=== PATIENT | male | born 1940 | race Caucasian/White ===

== ENCOUNTER → 2016-12-31 | Outpatient (CLI) | payer BC ==
[~2016-12-31] MED LIST: ADVIN25050 INH; AGG PO; ATOR-22 PO; AVDUNK; DSY50 PO; NTRGSL/4 UT
--- NOTE | 2016-12-31 11:46 | DIAGNOSTIC IMAGING REPORT ---
MRI LUMBAR SPINE W/O CONTRAST CLINICAL HISTORY: Low back pain with left leg weakness and numbness. TECHNIQUE: Sagittal and axial T1, T2 and STIR images were obtained. COMPARISON STUDY: No previous studies for comparison. OBSERVATIONS: The vertebral bodies and posterior elements appear intact. There is no abnormal bony signal present to suggest a marrow replacement process. L1-2: No disc protrusions or extrusions. No evidence of spinal canal or neural foraminal compromise. L2-3: There is a mild circumferential disc bulge. There is mild spinal stenosis. There is no significant foraminal narrowing. L3-4: There is a minimal circumferential disc bulge. There is a slight triangle configuration of the thecal sac but significant spinal stenosis. The present. There is no evidence of foraminal narrowing. L4-5: There is a moderate extruded left-sided disc herniation. This abuts and likely impinges on the left L5 nerve root. There is deformity of the left anterior aspect of the thecal sac. L5-S1: There is a small central disc protrusion. There is no significant thecal sac deformity. There is no significant spinal or foraminal stenosis. The conus medullaris and cauda equina appear normal. There is an infrarenal abdominal aortic aneurysm measuring 32 mm. IMPRESSION: 1. Moderate left-sided disc extrusion at the L4-5 level with deformity of the left anterior aspect the thecal sac, and probable impingement on the left L5 nerve root 2. Mild circumferential disc bulge and mild spinal stenosis at the L2-3 level 3. Small central disc protrusion at the L5-S1 level, but no evidence of associated thecal sac deformity 4. 32 mm infrarenal abdominal aortic aneurysm. Electronically signed by: Toi Forte M.D. 12/31/2016 11:44 AM Dictated Date/Time: 12/31/2016 11:37 AM
== END | disposition home or self-care (01) ==
LOC: C.MRI 10:46
PROVIDERS: ATTEND Family Medicine
DX: M21.40 Flat foot [pes planus] (acquired), unspecified foot (principal); M79.1 Myalgia; M51.16 Intervertebral disc disorders with radiculopathy, lumbar region; I71.4 Abdominal aortic aneurysm, without rupture

== ENCOUNTER → 2018-01-14 | Outpatient (CLI) | payer BC ==
--- NOTE | 2018-01-14 13:23 | DIAGNOSTIC IMAGING REPORT ---
R EXTREMITY NONVASCULAR LIMITED CLINICAL HISTORY: 77 years-old Male presenting with RT AXILLARY SWOLLEN LYMPH NODE, history of open wound on right forearm. TECHNIQUE: Real-time grayscale and limited color Doppler ultrasound imaging of the right axilla was performed for a focused evaluation at the site of clinical concern. Color Doppler ultrasound imaging was also performed. COMPARISON: None. FINDINGS: At the site of clinical concern in the right axilla a 4.3 x 4.9 x 1.7 cm isoechoic ovoid mass with a fatty hilum is most consistent with a lymph node. There is symmetric diffuse cortical thickening. The fatty hilum is maintained. The margins of the node are well-defined. No hyperemia. No associated fluid or inflammatory change. IMPRESSION: 1. Enlarged right axillary lymph node is most likely reactive. A follow-up ultrasound in 4-6 weeks is recommended to confirm stability or resolution. Electronically signed by: Mynor Olea M.D. 01/14/2018 1:22 PM Dictated Date/Time: 01/14/2018 1:20 PM
== END | disposition home or self-care (01) ==
LOC: C.ULTR 12:40
PROVIDERS: ATTEND Student in an Organized Health Care Education/Training Program
DX: R59.0 Localized enlarged lymph nodes (principal)

== ENCOUNTER 2022-08-10 20:45 | Observation (INO) ==
[2022-08-10] MEDS ORDERED: ASPIRIN CHEW 324 MG PO STA (20:57)
[2022-08-10] MEDS ORDERED: SODIUM CHLORIDE 0.9% 500 ML IV STA (20:57)
[2022-08-10] MEDS: NITROGLYCERIN SL 0.4 MG/TAB TAB SL PRN ×3 (21:04→21:25)
[2022-08-10 21:28] LABS: Partial Thromboplastin Ratio 0.8; Partial Thromboplastin Time 22.5 Seconds (21.0-31.0); Prothrombin Time 11.1 Seconds (9.0-12.0)
[2022-08-10 21:35] LABS: D Dimer 2250 ug/L FEU (0-500)
[2022-08-10 21:37] LABS: BUN Creatinine Ratio 25.7 (10-20); Calcium 9.7 mg/dl (8.5-10.1); Creatinine Clr Calc Pharmacy 60.4 ml/min; Est GFR (African American) 76.8 ml/min; Est GFR (Non-African American) 66.3 ml/min; Potassium 3.9 mmol/L (3.5-5.1)
[2022-08-10 21:40] LABS: Troponin I High Sensitivity 13.6 pg/ml (0-20)
--- NOTE | 2022-08-10 21:42 | Emergency Department Note ---
History of Present Illness General Chief Complaint: Chest Pain Stated Complaint: CHEST PAINS, BACK PAIN, SOB, INDISGETION Time Seen by Provider: 08/10/22 20:52 History of Present Illness Provider Complaint: chest pain Time: 16:30 Duration: constant Onset: during rest Pain Location: substernal, left chest and right chest Pain Radiation: none Maximum Pain Intensity: 8 Current Pain Intensity: 8 Quality: + aching and + heaviness Relieved By: + nothing Exacerbated By: + nothing Context: + recent travel; no recent illness, no recent surgery or no trauma/injury Associated symptoms: no nausea, no diaphoresis, no dyspnea, no syncope, no palpitations, no fever or no cough Treatments prior to arrival: none Home Medications Medication Instructions Recorded Confirmed Type aspirin 25 mg-dipyridamole 200 mg 1 cap PO BID 02/16/22 07/22/22 History capsule,ext.release 12 hr multiphase atorvastatin 10 mg tablet 10 mg PO PM 02/16/22 07/22/22 History cholecalciferol (vitamin D3) 25 25 mcg PO PM 02/16/22 07/22/22 History mcg (1,000 unit) tablet (Vitamin D3) cyanocobalamin (vitamin B-12) 1,000 mcg PO PM 02/16/22 07/22/22 History 1,000 mcg tablet (Vitamin B-12) dutasteride 0.5 mg capsule 0.5 mg PO PM 02/16/22 07/22/22 History empagliflozin 25 mg tablet 25 mg PO QAM 02/16/22 07/22/22 History (Jardiance) losartan 50 mg tablet 25 mg PO BID 02/16/22 07/22/22 History sitagliptin 50 mg-metformin ER 1 tab PO BID 02/16/22 07/22/22 History 1,000 mg tablet,extended release 24h mp (Janumet XR) trazodone 50 mg tablet 100 mg PO HS 02/16/22 07/22/22 History ibuprofen 200 mg tablet 200 - 600 mg PO Q6H PRN Pain 03/28/22 07/22/22 History acetaminophen 500 mg tablet 1,000 mg PO Q6H PRN Pain 04/02/22 07/22/22 History ciprofloxacin HCl 500 mg tablet 500 mg PO BID #6 tabs 04/02/22 07/22/22 Rx (Cipro) tamsulosin 0.4 mg capsule 0.4 mg PO DAILY #30 caps 05/07/22 07/22/22 Rx Allergies Allergy/AdvReac Type Severity Reaction Status Date / Time grass pollen Allergy runny, Verified 07/22/22 11:16 watery eyes mold Allergy runny, Verified 07/22/22 11:16 watery eyes ragweed pollen Allergy runny, Verified 07/22/22 11:16 watery eyes semaglutide [From Rybelsus] Allergy diarrhea, Verified 07/22/22 11:16 GERD Past Med/Surg History Medical History Asthma pt denies COPD (chronic obstructive pulmonary disease) pt denies Diabetes mellitus, type 2 Diverticulosis Family hx of colon cancer Family hx of prostate cancer History of adenomatous polyp of colon History of TIA (transient ischemic attack) 20 yrs ago > no residual effects > Aggrenox Hyperlipidemia Hypertension Polycythemia Right tennis elbow Tubular adenoma Surgical History H/O vasectomy History of cataract surgery bilat History of colonoscopy History of tooth extraction Family History Daughter Asthma Mother Bone cancer Breast cancer Father COPD (chronic obstructive pulmonary disease) Grandmother (Maternal) Colon cancer Grandfather (Maternal) Colon cancer Uncle Colon cancer Brother Pheochromocytoma Colonic polyp Prostate cancer Sleep apnea Son Sleep apnea Social History Smoking Status: Never smoker Second Hand Exposure: No; Hx Alcohol Use: No Hx Substance Use: No Preferred Language: [place] Leonean Communication Ability: Effective Egg Crater Required: No Beliefs That Will Affect Care: None Current Living Situation: Alone Feels Safe at Home: Yes Assistive Devices: Denture - Upper and Glasses Review of Systems A total of 10 systems reviewed and were otherwise negative Physical Exam Vital Signs Vital Signs - 24 hr 08/10/22 20:46 08/10/22 21:09 08/10/22 21:09 Temperature 36.8 C Temperature Source Temporal Artery Scan Pulse Rate 120 H 122 H Pulse Rate [Apical] 122 H Pulse Rhythm Regular Pulse Strength Normal Respiratory Rate 20 19 Respiratory Effort / Characteristics Non-Labored Spontaneous Respiratory Depth Normal Blood Pressure 139/69 Blood Pressure [Left Arm] 144/76 H Blood Pressure Mean 92 Blood Pressure Mean [Left Arm] 98 Blood Pressure Position Sitting Pulse Oximetry 95 96 94 Oxygen Delivery Method Room Air Room Air Room Air Sepsis Recent Fever Within 48 Hours No Sepsis New/Unexplained Change in Mental Status N/A Sepsis Action Taken by Nursing No Action Required 08/10/22 21:10 08/10/22 21:18 08/10/22 21:26 Temperature Temperature Source Pulse Rate Pulse Rate [Apical] 120 H 120 H Pulse Rhythm Pulse Strength Respiratory Rate 17 23 Respiratory Effort / Characteristics Respiratory Depth Blood Pressure Blood Pressure [Left Arm] 128/74 145/71 H Blood Pressure Mean Blood Pressure Mean [Left Arm] 92 95 Blood Pressure Position Pulse Oximetry 94 94 93 Oxygen Delivery Method Room Air Room Air Room Air Sepsis Recent Fever Within 48 Hours Sepsis New/Unexplained Change in Mental Status Sepsis Action Taken by Nursing 08/10/22 21:33 08/10/22 22:14 Temperature Temperature Source Pulse Rate Pulse Rate [Apical] 114 H 110 H Pulse Rhythm Pulse Strength Respiratory Rate 21 19 Respiratory Effort / Characteristics Respiratory Depth Blood Pressure Blood Pressure [Left Arm] 128/68 137/66 Blood Pressure Mean Blood Pressure Mean [Left Arm] 88 89 Blood Pressure Position Pulse Oximetry 93 92 Oxygen Delivery Method Room Air Room Air Sepsis Recent Fever Within 48 Hours Sepsis New/Unexplained Change in Mental Status Sepsis Action Taken by Nursing Physical Exam GENERAL: He is oriented to person, place, and time. He appears well-developed and well-nourished. He does not appear distressed. HENT: Exam performed. - Head: Normocephalic and atraumatic. - Right Ear: External ear normal. No mastoid tenderness. - Left Ear: External ear normal. No mastoid tenderness. - Mouth/Throat: The oropharynx is clear and moist. No trismus in the jaw. No dental abscesses or uvula swelling. No oropharyngeal exudate or tonsillar abscesses. EYES: Conjunctivae and EOM are normal. Pupils are equal, round, and reactive to light. Right eye exhibits no discharge. Left eye exhibits no discharge. No scleral icterus. NECK: Normal range of motion. Neck supple. No JVD present. No spinous process tenderness present. No carotid bruit present. No rigidity. No tracheal deviation and normal range of motion present. No Brudzinski's sign and no Kernig's sign noted. CV: Normal rate, regular rhythm, normal heart sounds and intact distal pulses. There is no peripheral edema. Palpable radial pulses bue. PULM/CHEST: Effort normal and breath sounds normal. No respiratory distress. No stridor. He has no wheezes. He has no rales. - Chest Wall: He exhibits no tenderness. ABD: The abdomen is soft. Bowel sounds are normal. He has no distension. No mass is present. There is no tenderness. There is no rebound, no guarding, no Alves's sign and no tenderness at McBurney's point. Rovsig negative. MUSC/SKEL: Normal range of motion. There is no peripheral edema, tenderness or deformity. LYMPH: No cervical adenopathy. NEURO: He is alert and oriented to person, place, and time. He has normal strength. No cranial nerve deficit or sensory deficit. Coordination and gait normal. GCS eye subscore is 4. GCS verbal subscore is 5. GCS motor subscore is 6. Cerebellar tests wnl. SKIN: Skin is warm and dry. He is not diaphoretic. PSYCH: He has a normal mood and affect. Behavior is normal. Judgment and thought content normal. Course Course 2051: The patient was evaluated in room B2. A complete history and physical exam was performed Cardiac monitoring: An order was placed for continuous cardiac monitoring. The monitor shows a rate of 120 with sinus tachycardia rhythm 2115: Vital signs stable. Patient's chest pain improved with 1 sublingual nitro from 8/10 to 5/10. EKG does show new ST depressions leads I to V4 through V6. There is also some mild ST elevation in lead aVR. Her EKG negative. Repeat EKG was stable with no dynamic changes. Discussed the case with Dr. Cai reviewed all 3 EKGs. He stated to control the pain since pain and see what his cardiac enzymes are. He states that if the patient's pain is unable to be controlled or if his cardiac enzymes come back very high he can perform a catheterization tonight otherwise the patient can be evaluated for catheterization in the morning. 2231: Vital signs stable. Patient reports his pain is under control after receiving sublingual nitroglycerin and Tylenol for his back pain. Patient's troponin negative. Patient's D-dimer was elevated CTA of the chest negative for PE or infiltrate. [facility] and resident notified. Administered Medications Nitroglycerin (Nitroglycerin Sl 0.4 Mg/Tab Tab) 0.4 mg SL UD PRN PRN Reason: Chest Pain Stop: 09/09/22 20:56 Last Admin: 08/10/22 21:25 Dose: 0.4 mg Documented By: Admin: 08/10/22 21:13 Dose: 0.4 mg Documented By: Admin: 08/10/22 21:04 Dose: 0.4 mg Documented By: SARAI Discontinued Medications Acetaminophen (Acetaminophen 500 Mg Tab) 1,000 mg PO NOW STA Stop: 08/10/22 22:04 Last Admin: 08/10/22 22:07 Dose: 1,000 mg Documented By: SHANNAN Aspirin (Aspirin Chew 324 Mg) 324 mg PO NOW STA Stop: 08/10/22 20:58 Last Admin: 08/10/22 21:04 Dose: 324 mg Documented By: SARAI Sodium Chloride (Nss) 500 mls @ 999 mls/hr IV .Q31M STA Stop: 08/10/22 21:27 Last Infusion: 08/10/22 21:36 Dose: 0 mls/hr Documented By: Admin: 08/10/22 21:04 Dose: 999 mls/hr Documented By: SARAI Ioversol (Optiray 300 500ml) 115 ml IV ONCE ONE Stop: 08/10/22 21:48 Last Admin: 08/10/22 21:49 Dose: 115 ml Documented By: JOSEPHINE Medical Decision Making Laboratory Data Result diagrams: 08/10/22 21:00 08/10/22 21:00 Labs: Lab Results 08/10/22 08/10/22 08/10/22 Range/Units 21:00 21:00 21:00 WBC 10.22 (4.8-10.8) K/ul RBC 4.92 (4.63-6.08) M/uL Hgb 15.6 (14.0-18.0) g/dl Hct 43.0 (40.1-51.0) % MCV 87.4 (80.0-100.0) fL MCH 31.7 (25.0-34.0) pg MCHC 36.3 H (32.0-36.0) g/dL RDW Std Deviation 40.3 (36.4-46.3) fL RDW Coeff of Damari 12.7 (11.5-14.5) % Plt Count 221 (130-400) K/uL MPV 9.4 (9.4-12.4) fL PT 11.1 (9.0-12.0) Seconds INR 1.0 (0.9-1.1) APTT 22.5 (21.0-31.0) Seconds PTT Ratio 0.8 D-Dimer 2250 H* (0-500) ug/L FEU Sodium 139 (136-145) mmol/L Potassium 3.9 (3.5-5.1) mmol/L Chloride 106 (98-107) mmol/L Carbon Dioxide 23 (21-32) mmol/L Anion Gap 10 (3-11) BUN 27 H (6-23) mg/dl Creatinine 1.05 (0.6-1.4) mg/dl Est Cr Clr Drug Dosing 60.4 ml/min Est GFR ( Amer) 76.8 ml/min Est GFR (Non-Af Amer) 66.3 ml/min BUN/Creatinine Ratio 25.7 H (10-20) Glucose 297 H (70-99(Fasting)) mg/dl Calcium 9.7 (8.5-10.1) mg/dl Troponin I High Sens 13.6 (0-20) pg/ml Lipase 56 (11-82) U/L Imaging Data CT scan - chest: Radiologist's impression: CT ANGIOGRAM OF THE CHEST CLINICAL HISTORY: Atypical chest pain. Thoracic back pain. COMPARISON STUDY: Chest x-ray dated 08/10/2022. TECHNIQUE: Following the IV administration of 115 cc of Optiray 300, CT angiogram of the chest was performed from the upper abdomen to the thoracic inlet utilizing the pulmonary embolus protocol. Images are reviewed in the axial, sagittal, and coronal planes. 3-D MIPS images are created and assessed. IV contrast was administered without complication. A dose lowering technique was utilized adhering to the principles of ALARA. CT DOSE: 969.19 mGy.cm FINDINGS: Thyroid: Imaged portions of the thyroid gland are normal in size and attenuation. Thoracic aorta: There is atherosclerotic calcification of the thoracic aorta, which is normal in caliber and demonstrates standard 3-vessel arch anatomy. No dissection is seen. Pulmonary vasculature: The pulmonary trunk is dilated, measuring 3.9 cm in di ameter. This suggests pulmonary artery hypertension. There are no filling defects identified in main, lobar, or segmental pulmonary branches to suggest pulmonary embolus. Heart: The heart is top normal in size and without pericardial effusion. There are coronary artery calcifications. Lungs and pleural spaces: Evaluation of the lung parenchyma is modestly degraded by motion artifact. No airspace consolidation or pleural effusion is identified. Scattered calcified granulomas are noted. Scarring/atelectasis is seen at the lung bases. The trachea and central airways are clear. Mediastinum: There is no mediastinal lymphadenopathy. Marisa: Clear. Axillae: There is no axillary lymphadenopathy. Upper abdomen: Partially visualized upper abdominal viscera is within normal limits. Skeletal structures: The skeletal structures are osteopenic. Degenerative change and hyperkyphosis is noted in the thoracic spine. No lytic or blastic bony lesions are seen. IMPRESSION: 1. There is no evidence of pulmonary embolus in the main, lobar, or segmental pulmonary arteries. 2. There is no airspace consolidation or pleural effusion. 3. Additional findings as above. ACT 112: Negative or not required by law. Electronically signed by: Cristo Velasco M.D. 08/10/2022 10:06 PM Dictated:08/10/222158 Transcribed: 08/10/222158 Chest x-ray: Radiologist's impression: SINGLE VIEW CHEST CLINICAL HISTORY: Atypical chest pain. FINDINGS: An AP, portable, upright chest radiograph is compared to study dated 03/14/2022. The examination is degraded by portable technique and apical lordotic positioning. The heart is mildly enlarged noting atherosclerotic calcification of the thoracic aorta. The pulmonary vascularity is noncongested. Chronic interstitial thickening is similar to previous. Scarring/atelectasis is noted the lung bases. The lungs and pleural spaces are otherwise clear. There are scattered calcified granulomas. No pneumothorax is seen. The skeletal structures are osteopenic. The bony thorax is grossly intact. IMPRESSION: Cardiomegaly with no acute cardiopulmonary abnormality. ACT 112: Negative or not required by law. Electronically signed by: Cristo Velasco M.D. 08/10/2022 9:48 PM Dictated:08/10/222146 Transcribed: 08/10/222146 [facility] Narrative 2051: The patient was evaluated in room B2. A complete history and physical exam was performed Cardiac monitoring: An order was placed for continuous cardiac monitoring. The monitor shows a rate of 120 with sinus tachycardia rhythm 2115: Vital signs stable. Patient's chest pain improved with 1 sublingual nitro from 06/19 to 03/19. EKG does show new ST depressions leads I to V4 through V6. There is also some mild ST elevation in lead aVR. Her EKG negative. Repeat EKG was stable with no dynamic changes. Discussed the case with Dr. Cai reviewed all 3 EKGs. He stated to control the pain since pain and see what his cardiac enzymes are. He states that if the patient's pain is unable to be controlled or if his cardiac enzymes come back very high he can perform a catheterization tonight otherwise the patient can be evaluated for catheterization in the morning. 2231: Vital signs stable. Patient reports his pain is under control after receiving sublingual nitroglycerin and Tylenol for his back pain. Patient's troponin negative. Patient's D-dimer was elevated CTA of the chest negative for PE or infiltrate. Patient will be admitted to [facility] hospitalist te jinny Garcia's team and resident notified. Impression & Plan Chest pain Discharge Plan Visit Data Chief Complaint: Chest Pain Stated Complaint: CHEST PAINS, BACK PAIN, SOB, INDISGETION ED Provider: Octavio Street Discharge Problem: Chest pain Patient Disposition: Being Evaluated by Hospitalist Forms Stand Alone Forms: My [facility] Prescriptions Prescriptions: No Action tamsulosin 0.4 mg capsule 0.4 mg PO DAILY Qty: 30 5RF aspirin-dipyridamole 25-200 mg capsule, ER multiphase 12 hr 1 cap PO BID trazodone 50 mg tablet 100 mg PO HS atorvastatin 10 mg tablet 10 mg PO PM dutasteride 0.5 mg capsule 0.5 mg PO PM Janumet XR 50-1,000 mg tablet, ER multiphase 24 hr 1 tab PO BID Jardiance 25 mg tablet 25 mg PO QAM losartan 50 mg tablet 25 mg PO BID cyanocobalamin (vitamin B-12) [Vitamin B-12] 1,000 mcg Tablet 1,000 mcg PO PM cholecalciferol (vitamin D3) [Vitamin D3] 25 mcg (1,000 unit) Tablet 25 mcg PO PM ibuprofen 200 mg Tablet 200 - 600 mg PO Q6H PRN (Reason: Pain) acetaminophen 500 mg Tablet 1,000 mg PO Q6H PRN (Reason: Pain) ciprofloxacin HCl [Cipro] 500 mg tablet 500 mg PO BID Qty: 6 0RF Referrals Referrals: James Martinez MD [Primary Care Provider] -
[2022-08-10] MEDS ORDERED: OPTIRAY 300 500mL IV ONE (21:47)
--- NOTE | 2022-08-10 21:49 | XRay Report ---
SINGLE VIEW CHEST CLINICAL HISTORY: Atypical chest pain. FINDINGS: An AP, portable, upright chest radiograph is compared to study dated 03/14/2022. The examinat ion is degraded by portable technique and apical lordotic positioning. The heart is mildly enlarged n oting atherosclerotic calcification of the thoracic aorta. The pulmonary vascularity is noncongested. Chronic interstitial thickening is similar to previous. Scarring/atelectasis is noted the lung bases . The lungs and pleural spaces are otherwise clear. There are scattered calcified granulomas. No pneu mothorax is seen. The skeletal structures are osteopenic. The bony thorax is grossly intact. IMPRESSION: Cardiomegaly with no acute cardiopulmonary abnormality. ACT 112: Negative or not required by law. Electronically signed by: Cristo Velasco M.D. 08/10/2022 9:48 PM
[2022-08-10 22:03] LABS: Hemoglobin 15.6 g/dl (14.0-18.0); Mean Corpuscular Hemoglobin 31.7 pg (25.0-34.0); Mean Corpuscular Hgb Conc 36.3 g/dL (32.0-36.0); Mean Corpuscular Volume 87.4 fL (80.0-100.0); Mean Platelet Volume 9.4 fL (9.4-12.4); Platelet Count 221 K/uL (130-400); RDW Coefficient of Variation 12.7 % (11.5-14.5); RDW Standard Deviation 40.3 fL (36.4-46.3); Red Blood Count 4.92 M/uL (4.63-6.08); White Blood Count 10.22 K/ul (4.8-10.8)
[2022-08-10] MEDS ORDERED: ACETAMINOPHEN 500 MG TAB PO STA (22:03)
--- NOTE | 2022-08-10 22:08 | CT Scan Report ---
CT ANGIOGRAM OF THE CHEST CLINICAL HISTORY: Atypical chest pain. Thoracic back pain. COMPARISON STUDY: Chest x-ray dated 08/10/2022. TECHNIQUE: Following the IV administration of 115 cc of Optiray 300, CT angiogram of the chest was pe rformed from the upper abdomen to the thoracic inlet utilizing the pulmonary embolus protocol. Images are reviewed in the axial, sagittal, and coronal planes. 3-D MIPS images are created and assessed. I V contrast was administered without complication. A dose lowering technique was utilized adhering to the principles of ALARA. CT DOSE: 969.19 mGy.cm FINDINGS: Thyroid: Imaged portions of the thyroid gland are normal in size and attenuation. Thoracic aorta: There is atherosclerotic calcification of the thoracic aorta, which is normal in roberth marylu and demonstrates standard 3-vessel arch anatomy. No dissection is seen. Pulmonary vasculature: The pulmonary trunk is dilated, measuring 3.9 cm in diameter. This suggests pu lmonary artery hypertension. There are no filling defects identified in main, lobar, or segmental pul monary branches to suggest pulmonary embolus. Heart: The heart is top normal in size and without pericardial effusion. There are coronary artery ca lcifications. Lungs and pleural spaces: Evaluation of the lung parenchyma is modestly degraded by motion artifact. No airspace consolidation or pleural effusion is identified. Scattered calcified granulomas are noted . Scarring/atelectasis is seen at the lung bases. The trachea and central airways are clear. Mediastinum: There is no mediastinal lymphadenopathy. Marisa: Clear. Axillae: There is no axillary lymphadenopathy. Upper abdomen: Partially visualized upper abdominal viscera is within normal limits. Skeletal structures: The skeletal structures are osteopenic. Degenerative change and hyperkyphosis is noted in the thoracic spine. No lytic or blastic bony lesions are seen. IMPRESSION: 1. There is no evidence of pulmonary embolus in the main, lobar, or segmental pulmonary arteries. 2. There is no airspace consolidation or pleural effusion. 3. Additional findings as above. ACT 112: Negative or not required by law. Electronically signed by: Cristo Velasco M.D. 08/10/2022 10:06 PM
[2022-08-10 22:49] LABS: Basophils # (auto) 0.02 K/uL (0-0.2); Basophils % (auto) 0.2 %; Eosinophils # (auto) 0.01 K/uL (0-0.50); Eosinophils % (auto) 0.1 %; Immature Granulocytes # (auto) 0.03 K/uL (0.00-0.02); Immature Granulocytes % (auto) 0.3 %; Lymphocytes # (auto) 0.44 K/uL (1.2-3.4); Lymphocytes % (auto) 4.3 %; Monocytes # (auto) 0.21 K/uL (0.24-0.82); Monocytes % (auto) 2.1 %; Neutrophils # (auto) 9.51 K/uL (1.4-6.5)
--- NOTE | 2022-08-10 23:41 | History & Physical Report ---
Date of Service August 10, 2022 Assessment & Plan (1) ACS (acute coronary syndrome): Plan: Patient is an 82 yo male with PMHx of transitional cell carcinoma, asthma, HLD, and HTN admitted to [facility] on 08/10/22 with unstable angina. Unstable angina - Admit to tele - Start low-dose heparin gtt w/ bolus - Increase statin to high-intensity with atorvastatin 40mg (was on 10mg atorvastatin daily at home) - IV lopressor 5mg given w/ benefit, will start metoprolol succinate 12.5mg - Continue home losartan - Continue home Aggrenox 200mg/25mg for now - IVF with NSS at 125 cc/hr - Check echo - EKG as indicated for c/o chest pain - Zofran 4mg IV q6h prn - Nitroglycerin prn - Tylenol prn - Trend troponin - NPO in preparation for possible procedure - Cardiology consulted Hyperlipidemia - Statin increased as noted above - Fasting lipid profile ordered for tomorrow AM HTN - Continue home ARB for now DM - Home Janumen and Jardiance held on admission - Check A1c - Glycemic consult ordered Vit B12 Deficiency, history of - Continue home Vit B12 1,000 mcg po qpm FENGI: NPO, IVF NSS at 125 cc/hr DVT ppx: Heparin gtt Dispo: Admit to tele Code status: FULL CODE (2) Chest pain: (3) Diabetes mellitus with renal complications: (4) Mixed hyperlipidemia: (5) Vitamin B12 deficiency: History of Present Illness Chief Complaint: chest pain Primary Care Provider: James Martinez MD Mr. Fink is an 82 yo male with PMHx of transitional cell carcinoma, asthma, DM, and HLD who presented to the ER today with chest pain and back pain. Pain started at 1630 while he was sitting at home watching the [employer], [employer] football game. Pain was rated at an 8/10 and described as a heaviness/achiness. Pain is exacerbated with deep inspiration; it is improved with rest. He also had nausea, which has since resolved; there was no associated emesis. There is no associated SOB. Patient denies hx of similar episodes. In the ED, patient states that CP has improved to a 3/10 and back pain has improved to a 6/10 with nitro and ASA. Labs show no leukocytosis, no anemia. INR 1.0. D-dimer elevated at 2250. E lectrolytes are wnl. Cr is at baseline of 1.05. Initial HS-troponin negative. COVID negative. CXR with cardiomegaly but no acute cardiopulmonary abnormalities. Chest CTA w/o evidence of PE. EKG does reveal significant ST changes with both ST depressions and elevations. Interventional cardiology was consulted; heart alert was NOT activated. Patient will be admitted for continued monitoring and cardiology evaluation. Update on admission: patient re-evaluated and states that he is now pain free. Will continue to monitor. Allergies Allergy/AdvReac Type Severity Reaction Status Date / Time grass pollen Allergy runny, Verified 08/11/22 00:12 watery eyes mold Allergy runny, Verified 08/11/22 00:12 watery eyes ragweed pollen Allergy runny, Verified 08/11/22 00:12 watery eyes semaglutide [From Rybelsus] Allergy diarrhea, Verified 08/11/22 00:12 GERD Home Medications Medication Instructions Recorded Confirmed Type aspirin 25 mg-dipyridamole 200 mg 1 cap PO BID 02/16/22 08/11/22 History capsule,ext.release 12 hr multiphase atorvastatin 10 mg tablet 10 mg PO PM 02/16/22 08/11/22 History cholecalciferol (vitamin D3) 25 50 mcg PO PM 02/16/22 08/11/22 History mcg (1,000 unit) tablet (Vitamin D3) cyanocobalamin (vitamin B-12) 2,000 mcg PO PM 02/16/22 08/11/22 History 1,000 mcg tablet (Vitamin B-12) dutasteride 0.5 mg capsule 0.5 mg PO PM 02/16/22 08/11/22 History empagliflozin 25 mg tablet 25 mg PO QAM 02/16/22 08/11/22 History (Jardiance) losartan 50 mg tablet 25 mg PO BID 02/16/22 08/11/22 History sitagliptin 50 mg-metformin ER 1 tab PO BID 02/16/22 08/11/22 History 1,000 mg tablet,extended release 24h mp (Janumet XR) trazodone 50 mg tablet 100 mg PO HS 02/16/22 08/11/22 History ibuprofen 200 mg tablet 200 - 600 mg PO Q6H PRN Pain 03/28/22 08/11/22 History tamsulosin 0.4 mg capsule 0.4 mg PO DAILY #30 caps 05/07/22 08/11/22 Rx fexofenadine 180 mg tablet 180 mg PO DAILY 08/11/22 08/11/22 History fluticasone propionate 50 2 spray intranasal DAILY 08/11/22 08/11/22 History mcg/actuation nasal spray,suspension (Flonase Allergy Relief) Past Med/Surg History Medical History (Updated 08/11/22 @ 18:22 by Andrew Norman DO) Asthma pt denies COPD (chronic obstructive pulmonary disease) pt denies Diabetes mellitus, type 2 Diverticulosis Family hx of colon cancer Family hx of prostate cancer History of adenomatous polyp of colon History of TIA (transient ischemic attack) 20 yrs ago > no residual effects > Aggrenox Hyperlipidemia Hypertension Polycythemia Right tennis elbow Tubular adenoma Surgical History H/O vasectomy History of cataract surgery bilat History of colonoscopy History of tooth extraction Family History Daughter Asthma Mother Bone cancer Breast cancer Father COPD (chronic obstructive pulmonary disease) Grandmother (Maternal) Colon cancer Grandfather (Maternal) Colon cancer Uncle Colon cancer Brother Pheochromocytoma Colonic polyp Prostate cancer Sleep apnea Son Sleep apnea Social History Smoking Status: Never smoker Second Hand Exposure: No; Hx Alcohol Use: No Hx Substance Use: No Preferred Language: Andorran Communication Ability: Effective Special Agent In Charge Required: No Beliefs That Will Affect Care: None Current Living Situation: Alone Other Information That Helps Us Care for You: No Feels Safe at Home: Yes Safety Concerns: Feels Safe At This Time Assistive Devices: None Review of Systems Review of Systems: See HPI Physical Exam Physical Exam: GENERAL: Elderly male, appears stated age, laying in bed in no acute distress. Well developed and well nourished. Vital signs reviewed. EYES: PERRL. EOMI. Anicteric sclerae. HENT: Moist mucous membranes. No pharyngeal erythema or exudates. TMs clear w/o bulging or erythema; good cone of light. RESPIRATORY: Clear to auscultation bilaterally. No wheezing, rales, or rhonchi. CARDIOVASCULAR: Tachycardic. Regular rhythm. No JVD. ABDOMEN: Soft. Non-tender. Normal bowel sounds. EXTREMITIES: No edema. Non-tender. SKIN: Warm, dry. NEUROLOGIC: A/O x3. Normal speech. No focal neurological deficits. 5/5 strength in BUE and BLE. PSYCHIATRIC: Cooperative. Appropriate mood and affect. Results & Data Results & Data ([facility]) Vital Signs (Past 12 Hours) Vital Signs Temp Pulse Pulse Resp BP BP Pulse Ox 08/10/22 22:55 111 H 20 121/69 94 08/10/22 22:34 112 H 19 132/67 92 08/10/22 22:14 110 H 19 137/66 92 08/10/22 21:33 114 H 21 128/68 93 08/10/22 21:26 120 H 23 145/71 H 93 08/10/22 21:18 120 H 17 128/74 94 08/10/22 21:10 94 08/10/22 21:09 122 H 19 144/76 H 94 08/10/22 21:09 122 H 96 08/10/22 20:46 36.8 C 120 H 20 139/69 95 O2 Del Method 08/10/22 22:55 Room Air 08/10/22 22:34 Room Air 08/10/22 22:14 Room Air 08/10/22 21:33 Room Air 08/10/22 21:26 Room Air 08/10/22 21:18 Room Air 08/10/22 21:10 Room Air 08/10/22 21:09 Room Air 08/10/22 21:09 Room Air 08/10/22 20:46 Room Air Laboratory Results 08/10/22 08/10/22 08/10/22 Range/Units 22:02 21:00 21:00 WBC (4.8-10.8) K/ul RBC (4.63-6.08) M/uL Hgb (14.0-18.0) g/dl Hct (40.1-51.0) % MCV (80.0-100.0) fL MCH (25.0-34.0) pg MCHC (32.0-36.0) g/dL RDW Std Deviation (36.4-46.3) fL RDW Coeff of Damari (11.5-14.5) % Plt Count (130-400) K/uL MPV (9.4-12.4) fL Immature Gran % (Auto) % Neut % (Auto) % Lymph % (Auto) % [place] % (Auto) % Eos % (Auto) % Baso % (Auto) % Neut # (Auto) (1.4-6.5) K/uL Lymph # (Auto) (1.2-3.4) K/uL [place] # (Auto) (0.24-0.82) K/uL Eos # (Auto) (0-0.50) K/uL Baso # (Auto) (0-0.2) K/uL Immature Gran # (Auto) (0.00-0.02) K/uL PT 11.1 (9.0-12.0) Seconds INR 1.0 (0.9-1.1) APTT 22.5 (21.0-31.0) Seconds PTT Ratio 0.8 D-Dimer 2250 H* (0-500) ug/L FEU Sodium 139 (136-145) mmol/L Potassium 3.9 (3.5-5.1) mmol/L Chloride 106 (98-107) mmol/L Carbon Dioxide 23 (21-32) mmol/L Anion Gap 10 (3-11) BUN 27 H (6-23) mg/dl Creatinine 1.05 (0.6-1.4) mg/dl Est Cr Clr Drug Dosing 60.4 ml/min Est GFR ( Amer) 76.8 ml/min Est GFR (Non-Af Amer) 66.3 ml/min BUN/Creatinine Ratio 25.7 H (10-20) Glucose 297 H (70-99(Fasting)) mg/dl Calcium 9.7 (8.5-10.1) mg/dl Troponin I High Sens 13.6 (0-20) pg/ml Lipase 56 (11-82) U/L SARS-CoV-2, RNA, NAAT NEGATIVE (NEGATIVE) 08/10/22 Range/Units 21:00 WBC 10.22 (4.8-10.8) K/ul RBC 4.92 (4.63-6.08) M/uL Hgb 15.6 (14.0-18.0) g/dl Hct 43.0 (40.1-51.0) % MCV 87.4 (80.0-100.0) fL MCH 31.7 (25.0-34.0) pg MCHC 36.3 H (32.0-36.0) g/dL RDW Std Deviation 40.3 (36.4-46.3) fL RDW Coeff of Damari 12.7 (11.5-14.5) % Plt Count 221 (130-400) K/uL MPV 9.4 (9.4-12.4) fL Immature Gran % (Auto) 0.3 % Neut % (Auto) 93.0 % Lymph % (Auto) 4.3 % [place] % (Auto) 2.1 % Eos % (Auto) 0.1 % Baso % (Auto) 0.2 % Neut # (Auto) 9.51 H (1.4-6.5) K/uL Lymph # (Auto) 0.44 L (1.2-3.4) K/uL [place] # (Auto) 0.21 L (0.24-0.82) K/uL Eos # (Auto) 0.01 (0-0.50) K/uL Baso # (Auto) 0.02 (0-0.2) K/uL Immature Gran # (Auto) 0.03 H (0.00-0.02) K/uL PT (9.0-12.0) Seconds INR (0.9-1.1) APTT (21.0-31.0) Seconds PTT Ratio D-Dimer (0-500) ug/L FEU Sodium (136-145) mmol/L Potassium (3.5-5.1) mmol/L Chloride (98-107) mmol/L Carbon Dioxide (21-32) mmol/L Anion Gap (3-11) BUN (6-23) mg/dl Creatinine (0.6-1.4) mg/dl Est Cr Clr Drug Dosing ml/min Est GFR ( Amer) ml/min Est GFR (Non-Af Amer) ml/min BUN/Creatinine Ratio (10-20) Glucose (70-99(Fasting)) mg/dl Calcium (8.5-10.1) mg/dl Troponin I High Sens (0-20) pg/ml Lipase (11-82) U/L SARS-CoV-2, RNA, NAAT (NEGATIVE) Diagnostic Findings LUIS FINK [id number]/ Allergy/Adv: grass pollen, mold, ragweed pollen, semaglutide (More) Close Chest CTA (Signed) Cristo Velasco - 08/10/22 Chest X-Ray (Signed) Cristo Velasco - 08/10/22 Endoscopy Image 04/02/22 Chest X-Ray (Signed) Cristo Velasco - 03/14/22 Renal Ultrasound (Signed) Jackson Huffman - 02/25/22 Gall Bladder Ultrasound (Signed) Geoffrey Vasquez - 02/16/22 Abdomen/Pelvis CT (Signed) Geoffrey Vasquez - 02/16/22 [employer] [place], [place] [phone] XRay Report Patient:LUIS FINK Admit Date:08/10/22 MR#:[id number] Address1:[address] Acct ID:[id number] Address2: Date:1940 [facility] Zip:[place] [address] Age:82 Location:ED Sex:M Room/Bed: Att Phy: Diagnosis:CHEST PAINS, BACK PAIN, SOB, INDISGETION Sandra Phy:James Martinez M.D. Service Date:08/10/22 [facility] Phy: Interpreting Phy:Cristo Velasco MDAdmit Phy: Ordering Phy:Octavio Street MD cc: ~ SINGLE VIEW CHEST CLINICAL HISTORY: Atypical chest pain. FINDINGS: An AP, portable, upright chest radiograph is compared to study dated 03/14/2022. The examination is degraded by portable technique and apical lordotic positioning. The heart is mildly enlarged noting atherosclerotic calcification of the thoracic aorta. The pulmonary vascularity is noncongested. Chronic interstitial thickening is similar to previous. Scarring/atelectasis is noted the lung bases. The lungs and pleural spaces are otherwise clear. There are scattered calcified granulomas. No pneumothorax is seen. The skeletal structures are osteopenic. The bony thorax is grossly intact. IMPRESSION: Cardiomegaly with no acute cardiopulmonary abnormality. ACT 112: Negative or not required by law. Electronically signed by: Cristo Velasco M.D. 08/10/2022 9:48 PM Dictated:08/10/[id number] Transcribed: 08/10/222146 Chart Viewer Orders Diagnostics Subcategory All Activity : All Time : All Subcategories Filter Laboratory Imaging Microbiology Pathology Blood Bank Tests Cardiovascular Other Specialty DATE TYPE STATUS REF RANGE/AUTHOR Hx 08/10/22 21:36 Chest CTA Signed Cristo Velasco 08/10/22 20:57 Chest X-Ray Signed Cristo Velasco 04/02/22 06:00 Endoscopy Image 03/14/22 13:59 Chest X-Ray Signed Cristo Velasco 02/25/22 14:15 Renal Ultrasound Signed Jackson Huffman 02/16/22 14:57 Gallbladder Ultrasound Signed Geoffrey Vasquez 02/16/22 14:23 Abdomen/Pelvis CT Signed Geoffrey Vasquez Thomas E Acute 82, M0/ ADM GENET,[id number] 5ft 9in 192lb 7.417oz BSA: 2.06m BMI: 28.4kg/m Acc# [id number] Full Code Allergies grass pollen runny, watery eyes mold runny, watery eyes ragweed pollen runny, watery eyes semaglutide (From Rybelsus) diarrhea, GERD Vital Signs Today 02:50 BP 112/70 Pulse 101H Resp 18 Temp 36.8 C O2 Sat 95 Delivery Room Air Problems ONSET ACS (acute coronary syndrome) Chest pain Transitional cell carcinoma Asthma Allergic rhinitis BMI 30.0-30.9,adult Carotid artery plaque COPD (chronic obstructive pulmonary disease) Diabetes mellitus with renal complications Diverticulosis Dysmetabolic syndrome X Erectile dysfunction Mild mental slowing Mixed hyperlipidemia Plantar fasciitis of left foot Prostatism Sleep disorder Testosterone deficiency Vitamin B12 deficiency Weight disorder Bladder tumor Home Meds Confirmed Prescription Monitoring Program MEDICATIONS (INSTRUCTIONS) LAST TAKEN Active aspirin-dipyridamole 1 capPOBID Unknown atorvastatin 10 mgPOPM Unknown cholecalciferol (vitamin D3) [Vitamin D3] 50 mcgPOPM Unknown cyanocobalamin (vitamin B-12) [Vitamin B-12] 2,000 mcgPOPM Unknown dutasteride 0.5 mgPOPM Unknown fexofenadine 180 mgPODAILY Unknown fluticasone propionate [Flonase Allergy Relief] 2 sprayintranasalDAILY Unknown ibuprofen 200 - 600 [id number] Unknown Janumet XR 1 tabPOBID Unknown Jardiance 25 mgPOQAM Unknown losartan 25 mgPOBID Unknown tamsulosin 0.4 mg capsule 0.4 mgPODAILY#30 caps Unknown trazodone 100 mgPOHS Unknown Current Visit Medications Prescription Monitoring Program Acetaminophen1,000 mgPONOW STA Discontinued [id number] ylUBM5W PRN Active Al Hydrox/Mg Hydrox/Dieqlmeyjqv62 rbPNI7F PRN Active Imokfez950 mgPONOW STA Discontinued Atorvastatin Kkhhxaa46 mgPOQAM Active Cyanocobalamin1,000 mcgPOPM Active Dipyridamole/Aspirin1 capPOBID Active Heparin Sodium (Porcine)4,000 unitsIVNOW ONE Discontinued Heparin Sodium/Dextrose1 eachIVNOW STA Discontinued Heparin Sodium/Skmataem87,000 units in 500 mls @ 950 UNITS/HRIV.Q24H Active Xmhbilfh740 mlIVONCE ONE Discontinued Losartan Cpekbqrmc65 mgPOBID Active Metoprolol Tartrate5 mgIVNOW STA Discontinued Miscellaneous1 eachN/AQS Active Miscellaneous Information1 eachN/AUD PRN Unverified Nitroglycerin0.4 mgSLUD PRN Active Nitroglycerin0.4 mgSLUD PRN Discontinued Ondansetron Hcl4 ngQJB2O PRN Active Polyethylene Xzsjrh46 gmPODAILY PRN Active Sodium Yzwqovzt956 mls @ 999 mls/hrIV.Q31M STA Discontinued Sodium Chloride1,000 mls @ 125 mls/hrIV.Q8H Active Tamsulosin Hcl0.4 mgPODAILY Active Lab Results Last 24 Hrs Most Recent Diagnostic Imaging Reports Provider Notes Last 24 Hrs HISTORY & PHYSICAL History & Physical 08/10/22 23:35 GENERAL Emergency Room Visit Notes 08/10/22 21:41 Diagnostics Reports LUIS FINK [id number] Allergy/Adv: grass pollen, mold, ragweed pollen, semaglutide (More) Close Chest CTA (Signed) Cristo Velasco - 08/10/22 Chest X-Ray (Signed) Cristo Velasco - 08/10/22 Endoscopy Image 04/02/22 Chest X-Ray (Signed) Cristo Velasco - 03/14/22 Renal Ultrasound (Signed) Jackson Huffman - 02/25/22 Gall Bladder Ultrasound (Signed) Geoffrey Vasquez - 02/16/22 Abdomen/Pelvis CT (Signed) Geoffery Vasquez - 02/16/22 [employer] [place], [place] [phone] CT Scan Report Patient:LUIS FINK Admit Date:08/10/22 MR#:[id number] Address1:[address] Acct ID:[id number] Address2: Date:1940 [facility] Zip:[place] [address] Age:82 Location:ED Sex:M Room/Bed: Att Phy: Diagnosis:CHEST PAINS, BACK PAIN, SOB, INDISGETION Sandra Phy:James Martinez M.D. Service Date:08/10/22 Fam Phy: Interpreting Phy:Cristo Velasco MDAdmit Phy: Ordering Phy:Octavio Street MD cc: ~ CT ANGIOGRAM OF THE CHEST CLINICAL HISTORY: Atypical chest pain. Thoracic back pain. COMPARISON STUDY: Chest x-ray dated 08/10/2022. TECHNIQUE: Following the IV administration of 115 cc of Optiray 300, CT angiogram of the chest was performed from the upper abdomen to the thoracic inlet utilizing the pulmonary embolus protocol. Images are reviewed in the axial, sagittal, and coronal planes. 3-D MIPS images are created and assessed. IV contrast was administered without complication. A dose lowering technique was utilized adhering to the principles of ALARA. CT DOSE: 969.19 mGy.cm FINDINGS: Thyroid: Imaged portions of the thyroid gland are normal in size and attenuation. Thoracic aorta: There is atherosclerotic calcification of the thoracic aorta, which is normal in caliber and demonstrates standard 3-vessel arch anatomy. No dissection is seen. Pulmonary vasculature: The pulmonary trunk is dilated, measuring 3.9 cm in diameter. This suggests pulmonary artery hypertension. There are no filling defects identified in main, lobar, or segmental pulmonary branches to suggest pulmonary embolus. Heart: The heart is top normal in size and without pericardial effusion. There are coronary artery calcifications. Lungs and pleural spaces: Evaluation of the lung parenchyma is modestly degraded by motion artifact. No airspace consolidation or pleural effusion is identified. Scattered calcified granulomas are noted. Scarring/atelectasis is seen at the lung bases. The trachea and central airways are clear. Mediastinum: There is no mediastinal lymphadenopathy. Marisa: Clear. Axillae: There is no axillary lymphadenopathy. Upper abdomen: Partially visualized upper abdominal viscera is within normal limits. Skeletal structures: The skeletal structures are osteopenic. Degenerative change and hyperkyphosis is noted in the thoracic spine. No lytic or blastic bony lesions are seen. IMPRESSION: 1. There is no evidence of pulmonary embolus in the main, lobar, or segmental pulmonary arteries. 2. There is no airspace consolidation or pleural effusion. 3. Additional findings as above. ACT 112: Negative or not required by law. Electronically signed by: Cristo Velasco M.D. 08/10/2022 10:06 PM Dictated:08/10/222158 Transcribed: 08/10/222158 Supervising Physician Co-Signing Physician Notes Attending addendum: I have physically seen this patient, have supervised the medical residents activities, and agree with the H&P unless as otherwise noted. Assessment and Plan: Acute coronary syndrome- EKG with reversible ischemic changes inferiorly and laterally Status post Lopressor 5 mg IV from the ED Start metoprolol succinate 12.5 mg p.o. twice daily Continue losartan and Aggrenox NS@125 MLS per hour Start heparin drip per protocol Cardiology consulted and aware Will need cardiac catheterization, suspect multivessel disease Hyperlipidemia- High-dose statin atorvastatin 40 mg daily Check a fasting lipid panel Diabetes mellitus hold oral medications Placed on Accu-Cheks before meals and at bedtime with NovoLog coverage per scale Check hemoglobin A1c Remaining orders and notations as noted Resident Activity Tracking Resident Involvement: Resident Care Provided Care Provided: Adult Hospital Medicine (1) Chest pain Chest pain type: unspecified Qualified Code(s): R07.9 - Chest pain, unspecified
[2022-08-11 01:44] LABS: Hematocrit (blood only) 37.9 % (40.1-51.0); Hemoglobin 13.7 g/dl (14.0-18.0); Mean Corpuscular Hemoglobin 31.4 pg (25.0-34.0); Mean Corpuscular Hgb Conc 36.1 g/dL (32.0-36.0); Mean Corpuscular Volume 86.9 fL (80.0-100.0); Mean Platelet Volume 9.4 fL (9.4-12.4); Platelet Count 185 K/uL (130-400); RDW Coefficient of Variation 12.8 % (11.5-14.5); Red Blood Count 4.36 M/uL (4.63-6.08); White Blood Count 13.91 K/ul (4.8-10.8)
[2022-08-11] MEDS ORDERED: ALUMINUM/MAGNESIUM SUSP 30 ML UDC PO PRN (01:45)
[2022-08-11] MEDS ORDERED: HEPARIN SODIUM/DEXTROSE 25,000 UNITS/500 ML BAG IV SCH (01:45)
[2022-08-11] MEDS ORDERED: NITROGLYCERIN SL 0.4 MG/TAB TAB SL PRN (01:45)
[2022-08-11] MEDS ORDERED: ACETAMINOPHEN 325 MG TAB PO PRN (01:45)
[2022-08-11] MEDS ORDERED: Heparin IV Adult Wt-Based Low-Dose WITH Bolus Protocol IV STA (01:45)
[2022-08-11] MEDS ORDERED: ONDANSETRON INJ 2 MG/ML 2 ML VIAL IV PRN (01:45)
[2022-08-11] MEDS ORDERED: METOPROLOL TARTRATE 1 MG/ML VIAL IV STA (01:45)
[2022-08-11] MEDS ORDERED: POLYETHYLENE (MIRALAX) 17 GM PACK PO PRN (01:45)
[2022-08-11] MEDS ORDERED: HEPARIN SOD (PORCINE) 1000 UNIT/ML IV ONE (02:00)
[2022-08-11 02:03] LABS: Basophils # (auto) 0.01 K/uL (0-0.2); Basophils % (auto) 0.1 %; Echinocytes 1+; Immature Granulocytes # (auto) 0.11 K/uL (0.00-0.02); Immature Granulocytes % (auto) 0.8 %; Lymphocytes # (auto) 0.14 K/uL (1.2-3.4); Monocytes # (auto) 0.76 K/uL (0.24-0.82); Monocytes % (auto) 5.5 %; Neutrophils # (auto) 12.89 K/uL (1.4-6.5); Neutrophils % (auto) 92.6 %
[2022-08-11] MEDS: SODIUM CHLORIDE 0.9% 1000ML 1,000 ML IV SCH ×2 (02:35→09:39)
[2022-08-11] MEDS ORDERED: PHARMACY GLYCEMIC MGMT CONSULT PRN (04:20)
[2022-08-11] MEDS ORDERED: LANTUS PER UNIT CHARGE SQ ONE (04:45)
[2022-08-11] MEDS ORDERED: GLUCOSE 10 TAB/TUBE PO PRN (04:45)
[2022-08-11] MEDS ORDERED: CARBOHYDRATES FOR HYPOGLYCEMIA PO PRN (04:45)
[2022-08-11] MEDS ORDERED: DEXTROSE 50% 50 ML SYRINGE IV PRN (04:45)
[2022-08-11] MEDS ORDERED: GLUCOSE 40% GEL 15 GM TUBE PO PRN (04:45)
[2022-08-11] MEDS ORDERED: GLUCAGON FOR INJ 1 MG VIAL SQ PRN (04:45)
[2022-08-11] MEDS: INSULIN ASPART PER UNIT SC SCH ×4 (04:49→20:15)
[2022-08-11 06:40] LABS: Partial Thromboplastin Ratio 1.7
[2022-08-11 06:41] LABS: Partial Thromboplastin Time 47.4 Seconds (21.0-31.0)
[2022-08-11 07:03] LABS: Albumin Globulin Ratio 1.7 (0.9-2); Albumin Level 3.8 gm/dl (3.4-5.0); BUN Creatinine Ratio 22.8 (10-20); Bilirubin,Total 2.6 mg/dl (0.2-1.0); Calcium 9.5 mg/dl (8.5-10.1); Chol HDL Ratio 2.4 (0-5); Creatinine Clr Calc Pharmacy 55.4 ml/min; Est GFR (African American) 69.5 ml/min; Globulin 2.3 gm/dl (2.5-4.0); Total Protein 6.1 gm/dl (6.0-8.3)
[2022-08-11 09:19] LABS: Partial Thromboplastin Ratio 1.7
[2022-08-11 09:20] LABS: Partial Thromboplastin Time 45.7 Seconds (21.0-31.0)
--- NOTE | 2022-08-11 10:22 | Ultrasound Report ---
US abdomen limited HISTORY: 82 years-old Male transaminitis acutely elevated LFTs COMPARISON: CTA chest 08/10/2022, CT abdomen pelvis 02/16/2022 TECHNIQUE: Multiple real-time sonographic images of the abdominal right upper quadrant were obtained assessing grayscale appearance and color flow FINDINGS: The pancreas is mostly obscured by bowel gas. Hepatic steatosis without evidence of cirrhosis or hepa tic mass. Unremarkable gallbladder. Normal common bile duct, 5 mm. The imaged right kidney is unremar kable without hydronephrosis. IMPRESSION: 1. Unremarkable gallbladder. 2. No biliary ductal dilation. 3. Hepatic steatosis. ACT 112: Negative or not required by law. The above report was generated using voice recognition software. It may contain grammatical, syntax o r spelling errors. Electronically signed by: Rodrigo Collier M.D. 08/11/2022 10:21 AM
--- NOTE | 2022-08-11 10:37 | XCELERA ---
[id number] \\[id number]\PDF_Reports\[id number]}___[id number]
[2022-08-11] MEDS: TAMSULOSIN HCL 0.4 MG CAP PO SCH (10:45)
[2022-08-11] MEDS: LOSARTAN POTASSIUM 25 MG TAB PO SCH ×2 (10:46→20:11)
[2022-08-11] MEDS: METOPROLOL SUCC 25MG EXT REL TAB PO SCH (10:46)
[2022-08-11] MEDS: ATORVASTATIN 40 MG TAB PO SCH (10:47)
[2022-08-11] MEDS: DIPYRIDAMOLE/ASPIRIN CAP PO SCH ×2 (10:47→20:10)
--- NOTE | 2022-08-11 12:23 | Cardiology Consultation ---
Date of Consultation August 11, 2022 Assessment & Plan (1) Chest pain: (2) Elevated troponin: (3) First degree AV block: Plan 1. Chest pain: While his symptoms are concerning for an acute coronary syndrome, he seems to have had an extended period chest pain with only a very mild elevation in biomarkers. I think this actually speaks against an acute coronary syndrome. He had some associated symptoms of nausea and vomiting. Perhaps this was more gastrointestinal than cardiac. In evaluation of his abnormal liver tests is ongoing. 2. Elevated troponin: Very mild elevation in his cardiac biomarkers. I think this is less likely an acute coronary syndrome and more likely demand related ischemia in the setting of fixed coronary disease. He has multiple risk factors for coronary disease. Unclear if he benefits from coronary angiography at this point. He has preserved LV systolic function. I think we will discontinue his systemic heparinization, continue aggressive secondary prevention of coronary disease and reassess his symptoms over the course of the next 24 hours. Atorvastatin dose increased Metoprolol added. We will need to monitor his WA interval closely. He may not require ongoing beta-blockade depending on his clinical course I'll order and other troponin and morning EKG 3. Dynamic EKG changes: He did have some ST segment changes that were dynamic during his emergency room evaluation. Possibly related to the tachycardia. Possibly also related to demand ischemia. 4. 1st degree AV block. Noted on prior EKG obtained in February of this year. No symptoms suggestive of higher degree AV block. Good conduction at higher heart rates. History of Present Illness Reason for Consultation: Chest pain, elevated troponin Requesting Physician: Duran Attending Physician: Andrew Norman DO History of Present Illness The patient is an 82-year-old gentleman without a known history of coronary disease began to experience symptoms of generalized chest discomfort and back discomfort yesterday around 4:30 p.m.. Patient states that this began across his precordium. It was moderate in severity. It later generalized to involve the back. There was no jaw or arm discomfort. He had some associated nausea and felt as if he wanted to vomit. He did not report breathing difficulty but apparently had some pleuritic component to the symptoms and difficulty taking deep breaths. The symptoms lasted approximately 3 hours before he sought medical attention in the emergency room. He states that his symptoms gradually resolved once he reached to the hospital. He cannot recall similar symptoms in the past. He has a sedentary individual due to some leg and back discomfort. 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 As result he does not exercise frequently. However, he did not report exertional symptoms such as limiting dyspnea or chest pain. He denies dizziness or lightheadedness except that associated with standing up rapidly. No sense of palpitations recently. Currently feeling well. Allergies Allergy/AdvReac Type Severity Reaction Status Date / Time grass pollen Allergy runny, Verified 08/11/22 00:12 watery eyes mold Allergy runny, Verified 08/11/22 00:12 watery eyes ragweed pollen Allergy runny, Verified 08/11/22 00:12 watery eyes semaglutide [From Rybelsus] Allergy diarrhea, Verified 08/11/22 00:12 GERD Home Medications Medication Instructions Recorded Confirmed Type aspirin 25 mg-dipyridamole 200 mg 1 cap PO BID 02/16/22 08/11/22 History capsule,ext.release 12 hr multiphase atorvastatin 10 mg tablet 10 mg PO PM 02/16/22 08/11/22 History cholecalciferol (vitamin D3) 25 50 mcg PO PM 02/16/22 08/11/22 History mcg (1,000 unit) tablet (Vitamin D3) cyanocobalamin (vitamin B-12) 2,000 mcg PO PM 02/16/22 08/11/22 History 1,000 mcg tablet (Vitamin B-12) dutasteride 0.5 mg capsule 0.5 mg PO PM 02/16/22 08/11/22 History empagliflozin 25 mg tablet 25 mg PO QAM 02/16/22 08/11/22 History (Jardiance) losartan 50 mg tablet 25 mg PO BID 02/16/22 08/11/22 History sitagliptin 50 mg-metformin ER 1 tab PO BID 02/16/22 08/11/22 History 1,000 mg tablet,extended release 24h mp (Janumet XR) trazodone 50 mg tablet 100 mg PO HS 02/16/22 08/11/22 History ibuprofen 200 mg tablet 200 - 600 mg PO Q6H PRN Pain 03/28/22 08/11/22 History tamsulosin 0.4 mg capsule 0.4 mg PO DAILY #30 caps 05/07/22 08/11/22 Rx fexofenadine 180 mg tablet 180 mg PO DAILY 08/11/22 08/11/22 History fluticasone propionate 50 2 spray intranasal DAILY 08/11/22 08/11/22 History mcg/actuation nasal spray,suspension (Flonase Allergy Relief) Patient History Medical History Asthma pt denies COPD (chronic obstructive pulmonary disease) pt denies Diabetes mellitus, type 2 Diverticulosis Family hx of colon cancer Family hx of prostate cancer History of adenomatous polyp of colon History of TIA (transient ischemic attack) 20 yrs ago > no residual effects > Aggrenox Hyperlipidemia Hypertension Polycythemia Right tennis elbow Tubular adenoma Surgical History H/O vasectomy History of cataract surgery bilat History of colonoscopy History of tooth extraction Family History Daughter Asthma Mother Bone cancer Breast cancer Father COPD (chronic obstructive pulmonary disease) Grandmother (Maternal) Colon cancer Grandfather (Maternal) Colon cancer Uncle Colon cancer Brother Pheochromocytoma Colonic polyp Prostate cancer Sleep apnea Son Sleep apnea Social History Smoking Status: Never smoker Second Hand Exposure: No; Hx Alcohol Use: No Hx Substance Use: No Preferred Language: Maltese Communication Ability: Effective Investigation Clerk Required: No Beliefs That Will Affect Care: None Current Living Situation: Alone Other Information That Helps Us Care for You: No Feels Safe at Home: Yes Safety Concerns: Feels Safe At This Time Assistive Devices: Denture - Upper and Glasses Review of Systems Review of Systems: Per HPI. No other symptoms earlier in the week. No recent constitutional symptoms such as fevers or chills. Physical Exam Physical Exam: The patient is alert and oriented. Mood and affect appeared normal. He answered all questions appropriately. HEENT: Pupils are equal and reactive to light and accommodation. Extraocular movements are intact. The sclerae are anicteric. Neuro: Cranial nerves intact Lungs: Clear to auscultation bilaterally. He has good air movement without use of accessory muscles. No rales wheezes or rhonchi. Cardiac: Heart demonstrates a regular rate and rhythm. Normal S1 and S2. No murmurs on examination. Pulses: The patient has palpable radial pulses bilaterally that are equal in intensity Extremities: There was no evidence of hypoperfusion. There is no cyanosis or clubbing. There is no edema. Skin: I did not appreciate any rashes on examination today. Results & Data ([facility]) Vital Signs (Past 12 Hours) Vital Signs Temp Pulse Pulse Resp BP BP Pulse Ox 08/11/22 10:54 36.6 C 71 17 110/64 97 08/11/22 08:37 08/11/22 07:28 80 08/11/22 07:14 37.1 C 70 17 106/67 95 08/11/22 02:50 36.8 C 101 H 18 112/70 95 08/11/22 02:34 101 H 105/60 08/11/22 01:32 08/11/22 01:32 37.2 C 105 H 19 102/59 L 94 08/11/22 01:11 110 H 18 108/69 95 O2 Del Method 08/11/22 10:54 Room Air 08/11/22 08:37 Room Air 08/11/22 07:28 08/11/22 07:14 Room Air 08/11/22 02:50 Room Air 08/11/22 02:34 08/11/22 01:32 Room Air 08/11/22 01:32 Room Air 08/11/22 01:11 Room Air Laboratory Results Abnormal Lab Results 08/10/22 08/10/22 08/10/22 21:00 21:00 21:00 WBC 10.22 RBC 4.92 Hgb 15.6 Hct 43.0 MCV 87.4 MCH 31.7 MCHC 36.3 H RDW Std Deviation 40.3 RDW Coeff of Damari 12.7 Plt Count 221 MPV 9.4 Immature Gran % (Auto) 0.3 Neut % (Auto) 93.0 Lymph % (Auto) 4.3 Roosevelt % (Auto) 2.1 Eos % (Auto) 0.1 Baso % (Auto) 0.2 Neut # (Auto) 9.51 H Lymph # (Auto) 0.44 L Roosevelt # (Auto) 0.21 L Eos # (Auto) 0.01 Baso # (Auto) 0.02 Immature Gran # (Auto) 0.03 H Echinocytes PT 11.1 INR 1.0 APTT 22.5 PTT Ratio 0.8 D-Dimer 2250 H* Sodium 139 Potassium 3.9 Chloride 106 Carbon Dioxide 23 Anion Gap 10 BUN 27 H Creatinine 1.05 Est Cr Clr Drug Dosing 60.4 Est GFR ( Amer) 76.8 Est GFR (Non-Af Amer) 66.3 BUN/Creatinine Ratio 25.7 H Glucose 297 H POC Glucose Calcium 9.7 Total Bilirubin AST ALT Alkaline Phosphatase Troponin I High Sens 13.6 Total Protein Albumin Globulin Albumin/Globulin Ratio Triglycerides Cholesterol LDL Cholesterol, Calc VLDL Cholesterol, Calc HDL Cholesterol Cholesterol/HDL Ratio Lipase 56 Acetaminophen SARS-CoV-2, RNA, NAAT 08/10/22 08/10/22 08/11/22 22:02 23:46 01:18 WBC 13.91 H RBC 4.36 L Hgb 13.7 L Hct 37.9 L MCV 86.9 MCH 31.4 MCHC 36.1 H RDW Std Deviation 40.0 RDW Coeff of Damari 12.8 Plt Count 185 MPV 9.4 Immature Gran % (Auto) 0.8 Neut % (Auto) 92.6 Lymph % (Auto) 1.0 Roosevelt % (Auto) 5.5 Eos % (Auto) 0.0 Baso % (Auto) 0.1 Neut # (Auto) 12.89 H Lymph # (Auto) 0.14 L Roosevelt # (Auto) 0.76 Eos # (Auto) 0.00 Baso # (Auto) 0.01 Immature Gran # (Auto) 0.11 H Echinocytes 1+ PT INR APTT PTT Ratio D-Dimer Sodium Potassium Chloride Carbon Dioxide Anion Gap BUN Creatinine Est Cr Clr Drug Dosing Est GFR ( Amer) Est GFR (Non-Af Amer) BUN/Creatinine Ratio Glucose POC Glucose Calcium Total Bilirubin AST ALT Alkaline Phosphatase Troponin I High Sens 36.4 H D Total Protein Albumin Globulin Albumin/Globulin Ratio Triglycerides Cholesterol LDL Cholesterol, Calc VLDL Cholesterol, Calc HDL Cholesterol Cholesterol/HDL Ratio Lipase Acetaminophen SARS-CoV-2, RNA, NAAT NEGATIVE 08/11/22 08/11/22 08/11/22 01:29 04:43 05:51 WBC RBC Hgb Hct MCV MCH MCHC RDW Std Deviation RDW Coeff of Damari Plt Count MPV Immature Gran % (Auto) Neut % (Auto) Lymph % (Auto) Roosevelt % (Auto) Eos % (Auto) Baso % (Auto) Neut # (Auto) Lymph # (Auto) Roosevelt # (Auto) Eos # (Auto) Baso # (Auto) Immature Gran # (Auto) Echinocytes PT INR APTT 47.4 H* PTT Ratio 1.7 D-Dimer Sodium Potassium Chloride Carbon Dioxide Anion Gap BUN Creatinine Est Cr Clr Drug Dosing Est GFR ( Amer) Est GFR (Non-Af Amer) BUN/Creatinine Ratio Glucose POC Glucose 236 H 203 H Calcium Total Bilirubin AST ALT Alkaline Phosphatase Troponin I High Sens Total Protein Albumin Globulin Albumin/Globulin Ratio Triglycerides Cholesterol LDL Cholesterol, Calc VLDL Cholesterol, Calc HDL Cholesterol Cholesterol/HDL Ratio Lipase Acetaminophen SARS-CoV-2, RNA, NAAT 08/11/22 08/11/22 08/11/22 05:51 05:51 08:32 WBC RBC Hgb Hct MCV MCH MCHC RDW Std Deviation RDW Coeff of Damari Plt Count MPV Immature Gran % (Auto) Neut % (Auto) Lymph % (Auto) Roosevelt % (Auto) Eos % (Auto) Baso % (Auto) Neut # (Auto) Lymph # (Auto) Roosevelt # (Auto) Eos # (Auto) Baso # (Auto) Immature Gran # (Auto) Echinocytes PT INR APTT 45.7 H* PTT Ratio 1.7 D-Dimer Sodium 140 Potassium 4.0 Chloride 109 H Carbon Dioxide 22 Anion Gap 9 BUN 26 H Creatinine 1.14 Est Cr Clr Drug Dosing 55.4 Est GFR ( Amer) 69.5 Est GFR (Non-Af Amer) 60.0 BUN/Creatinine Ratio 22.8 H Glucose 199 H POC Glucose Calcium 9.5 Total Bilirubin 2.6 H AST 448 H ALT 464 H Alkaline Phosphatase 131 H Troponin I High Sens 66.6 H* D Total Protein 6.1 Albumin 3.8 Globulin 2.3 L Albumin/Globulin Ratio 1.7 Triglycerides 38 Cholesterol 103 LDL Cholesterol, Calc 52 VLDL Cholesterol, Calc 8 HDL Cholesterol 43 Cholesterol/HDL Ratio 2.4 Lipase Acetaminophen SARS-CoV-2, RNA, NAAT 08/11/22 08/11/22 09:31 11:42 WBC RBC Hgb Hct MCV MCH MCHC RDW Std Deviation RDW Coeff of Damari Plt Count MPV Immature Gran % (Auto) Neut % (Auto) Lymph % (Auto) Roosevelt % (Auto) Eos % (Auto) Baso % (Auto) Neut # (Auto) Lymph # (Auto) Roosevelt # (Auto) Eos # (Auto) Baso # (Auto) Immature Gran # (Auto) Echinocytes PT INR APTT PTT Ratio D-Dimer Sodium Potassium Chloride Carbon Dioxide Anion Gap BUN Creatinine Est Cr Clr Drug Dosing Est GFR ( Amer) Est GFR (Non-Af Amer) BUN/Creatinine Ratio Glucose POC Glucose 139 H Calcium Total Bilirubin AST ALT Alkaline Phosphatase Troponin I High Sens Total Protein Albumin Globulin Albumin/Globulin Ratio Triglycerides Cholesterol LDL Cholesterol, Calc VLDL Cholesterol, Calc HDL Cholesterol Cholesterol/HDL Ratio Lipase Acetaminophen 3 L SARS-CoV-2, RNA, NAAT Diagnostic Findings Echocardiogram obtained 08/11/2022: Normal LV systolic function with ejection fraction 55-60%. Normal wall motion. No significant valvular heart disease. Chest CTA performed last night did not reveal any evidence of pulmonary embolus. No intrinsic or parenchymal lung disease. ECG Additional Comments: Admission revealed sinus tachycardia with ST and T-wave changes. PG Care Time/CCT Total # of Minutes Spent Total Time Spent with Patient: Total time spent is greater than 50% in coordination of care (as documented) at patient's floor/unit and/or counseling patient: Coding Level of Care Code 64992 Initial Inpt Care Lvl 3 Diagnoses Chest pain R07.9 Chest pain type: unspecified Elevated troponin R77.8 First degree AV block I44.0 (1) Chest pain Chest pain type: unspecified Qualified Code(s): R07.9 - Chest pain, unspecified
--- NOTE | 2022-08-11 12:38 | Electrocardiogram Report ---
Test Reason : Blood Pressure : / mmHG Vent. Rate : 124 BPM Atrial Rate : 054 BPM P-R Int : 000 ms QRS Dur : 100 ms QT Int : 354 ms P-R-T Axes : 000 074 -06 degrees QTc Int : 508 ms Sinus tachycardia with 1st degree AV block Marked ST abnormality, possible inferior subendocardial injury Abnormal ECG When compared with ECG of 16-FEB-2022 14:12, ST now depressed in Inferior leads ST now depressed in Anterolateral leads Confirmed by Howard Duggan ([id number]) on 08/11/2022 12:38:30 PM Referred By: REFERRED SELF Confirmed By:Tommy Duggan
--- NOTE | 2022-08-11 12:40 | Electrocardiogram Report ---
Test Reason : Blood Pressure : / mmHG Vent. Rate : 124 BPM Atrial Rate : 093 BPM P-R Int : 000 ms QRS Dur : 074 ms QT Int : 322 ms P-R-T Axes : 000 124 202 degrees QTc Int : 462 ms Likely limb lead reversal Sinus tachycardia with 1st degree AV block Lateral infarct , age undetermined Inferior infarct , age undetermined Abnormal ECG When compared with ECG of 10-AUG-2022 20:52, (unconfirmed) ST segement depressions have improved Confirmed by Howard Duggan ([id number]) on 08/11/2022 12:39:45 PM Referred By: REFERRED SELF Confirmed By:Tommy Duggan
--- NOTE | 2022-08-11 12:40 | Electrocardiogram Report ---
Test Reason : Blood Pressure : / mmHG Vent. Rate : 120 BPM Atrial Rate : 115 BPM P-R Int : 000 ms QRS Dur : 098 ms QT Int : 364 ms P-R-T Axes : 000 072 017 degrees QTc Int : 514 ms Sinus tachycardia with 1st degree AV block Marked ST abnormality, possible inferior subendocardial injury Abnormal ECG Confirmed by Howard Duggan ([id number]) on 08/11/2022 12:40:06 PM Referred By: REFERRED SELF Confirmed By:Tommy Duggan
[2022-08-11] MEDS: IBUPROFEN 200 MG TAB PO PRN (13:05)
--- NOTE | 2022-08-11 13:55 | Pharmacy Report ---
Pharmacy Glycemic Short Note 2 - Date of Service August 11, 2022 - Glycemic Short BSG Results (Last 24 hours): 08/10/22 08/11/22 08/11/22 21:00 01:29 04:43 Glucose 297 H POC Glucose 236 H 203 H 08/11/22 08/11/22 05:51 11:42 Glucose 199 H POC Glucose 139 H OUTPATIENT ANTIDIABETIC REGIMEN: * Jardiance * Janumet XR * HbA1c ordered/pending ASSESSMENT: * 82 yo M with T2DM admitted w ACS. * BSG's initially >180 mg/dL but came down with 3 units of correctional insulin only * Will give low-dose Lantus * Will continue with Novolog ACHS now that diet ordered, at weight-based moderate stress estimate PLAN FOR INPATIENT GLYCEMIC CONTROL: * Hold outpatient oral diabetes medications * Basal insulin * Lantus 15 units SQ x1 already given this AM * Bolus insulin * NovoLog per scale ACHS or Q6hrs while NPO * Goal Range: Low 110 mg/dL - High 140 mg/dL * Correction Factor: 25 mg/dL/unit * Nutritional / Prandial insulin per carb ratio of 1 unit per 9 grams CHO consumed
--- NOTE | 2022-08-11 18:17 | Magnetic Resonance Report ---
MR MRCP HISTORY: 82 years-old Male recurrent transaminitis acutely elevated LFTs COMPARISON: Abdominal ultrasound 08/11/2022, CTA chest 08/10/2022, CT abdomen and pelvis 02/16/2022. TECHNIQUE: MRCP was obtained without the use of IV contrast. FINDINGS: Cardiomegaly. Mild right hemidiaphragmatic elevation. Unremarkable spleen, visualized pancreas, and a drenal glands. The study is motion degraded. The liver is unremarkable. The gallbladder is within nor mal limits. No biliary or pancreatic ductal dilation identified. The common bile duct measures 3 mm. No choledocholithiasis or biliary stricture. No pancreatic divisum. 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 Degenerative changes of the spine and hips. Prostamegaly with urinary bladder wall thickening suggest rajan of chronic bladder outlet obstruction. No bowel obstruction or bowel wall thickening identified. Unremarkable soft tissues. 3.3 cm for abdominal aortic aneurysm redemonstrated. Unremarkable soft tis sues. No acute fracture. Mild nonspecific bilateral perinephric stranding. Probable cyst of the super ior pole left kidney, 2.2 cm. IMPRESSION: 1. Motion degraded exam. 2. No cholelithiasis or evidence of acute cholecystitis. 3. No biliary ductal dilation or choledocholithiasis. 4. Fusiform infrarenal abdominal aortic aneurysm is stable from the prior study measuring 3.3 cm. ACT 112: Negative or not required by law. The above report was generated using voice recognition software. It may contain grammatical, syntax o r spelling errors. Electronically signed by: Rodrigo Collier M.D. 08/11/2022 6:15 PM
--- NOTE | 2022-08-11 18:27 | Hospitalist Progress Note ---
Date of Service August 11, 2022 Assessment & Plan (1) Transaminitis: Plan: He has a fairly significant elevation of his transaminases and a predominantly hepatocellular pattern. This would speak mostly towards a viral insult given his lack of medication history to suggest a toxic insult. Check hepatitis panel again for completeness, and trend transaminases. That said, given that this is recurrent, and his symptoms really did sound very upper GIeven though his liver enzyme pattern is much more hepatocellular than obstructive, he does have a mild degree of bilirubin and alk phos elevationcheck MRCP, consider HIDA versus trending clinically and trending lab work. I suspect this was the insult that created the demand precipitating his demand ischemia Does have baseline fatty liverthis likely relates to his diabetes and lipids (2) Demand ischemia: Plan: From aboveappreciate cardiology input. Stable overall. Follow troponin. Cardiology considering whether or not he would benefit cath versus just ongoing med management. (3) Diabetes mellitus with renal complications: Plan: Continue current care and follow glucoses. A1c pending. 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 will start lovenox SQ in AM (9) Discharge planning issues: Plan: anticipate being able to go home / live independantly at time of discharge. stable on med/tele at this time Plan time in ~12p, time out ~1235p > 30mins face to face Admission and Anticipated Discharge Date Admission Date: August 10, 2022 Subjective Feeling better now. Revisited HPIalejandra was at his daughter's watching the [employer] game. He went home around half-time not feeling so great with upper abdominal/lower chest pain that he described as mostly an ache that would wax and wane in intensity and radiated straight through to his back. Whenever he got home he had a lot of episodes of what sounds to be retchinghe notes that he was spitting so that he would not vomitand less lasted for a good whilebecause of the chest symptoms, then his family brought him to the ER for further evaluation. He mostly feels better nowalejandra is very hungry and asks probably at least 3 separate times during the interview when he can eat, but does note that he probably still has mild degree of the ache. In terms of his recent back storyhe notes that for maybe the last month or so he wakes up with a degree of sore throat which she attributes to allergies, notes that generally between getting up and moving and taking Tylenol his symptoms get betterto clarify he generally only takes 2 Tylenol in a 24-hour period, and has absolutely never taken more than 4. He also has had left lower back painhe is following with pain management for this ([facility] although his family who is present and the physical therapist believes he probably has piriformis mediated biomechanical pain). For this he takes ibuprofen from time to timebut only antolin snow may be at the most 6 [id number] ibuprofen in a 24-hour period. His only other new medicine was the addition of tamsulosin a little while ago. Otherwise his home medications are unchanged. He did have an episode of transaminitis back in February which was attributed to an enteritis that resolved. Review of Systems Review of Systems: All systems reviewed & are unremarkable except as noted in HPI & below Physical Exam Physical Exam: In general he is awake and alert oriented pleasant no distress. HEENT normocephalic atraumatic mucous membranes moist. Cardio is regular no rubs murmurs or gallops. Lungs clear to auscultation bilaterally no rales rhonchi wheeze with good effort. Abdomen is soft nondistended nontender no masses organomegaly no guarding or rebound no rigidity. Musculoskeletal shows his left-sided mid thoracic paraspinals to be high tone, decreased range of motionalthough not tender. His left piriformis region of his buttocks musculature feels stiff and decreased range of motion as welltaught post isometric relaxation muscle energy. Extremities without cyanosis clubbing or edema no calf tenderness. Neuro shows no focal deficits. Mental status shows good recent and remote recall normal mood and affect good judgment and insight. Results & Data Results & Data ([facility]) Vital Signs (Past 12 Hours) Vital Signs Temp Pulse Pulse Resp BP Pulse Ox O2 Del Method 08/11/22 15:07 98.2 F 77 16 116/71 94 Room Air 08/11/22 10:54 97.9 F 71 17 110/64 97 Room Air 08/11/22 08:37 Room Air 08/11/22 07:28 80 08/11/22 07:14 98.8 F 70 17 106/67 95 Room Air PG Care Time/CCT Total # of Minutes Spent Total Time Spent with Patient: Total time spent is greater than 50% in coordination of care (as documented) at patient's floor/unit and/or counseling patient: Coding Level of Care Code 17161 Subseq Hosp Care Lvl 3 Diagnoses Transaminitis R74.01 Demand ischemia I24.8 Diabetes mellitus with renal complications E11.29 Mixed hyperlipidemia E78.2 Vitamin B12 deficiency E53.8 Transitional cell carcinoma C68.9 Hypertension I10 DVT prophylaxis Z29.9 Discharge planning issues Z02.9
--- NOTE | 2022-08-11 18:28 | Billing Data ---
Date of Service August 11, 2022 Coding Level of Care Code 19354 Prolonged Care (int'l)
--- NOTE | 2022-08-11 18:56 | Billing Data ---
Date of Service August 11, 2022 Coding Level of Care Code 60528 Subseq Obs Care Lvl 3 Comment disregard [id number], entered in error
[2022-08-11] MEDS ORDERED: CYANOCOBALAMIN (B-12) 500 MCG TABLET PO SCH (21:00)
[2022-08-11] MEDS ORDERED: traZODone HCL 100 MG TAB PO SCH (21:00)
--- NOTE | 2022-08-12 02:55 | Billing Data ---
Date of Service August 12, 2022 Coding Level of Care Code 54286 Initial Inpt Care Lvl 3
[2022-08-12 06:31] LABS: Basophils # (auto) 0.01 K/uL (0-0.2); Basophils % (auto) 0.1 %; Eosinophils # (auto) 0.04 K/uL (0-0.50); Eosinophils % (auto) 0.4 %; Hematocrit (blood only) 36.5 % (40.1-51.0); Hemoglobin 12.8 g/dl (14.0-18.0); Immature Granulocytes # (auto) 0.04 K/uL (0.00-0.02); Immature Granulocytes % (auto) 0.4 %; Lymphocytes % (auto) 5.3 %; Mean Corpuscular Hemoglobin 31.3 pg (25.0-34.0); Mean Corpuscular Hgb Conc 35.1 g/dL (32.0-36.0); Mean Corpuscular Volume 89.2 fL (80.0-100.0); Mean Platelet Volume 9.5 fL (9.4-12.4); Monocytes # (auto) 0.69 K/uL (0.24-0.82); Monocytes % (auto) 7.3 %; Neutrophils # (auto) 8.23 K/uL (1.4-6.5); Neutrophils % (auto) 86.5 %; Platelet Count 175 K/uL (130-400); RDW Coefficient of Variation 13.3 % (11.5-14.5); RDW Standard Deviation 43.8 fL (36.4-46.3); Red Blood Count 4.09 M/uL (4.63-6.08); White Blood Count 9.51 K/ul (4.8-10.8)
[2022-08-12 06:57] LABS: Albumin Globulin Ratio 1.6 (0.9-2); Albumin Level 3.6 gm/dl (3.4-5.0); BUN Creatinine Ratio 22.6 (10-20); Bilirubin,Total 3.1 mg/dl (0.2-1.0); Calcium 9.1 mg/dl (8.5-10.1); Creatinine Clr Calc Pharmacy 55.1 ml/min; Est GFR (African American) 68.8 ml/min; Est GFR (Non-African American) 59.4 ml/min; Globulin 2.2 gm/dl (2.5-4.0); Potassium 4.1 mmol/L (3.5-5.1); Total Protein 5.8 gm/dl (6.0-8.3)
--- NOTE | 2022-08-12 07:26 | Hospitalist Progress Note ---
Date of Service August 12, 2022 Assessment & Plan (1) Transaminitis: (2) Diabetes mellitus with renal complications: (3) Mixed hyperlipidemia: (4) Vitamin B12 deficiency: Plan Patient is an 82 y/o male with PMHx of transitional cell carcinoma, asthma, HLD, and HTN admitted to [facility] on 08/10/22 with upper abdominal/lower chest pain and found to have transaminitis. Transaminitis: He has a fairly significant elevation of his transaminases and a predominantly hepatocellular pattern. This would speak mostly towards a viral insult given his lack of medication history to suggest a toxic insult. Check hepatitis panel again for completeness, and trend transaminases. That said, given that this is recurrent, and his symptoms really did sound very upper GIeven though his liver enzyme pattern is much more hepatocellular than obstructive, he does have a mild degree of bilirubin and alk phos elevationcheck MRCP, consider HIDA versus trending clinically and trending lab work. I suspect this was the insult that created the demand precipitating his demand ischemia Does have baseline fatty liverthis likely relates to his diabetes and lipids Hold atorvastatin until LFTs normalize. GI outpatient. f/u Juan repeat lfts end of this week - paper script. hepatology #Demand ischemia: From aboveappreciate cardiology input. Stable overall. Follow troponin. Cardiology considering whether or not he would benefit cath versus just ongoing med management. Diabetes mellitus with renal complications: Continue current care and follow glucoses. A1c pending. #Mixed hyperlipidemia: atorvastatin - - increased by cardiology #Vitamin B12 deficiency: continue PO supplementation #Transitional cell carcinoma: liver without mets - review of charts suggests this is all local disease and well controlled; doubt this plays a role in his acute presentation #Hypertension: BP reasonable #DVT prophylaxis: was on heparin gtt while situation appeared more c/w unstable angina - now stopped. will start lovenox SQ in AM #Discharge planning issues: anticipate being able to go home / live independently at time of discharge. stable on med/tele at this time Admission and Anticipated Discharge Date Admission Date: August 10, 2022 Subjective Patient is doing well today. He is tolerating his diet. He denies any CP/SOB/abdominal pain/n/v. Review of Systems Review of Systems: See above. Physical Exam Constitutional: WD/WN, vitals as above Respiratory: normal respiratory effort, lungs clear to auscultation Cardiovascular: RRR, no murmur, no edema Gastrointestinal (Abdomen): soft, nontender Psychiatric: A+Ox3, euthymic affect Results & Data Results & Data ([facility]) Vital Signs (Past 12 Hours) Vital Signs Temp Pulse Pulse Resp BP Pulse Ox O2 Del Method 08/12/22 07:15 37.1 C 67 19 128/77 96 Room Air 08/12/22 02:43 38.2 C H 74 18 121/70 93 Room Air 08/11/22 22:04 37.1 C 74 18 119/62 97 Room Air 08/11/22 20:08 37.0 C 73 20 107/62 96 Room Air 08/11/22 19:42 75 Laboratory Results 08/12/22 08/12/22 08/11/22 Range/Units 06:11 06:11 20:11 WBC 9.51 (4.8-10.8) K/ul RBC 4.09 L (4.63-6.08) M/uL Hgb 12.8 L (14.0-18.0) g/dl Hct 36.5 L (40.1-51.0) % MCV 89.2 (80.0-100.0) fL MCH 31.3 (25.0-34.0) pg MCHC 35.1 (32.0-36.0) g/dL RDW Std Deviation 43.8 (36.4-46.3) fL RDW Coeff of Damari 13.3 (11.5-14.5) % Plt Count 175 (130-400) K/uL MPV 9.5 (9.4-12.4) fL Immature Gran % (Auto) 0.4 % Neut % (Auto) 86.5 % Lymph % (Auto) 5.3 % [place] % (Auto) 7.3 % Eos % (Auto) 0.4 % Baso % (Auto) 0.1 % Neut # (Auto) 8.23 H (1.4-6.5) K/uL Lymph # (Auto) 0.50 L (1.2-3.4) K/uL [place] # (Auto) 0.69 (0.24-0.82) K/uL Eos # (Auto) 0.04 (0-0.50) K/uL Baso # (Auto) 0.01 (0-0.2) K/uL Immature Gran # (Auto) 0.04 H (0.00-0.02) K/uL APTT (21.0-31.0) Seconds PTT Ratio Sodium 141 (136-145) mmol/L Potassium 4.1 (3.5-5.1) mmol/L Chloride 109 H (98-107) mmol/L Carbon Dioxide 25 (21-32) mmol/L Anion Gap 7 (3-11) BUN 26 H (6-23) mg/dl Creatinine 1.15 (0.6-1.4) mg/dl Est Cr Clr Drug Dosing 55.1 ml/min Est GFR ( Amer) 68.8 ml/min Est GFR (Non-Af Amer) 59.4 ml/min BUN/Creatinine Ratio 22.6 H (10-20) Glucose 144 H (70-99(Fasting)) mg/dl POC Glucose 146 H (70-99) mg/dl Calcium 9.1 (8.5-10.1) mg/dl Total Bilirubin 3.1 H (0.2-1.0) mg/dl AST 154 H (13-39) U/L ALT 290 H (7-52) U/L Alkaline Phosphatase 127 H (34-104) U/L Troponin I High Sens (0-20) pg/ml Total Protein 5.8 L (6.0-8.3) gm/dl Albumin 3.6 (3.4-5.0) gm/dl Globulin 2.2 L (2.5-4.0) gm/dl Albumin/Globulin Ratio 1.6 (0.9-2) Acetaminophen (10-30) ug/ml Hepatitis A IgM Ab Hep Bs Antigen Hep Bs Ag Confirmation Hep B Core IgM Ab Hepatitis C Ab (EIA) Hep C Ab Signal/Cutoff 08/11/22 08/11/22 08/11/22 Range/Units 17:53 16:43 12:58 WBC (4.8-10.8) K/ul RBC (4.63-6.08) M/uL Hgb (14.0-18.0) g/dl Hct (40.1-51.0) % MCV (80.0-100.0) fL MCH (25.0-34.0) pg MCHC (32.0-36.0) g/dL RDW Std Deviation (36.4-46.3) fL RDW Coeff of Damari (11.5-14.5) % Plt Count (130-400) K/uL MPV (9.4-12.4) fL Immature Gran % (Auto) % Neut % (Auto) % Lymph % (Auto) % [place] % (Auto) % Eos % (Auto) % Baso % (Auto) % Neut # (Auto) (1.4-6.5) K/uL Lymph # (Auto) (1.2-3.4) K/uL [place] # (Auto) (0.24-0.82) K/uL Eos # (Auto) (0-0.50) K/uL Baso # (Auto) (0-0.2) K/uL Immature Gran # (Auto) (0.00-0.02) K/uL APTT (21.0-31.0) Seconds PTT Ratio Sodium (136-145) mmol/L Potassium (3.5-5.1) mmol/L Chloride (98-107) mmol/L Carbon Dioxide (21-32) mmol/L Anion Gap (3-11) BUN (6-23) mg/dl Creatinine (0.6-1.4) mg/dl Est Cr Clr Drug Dosing ml/min Est GFR ( Amer) ml/min Est GFR (Non-Af Amer) ml/min BUN/Creatinine Ratio (10-20) Glucose (70-99(Fasting)) mg/dl POC Glucose 127 H (70-99) mg/dl Calcium (8.5-10.1) mg/dl Total Bilirubin (0.2-1.0) mg/dl AST (13-39) U/L ALT (7-52) U/L Alkaline Phosphatase (34-104) U/L Troponin I High Sens 51.7 H* D 62.0 H* (0-20) pg/ml Total Protein (6.0-8.3) gm/dl Albumin (3.4-5.0) gm/dl Globulin (2.5-4.0) gm/dl Albumin/Globulin Ratio (0.9-2) Acetaminophen (10-30) ug/ml Hepatitis A IgM Ab Hep Bs Antigen Hep Bs Ag Confirmation Hep B Core IgM Ab Hepatitis C Ab (EIA) Hep C Ab Signal/Cutoff 08/11/22 08/11/22 08/11/22 Range/Units 11:42 09:31 09:31 WBC (4.8-10.8) K/ul RBC (4.63-6.08) M/uL Hgb (14.0-18.0) g/dl Hct (40.1-51.0) % MCV (80.0-100.0) fL MCH (25.0-34.0) pg MCHC (32.0-36.0) g/dL RDW Std Deviation (36.4-46.3) fL RDW Coeff of Damari (11.5-14.5) % Plt Count (130-400) K/uL MPV (9.4-12.4) fL Immature Gran % (Auto) % Neut % (Auto) % Lymph % (Auto) % [place] % (Auto) % Eos % (Auto) % Baso % (Auto) % Neut # (Auto) (1.4-6.5) K/uL Lymph # (Auto) (1.2-3.4) K/uL [place] # (Auto) (0.24-0.82) K/uL Eos # (Auto) (0-0.50) K/uL Baso # (Auto) (0-0.2) K/uL Immature Gran # (Auto) (0.00-0.02) K/uL APTT (21.0-31.0) Seconds PTT Ratio Sodium (136-145) mmol/L Potassium (3.5-5.1) mmol/L Chloride (98-107) mmol/L Carbon Dioxide (21-32) mmol/L Anion Gap (3-11) BUN (6-23) mg/dl Creatinine (0.6-1.4) mg/dl Est Cr Clr Drug Dosing ml/min Est GFR ( Amer) ml/min Est GFR (Non-Af Amer) ml/min BUN/Creatinine Ratio (10-20) Glucose (70-99(Fasting)) mg/dl POC Glucose 139 H (70-99) mg/dl Calcium (8.5-10.1) mg/dl Total Bilirubin (0.2-1.0) mg/dl AST (13-39) U/L ALT (7-52) U/L Alkaline Phosphatase (34-104) U/L Troponin I High Sens (0-20) pg/ml Total Protein (6.0-8.3) gm/dl Albumin (3.4-5.0) gm/dl Globulin (2.5-4.0) gm/dl Albumin/Globulin Ratio (0.9-2) Acetaminophen 3 L (10-30) ug/ml Hepatitis A IgM Ab Pending Hep Bs Antigen Pending Hep Bs Ag Confirmation Pending Hep B Core IgM Ab Pending Hepatitis C Ab (EIA) Pending Hep C Ab Signal/Cutoff Pending 08/11/22 Range/Units 08:32 WBC (4.8-10.8) K/ul RBC (4.63-6.08) M/uL Hgb (14.0-18.0) g/dl Hct (40.1-51.0) % MCV (80.0-100.0) fL MCH (25.0-34.0) pg MCHC (32.0-36.0) g/dL RDW Std Deviation (36.4-46.3) fL RDW Coeff of Damari (11.5-14.5) % Plt Count (130-400) K/uL MPV (9.4-12.4) fL Immature Gran % (Auto) % Neut % (Auto) % Lymph % (Auto) % [place] % (Auto) % Eos % (Auto) % Baso % (Auto) % Neut # (Auto) (1.4-6.5) K/uL Lymph # (Auto) (1.2-3.4) K/uL [place] # (Auto) (0.24-0.82) K/uL Eos # (Auto) (0-0.50) K/uL Baso # (Auto) (0-0.2) K/uL Immature Gran # (Auto) (0.00-0.02) K/uL APTT 45.7 H* (21.0-31.0) Seconds PTT Ratio 1.7 Sodium (136-145) mmol/L Potassium (3.5-5.1) mmol/L Chloride (98-107) mmol/L Carbon Dioxide (21-32) mmol/L Anion Gap (3-11) BUN (6-23) mg/dl Creatinine (0.6-1.4) mg/dl Est Cr Clr Drug Dosing ml/min Est GFR ( Amer) ml/min Est GFR (Non-Af Amer) ml/min BUN/Creatinine Ratio (10-20) Glucose (70-99(Fasting)) mg/dl POC Glucose (70-99) mg/dl Calcium (8.5-10.1) mg/dl Total Bilirubin (0.2-1.0) mg/dl AST (13-39) U/L ALT (7-52) U/L Alkaline Phosphatase (34-104) U/L Troponin I High Sens (0-20) pg/ml Total Protein (6.0-8.3) gm/dl Albumin (3.4-5.0) gm/dl Globulin (2.5-4.0) gm/dl Albumin/Globulin Ratio (0.9-2) Acetaminophen (10-30) ug/ml Hepatitis A IgM Ab Hep Bs Antigen Hep Bs Ag Confirmation Hep B Core IgM Ab Hepatitis C Ab (EIA) Hep C Ab Signal/Cutoff Diagnostic Findings Abdomen Ultrasound 08/11/22 09:14 US abdomen limited HISTORY: 82 years-old Male transaminitis acutely elevated LFTs COMPARISON: CTA chest 08/10/2022, CT abdomen pelvis 02/16/2022 TECHNIQUE: Multiple real-time sonographic images of the abdominal right upper quadrant were obtained assessing grayscale appearance and color flow FINDINGS: The pancreas is mostly obscured by bowel gas. Hepatic steatosis without evidence of cirrhosis or hepatic mass. Unremarkable gallbladder. Normal common bile duct, 5 mm. The imaged right kidney is unremarkable without hydronephrosis. IMPRESSION: 1. Unremarkable gallbladder. 2. No biliary ductal dilation. 3. Hepatic steatosis. ACT 112: Negative or not required by law. The above report was generated using voice recognition software. It may contain grammatical, syntax or spelling errors. Electronically signed by: Rodrigo Collier M.D. 08/11/2022 10:21 AM Cholangiopancreatography MRI 08/11/22 12:53 MR MRCP HISTORY: 82 years-old Male recurrent transaminitis acutely elevated LFTs COMPARISON: Abdominal ultrasound 08/11/2022, CTA chest 08/10/2022, CT abdomen and pelvis 02/16/2022. TECHNIQUE: MRCP was obtained without the use of IV contrast. FINDINGS: Cardiomegaly. Mild right hemidiaphragmatic elevation. Unremarkable spleen, visualized pancreas, and adrenal glands. The study is motion degraded. The liver is unremarkable. The gallbladder is within normal limits. No biliary or pancreatic ductal dilation identified. The common bile duct measures 3 mm. No choledocholithiasis or biliary stricture. No pancreatic divisum. 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 Degenerative changes of the spine and hips. Prostamegaly with urinary bladder wall thickening suggestive of chronic bladder outlet obstruction. No bowel obstruction or bowel wall thickening identified. Unremarkable soft tissues. 3.3 cm for abdominal aortic aneurysm redemonstrated. Unremarkable soft tissues. No acute fracture. Mild nonspecific bilateral perinephric stranding. Probable cyst of the superior pole left kidney, 2.2 cm. IMPRESSION: 1. Motion degraded exam. 2. No cholelithiasis or evidence of acute cholecystitis. 3. No biliary ductal dilation or choledocholithiasis. 4. Fusiform infrarenal abdominal aortic aneurysm is stable from the prior study measuring 3.3 cm. ACT 112: Negative or not required by law. The above report was generated using voice recognition software. It may contain grammatical, syntax or spelling errors. Electronically signed by: Rodrigo Collier M.D. 08/11/2022 6:15 PM
[2022-08-12 07:52] LABS: Estimated Average Glucose 137 mg/dl; Hemoglobin A1C 6.4 % (4.5-5.6)
[2022-08-12] MEDS: METOPROLOL SUCC 25MG EXT REL TAB PO SCH (08:24)
[2022-08-12] MEDS: LOSARTAN POTASSIUM 25 MG TAB PO SCH (08:24)
[2022-08-12] MEDS: ATORVASTATIN 40 MG TAB PO SCH (08:24)
[2022-08-12] MEDS: DIPYRIDAMOLE/ASPIRIN CAP PO SCH (08:24)
[2022-08-12] MEDS: TAMSULOSIN HCL 0.4 MG CAP PO SCH (08:25)
[2022-08-12] MEDS: IBUPROFEN 200 MG TAB PO PRN (08:31)
[2022-08-12] MEDS: INSULIN ASPART PER UNIT SC SCH (08:36)
--- NOTE | 2022-08-12 09:21 | Electrocardiogram Report ---
Test Reason : Blood Pressure : / mmHG Vent. Rate : 073 BPM Atrial Rate : 073 BPM P-R Int : 240 ms QRS Dur : 100 ms QT Int : 382 ms P-R-T Axes : -26 -12 059 degrees QTc Int : 420 ms Sinus rhythm with 1st degree A-V block Nonspecific ST abnormality Otherwise normal ECG When compared with ECG of 10-AUG-2022 21:08, ST no longer depressed in Inferior leads ST no longer depressed in Anterolateral leads T wave inversion no longer evident in Inferior leads Nonspecific T wave abnormality now evident in Lateral leads Confirmed by Howard Duggan [id number] on 08/12/2022 9:21:32 AM Referred By: REFERRED SELF Confirmed By:Tommy Duggan
--- NOTE | 2022-08-12 12:56 | Pharmacy Report ---
Pharmacy Glycemic Short Note 2 - Date of Service August 12, 2022 - Glycemic Short BSG Results (Last 24 hours): 08/11/22 08/11/22 08/12/22 16:43 20:11 06:11 Glucose 144 H POC Glucose 127 H 146 H 08/12/22 08/12/22 07:45 11:51 Glucose POC Glucose 114 H 109 H OUTPATIENT ANTIDIABETIC REGIMEN: * Jardiance * Janumet XR HbA1c: 6.4% (08/11/22) ASSESSMENT: 08/12/22 * BSGs well-controlled yesterday w/ fasting BSG this morning of 114 mg/dL * Will slightly loosen Novolog parameters and provide scaled Lantus dose this evening (reduced from yesterday) * Heparin infusing (containing dextrose) discontinued yesterday afternoon * Well-controlled outpatient T2DM with oral agents 08/11/22 * 82 yo M with T2DM admitted w ACS. * BSG's initially >180 mg/dL but came down with 3 units of correctional insulin only * Will give low-dose Lantus * Will continue with Novolog ACHS now that diet ordered, at weight-based moderate stress estimate PLAN FOR INPATIENT GLYCEMIC CONTROL: * Hold outpatient oral diabetes medications * Basal insulin * Lantus 0-10 units SC HS * Bolus insulin * NovoLog per scale ACHS or Q6hrs while NPO * Goal Range: Low 110 mg/dL - High 140 mg/dL * Correction Factor: 30 mg/dL/unit * Nutritional / Prandial insulin per carb ratio of 1 unit per 10 grams CHO consumed
--- NOTE | 2022-08-12 13:06 | Discharge Summary ---
Date of Service August 12, 2022 Admission HPI Per Admitting Provider Mr. Perez is an 82 yo male with PMHx of transitional cell carcinoma, asthma, DM, and HLD who presented to the ER today with chest pain and back pain. Pain started at 1630 while he was sitting at home watching the [employer] football game. Pain was rated at an 8/10 and described as a heaviness/achiness. Pain is exacerbated with deep inspiration; it is improved with rest. He also had nausea, which has since resolved; there was no associated emesis. There is no associated SOB. Patient denies hx of similar episodes. In the ED, patient states that CP has improved to a 3/10 and back pain has improved to a 6/10 with nitro and ASA. Labs show no leukocytosis, no anemia. INR 1.0. D-dimer elevated at 2250. Electrolytes are wnl. Cr is at baseline of 1.05. Initial HS-troponin negative. COVID negative. CXR with cardiomegaly but no acute cardiopulmonary abnormalities. Chest CTA w/o evidence of PE. EKG does reveal significant ST changes with both ST depressions and elevations. Interventional cardiology was consulted; heart alert was NOT activated. Patient will be admitted for continued monitoring and cardiology evaluation. Update on admission: patient re-evaluated and states that he is now pain free. Will continue to monitor. Admission Exam Per Admitting Provider GENERAL: Elderly male, appears stated age, laying in bed in no acute distress. Well developed and well nourished. Vital signs reviewed. EYES: PERRL. EOMI. Anicteric sclerae. HENT: Moist mucous membranes. No pharyngeal erythema or exudates. TMs clear w/o bulging or erythema; good cone of light. RESPIRATORY: Clear to auscultation bilaterally. No wheezing, rales, or rhonchi. CARDIOVASCULAR: Tachycardic. Regular rhythm. No JVD. ABDOMEN: Soft. Non-tender. Normal bowel sounds. EXTREMITIES: No edema. Non-tender. SKIN: Warm, dry. NEUROLOGIC: A/O x3. Normal speech. No focal neurological deficits. 5/5 strength in BUE and BLE. PSYCHIATRIC: Cooperative. Appropriate mood and affect. Principal Diagnosis Transaminitis Discharge Exam Constitutional WD/WN, vitals as above Respiratory normal respiratory effort, lungs clear to auscultation Cardiovascular RRR, no murmur, no edema Psychiatric A+Ox3, euthymic affect Discharge Data Allergies Allergy/AdvReac Type Severity Reaction Status Date / Time grass pollen Allergy runny, Verified 08/11/22 00:12 watery eyes mold Allergy runny, Verified 08/11/22 00:12 watery eyes ragweed pollen Allergy runny, Verified 08/11/22 00:12 watery eyes semaglutide [From Rybelsus] Allergy diarrhea, Verified 08/11/22 00:12 GERD Consultations 08/10/22 22:15 ED Decision to Admit Stat 08/11/22 01:45 Consult Cardiology Routine Ordered Studies Chest X-Ray 08/10/22 20:57 SINGLE VIEW CHEST CLINICAL HISTORY: Atypical chest pain. FINDINGS: An AP, portable, upright chest radiograph is compared to study dated 03/14/2022. The examination is degraded by portable technique and apical lordotic positioning. The heart is mildly enlarged noting atherosclerotic calcification of the thoracic aorta. The pulmonary vascularity is non-congested. Chronic interstitial thickening is similar to previous. Scarring/atelectasis is noted the lung bases. The lungs and pleural spaces are otherwise clear. There are scattered calcified granulomas. No pneumothorax is seen. The skeletal structures are osteopenic. The bony thorax is grossly intact. IMPRESSION: Cardiomegaly with no acute cardiopulmonary abnormality. Chest CTA 08/10/22 21:36 CT ANGIOGRAM OF THE CHEST CLINICAL HISTORY: Atypical chest pain. Thoracic back pain. COMPARISON STUDY: Chest x-ray dated 08/10/2022. TECHNIQUE: Following the IV administration of 115 cc of Optiray 300, CT angiogram of the chest was performed from the upper abdomen to the thoracic inlet utilizing the pulmonary embolus protocol. Images are reviewed in the axial, sagittal, and coronal planes. 3-D MIPS images are created and assessed. IV contrast was administered without complication. A dose lowering technique was utilized adhering to the principles of ALARA. CT DOSE: 969.19 mGy.cm FINDINGS: Thyroid: Imaged portions of the thyroid gland are normal in size and attenuation. Thoracic aorta: There is atherosclerotic calcification of the thoracic aorta, which is normal in caliber and demonstrates standard 3-vessel arch anatomy. No dissection is seen. Pulmonary vasculature: The pulmonary trunk is dilated, measuring 3.9 cm in diameter. This suggests pulmonary artery hypertension. There are no filling defects identified in main, lobar, or segmental pulmonary branches to suggest pulmonary embolus. Heart: The heart is top normal in size and without pericardial effusion. There are coronary artery calcifications. Lungs and pleural spaces: Evaluation of the lung parenchyma is modestly degraded by motion artifact. No airspace consolidation or pleural effusion is identified. Scattered calcified granulomas are noted. Scarring/atelectasis is seen at the lung bases. The trachea and central airways are clear. Mediastinum: There is no mediastinal lymphadenopathy. Marisa: Clear. Axillae: There is no axillary lymphadenopathy. Upper abdomen: Partially visualized upper abdominal viscera is within normal limits. Skeletal structures: The skeletal structures are osteopenic. Degenerative change and hyperkyphosis is noted in the thoracic spine. No lytic or blastic bony lesions are seen. IMPRESSION: 1. There is no evidence of pulmonary embolus in the main, lobar, or segmental pulmonary arteries. 2. There is no airspace consolidation or pleural effusion. 3. Additional findings as above. Abdomen Ultrasound 08/11/22 09:14 US abdomen limited HISTORY: 82 years-old Male transaminitis acutely elevated LFTs COMPARISON: CTA chest 08/10/2022, CT abdomen pelvis 02/16/2022 TECHNIQUE: Multiple real-time sonographic images of the abdominal right upper quadrant were obtained assessing grayscale appearance and color flow FINDINGS: The pancreas is mostly obscured by bowel gas. Hepatic steatosis without evidence of cirrhosis or hepatic mass. Unremarkable gallbladder. Normal common bile duct, 5 mm. The imaged right kidney is unremarkable without hydronephrosis. IMPRESSION: 1. Unremarkable gallbladder. 2. No biliary ductal dilation. 3. Hepatic steatosis. Cholangiopancreatography MRI 08/11/22 12:53 MR MRCP HISTORY: 82 years-old Male recurrent transaminitis acutely elevated LFTs COMPARISON: Abdominal ultrasound 08/11/2022, CTA chest 08/10/2022, CT abdomen and pelvis 02/16/2022. TECHNIQUE: MRCP was obtained without the use of IV contrast. FINDINGS: Cardiomegaly. Mild right hemidiaphragmatic elevation. Unremarkable spleen, visualized pancreas, and adrenal glands. The study is motion degraded. The liver is unremarkable. The gallbladder is within normal limits. No biliary or pancreatic ductal dilation identified. The common bile duct measures 3 mm. No c holedocholithiasis or biliary stricture. No pancreatic divisum. 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 Degenerative changes of the spine and hips. Prostamegaly with urinary bladder wa ll thickening suggestive of chronic bladder outlet obstruction. No bowel obstruction or bowel wall thickening identified. Unremarkable soft tissues. 3.3 cm for abdominal aortic aneurysm redemonstrated. Unremarkable soft tissues. No acute fracture. Mild nonspecific bilateral perinephric stranding. Probable cyst of the superior pole left kidney, 2.2 cm. IMPRESSION: 1. Motion degraded exam. 2. No cholelithiasis or evidence of acute cholecystitis. 3. No biliary ductal dilation or choledocholithiasis. 4. Fusiform infrarenal abdominal aortic aneurysm is stable from the prior study measuring 3.3 cm. 08/12/22 08/12/22 08/12/22 Range/Units 11:51 07:45 06:11 WBC (4.8-10.8) K/ul RBC (4.63-6.08) M/uL Hgb (14.0-18.0) g/dl Hct (40.1-51.0) % MCV (80.0-100.0) fL MCH (25.0-34.0) pg MCHC (32.0-36.0) g/dL RDW Std Deviation (36.4-46.3) fL RDW Coeff of Damari (11.5-14.5) % Plt Count (130-400) K/uL MPV (9.4-12.4) fL Immature Gran % (Auto) % Neut % (Auto) % Lymph % (Auto) % Cooper % (Auto) % Eos % (Auto) % Baso % (Auto) % Neut # (Auto) (1.4-6.5) K/uL Lymph # (Auto) (1.2-3.4) K/uL Cooper # (Auto) (0.24-0.82) K/uL Eos # (Auto) (0-0.50) K/uL Baso # (Auto) (0-0.2) K/uL Immature Gran # (Auto) (0.00-0.02) K/uL Sodium 141 (136-145) mmol/L Potassium 4.1 (3.5-5.1) mmol/L Chloride 109 H (98-107) mmol/L Carbon Dioxide 25 (21-32) mmol/L Anion Gap 7 (3-11) BUN 26 H (6-23) mg/dl Creatinine 1.15 (0.6-1.4) mg/dl Est Cr Clr Drug Dosing 55.1 ml/min Est GFR ( Amer) 68.8 ml/min Est GFR (Non-Af Amer) 59.4 ml/min BUN/Creatinine Ratio 22.6 H (10-20) Glucose 144 H (70-99(Fasting)) mg/dl POC Glucose 109 H 114 H (70-99) mg/dl Estimat Average Glucose mg/dl Hemoglobin A1c (4.5-5.6) % Calcium 9.1 (8.5-10.1) mg/dl Total Bilirubin 3.1 H (0.2-1.0) mg/dl AST 154 H (13-39) U/L ALT 290 H (7-52) U/L Alkaline Phosphatase 127 H (34-104) U/L Troponin I High Sens (0-20) pg/ml Total Protein 5.8 L (6.0-8.3) gm/dl Albumin 3.6 (3.4-5.0) gm/dl Globulin 2.2 L (2.5-4.0) gm/dl Albumin/Globulin Ratio 1.6 (0.9-2) 08/12/22 08/11/22 08/11/22 Range/Units 06:11 20:11 17:53 WBC 9.51 (4.8-10.8) K/ul RBC 4.09 L (4.63-6.08) M/uL Hgb 12.8 L (14.0-18.0) g/dl Hct 36.5 L (40.1-51.0) % MCV 89.2 (80.0-100.0) fL MCH 31.3 (25.0-34.0) pg MCHC 35.1 (32.0-36.0) g/dL RDW Std Deviation 43.8 (36.4-46.3) fL RDW Coeff of Damari 13.3 (11.5-14.5) % Plt Count 175 (130-400) K/uL MPV 9.5 (9.4-12.4) fL Immature Gran % (Auto) 0.4 % Neut % (Auto) 86.5 % Lymph % (Auto) 5.3 % Cooper % (Auto) 7.3 % Eos % (Auto) 0.4 % Baso % (Auto) 0.1 % Neut # (Auto) 8.23 H (1.4-6.5) K/uL Lymph # (Auto) 0.50 L (1.2-3.4) K/uL Cooper # (Auto) 0.69 (0.24-0.82) K/uL Eos # (Auto) 0.04 (0-0.50) K/uL Baso # (Auto) 0.01 (0-0.2) K/uL Immature Gran # (Auto) 0.04 H (0.00-0.02) K/uL Sodium (136-145) mmol/L Potassium (3.5-5.1) mmol/L Chloride (98-107) mmol/L Carbon Dioxide (21-32) mmol/L Anion Gap (3-11) BUN (6-23) mg/dl Creatinine (0.6-1.4) mg/dl Est Cr Clr Drug Dosing ml/min Est GFR ( Amer) ml/min Est GFR (Non-Af Amer) ml/min BUN/Creatinine Ratio (10-20) Glucose (70-99(Fasting)) mg/dl POC Glucose 146 H (70-99) mg/dl Estimat Average Glucose mg/dl Hemoglobin A1c (4.5-5.6) % Calcium (8.5-10.1) mg/dl Total Bilirubin (0.2-1.0) mg/dl AST (13-39) U/L ALT (7-52) U/L Alkaline Phosphatase (34-104) U/L Troponin I High Sens 51.7 H* D (0-20) pg/ml Total Protein (6.0-8.3) gm/dl Albumin (3.4-5.0) gm/dl Globulin (2.5-4.0) gm/dl Albumin/Globulin Ratio (0.9-2) 08/11/22 08/11/22 Range/Units 16:43 05:51 WBC (4.8-10.8) K/ul RBC (4.63-6.08) M/uL Hgb (14.0-18.0) g/dl Hct (40.1-51.0) % MCV (80.0-100.0) fL MCH (25.0-34.0) pg MCHC (32.0-36.0) g/dL RDW Std Deviation (36.4-46.3) fL RDW Coeff of Damari (11.5-14.5) % Plt Count (130-400) K/uL MPV (9.4-12.4) fL Immature Gran % (Auto) % Neut % (Auto) % Lymph % (Auto) % Cooper % (Auto) % Eos % (Auto) % Baso % (Auto) % Neut # (Auto) (1.4-6.5) K/uL Lymph # (Auto) (1.2-3.4) K/uL Cooper # (Auto) (0.24-0.82) K/uL Eos # (Auto) (0-0.50) K/uL Baso # (Auto) (0-0.2) K/uL Immature Gran # (Auto) (0.00-0.02) K/uL Sodium (136-145) mmol/L Potassium (3.5-5.1) mmol/L Chloride (98-107) mmol/L Carbon Dioxide (21-32) mmol/L Anion Gap (3-11) BUN (6-23) mg/dl Creatinine (0.6-1.4) mg/dl Est Cr Clr Drug Dosing ml/min Est GFR ( Amer) ml/min Est GFR (Non-Af Amer) ml/min BUN/Creatinine Ratio (10-20) Glucose (70-99(Fasting)) mg/dl POC Glucose 127 H (70-99) mg/dl Estimat Average Glucose 137 mg/dl Hemoglobin A1c 6.4 H (4.5-5.6) % Calcium (8.5-10.1) mg/dl Total Bilirubin (0.2-1.0) mg/dl AST (13-39) U/L ALT (7-52) U/L Alkaline Phosphatase (34-104) U/L Troponin I High Sens (0-20) pg/ml Total Protein (6.0-8.3) gm/dl Albumin (3.4-5.0) gm/dl Globulin (2.5-4.0) gm/dl Albumin/Globulin Ratio (0.9-2) Hospital Course (1) Transaminitis: (2) Diabetes mellitus with renal complications: (3) Mixed hyperlipidemia: (4) Vitamin B12 deficiency: Plan Patient is an 82 y/o male with PMHx of transitional cell carcinoma, asthma, HLD, and HTN admitted to [facility] on 08/10/22 with upper abdominal/lower chest pain and found to have transaminitis who has now improved clinically and is clear for discharge. Hospital Course By Problem: #Transaminitis: He had a fairly significant elevation of his transaminases with a predominantly hepatocellular pattern - AST 448 ALT 464 Alk P131 on admission.AST 154 ALT 290 Alk P 127 at the time of discharge. This would speak mostly towards a viral insult given his lack of medication history to suggest a toxic insult.Checked hepatitis panel again for completeness, and trend transaminases - still pending. That said, given that this is recurrent, and his symptoms really did sound very upper GIeven though his liver enzyme pattern is much more hepatocellular than obstructive, he does have a mild degree of bilirubin and alk phos elevation. MRCP was negative. High suspicion that this was the insult that created the demand precipitating his demand ischemia. Patient does have hepatic steatosis as baseline likely 2/2 DM and HLD. Will hold atorvastatin 10 mg until LFTs normalize. Repeat LFTs later this week. Follow up with Dr. Martinez. Could consider hepatology referral outpatient. #Demand ischemia: Trops peaked at 66.6. EKG did not show signs of ischemia. Likely demand ischemia and not ACS. Per cardiology patient does not need to be on metoprolol. Stable overall. Diabetes mellitus with renal complications: Continue home meds. HbA1c 6.4 - well controlled. #Mixed hyperlipidemia: Patient on atorvastatin 10 mg at home for HLD. Last lipid panel was WNL. Hold atorvastatin in the setting of transaminitis #Vitamin B12 deficiency: continue PO supplementation #Transitional cell carcinoma: liver without mets - review of charts suggests this is all local disease and well controlled; doubt this plays a role in his acute presentation #Hypertension: BP acceptable during hospitalization. Total Time Total Time Spent Total Time Spent (In Minutes): I spent 35 minutes in discussion with the patient, physical exam, review of laboratory/studies, documentation Discharge Plan Discharge Items Patient Disposition: Home - Self-Care Reason For Visit: ACS Discharge Diagnosis: Transaminitis Activity: Resume your previous activity Non-emergency contact: Primary Care Provider and Certified Court/Medical Interpreter Call non-emergency contact if: you have any medication questions, your symptoms worsen and you have a fever Follow-up/Referrals: James Martinez MD [Primary Care Provider] - 08/16/22 9:10 am (follow up: DR BHAKTA, Friday08/16/2022 9:10am) Diet: Carb Consistent or DM2 Addtl Attending Provider Instructions: You were admitted to the hospital for chest and abdominal pain. We performed tests which showed your symptoms were unlikely to be coming from your heart. We did identify elevated liver enzymes, similar to what you experienced in February of this year. The liver enzymes have started to fall to normal levels, but we recommend following up with your PCP to ensure these continue to improve. A discharge summary will be sent to your primary care physician to ensure continuity of care. Please bring this discharge summary with you to your next office appointment so that your provider can review it at that time. Follow-up appointments: You will need to have blood drawn later this week. We have provided you with a paper prescription for the blood work. Please take that paper to the lab of your choice (either [facility] labs here at the [facility], or [facility] labs at [address] [place] [address] in [place]). Of note, the [facility] labs at [address] [place] [address] are only open Friday through Friday, while the lab at the [facility] is open every day. You have an appointment on August 27 at 8:00am with Dr. Elliot Vazquez at [facility] in [place]. If you are unable to make this appointment, or have any other questions, their office can be reached at . Keep all your follow-up appointments as already scheduled. If you cannot make an appointment, notify your provider. Medications: Your medication list has been reviewed and reconciled upon discharge to ensure accuracy and continuity of care. An updated list of all your medications is included with your hospital discharge paperwork. Please review this list closely, and make note of any changes. * We recommend that you stop taking atorvastatin until you follow up with your primary care physician. * We also recommend that you stop taking acetaminophen (Tylenol) until you follow up with your primary care physician. If you have any issues filling these prescriptions, please call [phone] and ask to leave a message for Dr. Elliot Vazquez. Take your medications as instructed; do not skip a dose of your medicines. Make sure all of your doctors know every medicine you are taking (including [id number] medicines, vitamins, and supplements). Call your primary care provider before taking any new medicines (including [id number] medicines, vitamins, and supplements), because some of these may interact with your current medications, or may make your symptoms worse. Tell your primary care provider if you cannot afford your medications. CONTACT YOUR PRIMARY CARE PROVIDER if you experience any of the following: Chest pain or worsening abdominal pain Nausea or vomiting Difficulty following your treatment plan, or difficulty taking medications CALL 911 OR GO TO THE EMERGENCY DEPARTMENT if you experience any of the following: Sudden, severe abdominal pain or nausea/vomiting Severe chest pain, or chest pain that radiates (moves) to your jaw or arm Sudden, severe shortness of breath or difficulty breathing Thank you for allowing us to participate in your care. Pending Studies at Discharge: Yes (hepatitis panel) Stand-Alone Forms: [facility], Smoking Cessation Medications and DC Order Prescriptions: Continued tamsulosin 0.4 mg capsule 0.4 mg PO DAILY Qty: 30 5RF fexofenadine 180 mg Tablet 180 mg PO DAILY fluticasone propionate [Flonase Allergy Relief] 50 mcg/actuation [place],Suspension 2 spray INTRANASAL DAILY Rx Instructions: administer into each nostril aspirin-dipyridamole 25-200 mg capsule, ER multiphase 12 hr 1 cap PO BID trazodone 50 mg tablet 100 mg PO HS dutasteride 0.5 mg capsule 0.5 mg PO PM Janumet XR 50-1,000 mg tablet, ER multiphase 24 hr 1 tab PO BID Jardiance 25 mg tablet 25 mg PO QAM losartan 50 mg tablet 25 mg PO BID cyanocobalamin (vitamin B-12) [Vitamin B-12] 1,000 mcg Tablet 2,000 mcg PO PM cholecalciferol (vitamin D3) [Vitamin D3] 25 mcg (1,000 unit) Tablet 50 mcg PO PM ibuprofen 200 mg Tablet 200 - 600 mg PO Q6H PRN (Reason: Pain) Discontinued atorvastatin 10 mg tablet 10 mg PO PM Discharge Orders: Discharge Order (Routine); Ordered 08/12/22 Ordered By: Elliot Adame/Other Patient Handouts: High Blood Sugar (Hyperglycemia), Managing Type 2 Diabetes Admission Data Admit Date/Time: 08/10/22 23:34 Attending Provider: Jose Edmondson Admit Provider: Jaqui Murrieta Primary Care Provider: James Martinez Other Providers: Ronak Garzon ; Eliud Cai Other Interventions: Discharge Summary Assessment (RN) Last Done: 08/12/22 14:32 Supervising Physician Co-Signing Physician Notes I also saw the patient and confirmed mccormack portions of the history and physical examination. Upon examination today, the patient is seated at bedside. He has no complaints. Interestingly, back in February he had a episode of transaminitis which was thought, previously, to be secondary to a gastroenteritis. However, now with a second similar episode, wonder if the transaminitis was actually the cause of his GI symptoms. With his present admission, his symptoms certainly sound consistent with a GI etiology; he did have what sounds to be some demand ischemia although strongly suspect GI primary, cardiac secondary. In any event, he is feeling better todaypain is all resolved, tolerating p.o. without difficulty. Exam 128/77, 67, 19, 37.1, 96% on room air Heart regular rate and rhythm Respirations nonlabored Abdomen soft and nontender Data Hemoglobin 12.8, WBC 9.51 Sodium 141, potassium 4.1, BUN 26, creatinine 1.15 Total bilirubin 3.1, AST 154, ALT 290, alkaline phosphatase 127. Imaging MRCP completed 08/11/2022 shows no cholelithiasis or evidence of acute cholecystitis, no biliary ductal dilatation or choledocholithiasis. Incidental note is made of a fusiform infrarenal abdominal aortic aneurysm, stable at 3.3 cm Abdominal ultrasound dated 08/11/2022 shows unremarkable gallbladder, no biliary ductal dilatation, hepatic steatosis. Impression and Plan Transaminitis Second episode, first being back in February, etiology not clear Recommend holding Tylenol I would also hold his statin until his transaminases returned to normal Repeat CMP later this week PCP follow-up next week, consider referral to GI/hepatology Additional per resident documentation Resident Activity Tracking Resident Involvement: Resident Care Provided Care Provided: Adult [facility]
[2022-08-12] MEDS ORDERED: DUTASTERIDE PO SCH (21:00)
[2022-08-12] MEDS ORDERED: LANTUS PER UNIT CHARGE SQ SCH (21:00)
[2022-08-13 15:46] LABS: HBSAG NON-REACTIVE (NON-REACTIVE); Hepatitis A Antibody IgM NON-REACTIVE (NON-REACTIVE); Hepatitis B Core Antibody IgM NON-REACTIVE (NON-REACTIVE)
== END 2022-08-12 16:25 | disposition home or self-care (01) ==
LOC: 4W 20:45 → ED 20:45 → SUATTDRO 23:34 → 4W 08-11 01:11
DX: J45.909 Unspecified asthma, uncomplicated; I24.8 Other forms of acute ischemic heart disease; Z88.8 Allergy status to other drugs, medicaments and biological substances; E78.2 Mixed hyperlipidemia; R74.01 Elevation of levels of liver transaminase levels; E53.8 Deficiency of other specified B group vitamins; E11.29 Type 2 diabetes mellitus with other diabetic kidney complication; C68.9 Malignant neoplasm of urinary organ, unspecified

== ENCOUNTER 2024-10-27 14:19 | Inpatient (IN) ==
[2024-10-27 15:05] LABS: Hematocrit (blood only) 41.8 % (42.0-52.0); Hemoglobin 14.5 g/dl (14.0-18.0); Mean Corpuscular Hemoglobin 29.8 pg (25.0-34.0); Mean Corpuscular Hgb Conc 34.7 g/dL (32.0-36.0); Mean Platelet Volume 9.9 fL (9.4-12.4); Platelet Count 153 K/uL (130-400); RDW Coefficient of Variation 13.3 % (11.5-14.5); RDW Standard Deviation 41.4 fL (36.4-46.3); Red Blood Count 4.86 M/uL (4.70-6.10); White Blood Count 8.14 K/ul (4.8-10.8)
--- NOTE | 2024-10-27 15:08 | XRay Report ---
XR chest 1V portable CLINICAL HISTORY: Cough. Vomiting. COMPARISON STUDY: Chest CT August 10, 2022. Chest radiograph November 26, 2022. FINDINGS: Elevation of the right hemidiaphragm is unchanged. There is no pneumothorax or pleural effu jose. Mild interstitial thickening is present. Linear bibasilar densities favor atelectasis. Minimal left midlung opacity is present. There is moderate cardiomegaly. IMPRESSION: Cardiomegaly. Interstitial thickening and minimal left midlung opacity. This may reflect mild pulmonary edema. An infectious process could appear similar. Radiographic follow-up is recommen ded. ACT 112: Negative or not required by law. Electronically signed by: Parish Guillermo M.D. 10/27/2024 3:07 PM
[2024-10-27 15:24] LABS: Albumin Level 3.4 gm/dl (3.4-5.0); BUN Creatinine Ratio 16.8 (10-20); Bilirubin Direct 5.1 mg/dl (0-0.2); Bilirubin,Total 6.7 mg/dl (0.2-1.0); Calcium 9.5 mg/dl (8.6-10.3); Creatinine Clr Calc Pharmacy 34.2 ml/min; Magnesium 1.9 mg/dl (1.7-2.4); Potassium 3.4 mmol/L (3.5-5.1); Total Protein 5.8 gm/dl (6.0-8.3); Troponin I High Sensitivity 74.6 pg/ml (0-20)
[2024-10-27 15:26] LABS: INR 1.2 (0.9-1.1); Partial Thromboplastin Time 26 Seconds (21-31); Prothrombin Time 13.3 Seconds (9.0-12.0)
[2024-10-27] MEDS: SODIUM CHLORIDE 0.9% 500 ML IV SCH ×2 (15:30→22:12)
[2024-10-27 15:49] LABS: Adenovirus PCR Not Detected (NotDetected); Bordetella parapertussis PCR Not Detected (NotDetected); Bordetella pertussis PCR Not Detected (NotDetected); Chlamydia pneumoniae PCR Not Detected (NotDetected); Coronavirus 229E PCR Not Detected (NotDetected); Coronavirus CoV-2 (COVID19)PCR Not Detected (NotDetected); Coronavirus HKU1 PCR Not Detected (NotDetected); Coronavirus NL63 PCR Not Detected (NotDetected); Coronavirus OC43PCR Not Detected (NotDetected); Human Metapneumovirus PCR Not Detected (NotDetected); Influenza A PCR Not Detected (NotDetected); Influenza B PCR Not Detected (NotDetected); Mycoplasma pneumoniae PCR Not Detected (NotDetected); Parainfluenza Virus 1 PCR Not Detected (NotDetected); Parainfluenza Virus 2 PCR Not Detected (NotDetected); Parainfluenza Virus 3 PCR Not Detected (NotDetected); Parainfluenza Virus 4 PCR Not Detected (NotDetected); Respiratory Syncytial VirusPCR Not Detected (NotDetected); Rhinovirus/Enterovirus PCR Not Detected (NotDetected)
[2024-10-27 15:50] LABS: Basophils # (auto) 0.01 K/uL (0.00-0.20); Basophils % (auto) 0.1 %; Dohle Bodies 1+; Echinocytes 2+; Immature Granulocytes # (auto) 0.11 K/uL (0.01-0.20); Immature Granulocytes % (auto) 1.4 %; Lymphocytes # (auto) 0.18 K/uL (1.20-3.40); Lymphocytes % (auto) 2.2 %; Monocytes # (auto) 0.24 K/uL (0.11-0.59); Monocytes % (auto) 2.9 %; Neutrophils % (auto) 93.4 %; Toxic Vacuolation 1+
--- NOTE | 2024-10-27 16:04 | Emergency Department Note ---
History of Present Illness General Chief complaint: Illness Stated complaint: ILLNESS Time Seen by Provider: 10/27/24 14:29 History of Present Illness Provider Complaint: + nausea, + vomiting and + diarrhea Onset (ago): day(s) 2 Description of Vomiting: no bilious, no blood-streaked, no bloody or no coffee grounds Description of Diarrhea: no mucousy, no tarry, no blood-streaked or no bloody (bright red) Associated Abdominal Pain: No Relieved By: + none Exacerbated By: + eating Context: no foreign travel, no possible food poisoning, no recent antibiotic use, no alcohol abuse, no trauma, no NSAID use, no smoking or no marijuana use Associated symptoms: + myalgias; no chest pain, no cough or no shortness of breath Home Medications Medication Instructions Recorded Confirmed Type aspirin 25 mg-dipyridamole 200 mg 1 cap PO BID 02/16/22 10/27/24 History capsule,ext.release 12 hr multiphase cholecalciferol (vitamin D3) 25 50 mcg PO PM 02/16/22 10/27/24 History mcg (1,000 unit) tablet (Vitamin D3) cyanocobalamin (vitamin B-12) 2,000 mcg PO PM 02/16/22 10/27/24 History 1,000 mcg tablet (Vitamin B-12) dutasteride 0.5 mg capsule 0.5 mg PO PM 02/16/22 10/27/24 History empagliflozin 25 mg tablet 25 mg PO QAM 02/16/22 10/27/24 History (Jardiance) losartan 50 mg tablet 50 mg PO BID 02/16/22 10/27/24 History sitagliptin phos 50 mg-metformin 1 tab PO BID 02/16/22 10/27/24 History ER 1,000 mg tablet,extend rel 24h mp (Janumet XR) trazodone 50 mg tablet 50 - 100 mg PO HS 02/16/22 10/27/24 History ibuprofen 200 mg tablet 200 - 600 mg PO Q6H PRN Pain 03/28/22 10/27/24 History fexofenadine 180 mg tablet 180 mg PO DAILY PRN Other 08/11/22 10/27/24 History fluticasone propionate 50 2 spray intranasal DAILY 08/11/22 10/27/24 History mcg/actuation nasal spray,suspension (Flonase Allergy Relief) tamsulosin 0.4 mg capsule 0.4 mg PO DAILY #90 caps 03/02/24 10/27/24 Rx atorvastatin 10 mg tablet 10 mg PO PM 10/27/24 10/27/24 History metoprolol succinate 25 mg 25 mg PO DAILY 10/27/24 10/27/24 History tablet,extended release 24 hr Allergies Allergy/AdvReac Type Severity Reaction Status Date / Time grass pollen Allergy runny, Verified 08/11/22 00:12 watery eyes mold Allergy runny, Verified 08/11/22 00:12 watery eyes ragweed pollen Allergy runny, Verified 08/11/22 00:12 watery eyes semaglutide [From Rybelsus] Allergy diarrhea, Verified 08/11/22 00:12 GERD Past Med/Surg History Problem List (Updated 10/27/24 @ 18:27 by Kady Carvajal MD) Nausea & vomiting Elevated LFTs JOSY (acute kidney injury) (Acute) Sensorineural hearing loss (SNHL) of both ears Benign prostatic hyperplasia (BPH) with urinary urgency Discharge planning issues DVT prophylaxis Hypertension Demand ischemia Transaminitis First degree AV block Elevated troponin ACS (acute coronary syndrome) Chest pain (Acute) Transitional cell carcinoma Asthma Allergic rhinitis BMI 30.0-30.9,adult Carotid artery plaque COPD (chronic obstructive pulmonary disease) Diabetes mellitus with renal complications Diverticulosis Dysmetabolic syndrome X Erectile dysfunction Mild mental slowing Mixed hyperlipidemia Plantar fasciitis of left foot Prostatism Sleep disorder Testosterone deficiency Vitamin B12 deficiency Weight disorder Bladder tumor Medical History Diverticulosis COPD (chronic obstructive pulmonary disease) pt denies Hyperlipidemia Diabetes mellitus, type 2 Asthma pt denies Tubular adenoma Polycythemia Right tennis elbow History of TIA (transient ischemic attack) 20 yrs ago > no residual effects > Aggrenox History of adenomatous polyp of colon Family hx of prostate cancer Family hx of colon cancer Surgical History History of colonoscopy History of tooth extraction History of cataract surgery bilat H/O vasectomy Family History Daughter Asthma Mother Bone cancer Breast cancer Father COPD (chronic obstructive pulmonary disease) Grandmother (Maternal) Colon cancer Grandfather (Maternal) Colon cancer Uncle Colon cancer Brother Pheochromocytoma Colonic polyp Prostate cancer Sleep apnea Son Sleep apnea Social History Smoking Status: Never smoker Second Hand Exposure: No; Do You Dip or Chew Tobacco: No; Hx Alcohol Use: No Hx Substance Use: No Preferred Language: Vietnamese Communication Ability: Effective [employer] Required: No Beliefs That Will Affect Care: None Current Living Situation: Alone Feels Safe at Home: Yes Assistive Devices: None Physical Exam 2 Vital Signs: Vital Signs - 24 hr 10/27/24 14:25 10/27/24 15:06 10/27/24 15:12 Temperature 37.0 C Temperature Source Oral Pulse Rate 115 H 111 H 110 H Pulse Rate [Apical ] Pulse Rate from Sp O2 Sensor 111 H 109 H Respiratory Rate 18 27 H 24 Respiratory Effort / Characteristics Non-Labored Sponta neous Respiratory Depth Normal Respiratory Patter n Regular Blood Pressure 131/74 Blood Pressure [Le ft Arm] Blood Pressure Tigist n 93 Blood Pressure Tigist n [Left Arm] Blood Pressure Pos ition Lying Pulse Oximetry 94 93 93 Oxygen Delivery Me thod Room Air Sepsis Recent Feve r Within 48 Hours No Sepsis New/Unexpla ined Change in Men blaine Status N/A Sepsis Action Take n by Nursing No Action Required 10/27/24 15:15 10/27/24 15:22 10/27/24 15:23 Temperature Temperature Source Pulse Rate 110 H Pulse Rate [Apical ] 108 H Pulse Rate from Sp O2 Sensor 110 H Respiratory Rate 24 20 Respiratory Effort / Characteristics Non-Labored Sponta neous Respiratory Depth Normal Respiratory Patter n Regular Blood Pressure 122/73 Blood Pressure [Le ft Arm] 122/73 Blood Pressure Tigist n 104 Blood Pressure Tigist n [Left Arm] 89 Blood Pressure Pos ition Pulse Oximetry 92 92 Oxygen Delivery Me thod Room Air Sepsis Recent Feve r Within 48 Hours Sepsis New/Unexpla ined Change in Men blaine Status Sepsis Action Take n by Nursing 10/27/24 15:25 10/27/24 15:27 10/27/24 15:30 Temperature Temperature Source Pulse Rate 112 H Pulse Rate [Apical ] Pulse Rate from Sp O2 Sensor 112 H Respiratory Rate 24 Respiratory Effort / Characteristics Respiratory Depth Respiratory Patter n Blood Pressure 117/73 Blood Pressure [Le ft Arm] Blood Pressure Tigist n 86 Blood Pressure Tigist n [Left Arm] Blood Pressure Pos ition Pulse Oximetry 92 92 Oxygen Delivery Me thod Room Air Sepsis Recent Feve r Within 48 Hours Sepsis New/Unexpla ined Change in Men blaine Status Sepsis Action Take n by Nursing 10/27/24 15:33 10/27/24 16:00 10/27/24 16:03 Temperature Temperature Source Pulse Rate 112 H 113 H Pulse Rate [Apical ] Pulse Rate from Sp O2 Sensor 111 H 113 H Respiratory Rate 23 23 Respiratory Effort / Characteristics Respiratory Depth Respiratory Patter n Blood Pressure 99/68 L Blood Pressure [Le ft Arm] Blood Pressure Tigist n 80 Blood Pressure Tigist n [Left Arm] Blood Pressure Pos ition Pulse Oximetry 92 91 Oxygen Delivery Me thod Sepsis Recent Feve r Within 48 Hours Sepsis New/Unexpla ined Change in Men blaine Status Sepsis Action Take n by Nursing 10/27/24 16:15 10/27/24 16:27 10/27/24 16:30 Temperature Temperature Source Pulse Rate 107 H Pulse Rate [Apical ] 108 H Pulse Rate from Sp O2 Sensor 106 H Respiratory Rate 20 9 L Respiratory Effort / Characteristics Non-Labored Sponta neous Respiratory Depth Normal Respiratory Patter n Regular Blood Pressure 97/66 L Blood Pressure [Le ft Arm] 99/68 L Blood Pressure Tigist n 80 Blood Pressure Tigist n [Left Arm] 78 Blood Pressure Pos ition Pulse Oximetry 92 92 Oxygen Delivery Me thod Room Air Sepsis Recent Feve r Within 48 Hours Sepsis New/Unexpla ined Change in Men blaine Status Sepsis Action Take n by Nursing 10/27/24 16:33 10/27/24 16:42 10/27/24 16:54 Temperature Temperature Source Pulse Rate 99 H 101 H 103 H Pulse Rate [Apical ] Pulse Rate from Sp O2 Sensor 93 H 109 H 110 H Respiratory Rate 20 24 21 Respiratory Effort / Characteristics Respiratory Depth Respiratory Patter n Blood Pressure Blood Pressure [Le ft Arm] Blood Pressure Tigist n Blood Pressure Tigist n [Left Arm] Blood Pressure Pos ition Pulse Oximetry 93 94 95 Oxygen Delivery Me thod Sepsis Recent Feve r Within 48 Hours Sepsis New/Unexpla ined Change in Men blaine Status Sepsis Action Take n by Nursing 10/27/24 16:59 10/27/24 17:00 10/27/24 17:18 Temperature 36.8 C Temperature Source Oral Pulse Rate 106 H Pulse Rate [Apical ] 108 H Pulse Rate from Sp O2 Sensor 105 H Respiratory Rate 19 24 Respiratory Effort / Characteristics Non-Labored Sponta neous Respiratory Depth Normal Respiratory Patter n Regular Blood Pressure 96/64 L Blood Pressure [Le ft Arm] 97/66 L Blood Pressure Tigist n 77 Blood Pressure Tigist n [Left Arm] 76 Blood Pressure Pos ition Pulse Oximetry 92 93 Oxygen Delivery Me thod Room Air Sepsis Recent Feve r Within 48 Hours Sepsis New/Unexpla ined Change in Men blaine Status Sepsis Action Take n by Nursing 10/27/24 17:21 10/27/24 17:30 10/27/24 17:30 Temperature Temperature Source Pulse Rate 108 H 105 H Pulse Rate [Apical ] Pulse Rate from Sp O2 Sensor 107 H 105 H Respiratory Rate 23 21 Respiratory Effort / Characteristics Respiratory Depth Respiratory Patter n Blood Pressure 110/79 Blood Pressure [Le ft Arm] Blood Pressure Tigist n 86 Blood Pressure Tigist n [Left Arm] Blood Pressure Pos ition Pulse Oximetry 94 93 Oxygen Delivery Me thod Sepsis Recent Feve r Within 48 Hours Sepsis New/Unexpla ined Change in Men blaine Status Sepsis Action Take n by Nursing 10/27/24 17:33 10/27/24 18:00 10/27/24 18:00 Temperature Temperature Source Pulse Rate 104 H Pulse Rate [Apical ] 103 H Pulse Rate from Sp O2 Sensor 104 H Respiratory Rate 25 H 20 Respiratory Effort / Characteristics Respiratory Depth Normal Respiratory Patter n Blood Pressure 111/74 Blood Pressure [Le ft Arm] 111/74 Blood Pressure Tigist n 87 Blood Pressure Tigist n [Left Arm] 86 Blood Pressure Pos ition Pulse Oximetry 93 94 Oxygen Delivery Me thod Room Air Sepsis Recent Feve r Within 48 Hours Sepsis New/Unexpla ined Change in Men blaine Status Sepsis Action Take n by Nursing 10/27/24 18:12 10/27/24 18:21 10/27/24 18:30 Temperature Temperature Source Pulse Rate 96 H 102 H 95 H Pulse Rate [Apical ] Pulse Rate from Sp O2 Sensor 101 H 102 H 103 H Respiratory Rate 24 22 12 Respiratory Effort / Characteristics Respiratory Depth Respiratory Patter n Blood Pressure Blood Pressure [Le ft Arm] Blood Pressure Tigist n Blood Pressure Tigist n [Left Arm] Blood Pressure Pos ition Pulse Oximetry 94 93 93 Oxygen Delivery Me thod Sepsis Recent Feve r Within 48 Hours Sepsis New/Unexpla ined Change in Men blaine Status Sepsis Action Take n by Nursing 10/27/24 18:36 12/18/24 18:53 10/27/24 18:54 Temperature Temperature Source Pulse Rate 89 99 H Pulse Rate [Apical ] Pulse Rate from Sp O2 Sensor 96 H 100 H Respiratory Rate 21 22 Respiratory Effort / Characteristics Respiratory Depth Respiratory Patter n Blood Pressure 108/69 Blood Pressure [Le ft Arm] Blood Pressure Tigist n 86 Blood Pressure Tigist n [Left Arm] Blood Pressure Pos ition Pulse Oximetry 93 94 Oxygen Delivery Me thod Sepsis Recent Feve r Within 48 Hours Sepsis New/Unexpla ined Change in Men blaine Status Sepsis Action Take n by Nursing 10/27/24 19:00 10/27/24 19:00 10/27/24 19:00 Temperature Temperature Source Pulse Rate 100 H Pulse Rate [Apical ] 105 H Pulse Rate from Sp O2 Sensor 101 H Respiratory Rate 21 23 Respiratory Effort / Characteristics Non-Labored Sponta neous Respiratory Depth Normal Respiratory Patter n Regular Blood Pressure 109/70 Blood Pressure [Le ft Arm] 109/70 Blood Pressure Tigist n 84 Blood Pressure Tigist n [Left Arm] 83 Blood Pressure Pos ition Pulse Oximetry 94 93 Oxygen Delivery Me thod Room Air Sepsis Recent Feve r Within 48 Hours Sepsis New/Unexpla ined Change in Men blaine Status Sepsis Action Take n by Nursing 10/27/24 19:12 Temperature Temperature Source Pulse Rate 94 H Pulse Rate [Apical ] Pulse Rate from Sp O2 Sensor 94 H Respiratory Rate 21 Respiratory Effort / Characteristics Respiratory Depth Respiratory Patter n Blood Pressure Blood Pressure [Le ft Arm] Blood Pressure Tigist n Blood Pressure Tigist n [Left Arm] Blood Pressure Pos ition Pulse Oximetry 94 Oxygen Delivery Me thod Sepsis Recent Feve r Within 48 Hours Sepsis New/Unexpla ined Change in Men blaine Status Sepsis Action Take n by Nursing Physical Exam: Physical Exam GENERAL: oriented to person, place, and time. appears well-developed and well- nourished. She does not appear distressed. HENT: Exam performed. -Head: Normocephalic and atraumatic. -Right Ear: External ear normal. No mastoid erythema -Left Ear: External ear normal. No mastoid erythema -Mouth/Throat: The oropharynx is clear and moist. No trismus in the jaw. No dental abscesses or uvula swelling. No oropharyngeal exudate or tonsillar abscesses. EYES: Conjunctivae and EOM are normal.Right eye exhibits no discharge. Left eye exhibits no discharge. No scleral icterus. NECK: Normal range of motion. Neck supple. No JVD present. No tracheal deviation and normal range of motion present. CV: Normal rate, regular rhythm, normal heart sounds and intact distal pulses. There is no peripheral edema. Palpable radial pulses bue. PULM/CHEST: Effort normal and breath sounds normal. No respiratory distress. No stridor. no wheezes.no rales. -Chest Wall: no tenderness to palpation ABD: The abdomen is soft. no distension. No mass is present. There is no tenderness. There is no rebound, no guarding, no Alves's sign and no tenderness at McBurney's point. Rovsig negative MUSC/SKEL: Normal range of motion. There is no peripheral edema, tenderness or deformity. NEURO: Motor and sensation grossly intact. SKIN: Skin is warm and dry. not diaphoretic. PSYCH: normal mood and affect. Behavior is normal. Judgment and thought content normal. Course Course 1429: The patient was evaluated in room C2. A complete history and physical exam was performed Cardiac monitoring: An order was placed for continuous cardiac monitoring. The monitor shows a rate of 100 with sinus rhythm interpreted by ar 1617: Vital signs stable.Labs show a blood cell count of 8.14. Coagulation studies within normal limits. Creatinine is up to 1.79, up from his baseline of around 1. Patient's glucose is 249. Lipase is elevated 257. High-sensitivity troponin 74.6, patient not reporting chest pain or difficulty breathing. Patient has a chronically elevated high-sensitivity troponin dating back to his last visit in 2021. Patient's serum bilirubin 6.7 total direct bilirubin 5.1. AST is elevated 138 ALT 220 for alkaline phosphatase 217. Patient has chronically elevated liver enzymes. CT of the ab pelvis was conducted without contrast given the patient's JOSY and was unremarkable. [facility] and elevated lipase. 0427: Discussed case with Dr. Carvajal who states he will be down to evaluate patient for admission. Administered Medications Discontinued Medications Sodium Chloride (Nss) 500 mls @ 125 mls/hr IV .Q4H SKYLER Stop: 10/27/24 19:29 Last Admin: 10/27/24 15:30 Dose: 125 mls/hr Documented By: KENDALL Insulin Aspart (Insulin Aspart Per Unit Charge) 3 units SC NOW STA Stop: 10/27/24 18:38 Last Admin: 10/27/24 18:54 Dose: 3 units Documented By: KENDALL Co-signed By: FREYA Medical Decision Making Medical Records Attestation: I reviewed the patient's medical records. External records reviewed. Patient was admitted from August 10, 2022 to August 12, 2022. At that time the patient was admitted for chest pain. Patient's lab work in August 2022 initially showed an AST of 448 ALT 4-64 alkaline phosphatase 131. Patient had an MRCP done during that visit which was negative. Laboratory Data Attestation: I reviewed the patient's lab results. 10/27/24 Unknown 10/27/24 Unknown Lab Results 10/27/24 10/27/24 10/27/24 Range/Units 14:45 17:51 18:45 WBC (4.8-10.8) K/ul RBC (4.70-6.10) M/uL Hgb (14.0-18.0) g/dl Hct (42.0-52.0) % MCV (80.0-100.0) fL MCH (25.0-34.0) pg MCHC (32.0-36.0) g/dL RDW Std Deviation (36.4-46.3) fL RDW Coeff of Damari (11.5-14.5) % Plt Count (130-400) K/uL MPV (9.4-12.4) fL Immature Gran % (Auto) % Neut % (Auto) % Lymph % (Auto) % [place] % (Auto) % Eos % (Auto) % Baso % (Auto) % Neut # (Auto) (1.40-6.50) K/uL Lymph # (Auto) (1.20-3.40) K/uL [place] # (Auto) (0.11-0.59) K/uL Eos # (Auto) (0.00-0.50) K/uL Baso # (Auto) (0.00-0.20) K/uL Immature Gran # (Auto) (0.01-0.20) K/uL Toxic Vacuolation Dohle Bodies Echinocytes PT (9.0-12.0) Seconds INR (0.9-1.1) APTT (21-31) Seconds PTT Ratio Sodium (136-145) mmol/L Potassium (3.5-5.1) mmol/L Chloride (98-107) mmol/L Carbon Dioxide (21-32) mmol/L Anion Gap (3-11) BUN (6-23) mg/dl Creatinine (0.6-1.4) mg/dl Est Cr Clr Drug Dosing ml/min eGFR BUN/Creatinine Ratio (10-20) Glucose (70-99(Fasting)) mg/dl POC Glucose 270 H (70-99) mg/dl Calcium (8.6-10.3) mg/dl Magnesium (1.7-2.4) mg/dl Total Bilirubin (0.2-1.0) mg/dl Direct Bilirubin (0-0.2) mg/dl AST (13-39) U/L ALT (7-52) U/L Alkaline Phosphatase (34-104) U/L Troponin I High Sens 64.9 H* (0-20) pg/ml Total Protein (6.0-8.3) gm/dl Albumin (3.4-5.0) gm/dl Lipase (11-82) U/L Adenovirus (PCR) Not Detected (NotDetected) B. pertussis DNA (PCR) Not Detected (NotDetected) B.parapertussis DNA PCR Not Detected (NotDetected) C. pneumoniae DNA (PCR) Not Detected (NotDetected) Coronavirus OC43 (PCR) Not Detected (NotDetected) Coronavirus HKU1 (PCR) Not Detected (NotDetected) Coronavirus 229E (PCR) Not Detected (NotDetected) SARS-CoV-2 (PCR) Not Detected (NotDetected) Coronavirus NL63 (PCR) Not Detected (NotDetected) Human Metapneumovir PCR Not Detected (NotDetected) Influenza Type A (PCR) Not Detected (NotDetected) Influenza Type B (PCR) Not Detected (NotDetected) M. pneumoniae (PCR) Not Detected (NotDetected) Parainfluenza 1 (PCR) Not Detected (NotDetected) Parainfluenza 2 (PCR) Not Detected (NotDetected) Parainfluenza 3 (PCR) Not Detected (NotDetected) Parainfluenza 4 (PCR) Not Detected (NotDetected) RSV (PCR) Not Detected (NotDetected) Entero/Rhino (PCR) Not Detected (NotDetected) 10/27/24 Range/Units Unknown WBC 8.14 (4.8-10.8) K/ul RBC 4.86 (4.70-6.10) M/uL Hgb 14.5 (14.0-18.0) g/dl Hct 41.8 L (42.0-52.0) % MCV 86.0 (80.0-100.0) fL MCH 29.8 (25.0-34.0) pg MCHC 34.7 (32.0-36.0) g/dL RDW Std Deviation 41.4 (36.4-46.3) fL RDW Coeff of Damari 13.3 (11.5-14.5) % Plt Count 153 (130-400) K/uL MPV 9.9 (9.4-12.4) fL Immature Gran % (Auto) 1.4 % Neut % (Auto) 93.4 % Lymph % (Auto) 2.2 % [place] % (Auto) 2.9 % Eos % (Auto) 0.0 % Baso % (Auto) 0.1 % Neut # (Auto) 7.60 H (1.40-6.50) K/uL Lymph # (Auto) 0.18 L (1.20-3.40) K/uL [place] # (Auto) 0.24 (0.11-0.59) K/uL Eos # (Auto) 0.00 (0.00-0.50) K/uL Baso # (Auto) 0.01 (0.00-0.20) K/uL Immature Gran # (Auto) 0.11 (0.01-0.20) K/uL Toxic Vacuolation 1+ Dohle Bodies 1+ Echinocytes 2+ PT 13.3 H (9.0-12.0) Seconds INR 1.2 H (0.9-1.1) APTT 26 (21-31) Seconds PTT Ratio 1.0 Sodium 139 (136-145) mmol/L Potassium 3.4 L (3.5-5.1) mmol/L Chloride 106 (98-107) mmol/L Carbon Dioxide 21 (21-32) mmol/L Anion Gap 12 H (3-11) BUN 30 H (6-23) mg/dl Creatinine 1.79 H (0.6-1.4) mg/dl Est Cr Clr Drug Dosing 34.2 ml/min eGFR 37.13 BUN/Creatinine Ratio 16.8 (10-20) Glucose 349 H* (70-99(Fasting)) mg/dl POC Glucose (70-99) mg/dl Calcium 9.5 (8.6-10.3) mg/dl Magnesium 1.9 (1.7-2.4) mg/dl Total Bilirubin 6.7 H (0.2-1.0) mg/dl Direct Bilirubin 5.1 H (0-0.2) mg/dl AST 138 H (13-39) U/L ALT 224 H (7-52) U/L Alkaline Phosphatase 217 H (34-104) U/L Troponin I High Sens 74.6 H* (0-20) pg/ml Total Protein 5.8 L (6.0-8.3) gm/dl Albumin 3.4 (3.4-5.0) gm/dl Lipase 257 H (11-82) U/L Adenovirus (PCR) (NotDetected) B. pertussis DNA (PCR) (NotDetected) B.parapertussis DNA PCR (NotDetected) C. pneumoniae DNA (PCR) (NotDetected) Coronavirus OC43 (PCR) (NotDetected) Coronavirus HKU1 (PCR) (NotDetected) Coronavirus 229E (PCR) (NotDetected) SARS-CoV-2 (PCR) (NotDetected) Coronavirus NL63 (PCR) (NotDetected) Human Metapneumovir PCR (NotDetected) Influenza Type A (PCR) (NotDetected) Influenza Type B (PCR) (NotDetected) M. pneumoniae (PCR) (NotDetected) Parainfluenza 1 (PCR) (NotDetected) Parainfluenza 2 (PCR) (NotDetected) Parainfluenza 3 (PCR) (NotDetected) Parainfluenza 4 (PCR) (NotDetected) RSV (PCR) (NotDetected) Entero/Rhino (PCR) (NotDetected) Imaging Data Radiologist's Impression: Chest X-Ray 10/27/24 14:39 XR chest 1V portable CLINICAL HISTORY: Cough. Vomiting. COMPARISON STUDY: Chest CT August 10, 2022. Chest radiograph November 26, 2022. FINDINGS: Elevation of the right hemidiaphragm is unchanged. There is no pneumothorax or pleural effusion. Mild interstitial thickening is present. Linear bibasilar densities favor atelectasis. Minimal left midlung opacity is present. There is moderate cardiomegaly. IMPRESSION: Cardiomegaly. Interstitial thickening and minimal left midlung opacity. This may reflect mild pulmonary edema. An infectious process could appear similar. Radiographic follow-up is recommended. ACT 112: Negative or not required by law. Electronically signed by: Parish Guillermo M.D. 10/27/2024 3:07 PM Abdomen/Pelvis CT 10/27/24 15:26 CT abd pelvis wo con CLINICAL HISTORY: josy TECHNIQUE: Helical axial images of the abdomen and pelvis were obtained. Automated dose lowering techniques and/or adjustment according to patient size were utilized for this exam. This exam was performed without intravenous contrast. CT DOSE: 1443.97 mGy.cm COMPARISON: Comparison is made to CT abdomen pelvis 02/16/2022 FINDINGS: Lower chest: Bibasilar atelectasis versus scarring is seen. Liver: Hepatic steatosis is noted. Gallbladder and biliary tree: No calcified gallstones. Normal caliber wall. No intra- or extrahepatic biliary ductal dilation. Pancreas: Unremarkable, no focal lesions. Spleen: Unremarkable. Adrenals: Unremarkable. Kidneys and ureters: Perinephric stranding is noted bilaterally. A left renal cyst is seen. Bladder: Unremarkable. Reproductive organs: Prostatomegaly is seen. Bowel: Diverticulosis is seen without evidence of diverticulitis. The duodenal diverticulum is incidentally seen at the level of the pancreas. Lymph nodes Retroperitoneal: Subcentimeter edmund hepatis nodes are noted. Pelvic: Unremarkable. Mesenteric: Unremarkable. Peritoneum: Normal. Vessels: 34 mm infrarenal aortic aneurysm is seen. Abdominal wall: Unremarkable. Bones: Degenerative changes in the visualized spine. IMPRESSION: 1. Prostatomegaly with chronic bladder outlet obstruction. No evidence of hydronephrosis is seen. 2. Hepatic steatosis. ACT 112: Negative or not required by law. Electronically signed by: Jackson Huffman M.D. 10/27/2024 4:01 PM ECG Data Additional Comments: EKG 1 at 1426: Sinus arrhythmia with rate of 114. QRS and QTc intervals within normal limits. No ST elevation or ST depression EKG number 12/24/1937: Sinus tachycardia with rate of 113. [place] QRS intervals within normal limits. QTc 539. No ST elevation or ST depression. [facility] Narrative 1429: The patient was evaluated in room C2. A complete history and physical exam was performed Cardiac monitoring: An order was placed for continuous cardiac monitoring. The monitor shows a rate of 100 with sinus rhythm interpreted by me 1617: Vital signs stable.Labs show a blood cell count of 8.14. Coagulation studies within normal limits. Creatinine is up to 1.79, up from his baseline of around 1. Patient's glucose is 249. Lipase is elevated 257. High-sensitivity troponin 74.6, patient not reporting chest pain or difficulty breathing. Patient has a chronically elevated high-sensitivity troponin dating back to his last visit in 2021. Patient's serum bilirubin 6.7 total direct bilirubin 5.1. AST is elevated 138 ALT 220 for alkaline phosphatase 217. Patient has chronically elevated liver enzymes. CT of the ab pelvis was conducted without contrast given the patient's JOSY and was unremarkable. Patient will be admitted to the [facility] hospitalist team given his JOSY and elevated lipase. 165: Discussed case with Dr. Carvajal who states he will be down to evaluate patient for admission. Impression & Plan JOSY (acute kidney injury) Discharge Plan Visit Data Chief Complaint: Illness Stated Complaint: ILLNESS ED Provider: Octavio Street Discharge Problem: JOSY (acute kidney injury) Patient Disposition: Being Evaluated by Hospitalist Forms Stand Alone Forms: My [facility] Prescriptions Prescriptions: No Action tamsulosin 0.4 mg capsule 0.4 mg PO DAILY Qty: 90 3RF fexofenadine 180 mg Tablet 180 mg PO DAILY PRN (Reason: Other) fluticasone propionate [Flonase Allergy Relief] 50 mcg/actuation [place],Suspension 2 spray INTRANASAL DAILY Rx Instructions: administer into each nostril aspirin-dipyridamole 25-200 mg capsule, ER multiphase 12 hr 1 cap PO BID trazodone 50 mg tablet 50 - 100 mg PO HS dutasteride 0.5 mg capsule 0.5 mg PO PM Janumet XR 50-1,000 mg tablet, ER multiphase 24 hr 1 tab PO BID Jardiance 25 mg tablet 25 mg PO QAM losartan 50 mg tablet 50 mg PO BID cyanocobalamin (vitamin B-12) [Vitamin B-12] 1,000 mcg Tablet 2,000 mcg PO PM cholecalciferol (vitamin D3) [Vitamin D3] 25 mcg (1,000 unit) Tablet 50 mcg PO PM Rx Instructions: 2000 units ibuprofen 200 mg Tablet 200 - 600 mg PO Q6H PRN (Reason: Pain) atorvastatin 10 mg tablet 10 mg PO PM metoprolol succinate 25 mg tablet extended release 24 hr 25 mg PO DAILY Referrals Referrals: Howard Santiago MD [Primary Care Provider] -
--- NOTE | 2024-10-27 18:28 | History & Physical Report ---
Date of Service October 27, 2024 Assessment & Plan (1) Nausea & vomiting: Plan: Possibly related to a viral gastroenteritis vs food poisoning (ate out at [employer]) CT abd/pel with fatty liver but no obstruction or evidence of infection No abd pain or fevers. 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 CT A/P with fatty liver but no bile duct dilatation or gallstones. Lipase also mildly elevated but could be from recent vomiting. Has had this before but TBili not as high INR mildly elevated at 1.2, platelets lower than baseline but still within lower range of normal, albumin normal Daughter also with fatty liver and elevated LFTs--> neither follow with GI/Hepat ology or have had further testing Could be from MASLD vs viral hepatitis, PBC, PSC, James's, autoimmune hepatitis, HC, etc.---> check labs for this On a statin but no other drugs known to cause cholestatic pattern of injury Consult GI Check MRCP Follow LFTs, CBC, PT/INR Hold home atorvastatin With mild confusion on admission-check NH3 (4) Diabetes mellitus, type 2: Plan: With severe hyperglycemia here without ketoacidosis. BSG in 500s, improved to 200s with IVFs Only on Janumet and Jardiance at home Give Novolog 3 units now and then goal range 110-140, CF 30, CR 0 for now, reassess for need for Lantus tomorrow Hold home Janumet,Jardiance ADA diet, accuchecks Check A1C in AM (5) Demand ischemia: Plan: trop elevated at 76, no chest pain, no ECG changes, no previous h/o cardiac issues trend serial trop and ECGs monitor on tele for arrhythmias With a h/o AAA-stable on recent imaging, 3.4cm on CT here CXR here with possible pulm edema but not hypoxic, no resp symptoms-monitor on repeat CXR in future to ensure cleared (6) Benign prostatic hyperplasia (BPH) with urinary urgency: Plan: continue Flomax, holding dutasteride as not on fomrulary (7) Hypertension: Plan: BPs stable continue Toprol XL holding losartan for JOSY (8) History of TIA (transient ischemic attack): Plan: With a h/o TIA-continue ASA/dipyridamole, holding statin Plan Insomnia-continue home trazodone prn DVT proph-heparin SQ Dispo-admit to med-tele FULL CODE History of Present Illness Chief Complaint: confusion, N/V Primary Care Provider: Howard Santiago MD This pt is an 87 yo male with a h/o HTN, TIA, bladder CA, fatty liver, DMII, B12 deficiency, AAA, BPH and insomnia who p/w significant N/V numerous times on the night of 10/25. The vomiting resolved on 10/26 in the morning and he had a couple of loose stools that day. Denies abdominal pains, fevers/chills. No blood in stool or vomit. He continued to just not quite feel right and his daughters thought he was not as mentally clear as he usually is. He then had a scheduled cystoscopy today with Dr. Swain of Urology and on arrival was noted to be shaky and "clammy" as per daughter, and procedure was cancelled. EMS contacted and pt noted to have a blood glucose in the 500s. Pt denies chest pain, headache, SOB. In the ED, found to have JOSY, elevated LFTs in a cholestatic pattern, mildly elevated lipase, elevated troponin, and with hyperglycemia in the 300s. He was being given 500mL of NS IVFs when I saw him for admission. CT abd/pel showed a fatty liver but otherwise nothing significant/acute. He was requesting to drink water and denied current nausea. He has a previous hospitalization here where he had elevated LFTs. He cannot recall being told he has had abnormal LFTs since that time and there are no outside records for review. He never saw a GI doctor or [employer] Draft[employer] since then. His daughter at the bedside reports that she also has elevated LFTs and a fatty liver. Allergies Allergy/AdvReac Type Severity Reaction Status Date / Time grass pollen Allergy runny, Verified 08/11/22 00:12 watery eyes mold Allergy runny, Verified 08/11/22 00:12 watery eyes ragweed pollen Allergy runny, Verified 08/11/22 00:12 watery eyes semaglutide [From Rybelsus] Allergy diarrhea, Verified 08/11/22 00:12 GERD Home Medications Medication Instructions Recorded Confirmed Type aspirin 25 mg-dipyridamole 200 mg 1 cap PO BID 02/16/22 10/27/24 History capsule,ext.release 12 hr multiphase cholecalciferol (vitamin D3) 25 50 mcg PO PM 02/16/22 10/27/24 History mcg (1,000 unit) tablet (Vitamin D3) cyanocobalamin (vitamin B-12) 2,000 mcg PO PM 02/16/22 10/27/24 History 1,000 mcg tablet (Vitamin B-12) dutasteride 0.5 mg capsule 0.5 mg PO PM 02/16/22 10/27/24 History empagliflozin 25 mg tablet 25 mg PO QAM 02/16/22 10/27/24 History (Jardiance) losartan 50 mg tablet 50 mg PO BID 02/16/22 10/27/24 History sitagliptin phos 50 mg-metformin 1 tab PO BID 02/16/22 10/27/24 History ER 1,000 mg tablet,extend rel 24h mp (Janumet XR) trazodone 50 mg tablet 50 - 100 mg PO HS 02/16/22 10/27/24 History ibuprofen 200 mg tablet 200 - 600 mg PO Q6H PRN Pain 03/28/22 10/27/24 History fexofenadine 180 mg tablet 180 mg PO DAILY PRN Other 08/11/22 10/27/24 History fluticasone propionate 50 2 spray intranasal DAILY 08/11/22 10/27/24 History mcg/actuation nasal spray,suspension (Flonase Allergy Relief) tamsulosin 0.4 mg capsule 0.4 mg PO DAILY #90 caps 03/02/24 10/27/24 Rx atorvastatin 10 mg tablet 10 mg PO PM 10/27/24 10/27/24 History metoprolol succinate 25 mg 25 mg PO DAILY 10/27/24 10/27/24 History tablet,extended release 24 hr Past Med/Surg History Problem List (Updated 10/27/24 @ 18:27 by Kady Carvajal MD) Nausea & vomiting Elevated LFTs JOSY (acute kidney injury) (Acute) Sensorineural hearing loss (SNHL) of both ears Benign prostatic hyperplasia (BPH) with urinary urgency Discharge planning issues DVT prophylaxis Hypertension Demand ischemia Transaminitis First degree AV block Elevated troponin ACS (acute coronary syndrome) Chest pain (Acute) Transitional cell carcinoma Asthma Allergic rhinitis BMI 30.0-30.9,adult Carotid artery plaque COPD (chronic obstructive pulmonary disease) Diabetes mellitus with renal complications Diverticulosis Dysmetabolic syndrome X Erectile dysfunction Mild mental slowing Mixed hyperlipidemia Plantar fasciitis of left foot Prostatism Sleep disorder Testosterone deficiency Vitamin B12 deficiency Weight disorder Bladder tumor Medical History Diverticulosis COPD (chronic obstructive pulmonary disease) pt denies Hyperlipidemia Diabetes mellitus, type 2 Asthma pt denies Tubular adenoma Polycythemia Right tennis elbow History of TIA (transient ischemic attack) 20 yrs ago > no residual effects > Aggrenox History of adenomatous polyp of colon Family hx of prostate cancer Family hx of colon cancer Surgical History History of colonoscopy History of tooth extraction History of cataract surgery bilat H/O vasectomy Family History Daughter Asthma Mother Bone cancer Breast cancer Father COPD (chronic obstructive pulmonary disease) Grandmother (Maternal) Colon cancer Grandfather (Maternal) Colon cancer Uncle Colon cancer Brother Pheochromocytoma Colonic polyp Prostate cancer Sleep apnea Son Sleep apnea Social History Smoking Status: Never smoker Second Hand Exposure: No; Do You Dip or Chew Tobacco: No; Hx Alcohol Use: No Hx Substance Use: No Preferred Language: Slovenian Communication Ability: Effective Ophthalmic Tech Required: No Beliefs That Will Affect Care: None Current Living Situation: Alone Current Living Situation Comment: Lives at home alone Other Information That Helps Us Care for You: No Feels Safe at Home: Yes Safety Concerns: Feels Safe At This Time Assistive Devices: Glasses Review of Systems Review of Systems: All systems reviewed & are unremarkable except as noted in HPI & below Physical Exam Constitutional: WD/WN, vitals as above Eyes: PERRL, conjunctivae normal, anicteric sclerae ENMT: external ear and nose normal, oropharynx normal Neck: trachea midline, no thyromegaly Respiratory: normal respiratory effort, lungs clear to auscultation Cardiovascular: RRR, no murmur, no edema Chest (Breasts): Chest: normal inspection of chest Gastrointestinal (Abdomen): Inspection/Auscultation: + abdomen distended (protuberant but soft) and normal bowel sounds Percussion/Palpation: abdomen soft; abdomen nontender and no hepatomegaly Musculoskeletal: Extremities: extremities normal to inspection; no cyanosis and no clubbing Skin: no rashes, warm and dry Neurologic: moves all extremities and awake; no focal motor deficits Psychiatric: A+Ox3, euthymic affect Lymphatic: no lymphedema Results & Data Results & Data Vital Signs (Past 12 Hours) Vital Signs Temp Pulse Pulse Resp BP BP Pulse Ox 10/27/24 18:00 103 H 20 111/74 94 10/27/24 17:18 106 H 24 93 10/27/24 17:00 96/64 L 10/27/24 16:59 36.8 C 108 H 19 97/66 L 92 10/27/24 16:54 103 H 21 95 10/27/24 16:42 101 H 24 94 10/27/24 16:33 99 H 20 93 10/27/24 16:30 97/66 L 10/27/24 16:27 107 H 9 L 92 10/27/24 16:15 108 H 20 99/68 L 92 10/27/24 16:03 113 H 23 91 10/27/24 16:00 99/68 L 10/27/24 15:33 112 H 23 92 10/27/24 15:30 117/73 10/27/24 15:27 112 H 24 92 10/27/24 15:25 92 10/27/24 15:23 122/73 10/27/24 15:22 108 H 20 122/73 92 10/27/24 15:15 110 H 24 92 10/27/24 15:12 110 H 24 93 10/27/24 15:06 111 H 27 H 93 10/27/24 14:25 37.0 C 115 H 18 131/74 94 O2 Del Method 10/27/24 18:00 Room Air 10/27/24 17:18 10/27/24 17:00 10/27/24 16:59 Room Air 10/27/24 16:54 10/27/24 16:42 10/27/24 16:33 10/27/24 16:30 10/27/24 16:27 10/27/24 16:15 Room Air 10/27/24 16:03 10/27/24 16:00 10/27/24 15:33 10/27/24 15:30 10/27/24 15:27 10/27/24 15:25 Room Air 10/27/24 15:23 10/27/24 15:22 Room Air 10/27/24 15:15 10/27/24 15:12 10/27/24 15:06 10/27/24 14:25 Room Air Laboratory Results CBC, CMP, troponin, PT/INR, [employer] reviewed Diagnostic Findings CXR and CT abd/pel reviewed ECG Additional Comments: ECG with sinus rhythm, 1st degree AVB, no ischemic changes Code Status & VTE Plan Code Status FULL CODE VTE Prophylaxis Plan VTE Prophylaxis will be ordered: Yes PG Care Time/CCT Total # of Minutes Spent Total Time Spent with Patient: Total time spent is greater than 50% in coordination of care (as documented) at patient's floor/unit and/or counseling patient: Coding Level of Care Code 68232 INT INP/OBS CARE 3/75MIN Diagnoses Nausea & vomiting R11.2 JOSY (acute kidney injury) N17.9 Elevated LFTs R79.89 Diabetes mellitus, type 2 E11.9 Demand ischemia I24.8 Benign prostatic hyperplasia (BPH) with urinary urgency N40.1; R39.15 Hypertension I10 History of TIA (transient ischemic attack) Z86.73
[2024-10-27] MEDS: INSULIN ASPART PER UNIT CHARGE SC STA (18:54)
[2024-10-27 19:26] LABS: Troponin I High Sensitivity 64.9 pg/ml (0-20)
[2024-10-27 20:44] LABS: Appearance Urine Cloudy (Clear); Bacteria Urine Automated None Seen (None Seen); Bilirubin Urine 2+ (Negative); Blood Urine 2+ (Negative); Cast Urine Automated 0-2 /lpf (0-2); Color Urine Dark Yellow; Glucose Urine UA 3+ (Negative); Ketones Urine 1+ (Negative); Leukocyte Esterase Urine Negative (Negative); Nitrite Urine Negative (Negative); Protein Urine 1+ (Negative); Specific Gravity Urine 1.034 (1.000-1.030); Urobilinogen Urine Negative (Negative); WBC Urine Automated 0-5 /hpf (0-5)
--- NOTE | 2024-10-27 21:20 | Magnetic Resonance Report ---
Exam(s): MRI MRCP EXAM: MR Abdomen Without Intravenous Contrast, MRCP Protocol CLINICAL HISTORY: Elevated liver function tests and lipase with nausea and vomiting. TECHNIQUE: Multiplanar magnetic resonance images of the abdomen without intravenous contrast using MRCP protocol. COMPARISON: CT abdomen and pelvis from earlier today FINDINGS: Bile ducts: The common bile duct is normal measuring 5 mm. No choledocholithiasis. Gallbladder: Unremarkable. No cholelithiasis. Liver: Hepatomegaly and fatty infiltration of the liver. Pancreas: Unremarkable. No ductal dilation. Spleen: Unremarkable. No splenomegaly. Adrenals: Unremarkable. No mass. Kidneys and ureters: There is a simple left renal cyst, no follow-up is needed. The kidneys are otherwise unremarkable. No hydronephrosis. Stomach and bowel: Unremarkable. No obstruction. Vasculature: Upper limits of normal portal vein side measuring 15 mm. IMPRESSION: 1. No cholelithiasis. The common bile duct is normal measuring 5 mm. No choledocholithiasis. 2. Hepatomegaly and fatty infiltration of the liver. 3. Upper limits of normal portal vein side measuring 15 mm. This could represent portal hypertension clinical setting. Electronically signed by: Chandni Aguilar MD 10/27/24 21:19 PM
[2024-10-27] MEDS ORDERED: GLUCOSE 10 TAB/TUBE PO PRN (21:31)
[2024-10-27] MEDS ORDERED: CARBOHYDRATES FOR HYPOGLYCEMIA PO PRN (21:31)
[2024-10-27] MEDS ORDERED: ONDANSETRON INJ 2 MG/ML 2 ML VIAL IV PRN (21:31)
[2024-10-27] MEDS ORDERED: GLUCOSE 40% GEL 15 GM TUBE PO PRN (21:31)
[2024-10-27] MEDS ORDERED: GLUCAGON FOR INJ 1 MG VIAL SQ PRN (21:31)
[2024-10-27] MEDS ORDERED: DEXTROSE 50% 50 ML SYRINGE IV PRN (21:31)
[2024-10-27] MEDS: HEPARIN SOD 5,000 UNIT/0.5 ML VIAL SQ SCH (22:11)
[2024-10-27] MEDS: traZODone HCL 50 MG TAB PO SCH (22:11)
[2024-10-27] MEDS: INSULIN ASPART PER UNIT CHARGE SC SCH (22:11)
[2024-10-27] MEDS: DIPYRIDAMOLE/ASPIRIN CAP PO SCH (22:12)
[2024-10-27] MEDS: ACETAMINOPHEN 325 MG TAB PO PRN (22:32)
[2024-10-28] MEDS: MELATONIN 3 MG TAB PO PRN (01:40)
[2024-10-28] MEDS: POTASSIUM CHLORIDE / WTR 10 MEQ/100 ML PLCT IV SCH (01:41)
[2024-10-28 03:00] VITALS: TEMP 98.2
--- OUTSIDE RECORDS SUMMARY | 2024-10-28 04:39 | External Medical Summary | Continuity of Care Document ---
Author Name Unknown Organization [address] Address [address] [place], [place] [id number] Care Team Providers Care Business Technology Professor Name Role Phone Tommy Santiagoyolie Primary Care Physician [phone] [phone] Date(s): 10/11/24 - 10/11/[address], [address] [place] [address] [phone] Discharge Disposition: Home or Self Care Attending Physician: DO Rios Jason D Referring Physician: DO Rios Jason D Allergies, Adverse Reactions, Alerts Substance Criticality Severity Reaction Reaction Severity Status Grass runny watery eyes Ac tive Rybelsus diarrhea, GERD Activ e Mold runny watery eyes Ac tive Ragweed runny watery eyes Ac tive Immunizations Given and Recorded Vaccine Date Status Refusal Reason tetanus/diphtheria/pertuss, acel (Tdap) 12/26/23 R ecorded tetanus/diphtheria/pertuss, acel (Tdap) 1 07/20/14 Recorded tetanus/diphtheria/pertuss, acel (Tdap) 2 05/18/10 Recorded tetanus/diphtheria/pertuss, acel (Tdap) 3 05/18/10 Recorded SARS-CoV-2 (COVID-19) mRNA-vacc - [id number] 12/25/23 Recorded RSV vaccine preF3, recombinant 08/18/23 Recorded SARS-CoV-2 mRNA-1273 (6y+ bivalent) 4 09/17/22 Rec orded SARS-CoV-2 mRNA-1273 (6y+ bivalent) 5 09/10/22 Rec orded influenza virus vaccine, inactivated 08/02/22 Rick rded influenza virus vaccine, inactivated 6 08/17/21 Re corded influenza virus vaccine, inactivated 07/03/20 Rick rded influenza virus vaccine, inactivated 7 07/03/20 Re corded influenza virus vaccine, inactivated 07/02/18 Rick rded influenza virus vaccine, inactivated 10/30/16 Rick rded influenza virus vaccine, inactivated 09/11/15 Rick rded influenza virus vaccine, inactivated 8 09/24/12 Re corded influenza virus vaccine, inactivated 9 08/02/11 Re corded SARS-CoV-2 (COVID-19) mRNA-1273 vaccine 10 10/10/21 Recorded SARS-CoV-2 (COVID-19) mRNA-1273 vaccine 11 01/13/21 Recorded SARS-CoV-2 (COVID-19) mRNA-1273 vaccine 12 12/16/20 Recorded zoster vaccine, inactivated 13 12/09/18 Recorded zoster vaccine, inactivated 14 07/02/18 Recorded zoster vaccine, inactivated 07/02/18 Recorded influenza virus vaccine, live 08/30/17 Recorded pneumococcal 13-valent vaccine 04/01/15 Recorded zoster vaccine live 05/18/10 Recorded pneumococcal 23-valent vaccine 05/18/10 Recorded tetanus toxoids-diphtheria, Td (Adult) 04/23/00 Re corded tetanus toxoids-diphtheria, Td (Adult) 05/04/90 Re corded 1Result Comment: [07/28/2014] Got at [facility] 2Result Comment: [12/18/2011 Uncharted] In error 3Result Comment: 2018-10-22: Historical information-source unspecified 4Result Comment: 2022-11-15: Historical information-source unspecified 5Result Comment: felt fine 6Result Comment: [facility] 7Result Comment: High - dose 8Result Comment: [12/09/2012] Received @ [facility] 9Location History: [facility] 10Result Comment: 2022-10-09: Historical information-source unspecified 11Result Comment: 2021-05-21: Historical information-source unspecified 12Result Comment: 2021-05-21: Historical information-source unspecified 13[facility]Result Comment: [facility] [address] Medications Viky Start: 10/04/24 2:38:00 PM EST Start Date: 10/04/24 Status: Ordered aspirin-dipyridamole 25 mg-200 mg oral capsule, extended release Start: 07/28/24 1:26:00 PM EDT, 1 cap, PO, bid, Disp# 180 cap, Refills: 4, Pharmacy: [facility] Start Date: 07/28/24 Status: Ordered atorvastatin 10 mg oral tablet Start: 09/02/24 12:15:00 PM EDT, 1 tab, PO, qhs, Disp# 90 tab, Refills: 3, Pharmacy: [facility] Start Date: 09/02/24 Status: Ordered dutasteride 0.5 mg oral capsule Start: 10/10/24 6:35:00 PM EST, 1 cap, PO, Daily, Disp# 90 cap, Refills: 4, Pharmacy: [facility] Start Date: 10/10/24 Status: Ordered Flonase 50 mcg/inh nasal spray Start: 10/04/24 2:38:00 PM EST, 1 spray, each nostril, Daily Start Date: 10/04/24 Status: Ordered ibuprofen Start: 10/04/24 2:38:00 PM EST Start Date: 10/04/24 Status: Ordered Janumet XR 50 mg-1000 mg oral tablet, extended release Start: 12/11/23 2:53:00 PM EST, 1 tab, PO, bid, Disp# 180 tab, Refills: 4, Pharmacy: [facility] Start Date: 12/11/23 Status: Ordered Jardiance 25 mg oral tablet Start: 07/18/24 3:37:00 PM EDT, 1 tab, PO, qAM, Disp# 30 tab, Refills: 11, Pharmacy: [facility] Start Date: 07/18/24 Status: Ordered losartan 50 mg oral tablet Start: 03/10/24 11:40:00 AM EDT, 1 tab, PO, bid, Disp# 180 tab, Refills: 4, Pharmacy: [facility] Start Date: 03/10/24 Status: Ordered Metoprolol Succinate ER 25 mg oral tablet, extended release Start: 08/28/23 2:07:00 PM EDT, 1 tab, PO, Daily, Disp# 90 tab, Refills: 4, Pharmacy: [facility] Start Date: 08/28/23 Status: Ordered One Touch Ultra Test Strips 100 ct Start: 05/21/21 5:02:00 PM EDT, See Instructions, Disp# 100 each, Refills: 11, use 2-3 times daily, Pharmacy: [facility] Start Date: 05/21/21 Status: Ordered tamsulosin 0.4 mg oral capsule Start: 08/15/22 9:21:00 AM EDT, 1 cap, PO, Daily Start Date: 08/15/22 Status: Ordered traZODone 50 mg oral tablet Start: 09/18/23 4:30:00 PM EST, 1-2 tab, PO, qhs, Disp# 180 tab, Refills: 4, Pharmacy: [facility] Start Date: 09/18/23 Stop Date: 12/11/24 Status: Ordered triamcinolone 0.1% topical cream Start: 08/21/23 1:18:00 PM EDT, 1 appl, topical, bid, Disp# 15 g, Refills: 1, apply to dermatitis on the abdomen until clear, Pharmacy: [facility] Start Date: 08/21/23 Status: Ordered Vitamin B12 1000 mcg oral tablet Start: 01/07/18 9:25:00 AM EST, 1 tab, PO, Daily, Disp# 100 tab, Refills: 10, other Start Date: 01/07/18 Status: Ordered Vitamin D3 2000 intl units oral capsule Start: 06/15/18 9:42:00 AM EDT, 1 cap, PO, Daily Start Date: 06/15/18 Status: Ordered Problem List Condition Confirmation Course Effective Dates Status H ealth Status Informant Abdominal aortic aneurysm (AAA) 3.0 cm to 5.5 cm in diameter in male 1 Confirmed 08/11/22 Active Allergic rhinitis Confirmed Active Back pain Confirmed Active Benign essential hypertension Confirmed Active BMI 30.0-30.9,adult Confirmed Active Carotid artery plaque Confirmed Active Vitamin B12 deficiency Confirmed Active COPD 2, 3 Confirmed Active Diverticulosis Confirmed Active DYSMETABOLIC SYNDROME X Confirmed Active Erectile dysfunction 4 Confirmed Active Family history of colon cancer 5 Confirmed Active Family history of prostate cancer 6 Confirmed Active History of TIA (transient ischemic attack) and stroke 7 Confirmed 07/12/09 Active History of bladder cancer 8 Confirmed Active History of adenomatous polyp of colon 9 Confirmed 07/22/00 Active History of basal cell carcinoma of skin Confirmed Active Low back pain Confirmed Active Microalbuminuria due to type 2 diabetes mellitus Confirmed Active Mild mental slowing Confirmed Active MIXED HYPERLIPIDEMIA Confirmed Active Osteopenia Confirmed Active Plantar fasciitis of left foot Confirmed Active Prostatism Confirmed Active 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 3nonreversible 4hasn't noticed since his passed several years ago 5maternal uncle and cousin 6brother Jered age 65 7June 10 of 2009 8following with Wiliam q6 months 9tubular adenoma Procedures Procedure Date Related Diagnosis Body Site Status Shave biopsy and cauterizati on of skin 1 08/21/23 Completed Ultrasound scan of abdomen, right upper quadrant and epigastrium 2 05/29/23 Completed Chest x-ray 3 11/26/22 Completed Electrodesiccation with curettage 10/01/22 Completed Echocardiogram 4 08/11/22 Complete d MRI Cholangiopancreatography 5 08/11/22 Completed Chest X-ray 6 08/10/22 Completed Chest x-ray 7 08/10/[address] angiography of chest with contrast 8 08/10/[address] angiography of chest with contrast 9 08/10/22 Completed Magnetic resonance cholangiopancreatography 10 08/10/22 Comp leted Ultrasound scan of upper abdomen 11 08/10/22 Completed Ultrasound scan of upper abdomen 12 08/10/22 Completed Cystoscopy and transurethral resection of bladder tumor 04/02/22 Completed Retrograde urography with [id number] 13 02/25/[address] of abdomen and pelvis 14 02/16/22 Completed CEIOL - Cataract extraction and insertion of intraocular lens 15 06/27/20 Completed Colonoscopy 16 05/26/20 Completed Diabetic retinal eye exam 17 04/02/18 Completed A scan ultrasound-lower righ t extremity 18 01/14/18 Completed Eye examination 19, 20 03/27/17 Co mpleted Lumbar epidural injection 21 01/2017 Completed MRI of lumbar spine 22 12/31/16 Co mpleted Shave biopsy of skin 11/14/15 Comp leted Shave biopsy and cauterizati on of skin 23 07/28/15 Completed Colonoscopy 24, 25 05/24/15 Comple miguel colonoscopy: diverticulosis 26 02/06/10 Completed Colonoscopy and adenomectomy 27 07/21/00 Completed vasectomy 1976 Completed Shave biopsy and cauterization of skin Completed Simple dental extraction 28 Completed wisdom teeth Completed 1right cheek 2IMPRESSION: 1. Hepatic steatosis. 2. No gallstone or biliary ductal dilation. 3. Obscured pancreas. 3Impression: mild cardiomegaly with no active disease in the chest. 4Impression: Left ventricular systolic funcation is normal. The left ventricular wall motion is normal. Right ventricular systolic pressure is normal. 5IMPRESSION: 1. Motion degraded exam. 2. No cholelithiasis or evidence of acute cholecystitis. 3. No biliary ductal dilation or choledocholithiasis. 4. Fusiform infrarenal abdominal aortic aneurysm is stable from the prior study measuring 3.3 cm. 6IMPRESSION: Cardiomegaly with no acute cardiopulmonary abnormality. 7Cardiomegaly with no acute cardiopulmonary abnormality. 8IMPRESSION: 1. There is no evidence of pulmonary embolus in the main, lobar, or segmental pulmonary arteries. 2. There is no airspace consolidation or pleural effusion. 3. Additional findings as above. 91. There is no evidence of pulmonary embolus in the main, lobar, or segmental pulmonary arteries. 2. There is no airspace consolidation or pleural effusion. 3. Additional findings as above. 10IMPRESSION: 1. Motion degraded exam. 2. No cholelithiasis or evidence of acute cholecystitis. 3. No biliary ductal dilation or choledocholithiasis. 4. Fusiform infrarenal abdominal aortic aneurysm is stable from the prior study measuring 3.3 cm. 11IMPRESSION: 1. Unremarkable gallbladder. 2. No biliary ductal dilation. 3. Hepatic steatosis. 12IMPRESSION: 1. Unremarkable gallbladder. 2. No biliary ductal dilation. 3. Hepatic steatosis. 13Posterior left bladder mass measures 2.6 x 1.5 x 2.1 cm. Internal vascularity is seen. Findings areconcerning for malignancy. 141. Multiple thickened loops of ileum within the right lower quadrant consistent with a nonspecific ileitis. This favors an infectious or inflammatory process. 2. No evidence for bowel destruction. 3. Normal appendix. 4. Hepatic steatosis. 5. Questionable small soft tissue density within the right posterior bladder. This is likely artifact. However, follow-up nonemergent blader US is recommended to exclude the less likely possibility of a bladder lesion. 15left; right on 07-06-2020; has dry eye on right 16diverticulosis, non bleeding internal hemorrhoids, no polyps 17No evidence of diabetic retinopathy. 18enlarged right axillary lymph node is most likely reactive. A follow-up ultrasound in 4-6 weeks is recommended to confirm stability or resolution 19No diabetic retinopathy. One year f/u 20no evidence of diabetic retinopathy. f/u in 1 yr 21Lumbar epidural injections for lumbar disc herniation 22Moderate left sided disc extrusion at L4-5 level with deformity of left anterior aspect the thecal sac, and probable impingement on left L5 nerve root. Mild cicumferential disc bulge and mild spinal stenosis at L2-3 level. Small central disc protrusion at L5-S1 level. 32mm infrarenal abdominal aortic aneurysm. 23right medial cheek 24tubular adenoma 25Diverticulosis in sigmoid colon. No specimens. Two 3 to 4 mm polyps in cecum. Resected and retrieved. One 3 mm polyp in rectum. Resected and retrieved. 26deverticulosis 27tubular adenoma, right colon 286 so far Results Radiology Reports * Exam Date Time Procedure Performing Provider Status 10/11/24 11:03 AM VL Aortoiliac Duplex Complete Jaqui Ramirez; Final Notes: (VL Aortoiliac Duplex Complete) Reason For Exam: 3.3 cm aaa VL Aortoiliac Duplex Complete [facility] FINAL REPORT Name: LUIS FINK : 1940 Visit: [id number] Date: 11 Oct 2024 TYPE OF TEST: Aorto-Iliac Duplex REASON FOR TEST AAA - follow up INTERPRETATION/FINDINGS Arterial duplex imaging of the abdominal aorta and bilateral iliac arteries was performed. Technically challenging exam due to depth of aorta and overlying bowel gas especially in the suprarenal aorta. 1. Abdominal aortic aneurysm identified measuring 3.5cm AP by 3.5 cm Trnvs. The aneurysm is infrarenal and fusiform. 2. No evidence of aneurysmal disease in the bilateral common iliac arteries. 3. No significant stenosis identified in the abdominal aorta, bilateral common iliac, external iliac or common femoral arteries. Unable to visualize the bilateral internal iliac arteries. Retrospective comparison: No prior exam available for comparison. IMPRESSION/COMMENTS I have personally reviewed the data relevant to the interpretation of this study. TECHNOLOGIST: JARAD Marley,RDMS,RVT PHYSICIAN: Dayne Fu M.D. Signed: 10/11/2024 01:57 PM Final Dictated by:MD Fu Eugene J Dictated DT/TM:10/11/2024 1:58 Signed by:MD Fu Eugene J Signed (Electronic Signature):10/11/2024 1:57 p Transcribed by:TOM Social History Social History Type Response Smoking Status Never smoked cigaret gudelia Sex Male Sex Representation Male (finding) Patient Care team information Care Team Personnel Name: MD Juan, James Pham Position: Physician - Family Med Member Role: Lifetime Relationship Address: [address] [place] [address] Name: MD Santiago Christopher Position: Physician - Family Med Member Role: Primary Care Provider Address: [address] [place] [address] Care Team Related Persons Name: WELLINGTON DUARTE
--- OUTSIDE RECORDS SUMMARY | 2024-10-28 04:39 | External Medical Summary | Continuity of Care Document ---
Author Name Unknown Organization [facility] [address] Address [address] [place], [place] [id number] Care Team Providers Care Foreign Exchange Trader Name Role Phone Tommy Santiagoyolie Primary Care Physician [phone] Encounter [facility] [id number] Date(s): 10/04/24 - 10/04/24 [facility] [address], [address] [place] [address] [phone] Encounter Diagnosis Benign essential hypertension(Discharge Diagnosis) - 10/04/24 History of TIA (transient ischemic attack) and stroke(Discharge Diagnosis) - 10/04/24 Abdominal aortic aneurysm (AAA) 3.0 cm to 5.5 cm in diameter in male(Discharge Diagnosis) - 10/04/24 Discharge Disposition: Home or Self Care Attending Physician: DO Rios Jason D Allergies, Adverse Reactions, Alerts Substance Criticality Severity Reaction Reaction Severity Status Grass runny watery eyes Ac tive Rybelsus diarrhea, GERD Activ e Mold runny watery eyes Ac tive Ragweed runny watery eyes Ac tive Assessment and Plan Extracted from: Title:Cardiology Office Visit Note Author:DO Rios Jason D Date:10/04/24 1.Abdominal aortic aneurys m (AAA) 3.0 cm to 5.5 cm in diameter in male 2.Benign essential hypertension 3.History of TIA (transient ischemic attack) and stroke He is known to have a previous 3.3 cm abdominal aortic aneurysm imaged during his hospitalization in 2021. It has been 2 years and he should have additional imaging of that to make sure he has not had aneurysmal progression. His blood pressure is very well-controlled with minimal lightheadedness and dizziness. Overall he is feeling well. We discussed staying well-hydrated. His last LDL was excellent at less than 70. This is important given his history of a TIA, abdominal aortic aneurysm, and elevated hemoglobin A1c of 7.9. I did review his last echocardiogram which suggest normal biventricular size and function with type II diastolic dysfunction. We did discuss potential signs and symptoms of heart failure. Will see Megan in 6 months. I will see him in a year. Immunizations Given and Recorded Vaccine Date Status Refusal Reason tetanus/diphtheria/pertuss, acel (Tdap) 12/26/23 R ecorded tetanus/diphtheria/pertuss, acel (Tdap) 1 07/20/14 Recorded tetanus/diphtheria/pertuss, acel (Tdap) 2 05/18/10 Recorded tetanus/diphtheria/pertuss, acel (Tdap) 3 05/18/10 Recorded SARS-CoV-2 (COVID-19) mRNA-vacc - [id number] 12/25/23 Recorded RSV vaccine preF3, recombinant 08/18/23 [...] unspecified 5Result Comment: felt fine 6Result Comment: [facility] 7Result Comment: High - dose 8Result Comment: [12/09/2012] Received @ [facility] 9Location History: [facility] 10Result Comment: 2022-10-09: Historical information-source unspecified 11Result Comment: 2021-05-21: Historical information-source unspecified 12Result Comment: 2021-05-21: Historical information-source unspecified 13Result Comment: [facility] 14Result Comment: [facility] [address] Medications Viky Start: 10/04/24 2:38:00 PM EST Start Date: 10/04/24 Status: Ordered aspirin-dipyridamole 25 mg-200 mg oral capsule, extended release Start: 07/28/24 1:26:00 PM EDT, 1 cap, PO, bid, Disp# 180 cap, Refills: 4, Pharmacy: [facility] Start Date: 07/28/24 Status: Ordered atorvastatin 10 mg oral tablet Start: 09/02/24 12:15:00 PM EDT, 1 tab, PO, qhs, Disp# 90 tab, Refills: 3, Pharmacy: [facility] Start Date: 09/02/24 Status: Ordered dutasteride 0.5 mg oral capsule Start: 10/08/23 4:34:00 PM EST, 1 cap, PO, Daily, Disp# 90 cap, Refills: 4, Pharmacy: [facility] Start Date: 10/08/23 Status: Ordered Flonase 50 mcg/inh nasal spray Start: 10/04/24 2:38:00 PM EST, 1 spray, each nostril, Daily Start Date: 10/04/24 Status: Ordered ibuprofen Start: 10/04/24 2:38:00 PM EST Start Date: 10/04/24 Status: Ordered Janumet XR 50 mg-1000 mg oral tablet, extended release Start: 12/11/23 2:53:00 PM EST, 1 tab, PO, bid, Disp# 180 tab, Refills: 4, Pharmacy: [facility] Start Date: 12/11/23 Status: Ordered Jardiance 25 mg oral tablet Start: 07/18/24 3:37:00 PM EDT, 1 tab, PO, qAM, Disp# 30 tab, Refills: 11, Pharmacy: [facility] Start Date: 07/18/24 Status: Ordered losartan 50 mg oral tablet Start: 03/10/24 11:40:00 AM EDT, 1 tab, PO, bid, Disp# 180 tab, Refills: 4, Pharmacy: [facility] Start Date: 03/10/24 Status: Ordered Metoprolol Succinate ER 25 mg oral tablet, extended release Start: 08/28/23 2:07:00 PM EDT, 1 tab, PO, Daily, Disp# 90 tab, Refills: 4, Pharmacy: [facility] Start Date: 08/28/23 Status: Ordered One Touch Ultra Test Strips 100 ct Start: 05/21/21 5:02:00 PM EDT, See Instructions, Disp# 100 each, Refills: 11, use 2-3 times daily, Pharmacy: [facility] Start Date: 05/21/21 Status: Ordered tamsulosin 0.4 mg oral capsule Start: 08/15/22 9:21:00 AM EDT, 1 cap, PO, Daily Start Date: 08/15/22 Status: Ordered traZODone 50 mg oral tablet Start: 09/18/23 4:30:00 PM EST, 1-2 tab, PO, qhs, Disp# 180 tab, Refills: 4, Pharmacy: [facility] Start Date: 09/18/23 Stop Date: 12/11/24 Status: Ordered triamcinolone 0.1% topical cream Start: 08/21/23 1:18:00 PM EDT, 1 appl, topical, bid, Disp# 15 g, Refills: 1, apply to dermatitis on the abdomen until clear, Pharmacy: [facility] Start Date: 08/21/23 Status: Ordered Vitamin B12 1000 mcg oral tablet Start: 01/07/18 9:25:00 AM EST, 1 tab, PO, Daily, Disp# 100 tab, Refills: 10, other Start Date: 01/07/18 Status: Ordered Vitamin D3 2000 intl units oral capsule Start: 06/15/18 9:42:00 AM EDT, 1 cap, PO, Daily Start Date: 06/15/18 Status: Ordered Mental Status 10/04/24 Barriers to Learning one year None evide nt Mandatory Health Literacy Documentation Yes Health Literacy Communication Barriers N ever Primary Language Maltese Problem List Condition Confirmation Course Effective Dates [...] cousin 6brother Jered age 65 7June 10 2009 8following with Wiliam q6 months 9tubular adenoma Diagnosis Diagnosis Type Effective Dates Health Status Clinical Service Informant Abdominal aortic aneurysm (AAA) 3.0 cm to 5.5 cm in diameter in male Discharge Diagnosis 10/04/24 Benign essential hypertension Discharge Diagnosis 10/04/24 History of TIA (transient ischemic attack) and stroke Discharge Diagnosis 10/04/24 Procedures Procedure Date Related Diagnosis Body Site [...] bladder tumor 04/02/22 Completed Retrograde urography with [id number] 13 02/25/[address] of abdomen [...] 27tubular adenoma, right colon 286 so far Vital Signs Most recent to oldest [Reference Range]: 1 Patient Weight 90 kg (10/04/24 2:45 PM) Heart Rate 68 bpm (10/04/24 2:45 PM) Blood Pressure 112/62mmHg (10/04/24 2:45 PM) BP Location # 1 Right Arm (10/04/24 2:45 PM) Social History Social History Type Response Smoking Status Never smoked cigaret gudelia Sex Male Sex Representation Male (finding) Cardiology Outpatient Note * DO Rios Jason D: PERFORM Event Display: Cardiology Outpt Note Authored Date: Primary Care Provider MD Jack, Howard Chief Complaint 6 mon f/u CAD htn htn. History of Present Illness He denies any chest pain or chest pressure. He has no progressive shortness of breath. He noteshe enjoys walking in the grocery store as it allows him to feel more steady on his feet. He is able to walk through the store without any dyspnea. Has had some mild lightheadedness which has now resolved. Has had blood pressures in the low 100s and low 1 teens and is not orthostatic currently. He has had no falls. He has not extremity edema. He denies any TIA or strokelike symptoms. Review of Systems PMHX: 1. Presumed CADwith episode of demand ischemiaduring acute illness at [facility]- ST depressions and mild high-sensitivity troponin peaking at [address] depressionsat discharge 2. Significantly elevated transaminases during hospitalization now resolved 3. Hyperlipidemia 4. Hypertension 5. Remote history of TIA 6. DM Type 2 7. NML BiV size and Fxn; Type 2 DD Physical Exam Vitals & Measurements HR:68(Monitored) BP:112/62 SpO2:96% WT:90kg WT:90.000kg(Dosing) Patient is awake alert and oriented x3and in no acute distress HEENT:2+ carotid upstrokes, no evidence of carotid bruits LUNGS:Clear to auscultation bilaterally no rales rhonchi or wheezing HEART:Regular rate and rhythm with ectopy;no appreciable murmurs rubs or gallops EXTREMITIES:No evidence of clubbing cyanosis or edema PSYCHIATRIC:Patient's affect appeared appropriate Diagnostic Results Echo TransTHORacic TTE Complete Report Signatures Finalized by Dr. Manuel Rios MD on 04/01/2024 04:37 PM Summary 1. Small, underfilled left ventricle. 2. Normal left ventricular systolic function with no regional wall motion abnormalities. 3. Ejection fraction as calculated by Biplane Simpsons method is 65-70%. 4. No left ventricular hypertrophy. 5. Possible Type 2 DD. 6. Normal right ventricular size and function. 7. Normal biatrial size. 8. No significant valvular abnormalities. 9. Insufficient data for estimation of pulmonary artery systolic pressures. Assessment/Plan 1.Abdominal aortic aneurysm (AAA) 3.0 cm to 5.5 cm in diameter in male 2.Benign essential hypertension 3.History of TIA (transient ischemic attack) and stroke He is known to have a previous 3.3 cm abdominal aortic aneurysm imaged during his hospitalization in 2021. It has been 2 years and he should have additional imaging of that to make sure he has not had aneurysmal progression. His blood pressure is very well-controlled with minimal lightheadedness and dizziness. Overall heis feeling well. We discussed staying well-hydrated. His last LDL was excellent at less than 70. This is important given his history of a TIA, abdominal aortic aneurysm, and elevated hemoglobin A1c of 7.9. I did review his last echocardiogram which suggest normal biventricular size and function with typeII diastolic dysfunction. We did discuss potential signs and symptoms of heart failure. Will see Megan in 6 months. I will see him in a year. Problem List/Past Medical History Ongoing Abdominal aortic aneurysm (AAA) 3.0 cm to 5.5 cm in diameter in male Allergic rhinitis Back pain Benign essential hypertension BMI 30.0-30.9,adult Carotid artery plaque COPD Diverticulosis DYSMETABOLIC SYNDROME X Erectile dysfunction Family history of colon cancer Family history of prostate cancer Fatty liver History of adenomatous polyp of colon History of basal cell carcinoma of skin History of bladder cancer History of TIA (transient ischemic attack) and stroke Low back pain Microalbuminuria due to type 2 diabetes mellitus Mild mental slowing MIXED HYPERLIPIDEMIA Osteopenia Plantar fasciitis of left foot Prostatism 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 Testosterone deficiency Vitamin B12 deficiency Weight disorder Resolved Elevated liver enzymes Irregular heartbeat Myocardial ischemia Piriformis syndrome Polycythemia Right tennis elbow ROUTINE GENERAL MEDICAL EXAMINATION AT A HEALTH CARE FACILITY Tubular adenoma Procedure/Surgical History Shave biopsy and cauterization of skin| Service Date: 08/21/2023Ultrasound scan of abdomen, right upper quadrant and epigastrium| Service Date: 3Chest x-ray| Service Date: 11/26/2022Electrodesiccation with curettage| Service Date: 10/01/2022Echocardiogram| Service Date: 08/11MRI Cholangiopancreatography| Service Date: 08/11/2022Ultrasound scan of upper abdomen| Service Date: 08/10/2022Magnetic resonance cholangiopancreatography| Service Date: 08/10/2022hest X-ray| Service Date: 08/10/2022T angiography of chest with contrast| Service Date: Ultrasound scan of upper abdomen| Service Date: 08/10/2022hest x-ray| Service Date: 08/10/2022T angiography of chest with contrast| Service Date: 08/10/2022ystoscopy and transurethralresection of bladder tumor| Service Date: 2Retrograde urography with [id number]| Service Date: 2CT of abdomen and pelvis| Service Date: 2CEIOL - Cataract extraction and insertion of intraocular lens| Service Date: 06/27/2020Colonoscopy| Service Date: 05/26/2020Diabetic retinal eye exam| Service Date: 04/02/2018A scan ultrasound-lower right extremity| Service Date: 01/14/2018Eye examination| Service Date: 03/27/2017Lumbar epidural injection| Service Date: 01/2017MRI of lumbar spine| Service Date: 12/31/2016Shave biopsy of skin| Service Date: 11/14/2015Shave biopsy and cauterization of skin| Service Date: 07/28/2015Colonoscopy| Service Date: 05/24/2015colonoscopy: diverticulosis| Service Date: 02/06/2010Colonoscopy and adenomectomy| Service Date: 07/21/2000vasectomy| Service Date: [facility] biopsy and cauterization of skinwisdom teethSimple dental extraction Medications acetaminophen-hydrocodone(acetaminophen-hydrocodone 325 mg-5 mg oral tablet), 1 tab, PO, qhs, PRN aspirin-dipyridamole(aspirin-dipyridamole 25 mg-200 mg oral capsule, extended release), 1 cap, PO, bid atorvastatin(atorvastatin 10 mg oral tablet), 1 tab, PO, qhs cholecalciferol(Vitamin D3 2000 intl units oral capsule), 2000 Int_Unit= 1 cap, PO, Daily cyanocobalamin(Vitamin B12 1000 mcg oral tablet), 1000 mcg= 1 tab, PO, Daily, 10 refills diabetes supplies(One Touch Ultra Test Strips 100 ct), See Instructions, 11 refills dutasteride(dutasteride 0.5 mg oral capsule), 1 cap, PO, Daily empagliflozin(Jardiance 25 mg oral tablet), 1 tab, PO, qAM fexofenadine(Viky) fluticasone nasal(Flonase 50 mcg/inh nasal spray), 1 spray, each nostril, Daily ibuprofen losartan(losartan 50 mg oral tablet), 1 tab, PO, bid metformin-sitagliptin(Janumet XR 50 mg-1000 mg oral tablet, extended release), 1 tab, PO, bid metoprolol(Metoprolol Succinate ER 25 mg oral tablet, extended release), 1 tab, PO, Daily tamSULOsin(tamsulosin 0.4 mg oral capsule), 0.4 mg= 1 cap, PO, Daily traZODone(traZODone 50 mg oral tablet), 1-2 tab, PO, qhs, 4 refills triamcinolone topical(triamcinolone 0.1% topical cream), 1 appl, topical, bid, 1 refills Allergies Grassrunny watery eyes Moldrunny watery eyes Ragweedrunny watery eyes Rybelsusdiarrhea, GERD Social History Smoking Status Never smoked cigarettes Alcohol - Denies Alcohol Use Employment/School Status:Retired Exercise - Does not exercise Times per week:3-4 times/week Home/Environment Lives with:Alone Living situation:Home/Independent Family/Friends available to help:No Concern for family members at home:Yes - Comments: on an MD disabled, after spinal stenosis surgery, leg PAD Sexual - No Sexual Activity Substance Abuse - Denies Substance Abuse Tobacco - Denies Tobacco Use Use:Never smoker Family History Asthma: Daughter. Bone cancer..: Mother. Breast cancer: Mother. COPD: Father. Colon cancer..: MGF, MGM and Maternal Uncle. Increased BMI...: Brother. Pheochromocytoma: Brother. Polyp of colon: Brother and Brother. Prostate carcinoma: Brother (Dx at 65 years). Sleep apnea: Brother, Brother and Son. Health Status Family Member(s) Daughter: History is negative Family Member(s) Relationship: Mother, Age: 83 Years, Cause: metastatic breast cancer Relationship: Father, Age: 83 Weeks, Cause: emphysema, smoker Electronic Signature on File CC: Howard Santiago MD [address] [place] [address] Electronically Reviewed/Signed by: Manuel Rios DO Author Signature Dt/Tm:10/04/2024 03:25 PM Autotransfusionistcash management officer Micah SGene [facility] [place] [address] JDF Patient Care team information Care Team Personnel Name: MD Martinez Jonathan D Position: Physician - Family Med Member Role: Lifetime Relationship Address: [address] [place] [address] [place] Name: MD Santiago Christopher Position: Physician - Family Med Member Role: Primary Care Provider Address: [address] [place] [address] [place] Care Team Related Persons Name: WELLINGTON DUARTE"
[2024-10-28 06:54] LABS: Basophils # (auto) 0.01 K/uL (0.00-0.20); Basophils % (auto) 0.1 %; Eosinophils # (auto) 0.05 K/uL (0.00-0.50); Eosinophils % (auto) 0.5 %; Hemoglobin 13.4 g/dl (14.0-18.0); Lymphocytes # (auto) 0.69 K/uL (1.20-3.40); Lymphocytes % (auto) 6.6 %; Mean Corpuscular Hemoglobin 30.5 pg (25.0-34.0); Mean Corpuscular Hgb Conc 34.4 g/dL (32.0-36.0); Mean Corpuscular Volume 88.6 fL (80.0-100.0); Mean Platelet Volume 9.9 fL (9.4-12.4); Monocytes # (auto) 0.44 K/uL (0.11-0.59); Monocytes % (auto) 4.2 %; Neutrophils # (auto) 9.15 K/uL (1.40-6.50); Neutrophils % (auto) 87.6 %; Platelet Count 133 K/uL (130-400); RDW Coefficient of Variation 13.3 % (11.5-14.5); RDW Standard Deviation 43.8 fL (36.4-46.3); White Blood Count 10.44 K/ul (4.8-10.8)
[2024-10-28 07:21] LABS: Alanine Aminotransferase 167 U/L (7-52); Albumin Level 3.1 gm/dl (3.4-5.0); Alkaline Phosphatase 116 U/L (34-104); Anion Gap 13 (3-11); Aspartate Aminotransferase 89 U/L (13-39); BUN Creatinine Ratio 23.1 (10-20); Bilirubin Direct 1.6 mg/dl (0-0.2); Bilirubin,Total 2.8 mg/dl (0.2-1.0); Blood Urea Nitrogen 30 mg/dl (6-23); Carbon Dioxide 18 mmol/L (21-32); Chloride 110 mmol/L (98-107); Chol HDL Ratio 11.9 (0-5); Cholesterol 95 mg/dl (0-200); Creatinine Clr Calc Pharmacy 47.3 ml/min; Glucose 165 mg/dl (70-99(Fasting)); HDL Cholesterol 8 mg/dl; Immunoglobulin A 36.8 mg/dl (70-400); Immunoglobulin G 512.8 mg/dl (635-1741); Immunoglobulin M 40.8 mg/dl (45-281); Iron 18 mcg/dl (35-175); Magnesium 2.1 mg/dl (1.7-2.4); Potassium 3.8 mmol/L (3.5-5.1); Sodium 141 mmol/L (136-145); Total Iron Binding Cap Calc 256 mcg/dl (250-450); Total Protein 5.4 gm/dl (6.0-8.3); Transferrin 183 mg/dl (200-360); Transferrin (FE) Percent Satur 7 % (20-50); Triglycerides 438 mg/dl (0-150)
[2024-10-28 07:40] VITALS: RESP 20
[2024-10-28 07:42] LABS: Ferritin 210.6 ng/ml (8-388); Thyroid Stimulating Hormone 0.686 uIu/ml (0.300-4.500)
[2024-10-28 07:45] LABS: Estimated Average Glucose 226 mg/dl; Hemoglobin A1C 9.5 % (4.5-5.6)
[2024-10-28] MEDS: FLUTICASONE PROPIONATE NA SPR 16 GM BTL SCH (08:51)
[2024-10-28] MEDS: TAMSULOSIN HCL 0.4 MG CAP PO SCH (08:51)
[2024-10-28 08:56] LABS: Hep B Surface Ag with confirm Negative (Negative)
[2024-10-28 09:02] LABS: Hep C Ab Rflx HepCQuant RNA Negative (Negative)
[2024-10-28] MEDS: METOPROLOL SUCC 25MG EXT REL TAB PO SCH (09:05)
--- NOTE | 2024-10-28 09:40 | Gastrointestinal Consultation ---
Date of Consultation October 28, 2024 Assessment & Plan (1) Nausea & vomiting: (2) Elevated LFTs: Plan Patient is an 84 year old male who developed nausea, vomiting, and diarrhea after eating out at a restaurant. This was likely related to food poisoning as these symptoms have resolved. Upon evaluation his LFTs were elevated, but since admission are trending downward. - continue to follow LFTs. reassuring that these are trending down. - await chronic liver disease labs and hep panel that is pending. Supervising Physician Co-Signing Physician Notes I personally saw and examined the patient. I have reviewed the chart and agree with the documentation provided by the ARCHITECTURE DEPARTMENT CHAIR including discussion about the assessment, treatment and plan. Briefly, 84 year old male who developed nausea, vomiting, and diarrhea after eating out at a restaurant. This was likely related to food poisoning as these symptoms have resolved. Upon evaluation his LFTs were elevated, but since admission are trending downward. 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 His ultrasound MRCP and past MRCP are all negative. The hospitalist has already sent off an extensive genetic workup and hepatitis workup which are pending. Interestingly all the immunoglobulins are negative. We did run his medications and there is no obvious medication that is supportive of drug-induced liver injury. 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 Supportive care as this should improve. History of Present Illness Reason for Consultation: elevated LFTs, nausea, vomiting Requesting Physician: Kady Carvajal MD Attending Physician: Kady Carvajal MD History of Present Illness Patient is an 87 year old male with a past medical history of HTN, TIA, bladder CA, fatty liver, DMII, B12 deficiency, AAA, BPH and insomnia who presented to the ED on 10/27 with one day of nausea and vomiting and diarrhea that he feels may have been food poisoning. He was to have a cystoscopy but was directed to the ED for feeling ill. He denies abdominal pains, fevers, chills. No blood in stool or vomiting. He was found to have JOSY, elevated LFTs in a cholestatic pattern, mildly elevated lipase, elevated troponin, and hyperglycemia in the 300s. CT abd/pel showed a fatty liver but otherwise nothing significant or acute. He had MRI showing no cholelithiasis, cbd of 5mm, and no choledocholithiasis. He tells me he has never had liver issues in the past besides fatty liver. his nausea, vomiting and diarrhea have resolved. rest of GI ros are unremarkable. 10/27/24 t bili 6.7, d bili 6.1, ast 131, alt 224, alk 217, lipase 257. 10/28/24 t bili 2.8, d bilil 1.6, ast 89, alt 167, alk 116. nh3 27. Allergies Allergy/AdvReac Type Severity Reaction Status Date / Time grass pollen Allergy runny, Verified 08/11/22 00:12 watery eyes mold Allergy runny, Verified 08/11/22 00:12 watery eyes ragweed pollen Allergy runny, Verified 08/11/22 00:12 watery eyes semaglutide [From Rybelsus] Allergy diarrhea, Verified 08/11/22 00:12 GERD Home Medications Medication Instructions Recorded Confirmed Type aspirin 25 mg-dipyridamole 200 mg 1 cap PO BID 02/16/22 10/27/24 History capsule,ext.release 12 hr multiphase cholecalciferol (vitamin D3) 25 50 mcg PO PM 02/16/22 10/27/24 History mcg (1,000 unit) tablet (Vitamin D3) cyanocobalamin (vitamin B-12) 2,000 mcg PO PM 02/16/22 10/27/24 History 1,000 mcg tablet (Vitamin B-12) dutasteride 0.5 mg capsule 0.5 mg PO PM 02/16/22 10/27/24 History empagliflozin 25 mg tablet 25 mg PO QAM 02/16/22 10/27/24 History (Jardiance) losartan 50 mg tablet 50 mg PO BID 02/16/22 10/27/24 History sitagliptin phos 50 mg-metformin 1 tab PO BID 02/16/22 10/27/24 History ER 1,000 mg tablet,extend rel 24h mp (Janumet XR) trazodone 50 mg tablet 50 - 100 mg PO HS 02/16/22 10/27/24 History ibuprofen 200 mg tablet 200 - 600 mg PO Q6H PRN Pain 03/28/22 10/27/24 History fexofenadine 180 mg tablet 180 mg PO DAILY PRN Other 08/11/22 10/27/24 History fluticasone propionate 50 2 spray intranasal DAILY 08/11/22 10/27/24 History mcg/actuation nasal spray,suspension (Flonase Allergy Relief) tamsulosin 0.4 mg capsule 0.4 mg PO DAILY #90 caps 03/02/24 10/27/24 Rx atorvastatin 10 mg tablet 10 mg PO PM 10/27/24 10/27/24 History metoprolol succinate 25 mg 25 mg PO DAILY 10/27/24 10/27/24 History tablet,extended release 24 hr Patient History Medical History Diverticulosis COPD (chronic obstructive pulmonary disease) pt denies Hyperlipidemia Diabetes mellitus, type 2 Asthma pt denies Tubular adenoma Polycythemia Right tennis elbow History of TIA (transient ischemic attack) 20 yrs ago > no residual effects > Aggrenox History of adenomatous polyp of colon Family hx of prostate cancer Family hx of colon cancer Surgical History History of colonoscopy History of tooth extraction History of cataract surgery bilat H/O vasectomy Family History Daughter Asthma Mother Bone cancer Breast cancer Father COPD (chronic obstructive pulmonary disease) Grandmother (Maternal) Colon cancer Grandfather (Maternal) Colon cancer Uncle Colon cancer Brother Pheochromocytoma Colonic polyp Prostate cancer Sleep apnea Son Sleep apnea Social History Smoking Status: Never smoker Second Hand Exposure: No; Do You Dip or Chew Tobacco: No; Hx Alcohol Use: No Hx Substance Use: No Preferred Language: Namibian Communication Ability: Effective Radiologist Physician Required: No Beliefs That Will Affect Care: None Current Living Situation: Alone Current Living Situation Comment: Lives at home alone Other Information That Helps Us Care for You: No Feels Safe at Home: Yes Safety Concerns: Feels Safe At This Time Assistive Devices: None Review of Systems Review of Systems: All systems reviewed & are unremarkable except as noted in HPI & below Physical Exam Constitutional: WD/WN, vitals as above Respiratory: normal respiratory effort, lungs clear to auscultation Cardiovascular: Rate/Rhythm: regular rate and regular rhythm Gastrointestinal (Abdomen): normal bowel sounds, soft, nontender, no hepatosplenomegaly Psychiatric: Orientation: alert and oriented x 3 Results & Data Vital Signs (Past 12 Hours) Vital Signs Temp Pulse Pulse Resp BP Pulse Ox O2 Del Method 10/28/24 07:39 98.2 F 72 20 102/55 L 95 Room Air 10/28/24 03:06 104/53 L 10/28/24 02:39 98.2 F 90 18 102/38 L 92 Room Air 10/27/24 23:46 Room Air 10/27/24 23:46 97.9 F 86 18 133/70 96 Room Air 10/27/24 23:01 97.9 F 86 18 133/70 96 Room Air 10/27/24 22:39 83 10/27/24 21:44 70 19 91 Room Air Coding Level of Care Code 78975 INT INP/OBS CARE 2/55MIN Diagnoses Nausea & vomiting R11.2 Elevated LFTs R79.89
[2024-10-28 09:45] LABS: Troponin I High Sensitivity 26.7 pg/ml (0-20)
[2024-10-28 09:46] LABS: Lipase 98 U/L (11-82)
[2024-10-28 15:01] VITALS: BP 124/54; O2SAT 94
[2024-10-28 15:37] LABS: INR 1.1 (0.9-1.1); Prothrombin Time 11.6 Seconds (9.0-12.0)
--- NOTE | 2024-10-28 16:02 | Discharge Summary ---
Discharge Summary Date of Service October 28, 2024 Principal Dx & Hospital Course #1 = Principal Diagnosis (1) Nausea & vomiting: Possibly related to a viral gastroenteritis vs food poisoning (ate out at [employer]) CT abd/pel with fatty liver but no obstruction or evidence of infection No abd pain or fevers. Did have some mild diarrhea which is now resolved He is now much improved and tolerating a regular diet. 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 With a mild metabolic acidosis which will improve with ongoing p.o. hydration. Hypokalemia resolved with p.o. replacement Okay to resume home losartan, Jardiance, Janumet, but recommend discontinuing ibuprofen Follow BMP in 1 week with PCP (3) Elevated LFTs: TBili 6, DBili 5, AST 138 and ALT 224 in cholestatic pattern Denies abd pain. CT A/P with fatty liver but no bile duct dilatation or gallstones. Lipase also mildly elevated but could be from recent vomiting. Has had this before but TBili not as high INR mildly elevated at 1.2, platelets lower than baseline but still within lower range of normal, albumin normal Daughter also with fatty liver and elevated LFTs--> neither follow with GI/Hepatology or have had further testing Could be from MASLD vs viral hepatitis, PBC, PSC, James's, autoimmune hepatitis, HC, etc.---> checked labs for this and mostly all pending at the time of discharge Iron studies are normal, hepatitis B&C negative, immunoglobulins all gop-rnomdm-ad with PCP on this MRCP shows fatty liver but otherwise negative except for slightly prominent portal vein He is on a statin but no other drugs known to cause cholestatic pattern of injury He was hydrated overnight and LFTs all significantly improved by the next day but still remain somewhat abnormal with T. bili 2.8, D bili 1.6, AST 89, ALT 224 Triglycerides elevated at 438 likely from uncontrolled diabetes Ammonia level was normal at 27 Consult GI [id number] on all genetic testing but most likely thinks this is all related to mash/NEGRON and exacerbated by food poisoning/nausea/vomiting illness. Plan to follow-up in the office Continue to hold home atorvastatin on discharge Follow-up LFTs and BMP in 1 week with PCP Follow-up on all pending genetic studies after discharge with GI and PCP (4) Diabetes mellitus, type 2: With severe hyperglycemia here without ketoacidosis. BSG in 500s, improved to 200s with IVFs Only on Janumet and Jardiance at home Treated with NovoLog SQ and improved Hemoglobin A1c uncontrolled at 9.5%-seen by sponge hooker while here He will begin testing blood sugars at least once per day and follow-up with PCP Resume home Janumet,Jardiance on discharge (5) Demand ischemia: trop elevated at 76, then trended downward, no chest pain, no ECG changes, no previous h/o cardiac issues monitored on tele for arrhythmias and had none With a h/o AAA-stable on recent imaging, 3.4cm on CT here CXR here with possible pulm edema but not hypoxic, no resp symptoms-monitor on repeat CXR in 3 to 4 weeks to ensure cleared (6) Benign prostatic hyperplasia (BPH) with urinary urgency: continue Flomax, dutasteride No acute issues (7) Hypertension: BPs stable continue Toprol XL and can resume losartan now that JOSY resolved (8) History of TIA (transient ischemic attack): With a h/o TIA-continue ASA/dipyridamole, but continue holding statin for disch arge Plan Insomnia-continue home trazodone prn DVT proph-heparin SQ Dispo-stable for discharged home, independent in the room and does not need r ehab. Request home health with PT FULL CODE Notes For Next Care Provider Check BMP, LFTs in 1 week Needs follow-up with GI as an outpatient Follow-up on all pending liver studies in 1 to 2 weeks Needs close follow-up on uncontrolled diabetes Needs chest x-ray in 4 weeks Medication Changes From Visit Hold atorvastatin Admission HPI Per Admitting Provider This pt is an 87 yo male with a h/o HTN, TIA, bladder CA, fatty liver, DMII, B12 deficiency, AAA, BPH and insomnia who p/w significant N/V numerous times on the night of 10/25. The vomiting resolved on 10/26 in the morning and he had a couple of loose stools that day. Denies abdominal pains, fevers/chills. No blood in stool or vomit. He continued to just not quite feel right and his daughters thought he was not as mentally clear as he usually is. He then had a scheduled cystoscopy today with Dr. Swain of Urology and on arrival was noted to be shaky and "clammy" as per daughter, and procedure was cancelled. EMS contacted and pt noted to have a blood glucose in the 500s. Pt denies chest pain, headache, SOB. In the ED, found to have JOSY, elevated LFTs in a cholestatic pattern, mildly elevated lipase, elevated troponin, and with hyperglycemia in the 300s. He was being given 500mL of NS IVFs when I saw him for admission. CT abd/pel showed a fatty liver but otherwise nothing significant/acute. He was requesting to drink water and denied current nausea. He has a previous hospitalization here where he had elevated LFTs. He cannot recall being told he has had abnormal LFTs since that time and there are no outside records for review. He never saw a GI doctor or Parts Processor since then. His daughter at the bedside reports that she also has elevated LFTs and a fatty liver. Discharge Exam Constitutional WD/WN, vitals as above Neck trachea midline, no thyromegaly Respiratory normal respiratory effort, lungs clear to auscultation Cardiovascular RRR, no murmur, no edema Chest (Breasts) Chest: normal inspection of chest Gastrointestinal (Abdomen) Inspection/Auscultation: + abdomen distended (protuberant but soft) and normal bowel sounds Percussion/Palpation: abdomen soft; abdomen nontender and no hepatomegaly Musculoskeletal Extremities: extremities normal to inspection; no cyanosis and no clubbing Skin no rashes, warm and dry Neurologic moves all extremities and awake; no focal motor deficits Psychiatric A+Ox3, euthymic affect Lymphatic no lymphedema Discharge Plan Discharge Items Patient Disposition: Home - Home Health Services Reason For Visit: NAUSEA/VOMITING,ELEVATED LFTS,JOSY Discharge Diagnosis: Nausea/vomiting-suspected viral gastroenteritis versus food poisoning Cholestatic hepatitis Hyperglycemia Acute kidney injury Condition on Discharge: Good Activity: As commented below Lifting: Gradually increase as tolerated Bathing: No limitations Exercise/Sports: Gradually increase as tolerated Weightbearing: Full weightbearing Non-emergency contact: Primary Care Provider and Candlemaking Laborer Call non-emergency contact if: you have any medication questions and your symptoms worsen Follow-up/Referrals: Howard Santiago MD [Primary Care Provider] - (Follow-up within 1 to 2 weeks.) Jose Zamudio MD [Physician] - (Please call to schedule a follow-up appointment within 2 to 3 weeks.) Diet: Carb Consistent or DM2 Addtl Attending Provider Instructions: You were admitted with nausea and vomiting which is now resolved. This may have been from food poisoning versus a viral gastroenteritis. You had acute kidney injury from dehydration which is now resolved. You also had a significant rise in your liver blood tests which is from dehydration and vomiting on top of having a fatty liver. There are multiple blood tests which were pending at the time of discharge to work you up for underlying causes of liver disease. Please follow-up with the pallet sorter to go over these results and for ongoing surveillance. Please have your PCP check your liver blood tests and kidney function in 1 week to ensure they are continuing to improve. You should not take ibuprofen as this can be harmful to the kidneys. You should also not take the atorvastatin for now due to your liver issues. It is very important that you work to better control your diabetes. Please test your blood sugar at least once a day and follow-up with your primary care physician for this. Your triglycerides on your cholesterol panel were also quite elevated and this is also due to uncontrolled diabetes. Pending Studies at Discharge: Yes (Multiple liver tests) Stand-Alone Forms: [facility] Medications and DC Order Prescriptions: Continued tamsulosin 0.4 mg capsule 0.4 mg PO DAILY Qty: 90 3RF fexofenadine 180 mg Tablet 180 mg PO DAILY PRN (Reason: Other) fluticasone propionate [Flonase Allergy Relief] 50 mcg/actuation [place],Suspension 2 spray INTRANASAL DAILY Rx Instructions: administer into each nostril aspirin-dipyridamole 25-200 mg capsule, ER multiphase 12 hr 1 cap PO BID trazodone 50 mg tablet 50 - 100 mg PO HS dutasteride 0.5 mg capsule 0.5 mg PO PM Janumet XR 50-1,000 mg tablet, ER multiphase 24 hr 1 tab PO BID Jardiance 25 mg tablet 25 mg PO QAM losartan 50 mg tablet 50 mg PO BID cyanocobalamin (vitamin B-12) [Vitamin B-12] 1,000 mcg Tablet 2,000 mcg PO PM cholecalciferol (vitamin D3) [Vitamin D3] 25 mcg (1,000 unit) Tablet 50 mcg PO PM Rx Instructions: 2000 units metoprolol succinate 25 mg tablet extended release 24 hr 25 mg PO DAILY Held atorvastatin 10 mg tablet 10 mg PO PM Hold Instructions: Resume on 11/11/24. Hold off on taking this until the GI doctor says it is okay to resume. Discontinued ibuprofen 200 mg Tablet 200 - 600 mg PO Q6H PRN (Reason: Pain) Discharge Orders: Discharge Order (Routine); Ordered 10/28/24 Ordered By: Kady Carvajal Admission Data Admit Date/Time: 10/27/24 18:24 Attending Provider: Kady Carvajal Admit Provider: Kady Carvajal Primary Care Provider: Howard Santiago Other Providers: Mynor Polanco; Jose aZmudio; [facility] F[facility] Other Interventions: Discharge Summary Assessment (RN) Last Done: 10/28/24 16:03 Hospital Stay Data Consultations 10/27/24 16:16 ED Decision to Admit Stat 10/27/24 21:31 Consult Gastroenterology Routine Diagnostic Imagining Performed 10/27/24 15:26 CT abd pelvis wo con Stat 10/27/24 18:24 MR MRCP Stat Pending Results Patient Have Any Pending Studies at Discharge: Yes (Multiple liver tests) Discharge Instructions Given to Patient (Per Discharging Provider) You were admitted with nausea and vomiting which is now resolved. This may have been from food poisoning versus a viral gastroenteritis. You had acute kidney injury from dehydration which is now resolved. You also had a significant rise in your liver blood tests which is from dehydration and vomiting on top of having a fatty liver. There are multiple blood tests which were pending at the time of discharge to work you up for underlying causes of liver disease. Please follow-up with the pallet sorter to go over these results and for ongoing surveillance. Please have your PCP check your liver blood tests and kidney function in 1 week to ensure they are continuing to improve. You should not take ibuprofen as this can be harmful to the kidneys. You should also not take the atorvastatin for now due to your liver issues. It is very important that you work to better control your diabetes. Please test your blood sugar at least once a day and follow-up with your primary care physician for this. Your triglycerides on your cholesterol panel were also quite elevated and this is also due to uncontrolled diabetes. Total Time Total Time Spent Total Time Spent (In Minutes): 35 minutes Total Time Includes: Examination of the Patient, Discharge Planning, Medication Reconciliation and Communication With Other Providers (Gastroenterology) Coding Level of Care Code 49500 INP/OBS DISCH >30 MIN Diagnoses Nausea & vomiting R11.2 JOSY (acute kidney injury) N17.9 Elevated LFTs R79.89 Diabetes mellitus, type 2 E11.9 Demand ischemia I24.8 Benign prostatic hyperplasia (BPH) with urinary urgency N40.1; R39.15 Hypertension I10 History of TIA (transient ischemic attack) Z86.73
[2024-10-28 16:08] VITALS: PULSE 84
--- NOTE | 2024-10-28 22:02 | Electrocardiogram Report ---
Test Reason : Blood Pressure : */* mmHG Vent. Rate : 114 BPM Atrial Rate : * BPM P-R Int : 248 ms QRS Dur : 86 ms QT Int : 358 ms P-R-T Axes : * 64 14 degrees QTcB Int : 493 ms Sinus tachycardia with 1st degree A-V block Nonspecific ST and T wave abnormality Prolonged QT Abnormal ECG When compared with ECG of 12-Aug-2022 05:36, Vent. rate has increased by 41 bpm Questionable change in QRS axis ST now depressed in Anterior leads T wave inversion now evident in Inferior leads Confirmed by Eagle Lee ([id number]) on 10/28/2024 10:02:18 PM Referred By: Confirmed By: Eagle Lee
--- NOTE | 2024-10-28 22:04 | Electrocardiogram Report ---
Test Reason : Blood Pressure : */* mmHG Vent. Rate : 113 BPM Atrial Rate : 113 BPM P-R Int : 176 ms QRS Dur : 92 ms QT Int : 386 ms P-R-T Axes : * 61 0 degrees QTcB Int : 529 ms Sinus tachycardia with 1st degree A-V block Nonspecific ST abnormality Prolonged QT Abnormal ECG When compared with ECG of 27-Oct-2024 14:26, No significant change Confirmed by Eagle Lee ([id number]) on 10/28/2024 10:04:34 PM Referred By: REFERRED SELF Confirmed By: Eagle Lee
--- NOTE | 2024-10-28 22:05 | Electrocardiogram Report ---
Test Reason : Blood Pressure : */* mmHG Vent. Rate : 83 BPM Atrial Rate : 83 BPM P-R Int : 264 ms QRS Dur : 94 ms QT Int : 368 ms P-R-T Axes : 28 36 27 degrees QTcB Int : 432 ms Sinus rhythm with 1st degree A-V block with Blocked Premature atrial complexes Otherwise normal ECG When compared with ECG of 27-Oct-2024 14:39, Premature atrial complexes are now Present Confirmed by Eagle Lee ([id number]) on 10/28/2024 10:05:06 PM Referred By: REFERRED SELF Confirmed By: Eagle Lee
[2024-10-29 13:37] LABS: Alpha 1 Antitrypsin 180 mg/dL (83-199); Anti Nuclear Antibody Screen NEGATIVE (NEGATIVE); Ceruloplasmin 25 mg/dL (14-30); Hepatitis A Antibody IgM NON-REACTIVE (NON-REACTIVE); Hepatitis B Core Antibody IgM NON-REACTIVE (NON-REACTIVE); Smooth Muscle Antibody NEGATIVE (NEGATIVE)
== END 2024-10-28 16:34 | disposition home health service (06) | DRG 683 ==
LOC: SUATTDRO → ED 14:19 → 2N 18:24

== ENCOUNTER 2024-11-09 13:45 | Inpatient (IN) ==
--- NOTE | 2024-11-09 14:03 | ED Triage Note ---
Date of Service November 09, 2024 Provider in Triage Author: Oliver Asher History of Present Illness This patient was briefly evaluated while in triage. An abbreviated physical exam was performed. This patient is a 84-year-old Male who presents to the ED for evaluation recent admission 10/27-10/28 for N/V, JOSY, elevated LFTs seen in follow up - not eating and drinking, confusion, weakness/fatigue, abdominal pain/bloating, weight loss Physical Exam GENERAL: in wheelchair, mildly confused CARDIOVASCULAR: RRR RESPIRATORY: CTA ABDOMEN: BS x 4. Diffusely TTP. Initial orders for labs and / or imaging were placed and patient was placed in the waiting area until a bed is available. Please see further documentation for the full ED course.
[2024-11-09 15:15] LABS: Basophils # (auto) 0.04 K/uL (0.00-0.20); Basophils % (auto) 0.2 %; Eosinophils # (auto) 0.02 K/uL (0.00-0.50); Eosinophils % (auto) 0.1 %; Hematocrit (blood only) 41.8 % (42.0-52.0); Hemoglobin 14.4 g/dl (14.0-18.0); Immature Granulocytes # (auto) 0.21 K/uL (0.01-0.20); Immature Granulocytes % (auto) 1.1 %; Lymphocytes # (auto) 1.31 K/uL (1.20-3.40); Lymphocytes % (auto) 6.6 %; Mean Corpuscular Hemoglobin 30.1 pg (25.0-34.0); Mean Corpuscular Hgb Conc 34.4 g/dL (32.0-36.0); Mean Corpuscular Volume 87.3 fL (80.0-100.0); Mean Platelet Volume 9.7 fL (9.4-12.4); Monocytes # (auto) 1.69 K/uL (0.11-0.59); Monocytes % (auto) 8.5 %; Neutrophils # (auto) 16.62 K/uL (1.40-6.50); Neutrophils % (auto) 83.5 %; Platelet Count 401 K/uL (130-400); RDW Coefficient of Variation 12.7 % (11.5-14.5); RDW Standard Deviation 40.5 fL (36.4-46.3); Red Blood Count 4.79 M/uL (4.70-6.10); White Blood Count 19.89 K/ul (4.8-10.8)
[2024-11-09 16:07] LABS: Albumin Level 3.2 gm/dl (3.4-5.0); Anion Gap 16 (3-11); Bilirubin,Total 0.7 mg/dl (0.2-1.0); Carbon Dioxide 18 mmol/L (21-32); Chloride 98 mmol/L (98-107); Magnesium 1.8 mg/dl (1.7-2.4); Potassium 4.2 mmol/L (3.5-5.1); Sodium 132 mmol/L (136-145)
[2024-11-09 16:09] LABS: Troponin I High Sensitivity 12.4 pg/ml (0-20)
[2024-11-09 16:13] LABS: Alanine Aminotransferase 16 U/L (7-52); Alkaline Phosphatase 97 U/L (34-104); Aspartate Aminotransferase 15 U/L (13-39); BUN Creatinine Ratio 17.9 (10-20); Blood Urea Nitrogen 17 mg/dl (6-23); Globulin 3.2 gm/dl (2.5-4.0); Glucose 159 mg/dl (70-99(Fasting)); Lipase 280 U/L (11-82); Total Protein 6.4 gm/dl (6.0-8.3)
[2024-11-09] MEDS: OPTIRAY 320 100ml IV ONE (16:32)
--- NOTE | 2024-11-09 16:47 | CT Scan Report ---
EXAM: CT Head Without Intravenous Contrast INDICATION: Altered mental status. TECHNIQUE: Axial computed tomography images of the head/brain without intravenous contrast. Sagittal and/or coronal reformats are provided. Sagittal and coronal reformatted images were created and reviewed. This CT exam was performed using one or more of the following dose reduction techniques: automated exposure control, adjustment of the mA and/or kV according to patient size, and/or use of iterative reconstruction technique. COMPARISON: No relevant prior studies available. FINDINGS: Limitations: None. Brain and extra-axial spaces: There is age appropriate cortical atrophy and chronic ischemic periventricular white matter hypodensity. No acute infarct, hemorrhage or mass noted. Bones/joints: No acute changes. Soft tissues: No significant abnormality noted. Vasculature: No acute abnormality noted. Sinuses: There is mild chronic mucosal thickening in the bilateral ethmoid, frontal and right maxillary sinuses. Mastoid air cells: No mastoid effusion. Orbits: No significant abnormality noted. IMPRESSION: 1. Cerebral atrophy. No acute changes. 2. Mild chronic sinusitis. ACT 112: Negative or not required by law. Electronically signed by Farnaz Barber 11-09-2024 4:46 PM
--- NOTE | 2024-11-09 16:54 | CT Scan Report ---
EXAM: CT Abdomen and Pelvis With Intravenous Contrast INDICATION: Abdominal pain and bloating. TECHNIQUE: Axial computed tomography images of the abdomen and pelvis with intravenous contrast. Sagittal and coronal reformatted images were created and reviewed. This CT exam was performed using one or more of the following dose reduction techniques: automated exposure control, adjustment of the mA and/or kV according to patient size, and/or use of iterative reconstruction technique. CONTRAST: 94ml of Optiray 320 was administered intravenously. COMPARISON: 10/27/2024 FINDINGS: Limitations: None. Lung bases: No abnormality noted. Pleural space: No visualized pleural effusion or pneumothorax. Heart: No abnormality noted. Mediastinum: No abnormality noted. ABDOMEN: Liver: Normal size and contour. Hypodense typical of steatosis. No mass or ductal dilation. Gallbladder and bile ducts: No calcified stones or surrounding fluid. Pancreas: There is new inflammation and fluid about the pancreatic head and uncinate 8. New small amount of fluid adjacent to the pancreatic tail. There is heterogeneous enhancement of the parenchyma of the pancreatic head and uncinate. No enhancing mass. No gas in the pancreatic bed. Spleen: The spleen is mildly enlarged measuring 13.3 cm long and unchanged. Adrenals: No significant abnormality noted. Kidneys and ureters: Simple left renal cyst/s. No simple cyst follow-up necessary. Right kidney appears normal. No renal stone, hydronephrosis or perinephric fluid. Right kidney appears normal. Stable bilateral perinephric scarring. No urinary gas. Stomach and bowel: Colonic diverticulosis without diverticulitis. No intestinal thickening or obstruction. PELVIS: Appendix: No findings to suggest acute appendicitis. Bladder: No filling defects to suggest mass or large stone. No inflammation. Reproductive: No abnormalities noted. ABDOMEN and PELVIS: Intraperitoneal space: No free air. No significant fluid collection. Bones/joints: Degenerative changes noted throughout the spine. No acute osseous abnormality seen. Soft tissues: There are small bilateral fat containing inguinal hernias. Vasculature: Decreased density in the lumen of the bilateral external iliac veins strongly suspicious for DVT. Stable 3.1 cm aneurysm of the distal abdominal aorta. No hemorrhage. Lymph nodes: No pathologically enlarged lymph nodes. IMPRESSION: 1. Acute pancreatitis most notably involving the head and uncinate process. Probable mild inflammation at the pancreatic tip. 2. Bilateral external iliac deep venous thrombosis. Recommend lower extremity sonography. 3. Stable 3.1 cm distal abdominal aortic aneurysm without rupture. ACR White Paper guidelines (Khosa, et al. JACR 2013; 10(10):789-94) suggest abdomen/pelvis CT or MR imaging follow-up in 3 years. ACT 112: Negative or not required by law. Electronically signed by Farnaz Barber 11-09-2024 4:53 PM
--- NOTE | 2024-11-09 18:26 | Ultrasound Report ---
EXAM: US Duplex Bilateral Lower Extremities Veins INDICATION: DVT. TECHNIQUE: Real-time duplex ultrasound scan of the bilateral lower extremity veins integrating B-mode two-dimensional vascular structure, Doppler spectral analysis, color flow Doppler imaging and compression. COMPARISON: CT abdomen and pelvis the same day FINDINGS: Right deep veins: Nonocclusive distal femoral vein thrombosis. No DVT in the right common femoral or popliteal veins. Patent veins demonstrate sluggish color flow, are normally compressible, with normal phasic flow and/or augmentation response. Right superficial veins: No abnormality noted. No thrombus in the visualized right great saphenous vein. Left deep veins: There is occlusive thrombus left femoral and common femoral veins. Nonocclusive thrombus left popliteal vein. Left superficial veins: No abnormality noted. No thrombus in the visualized left great saphenous vein. Soft tissues: No abnormality noted. IMPRESSION: 1. Nonocclusive distal right femoral vein DVT. 2. Extensive occlusive DVT left femoral and common femoral veins. Nonocclusive left popliteal vein DVT. 3. DVTnoted in the bilateral external iliac veins and possibly the IVC on CT the same day. ACT 112: Negative or not required by law. Electronically signed by Farnaz Barber 11-09-2024 6:25 PM
[2024-11-09 19:30] LABS: Appearance Urine Clear (Clear); Bacteria Urine Automated None Seen (None Seen); Bilirubin Urine Negative (Negative); Blood Urine Negative (Negative); Cast Urine Automated 0-2 /lpf (0-2); Color Urine Yellow; Epithelial Cell Urine Auto 0-2 /hpf (0-2); Glucose Urine UA 3+ (Negative); Ketones Urine 3+ (Negative); Leukocyte Esterase Urine Negative (Negative); Nitrite Urine Negative (Negative); Protein Urine Trace (Negative); RBC Urine Automated 0-2 /hpf (0-2); Specific Gravity Urine > 1.045 (1.000-1.030); Urobilinogen Urine Negative (Negative); WBC Urine Automated 0-5 /hpf (0-5)
[2024-11-09] MEDS: SODIUM CHLORIDE 0.9% 1,000 ML IV SCH ×2 (20:08→21:16)
--- OUTSIDE RECORDS SUMMARY | 2024-11-09 20:18 | External Medical Summary | Continuity of Care Document ---
Author Name Unknown Organization [facility] [id number] [address] [place] [phone] Care Team Providers Care Lawn Technician Name Role Phone JackHoward Primary Care Physician [phone] Encounter [facility] [id number] Date(s): 11/02/24 - 11/02/24 [facility] [address] [facility] [address] [address] [phone] Encounter Diagnosis Acute delirium(Discharge Diagnosis) - 11/02/24 Altered mental state(Discharge Diagnosis) - 11/02/24 Hyperglycemia(Discharge Diagnosis) - 11/02/24 Altered mental status, unspecified(Final) - Hyperglycemia, unspecified(Final) - Discharge Disposition: Home or Self Care Attending Physician: MD Calin, [facility] Allergies, Adverse Reactions, Alerts Substance Criticality Severity [...] 3 05/18/10 Recorded SARS-CoV-2 (COVID-19) mRNA-vacc - [id number] 12/25/23 Recorded RSV vaccine preF3, recombinant 08/18/23 [...] bid, Disp# 180 cap, Refills: 4, Pharmacy: [facility] Start Date: 07/28/24 Status: Ordered atorvastatin 10 mg oral tablet Start: 09/02/24 12:15:00 PM EDT, 1 tab, PO, qhs, Disp# 90 tab, Refills: 3, Pharmacy: [facility] Start Date: 09/02/24 Status: Ordered dutasteride 0.5 mg oral capsule Start: 10/10/24 6:35:00 PM EST, 1 cap, PO, Daily, Disp# 90 cap, Refills: 4, Pharmacy: [facility] Start Date: 10/10/24 Status: Ordered Flonase 50 mcg/inh nasal spray Start: 10/04/24 2:38:00 PM EST, 1 spray, each nostril, Daily Start Date: 10/04/24 Status: Ordered ibuprofen Start: 10/04/24 2:38:00 PM EST Start Date: 10/04/24 Status: Ordered Janumet XR 50 mg-1000 mg oral tablet, extended release Start: 12/11/23 2:53:00 PM EST, 1 tab, PO, bid, Disp# 180 tab, Refills: 4, Pharmacy: [facility] Start Date: 12/11/23 Status: Ordered Jardiance 25 mg oral tablet Start: 07/18/24 3:37:00 PM EDT, 1 tab, PO, qAM, Disp# 30 tab, Refills: 11, Pharmacy: [facility] Start Date: 07/18/24 Status: Ordered losartan 50 mg oral tablet Start: 03/10/24 11:40:00 AM EDT, 1 tab, PO, bid, Disp# 180 tab, Refills: 4, Pharmacy: [facility] Start Date: 03/10/24 Status: Ordered Metoprolol Succinate ER 25 mg oral tablet, extended release Start: 08/28/23 2:07:00 PM EDT, 1 tab, PO, Daily, Disp# 90 tab, Refills: 4, Pharmacy: [facility] Start Date: 08/28/23 Status: Ordered One Touch Ultra Test Strips 100 ct Start: 05/21/21 5:02:00 PM EDT, See Instructions, Disp# 100 each, Refills: 11, use 2-3 times daily, Pharmacy: [facility] Start Date: 05/21/21 Status: Ordered tamsulosin 0.4 mg oral capsule Start: 08/15/22 9:21:00 AM EDT, 1 cap, PO, Daily Start Date: 08/15/22 Status: Ordered traZODone 50 mg oral tablet Start: 09/18/23 4:30:00 PM EST, 1-2 tab, PO, qhs, Disp# 180 tab, Refills: 4, Pharmacy: [facility] Start Date: 09/18/23 Stop Date: 12/11/24 Status: Ordered triamcinolone 0.1% topical cream Start: 08/21/23 1:18:00 PM EDT, 1 appl, topical, bid, Disp# 15 g, Refills: 1, apply to dermatitis on the abdomen until clear, Pharmacy: [facility] Start Date: 08/21/23 Status: Ordered Vitamin B12 1000 mcg oral tablet Start: 01/07/18 9:25:00 AM EST, 1 tab, PO, Daily, Disp# 100 tab, Refills: 10, other Start Date: 01/07/18 Status: Ordered Vitamin D3 2000 intl units oral capsule Start: 06/15/18 9:42:00 AM EDT, 1 cap, PO, Daily Start Date: 06/15/18 Status: Ordered Mental Status 11/02/24 Barriers to Learning one year None evide nt Mandatory Health Literacy Documentation Yes Health Literacy Communication Barriers N ever Primary Language Northern Irish Problem List Condition Confirmation Course Effective Dates [...] and cousin 6brother Jered age 65 7June 2009 8following with Wiliam q6 months 9tubular adenoma Diagnosis Diagnosis Type Effective Dates Health Status Clinical Service Informant Hyperglycemia Discharge Diagnosis 11/02/24 Non-Specified Altered mental state Discharge Diagnosis 11/02/24 Non-Specified Acute delirium Discharge Diagnosis 11/02/24 Non-Specified Procedures Procedure Date Related Diagnosis Body Site [...] bladder tumor 04/02/22 Completed Retrograde urography with [id number] 13 02/25/[address] of abdomen [...] adenoma, right colon 286 so far Results Laboratory List Name Date Complete Blood Count (CBC) 11/02/24 Comprehensive Metabolic Panel (COMP META B PANEL) 11/02/24 Magnesium Level (MAGNESIUM) 11/02/24 Glucose Meter (GLUCOSE METER) 11/02/24 Most recent to oldest [Reference Range]: 1 eGFR CKD-EPI [>60 mL/min/1.73 m2] 67 mL/ min/1.73 m2 (11/02/24 11:49 AM) Gluc (comment) Testing performed at : 1 *Unknown* (11/02/24 10:47 AM) Estimated CrCl 56.29 mL/min (11/02/24 6:36 PM) MPV [9.0-12.2 fL] 10.4 fL (11/02/24 11:49 AM) RDW [11.5-14.2 %] 13.4 % (11/02/24 11:49 AM) Anion Gap [5-14 mmol/L] 12 mmol/L (11/02/24 11:49 AM) Alb [3.5-5.2 g/dL] 3.3 g/dL *LOW* (11/02/24 11:49 AM) Alk Phos [40-130 unit/L] 126 unit/L 2 (11/02/24 11:49 AM) ALT [0-41 unit/L] 39 unit/L (11/02/24 11:49 AM) AST [0-40 unit/L] 18 unit/L (11/02/24 11:49 AM) BUN [6-23 mg/dL] 20 mg/dL (11/02/24 11:49 AM) Ca [8.4-10.2 mg/dL] 10.2 mg/dL (11/02/24 11:49 AM) Cl- [98-107 mmol/L] 99 mmol/L (11/02/24 11:49 AM) HCO3 [22-29 mmol/L] 23 mmol/L (11/02/24 11:49 AM) Cret [0.70-1.30 mg/dL] 1.09 mg/dL (11/02/24 11:49 AM) Glu [74-109 mg/dL] 252 mg/dL 3 *HI* (11/02/24 11:49 AM) Gluc Meter [74-109 mg/dL] 292 mg/dL *HI* (11/02/24 10:47 AM) Hct [39-48 %] 45.4 % (11/02/24 11:49 AM) Hgb [13.0-17.0 g/dL] 15.2 g/dL (11/02/24 11:49 AM) K [3.5-5.1 mmol/L] 3.7 mmol/L (11/02/24 11:49 AM) MCH [28-33 pg] 30.2 pg (11/02/24 11:49 AM) MCHC [32-36 g/dL] 33.5 g/dL (11/02/24 11:49 AM) MCV [81-96 fL] 90.3 fL (11/02/24 11:49 AM) Mg [1.6-2.6 mg/dL] 2.0 mg/dL (11/02/24 11:49 AM) Na [136-145 mmol/L] 134 mmol/L *LOW* (11/02/24 11:49 AM) Plts [150-350 K/uL] 308 K/uL (11/02/24 11:49 AM) RBC [4.40-5.60 M/uL] 5.03 M/uL (11/02/24 11:49 AM) T Bili [0.0-1.2 mg/dL] 1.0 mg/dL (11/02/24 11:49 AM) Prot [6.4-8.3 g/dL] 6.1 g/dL *LOW* (11/02/24 11:49 AM) WBC [4.0-10.4 K/uL] 14.46 K/uL *HI* (11/02/24 11:49 AM) 1Result Comment: [address] [address] 2Result Comment: Low levels of ALKP may indicate a deficiency in zinc, magnesium, or malnutritionbutcan also be an indicator of a rare genetic disease hypophosphatasia (HPP). 3Result Comment: ADA recommendation for FASTING Serum/Plasma Glucose: Normal: 70-100 mg/dL Prediabetes: 100-125 mg/dL Diabetes: 126 mg/dL or higher Vital Signs Most recent to oldest [Reference Range]: 1 Patient Weight 86.7 kg (11/02/24 10:32 AM) Heart Rate 80 bpm (11/02/24 10:32 AM) Blood Pressure 100/60mmHg (11/02/24 10:32 AM) Cuff Pulse Pressure 40 mmHg (11/02/24 10:32 AM) Social History Social History Type Response Smoking Status Never smoked cigaret gudelia Sex Male Sex Representation Male (finding) Patient Care team information Care Team Personnel Name: MD Martinez Jonathan D Position: Physician - Family Med Member Role: Lifetime Relationship Address: [address] [place] [address] [place] [id number] [place] Name: MD Santiago Christopher Position: Physician - Family Med Member Role: Primary Care Provider Address: [address] [facility] [place] [place] [address] [place] [address] Care Team Related Persons Name: WELLINGTON DUARTE
--- NOTE | 2024-11-09 20:21 | History & Physical Report ---
Date of Service November 09, 2024 Assessment & Plan (1) Acute pancreatitis: (2) DVT (deep venous thrombosis): (3) Confusion: (4) Diabetes mellitus, type 2: (5) Transitional cell carcinoma: Plan The patient is an 84-year-old male with past medical history including BPH with LUTS, hypertension, first-degree AV block, transitional cell carcinoma, COPD, diabetes mellitus, mixed hyperlipidemia, sleep disorder, testosterone deficiency and B12 deficiency. He was most recently admitted from 10/27-10/28/2024 with viral gastroenteritis versus food poisoning. He had been improved somewhat upon discharge, family reports he seen continued to worsen, has become more confused with decreased oral intake for liquids and solids, and reports that he is sleeping most of the time. He was also complaining of abdominal and back pain. In the ED, his lipase was found to be elevated at 280, CT scan of abdomen pelvis suggested acute pancreatitis, and also was noted DVT for additional workup was performed #Confusion- Differential including but not limited to: Metabolic encephalopathy, d ehydration, pancreatitis, hypoxia, extensive DVT #Acute pancreatitis- Patient was admitted from 10/27-10/28/2024 with viral gastroenteritis versus food poisoning After discharge to home, patient family reports that he slowly worsened This evening, lipase of 280, and CT scan abdomen pelvis showing acute pancreatitis most notably involving the head and uncinate process, with probable mild inflammation at the pancreatic tip Pancreatitis may be an extension of the original viral process, and may also be aggravated by patient being on Janumet and Jardiance, both of which will be held Patient will be n.p.o. except ice chips and sips with medications Advance diet as tolerated Follow serial CBC with differential, chemistry profile and lipase levels NSS at 80 mL/h x 2 L #Bilateral external iliac DVT- Noted incidentally on CT of abdomen/pelvis #Nonocclusive distal right femoral vein DVT/extensive occlusive DVT left femoral and common femoral veins/nonocclusive left popliteal vein DVT/possible IVC clot- These diagnoses were found on further workup with venous Doppler studies this evening Full hypercoagulable workup ordered Start on standard weight-based heparin bolus/drip PE protocol CT angiography PE protocol was negative for PE No suggestion of pancreatic cancer as a potential hypercoagulable process, but will need to be followed closely Carotid artery plaque/dysmetabolic syndrome X- Continue Aggrenox twice daily History of Present Illness Chief Complaint: The patient presents to the emergency department with complaint by family of worsening confusion, fatigue, decreased oral intake and abdominal and back pain since being discharged from the hospital from 10/27-10/28/2024. He had presented to the hospital with nausea and vomiting, and main differential at the time was viral gastroenteritis versus food poisoning. Primary Care Provider: Howard Santiago MD The patient is an 84-year-old male with past medical history including BPH with LUTS, hypertension, first-degree AV block, transitional cell carcinoma, COPD, diabetes mellitus, mixed hyperlipidemia, sleep disorder, testosterone deficiency and B12 deficiency. He was most recently admitted from 10/27-10/28/2024 with viral gastroenteritis versus food poisoning. He had been improved somewhat upon discharge, family reports he seen continued to worsen, has become more confused with decreased oral intake for liquids and solids, and reports that he is slee ping most of the time. He was also complaining of abdominal and back pain. In the ED, his lipase was found to be elevated at 280, CT scan of abdomen pelvis suggested acute pancreatitis, and also was noted DVT for additional workup was performed Allergies Allergy/AdvReac Type Severity Reaction Status Date / Time grass pollen Allergy runny, Verified 11/09/24 19:29 watery eyes mold Allergy runny, Verified 11/09/24 19:29 watery eyes ragweed pollen Allergy runny, Verified 11/09/24 19:29 watery eyes semaglutide [From Rybelsus] Allergy diarrhea, Verified 11/09/24 19:29 GERD Home Medications Medication Instructions Recorded Confirmed Type aspirin 25 mg-dipyridamole 200 mg 1 cap PO BID 02/16/22 11/09/24 History capsule,ext.release 12 hr multiphase cholecalciferol (vitamin D3) 25 50 mcg PO PM 02/16/22 11/09/24 History mcg (1,000 unit) tablet (Vitamin D3) cyanocobalamin (vitamin B-12) 2,000 mcg PO PM 02/16/22 11/09/24 History 1,000 mcg tablet (Vitamin B-12) dutasteride 0.5 mg capsule 0.5 mg PO PM 02/16/22 11/09/24 History empagliflozin 25 mg tablet 25 mg PO QAM 02/16/22 11/09/24 History (Jardiance) losartan 50 mg tablet 50 mg PO BID 02/16/22 11/09/24 History sitagliptin phos 50 mg-metformin 1 tab PO BID 02/16/22 11/09/24 History ER 1,000 mg tablet,extend rel 24h mp (Janumet XR) trazodone 50 mg tablet 50 - 100 mg PO HS 02/16/22 11/09/24 History fexofenadine 180 mg tablet 180 mg PO DAILY PRN Other 08/11/22 11/09/24 History fluticasone propionate 50 2 spray intranasal DAILY 08/11/22 11/09/24 History mcg/actuation nasal spray,suspension (Flonase Allergy Relief) tamsulosin 0.4 mg capsule 0.4 mg PO DAILY #90 caps 03/02/24 11/09/24 Rx metoprolol succinate 25 mg 25 mg PO DAILY 10/27/24 11/09/24 History tablet,extended release 24 hr Past Med/Surg History Problem List (Updated 11/10/24 @ 04:13 by Ronak Garzon MD) Diabetes mellitus, type 2 Confusion DVT (deep venous thrombosis) Acute pancreatitis Nausea & vomiting Elevated LFTs JOSY (acute kidney injury) (Acute) Sensorineural hearing loss (SNHL) of both ears Benign prostatic hyperplasia (BPH) with urinary urgency Discharge planning issues DVT prophylaxis Hypertension Demand ischemia Transaminitis First degree AV block Elevated troponin ACS (acute coronary syndrome) Chest pain (Acute) Transitional cell carcinoma Asthma Allergic rhinitis BMI 30.0-30.9,adult Carotid artery plaque COPD (chronic obstructive pulmonary disease) Diabetes mellitus with renal complications Diverticulosis Dysmetabolic syndrome X Erectile dysfunction Mild mental slowing Mixed hyperlipidemia Plantar fasciitis of left foot Prostatism Sleep disorder Testosterone deficiency Vitamin B12 deficiency Weight disorder Bladder tumor Medical History Diverticulosis COPD (chronic obstructive pulmonary disease) pt denies Hyperlipidemia Diabetes mellitus, type 2 Asthma pt denies Tubular adenoma Polycythemia Right tennis elbow History of TIA (transient ischemic attack) 20 yrs ago > no residual effects > Aggrenox History of adenomatous polyp of colon Family hx of prostate cancer Family hx of colon cancer Surgical History History of colonoscopy History of tooth extraction History of cataract surgery bilat H/O vasectomy Family History Daughter Asthma Mother Bone cancer Breast cancer Father COPD (chronic obstructive pulmonary disease) Grandmother (Maternal) Colon cancer Grandfather (Maternal) Colon cancer Uncle Colon cancer Brother Pheochromocytoma Colonic polyp Prostate cancer Sleep apnea Son Sleep apnea Social History Smoking Status: Never smoker Second Hand Exposure: No; Do You Dip or Chew Tobacco: No; Hx Alcohol Use: No Hx Substance Use: No Preferred Language: Cambodian Communication Ability: Effective Java Consultant Required: No Beliefs That Will Affect Care: None Current Living Situation: Alone Current Living Situation Comment: Lives at home alone Feels Safe at Home: Yes Assistive Devices: None Review of Systems Review of Systems: The patient denies chest pain, palpitations, cough, lower extremity swelling, sore throat, fevers, chills, sweats, blood in urine or stool, dysuria, urinary frequency or urgency, loss of consciousness, rash, abnormal bruising or bleeding, imbalance, focal weakness, numbness or tingling in arms or legs, generalized arthralgias or myalgias, neck pain, or night sweats. The review of systems is otherwise negative other than for that already noted above, and at least 10 systems have been reviewed. Physical Exam Physical Exam: The patient is awake, intermittently lethargic, well developed and well nourished, normocephalic and atraumatic, lying in bed and in no acute distress. HEENT--PERRL, EOMI, mucous membranes and oropharynx mildly dry. Neck--supple. No JVD. No bruits. Thyroid normal, trachea midline, no adenopathy. Heart--normal S1 and S2. No murmurs, rubs or gallops. Lungs--clear bilaterally, no respiratory distress, no accessory muscle use. Abdomen--normal bowel sounds and soft. Mild generalized abdominal tenderness, and mild tympany Extremities--no cyanosis or clubbing. No edema. Dermatologic--normal skin turgor, normal color, no abnormal lymph nodes, no rash. Neurologic--cranial nerves II through XII grossly intact. Rheumatologic--normal range of motion. Psychiatric--normal affect. Results & Data Results & Data Vital Signs (Past 12 Hours) Vital Signs Temp Pulse Pulse Resp BP BP Pulse Ox 11/09/24 19:15 91 H 20 119/75 97 11/09/24 18:17 90 18 97 11/09/24 18:17 97 11/09/24 18:16 90 11/09/24 18:15 91 H 22 125/69 97 11/09/24 14:02 36.2 C L 87 18 104/65 95 O2 Del Method 11/09/24 19:15 Room Air 11/09/24 18:17 Room Air 11/09/24 18:17 Room Air 11/09/24 18:16 11/09/24 18:15 Room Air 11/09/24 14:02 Room Air Laboratory Results Laboratory Results WBC 17.14 K/ul (4.8-10.8) H 11/10/24 03:34 RBC 4.42 M/uL (4.70-6.10) L 11/10/24 03:34 Hgb 13.3 g/dl (14.0-18.0) L 11/10/24 03:34 Hct 39.4 % (42.0-52.0) L 11/10/24 03:34 MCV 89.1 fL (80.0-100.0) 11/10/24 03:34 MCH 30.1 pg (25.0-34.0) 11/10/24 03:34 MCHC 33.8 g/dL (32.0-36.0) 11/10/24 03:34 RDW Std Deviation 41.8 fL (36.4-46.3) 11/10/24 03:34 RDW Coeff of Damari 12.8 % (11.5-14.5) 11/10/24 03:34 Plt Count 379 K/uL (130-400) 11/10/24 03:34 MPV 9.4 fL (9.4-12.4) 11/10/24 03:34 Immature Gran % (Auto) 1.0 % 11/10/24 03:34 Neut % (Auto) 83.5 % 11/10/24 03:34 Lymph % (Auto) 6.1 % 11/10/24 03:34 [place] % (Auto) 9.0 % 11/10/24 03:34 Eos % (Auto) 0.2 % 11/10/24 03:34 Baso % (Auto) 0.2 % 11/10/24 03:34 Neut # (Auto) 14.30 K/uL (1.40-6.50) H 11/10/24 03:34 Lymph # (Auto) 1.05 K/uL (1.20-3.40) L 11/10/24 03:34 [place] # (Auto) 1.55 K/uL (0.11-0.59) H 11/10/24 03:34 Eos # (Auto) 0.03 K/uL (0.00-0.50) 11/10/24 03:34 Baso # (Auto) 0.04 K/uL (0.00-0.20) 11/10/24 03:34 Immature Gran # (Auto) 0.17 K/uL (0.01-0.20) 11/10/24 03:34 PT 11.5 Seconds (9.0-12.0) 11/09/24 20:20 INR 1.1 (0.9-1.1) 11/09/24 20:20 APTT 28 Seconds (21-31) 11/09/24 20:20 PTT Ratio 1.0 11/09/24 20:20 Heparin Anti-Xa, Unfract < 0.10 IU/ml (0.3-0.7) L 11/09/24 20:20 Sodium 132 mmol/L (136-145) L 11/09/24 14:30 Potassium 4.2 mmol/L (3.5-5.1) 11/09/24 14:30 Chloride 98 mmol/L (98-107) 11/09/24 14:30 Carbon Dioxide 18 mmol/L (21-32) L 11/09/24 14:30 Anion Gap 16 (3-11) H 11/09/24 14:30 BUN 17 mg/dl (6-23) 11/09/24 14:30 Creatinine 0.95 mg/dl (0.6-1.4) 11/09/24 14:30 Est Cr Clr Drug Dosing Not Reportable 11/09/24 14:30 eGFR 79.42 11/09/24 14:30 BUN/Creatinine Ratio 17.9 (10-20) 11/09/24 14:30 Glucose 159 mg/dl (70-99(Fasting)) H 11/09/24 14:30 POC Glucose 139 mg/dl (70-99) H 11/09/24 21:17 Calcium 10.0 mg/dl (8.6-10.3) 11/09/24 14:30 Magnesium 1.8 mg/dl (1.7-2.4) 11/09/24 14:30 Total Bilirubin 0.7 mg/dl (0.2-1.0) 11/09/24 14:30 AST 15 U/L (13-39) 11/09/24 14:30 ALT 16 U/L (7-52) 11/09/24 14:30 Alkaline Phosphatase 97 U/L (34-104) 11/09/24 14:30 Troponin I High Sens 12.4 pg/ml (0-20) 11/09/24 14:30 Total Protein 6.4 gm/dl (6.0-8.3) 11/09/24 14:30 Albumin 3.2 gm/dl (3.4-5.0) L 11/09/24 14:30 Globulin 3.2 gm/dl (2.5-4.0) 11/09/24 14:30 Albumin/Globulin Ratio 1.0 (0.9-2) 11/09/24 14:30 Lipase 280 U/L (11-82) H 11/09/24 14:30 Urine Color Yellow 11/09/24 19:10 Urine Appearance Clear (Clear) 11/09/24 19:10 Urine pH 5.0 (4.5-7.5) 11/09/24 19:10 Ur Specific [place] > 1.045 (1.000-1.030) H 11/09/24 19:10 Urine Protein Trace (Negative) H 11/09/24 19:10 Urine Glucose (UA) 3+ (Negative) H 11/09/24 19:10 Urine Ketones 3+ (Negative) H 11/09/24 19:10 Urine Blood Negative (Negative) 11/09/24 19:10 Urine Nitrite Negative (Negative) 11/09/24 19:10 Urine Bilirubin Negative (Negative) 11/09/24 19:10 Urine Urobilinogen Negative (Negative) 11/09/24 19:10 Ur Leukocyte Esterase Negative (Negative) 11/09/24 19:10 Urine WBC (Auto) 0-5 /hpf (0-5) 11/09/24 19:10 Urine RBC (Auto) 0-2 /hpf (0-2) 11/09/24 19:10 U Hyaline Cast (Auto) 0-2 /lpf (0-2) 11/09/24 19:10 U Epithel Cells (Auto) 0-2 /hpf (0-2) 11/09/24 19:10 Urine Bacteria (Auto) None Seen (None Seen) 11/09/24 19:10 Impressions Abdomen/Pelvis CT 11/09/24 14:06 EXAM: CT Abdomen and Pelvis With Intravenous Contrast INDICATION: Abdominal pain and bloating. TECHNIQUE: Axial computed tomography images of the abdomen and pelvis with intravenous contrast. Sagittal and coronal reformatted images were created and reviewed. This CT exam was performed using one or more of the following dose reduction techniques: automated exposure control, adjustment of the mA and/or kV according to patient size, and/or use of iterative reconstruction technique. CONTRAST: 94ml of Optiray 320 was administered intravenously. COMPARISON: 10/27/2024 FINDINGS: Limitations: None. Lung bases: No abnormality noted. Pleural space: No visualized pleural effusion or pneumothorax. Heart: No abnormality noted. Mediastinum: No abnormality noted. ABDOMEN: Liver: Normal size and contour. Hypodense typical of steatosis. No mass or ductal dilation. Gallbladder and bile ducts: No calcified stones or surrounding fluid. Pancreas: There is new inflammation and fluid about the pancreatic head and uncinate 8. New small amount of fluid adjacent to the pancreatic tail. There is heterogeneous enhancement of the parenchyma of the pancreatic head and uncinate. No enhancing mass. No gas in the pancreatic bed. Spleen: The spleen is mildly enlarged measuring 13.3 cm long and unchanged. Adrenals: No significant abnormality noted. Kidneys and ureters: Simple left renal cyst/s. No simple cyst follow-up necessary. Right kidney appears normal. No renal stone, hydronephrosis or perinephric fluid. Right kidney appears normal. Stable bilateral perinephric scarring. No urinary gas. Stomach and bowel: Colonic diverticulosis without diverticulitis. No intestinal thickening or obstruction. PELVIS: Appendix: No findings to suggest acute appendicitis. Bladder: No filling defects to suggest mass or large stone. No inflammation. Reproductive: No abnormalities noted. ABDOMEN and PELVIS: Intraperitoneal space: No free air. No significant fluid collection. Bones/joints: Degenerative changes noted throughout the spine. No acute osseous abnormality seen. Soft tissues: There are small bilateral fat containing inguinal hernias. Vasculature: Decreased density in the lumen of the bilateral external iliac veins strongly suspicious for DVT. Stable 3.1 cm aneurysm of the distal abdominal aorta. No hemorrhage. Lymph nodes: No pathologically enlarged lymph nodes. IMPRESSION: 1. Acute pancreatitis most notably involving the head and uncinate process. Probable mild inflammation at the pancreatic tip. 2. Bilateral external iliac deep venous thrombosis. Recommend lower extremity sonography. 3. Stable 3.1 cm distal abdominal aortic aneurysm without rupture. ACR White Paper guidelines (Eulogio, et al. JACR 2013; 10(10):789-97) suggest abdomen/pelvis CT or MR imaging follow-up in 3 years. ACT 112: Negative or not required by law. Electronically signed by Farnaz Barber 11-09-2024 4:[address] 11/09/24 14:30 EXAM: CT Head Without Intravenous Contrast INDICATION: Altered mental status. TECHNIQUE: Axial computed tomography images of the head/brain without intravenous contrast. Sagittal and/or coronal reformats are provided. Sagittal and coronal reformatted images were created and reviewed. This CT exam was performed using one or more of the following dose reduction techniques: automated exposure control, adjustment of the mA and/or kV according to patient size, and/or use of iterative reconstruction technique. COMPARISON: No relevant prior studies available. FINDINGS: Limitations: None. Brain and extra-axial spaces: There is age appropriate cortical atrophy and chronic ischemic periventricular white matter hypodensity. No acute infarct, hemorrhage or mass noted. Bones/joints: No acute changes. Soft tissues: No significant abnormality noted. Vasculature: No acute abnormality noted. Sinuses: There is mild chronic mucosal thickening in the bilateral ethmoid, frontal and right maxillary sinuses. Mastoid air cells: No mastoid effusion. Orbits: No significant abnormality noted. IMPRESSION: 1. Cerebral atrophy. No acute changes. 2. Mild chronic sinusitis. ACT 112: Negative or not required by law. Electronically signed by Farnaz Barber 11-09-2024 4:46 PM Venous Doppler Study 11/09/24 17:13 EXAM: US Duplex Bilateral Lower Extremities Veins INDICATION: DVT. TECHNIQUE: Real-time duplex ultrasound scan of the bilateral lower extremity veins integrating B-mode two-dimensional vascular structure, Doppler spectral analysis, color flow Doppler imaging and compression. COMPARISON: CT abdomen and pelvis the same day FINDINGS: Right deep veins: Nonocclusive distal femoral vein thrombosis. No DVT in the right common femoral or popliteal veins. Patent veins demonstrate sluggish color flow, are normally compressible, with normal phasic flow and/or augmentation response. Right superficial veins: No abnormality noted. No thrombus in the visualized right great saphenous vein. Left deep veins: There is occlusive thrombus left femoral and common femoral veins. Nonocclusive thrombus left popliteal vein. Left superficial veins: No abnormality noted. No thrombus in the visualized left great saphenous vein. Soft tissues: No abnormality noted. IMPRESSION: 1. Nonocclusive distal right femoral vein DVT. 2. Extensive occlusive DVT left femoral and common femoral veins. Nonocclusive left popliteal vein DVT. 3. DVTnoted in the bilateral external iliac veins and possibly the IVC on CT the same day. ACT 112: Negative or not required by law. Electronically signed by Farnaz Barber 11-09-2024 6:25 PM Chest CTA 11/09/24 20:16 Exam(s): CTA CHEST IV Amt: 119 ml optiray 320 EXAM: CT Angiography Chest With Intravenous Contrast CLINICAL HISTORY: Reason for exam: PE. TECHNIQUE: Axial computed tomographic angiography images of the chest with intravenous contrast. CTDI is 35 mGy and DLP is 969 mGy-cm. Automated exposure control was utilized for the study. A dose lowering technique was utilized adhering to the principles of ALARA. MIP reconstructed images were created and reviewed. COMPARISON: 08/10/22 FINDINGS: Pulmonary arteries: Adequate pulmonary artery opacification. Mildly enlarged main pulmonary artery suggesting pulmonary arterial hypertension. No evidence of acute pulmonary embolism. Aorta: No acute findings. No aortic aneurysm or dissection. Lungs: Right lower lobe calcified granuloma. Left lower lobe superior segment calcified granuloma. Subsegmental atelectatic change at the lung bases. No consolidation or mass. Pleural space: Unremarkable. No significant effusion. No pneumothorax. Heart: Coronary artery atherosclerosis. No cardiomegaly. Significant pericardial effusion. Bones/joints: No acute fracture. No dislocation. Soft tissues: Unremarkable. Lymph nodes: Unremarkable. No enlarged lymph nodes. IMPRESSION: No evidence of acute pulmonary embolism. Electronically signed by: Beata Schuster M.D. 12/31/24 22:51 PM Code Status & VTE Plan Code Status Full code VTE Prophylaxis Plan VTE Prophylaxis will be ordered: Yes PG Care Time/CCT Total # of Minutes Spent Total Time Spent with Patient: Total time spent is greater than 50% in coordination of care (as documented) at patient's floor/unit and/or counseling patient: Coding Level of Care Code 82794 INT INP/OBS CARE 3/75MIN Diagnoses Acute pancreatitis K85.90 DVT (deep venous thrombosis) I82.409 Confusion R41.0 Diabetes mellitus, type 2 E11.9 Transitional cell carcinoma C68.9
[2024-11-09] MEDS ORDERED: GLUCOSE 10 TAB/TUBE PO PRN (20:23)
[2024-11-09] MEDS ORDERED: GLUCOSE 40% GEL 15 GM TUBE PO PRN (20:23)
[2024-11-09] MEDS ORDERED: DEXTROSE 50% 50 ML SYRINGE IV PRN (20:23)
[2024-11-09] MEDS ORDERED: GLUCAGON FOR INJ 1 MG VIAL SQ PRN (20:23)
[2024-11-09] MEDS ORDERED: CARBOHYDRATES FOR HYPOGLYCEMIA PO PRN (20:23)
--- NOTE | 2024-11-09 20:56 | Electrocardiogram Report ---
Test Reason : Blood Pressure : */* mmHG Vent. Rate : 91 BPM Atrial Rate : 91 BPM P-R Int : 216 ms QRS Dur : 98 ms QT Int : 382 ms P-R-T Axes : 94 59 -5 degrees QTcB Int : 469 ms Sinus rhythm with 1st degree A-V block with Premature atrial complexes Abnormal ECG When compared with ECG of 28-Oct-2024 06:03, No significant change was found Confirmed by Eagle Lee ([id number]) on 11/09/2024 8:56:25 PM Referred By: Confirmed By: Eagle Lee
[2024-11-09] MEDS ORDERED: ONDANSETRON INJ 2 MG/ML 2 ML VIAL IV PRN (21:00)
[2024-11-09] MEDS: OPTIRAY 320 125ml IV ONE (21:07)
[2024-11-09] MEDS: PANTOprazole 40 MG/10 ML SYR IV ONE (21:18)
[2024-11-09] MEDS: INSULIN ASPART PER UNIT CHARGE SC SCH (21:18)
[2024-11-09 21:19] LABS: ANTI-Xa, UFH(UnfractionatedHep < 0.10 IU/ml (0.3-0.7); INR 1.1 (0.9-1.1); Partial Thromboplastin Time 28 Seconds (21-31); Prothrombin Time 11.5 Seconds (9.0-12.0)
[2024-11-09] MEDS: PANTOprazole 40 MG/10 ML SYR IV SCH (21:36)
[2024-11-09] MEDS ORDERED: PANTOprazole 40 MG/10 ML SYR IV ONE (21:45)
[2024-11-09] MEDS: DIPYRIDAMOLE/ASPIRIN CAP PO SCH (22:42)
--- NOTE | 2024-11-09 22:51 | CT Scan Report ---
Exam(s): CTA CHEST IV Amt: 119 ml optiray 320 EXAM: CT Angiography Chest With Intravenous Contrast CLINICAL HISTORY: Reason for exam: PE. TECHNIQUE: Axial computed tomographic angiography images of the chest with intravenous contrast. CTDI is 35 mGy and DLP is 969 mGy-cm. Automated exposure control was utilized for the study. A dose lowering technique was utilized adhering to the principles of ALARA. MIP reconstructed images were created and reviewed. COMPARISON: 08/10/22 FINDINGS: Pulmonary arteries: Adequate pulmonary artery opacification. Mildly enlarged main pulmonary artery suggesting pulmonary arterial hypertension. No evidence of acute pulmonary embolism. Aorta: No acute findings. No aortic aneurysm or dissection. Lungs: Right lower lobe calcified granuloma. Left lower lobe superior segment calcified granuloma. Subsegmental atelectatic change at the lung bases. No consolidation or mass. Pleural space: Unremarkable. No significant effusion. No pneumothorax. Heart: Coronary artery atherosclerosis. No cardiomegaly. Significant pericardial effusion. Bones/joints: No acute fracture. No dislocation. Soft tissues: Unremarkable. Lymph nodes: Unremarkable. No enlarged lymph nodes. IMPRESSION: No evidence of acute pulmonary embolism. Electronically signed by: Beata Schuster M.D. 11/09/24 22:51 PM
[2024-11-10 04:00] LABS: Basophils # (auto) 0.04 K/uL (0.00-0.20); Basophils % (auto) 0.2 %; Eosinophils # (auto) 0.03 K/uL (0.00-0.50); Eosinophils % (auto) 0.2 %; Hematocrit (blood only) 39.4 % (42.0-52.0); Hemoglobin 13.3 g/dl (14.0-18.0); Immature Granulocytes # (auto) 0.17 K/uL (0.01-0.20); Lymphocytes # (auto) 1.05 K/uL (1.20-3.40); Lymphocytes % (auto) 6.1 %; Mean Corpuscular Hemoglobin 30.1 pg (25.0-34.0); Mean Corpuscular Hgb Conc 33.8 g/dL (32.0-36.0); Mean Corpuscular Volume 89.1 fL (80.0-100.0); Mean Platelet Volume 9.4 fL (9.4-12.4); Monocytes # (auto) 1.55 K/uL (0.11-0.59); Neutrophils % (auto) 83.5 %; Platelet Count 379 K/uL (130-400); RDW Coefficient of Variation 12.8 % (11.5-14.5); RDW Standard Deviation 41.8 fL (36.4-46.3); Red Blood Count 4.42 M/uL (4.70-6.10); White Blood Count 17.14 K/ul (4.8-10.8)
[2024-11-10 04:21] LABS: Albumin Globulin Ratio 0.9 (0.9-2); Albumin Level 2.8 gm/dl (3.4-5.0); BUN Creatinine Ratio 19.1 (10-20); Bilirubin,Total 0.6 mg/dl (0.2-1.0); Calcium 9.4 mg/dl (8.6-10.3); Creatinine Clr Calc Pharmacy 59.5 ml/min; Magnesium 1.8 mg/dl (1.7-2.4); Potassium 4.1 mmol/L (3.5-5.1); Total Protein 5.8 gm/dl (6.0-8.3)
[2024-11-10] MEDS: Heparin IV Adult Wt-Based Standard w/ INITIAL Bolus Protocol IV STA (05:10)
[2024-11-10] MEDS: HEPARIN 25000 UNIT/500 ML 25,000 UNITS/500 ML BAG IV SCH (05:12)
[2024-11-10] MEDS: HEPARIN SOD (PORCINE) 1000 UNIT/ML IV ONE (05:12)
[2024-11-10 07:00] LABS: Estimated Average Glucose 226 mg/dl; Hemoglobin A1C 9.5 % (4.5-5.6)
--- NOTE | 2024-11-10 10:20 | Hospitalist Progress Note ---
Date of Service November 10, 2024 Assessment & Plan (1) Acute pancreatitis: (2) DVT (deep venous thrombosis): (3) Confusion: (4) Diabetes mellitus, type 2: (5) Transitional cell carcinoma: Plan The patient is an 84-year-old male with past medical history including BPH with LUTS, hypertension, first-degree AV block, transitional cell carcinoma, COPD, diabetes mellitus, mixed hyperlipidemia, sleep disorder, testosterone deficiency and B12 deficiency. He was most recently admitted from 10/27-10/28/2024 with viral gastroenteritis versus food poisoning. He had been improved somewhat upon discharge, family reports he seen continued to worsen, has become more confused with decreased oral intake for liquids and solids, and reports that he is sleeping most of the time. He was also complaining of abdominal and back pain. In the ED, his lipase was found to be elevated at 280, CT scan of abdomen pelvis suggested acute pancreatitis, and also was noted DVT for additional workup was performed #Confusion- - discussed with family who was at bedside, this is far from baseline - Differential including but not limited to: Metabolic encephalopathy, dehydration, pancreatitis, hypoxia, extensive DVT - suspect component of delirium, given age, will take some time to resolve #Acute pancreatitis- - Patient was admitted from 10/27-10/28/2024 with viral gastroenteritis versus food poisoning - After discharge to home, patient family reports that he slowly worsened - This evening, lipase of 280, and CT scan abdomen pelvis showing acute pancreatitis most notably involving the head and uncinate process, with probable mild inflammation at the pancreatic tip - Pancreatitis may be an extension of the original viral process, and may also be aggravated by patient being on Janumet and Jardiance, both of which will be held - diet advanced to clear liquid - s/p IVF, will cont oral hydration - lipase level trending down - Follow serial CBC with differential, chemistry profile - GI consult ordered per family request #Bilateral external iliac DVT- #Nonocclusive distal right femoral vein DVT/extensive occlusive DVT left femoral and common femoral veins/nonocclusive left popliteal vein DVT/possible IVC clot- - Full hypercoagulable workup ordered - Start on standard weight-based heparin bolus/drip PE protocol - CT angiography PE protocol was negative for PE - No suggestion of pancreatic cancer as a potential hypercoagulable process, but will need to be followed closely #Back pain - pt's daughter states this is ongoing prior to current issue and improves with massage #Carotid artery plaque/dysmetabolic syndrome X- - Continue Aggrenox twice daily 11/10: spoke with pt's daughter Juani, pt's [id number] and granddaughter at bedside Admission and Anticipated Discharge Date Admission Date: November 09, 2024 Subjective No acute events overnight Currently no new complaints Physical Exam Physical Exam: Gen: NAD, lying in bed comfortable HEENT: NC/AT Lungs: CTAB CVS: RRR, s1s2 nl Abd: soft, NT, nl bowel sounds Results & Data Results & Data Vital Signs (Past 12 Hours) Vital Signs Temp Pulse Pulse Resp BP BP Pulse Ox 11/10/24 07:19 92 H 11/10/24 06:00 93 H 16 101/85 96 11/10/24 05:02 93 H 16 108/66 96 11/10/24 04:20 36.8 C 93 H 18 108/71 97 11/10/24 02:00 89 18 105/75 96 11/09/24 23:17 106 H 11/09/24 23:01 98 H 18 115/95 96 O2 Del Method 11/10/24 07:19 11/10/24 06:00 Room Air 11/10/24 05:02 Room Air 11/10/24 04:20 Room Air 11/10/24 02:00 Room Air 11/09/24 23:17 11/09/24 23:01 Room Air PG Care Time/CCT Total # of Minutes Spent Total Time Spent with Patient: Total time spent is greater than 50% in coordination of care (as documented) at patient's floor/unit and/or counseling patient: Coding Level of Care Code 15956 SUB INP/OBS CARE 3/50MIN Diagnoses Acute pancreatitis K85.90 DVT (deep venous thrombosis) I82.409 Confusion R41.0 Diabetes mellitus, type 2 E11.9 Transitional cell carcinoma C68.9
[2024-11-10 11:50] LABS: ANTI-Xa, UFH(UnfractionatedHep 0.58 IU/ml (0.3-0.7)
[2024-11-10 17:49] LABS: BUN Creatinine Ratio 16.1 (10-20); Calcium 9.7 mg/dl (8.6-10.3); Creatinine Clr Calc Pharmacy 60.2 ml/min; Potassium 4.2 mmol/L (3.5-5.1)
--- NOTE | 2024-11-10 18:41 | Emergency Department Note ---
Impression & Plan Pancreatitis, Acute deep vein thrombosis (DVT) of iliac vein of both lower extremities ED Provider Note CHIEF COMPLAINT: Illness HISTORY OF PRESENT ILLNESS: This 84-year-old male patient past medical history of hyperlipidemia, diabetes mellitus, COPD, transitional cell carcinoma, acute coronary syndrome, first-degree AV block, hypertension, BPH, presents to the emergency department with complaints of several weeks worth of fatigue, nausea, poor p.o. intake. His abdomen seems to be bloated despite losing weight. He is not able to button his pants. He states they have not been able to identify the source of his problem. He denies any fevers or vomiting. Patient states he has been taking his medications as prescribed. REVIEW OF SYSTEMS: A review of systems was performed with positives and pertinent negatives listed in the history of present illness. 10 systems were reviewed and are otherwise negative. ALLERGIES: see below MEDICATIONS: see below PMH: see below SOCIAL HISTORY: see below DDx: Dehydration, malignancy, infectious etiology such as UTI, pneumonia, biliary obstruction, pancreatitis, acute renal failure among others. PHYSICAL EXAM: Vital signs reviewed. General: Well-appearing 84-year-old male, in no significant distress. HEENT: No scleral icterus, PERRLA, neck supple. Moist mucous membranes. Cardiovascular: Regular rate and rhythm, no extra sounds. Pulmonary: Clear to auscultation bilaterally, normal work of breathing. Abdomen: Soft, nontender, nondistended, positive bowel sounds. Musculoskeletal: Atraumatic, no peripheral edema. Neurologic: Patient awake but groggy, sitting in a wheelchair with his head hung over, falls asleep quickly. Skin: Warm, dry, no rash EMERGENCY DEPARTMENT COURSE/MDM: This patient was evaluated and appeared to be in no significant distress. IV access was obtained and laboratory work was drawn. Patient was placed on the desk monitor and noted to be in a first- degree AV block. Patient's laboratory work reveals a leukocytosis, mild elevation of the lipase. Urinalysis is concentrated, but negative for infection. CT imaging of the abdomen pelvis was performed and reveals some inflammation around the pancreas. Incidentally there noted to be bilateral external iliac DVTs with concern for extension into the IVC. Stable AAA of 3.1 cm is noted. IV fluids were initiated. Coagulation studies were added to the patient's workup. I did discuss the case with Dr. Steiner of the hospitalist service. Patient will be evaluated for admission and further management. Patient and family were updated to the findings and plan and agreed. MONITORING: An order for cardiac monitoring was placed and the patient is noted to be in a normal sinus rhythm at 94 beats per minute. RADIOLOGY: CT imaging of the abdomen and pelvis: IMPRESSION: 1. Acute pancreatitis most notably involving the head and uncinate process. Probable mild inflammation at the pancreatic tip. 2. Bilateral external iliac deep venous thrombosis. Recommend lower extremity sonography. 3. Stable 3.1 cm distal abdominal aortic aneurysm without rupture. ACR White Paper guidelines (Eulogio, et al. JACR 2013; 10(10):789-94) suggest abdomen/pelvis CT or MR imaging follow-up in [address] per radiology reveals cerebral atrophy, no evidence of acute intracranial abnormality. Venous Dopplers of the lower extremities: IMPRESSION: 1. Nonocclusive distal right femoral vein DVT. 2. Extensive occlusive DVT left femoral and common femoral veins. Nonocclusive left popliteal vein DVT. 3. DVTnoted in the bilateral external iliac veins and possibly the IVC on CT the same day EKG: To my interpretation reveals a sinus rhythm at 91 bpm with a first-degree AV block, QTc of 469, PAC noted. DISPOSITION: Admission Past Med/Surg History Problem List (Updated 11/10/24 @ 18:53 by Samia Burrows MD) Acute deep vein thrombosis (DVT) of iliac vein of both lower extremities (Acute) Pancreatitis (Acute) Diabetes mellitus, type 2 Confusion DVT (deep venous thrombosis) Acute pancreatitis Nausea & vomiting Elevated LFTs JOSY (acute kidney injury) (Acute) Sensorineural hearing loss (SNHL) of both ears Benign prostatic hyperplasia (BPH) with urinary urgency Discharge planning issues DVT prophylaxis Hypertension Demand ischemia Transaminitis First degree AV block Elevated troponin ACS (acute coronary syndrome) Chest pain (Acute) Transitional cell carcinoma Asthma Allergic rhinitis BMI 30.0-30.9,adult Carotid artery plaque COPD (chronic obstructive pulmonary disease) Diabetes mellitus with renal complications Diverticulosis Dysmetabolic syndrome X Erectile dysfunction Mild mental slowing Mixed hyperlipidemia Plantar fasciitis of left foot Prostatism Sleep disorder Testosterone deficiency Vitamin B12 deficiency Weight disorder Bladder tumor Medical History Diverticulosis COPD (chronic obstructive pulmonary disease) pt denies Hyperlipidemia Asthma pt denies Tubular adenoma Polycythemia Right tennis elbow History of TIA (transient ischemic attack) 20 yrs ago > no residual effects > Aggrenox History of adenomatous polyp of colon Family hx of prostate cancer Family hx of colon cancer Surgical History History of colonoscopy History of tooth extraction History of cataract surgery bilat H/O vasectomy Family History Daughter Asthma Mother Bone cancer Breast cancer Father COPD (chronic obstructive pulmonary disease) Grandmother (Maternal) Colon cancer Grandfather (Maternal) Colon cancer Uncle Colon cancer Brother Pheochromocytoma Colonic polyp Prostate cancer Sleep apnea Son Sleep apnea Social History Smoking Status: Never smoker Second Hand Exposure: No; Do You Dip or Chew Tobacco: No; Hx Alcohol Use: No Hx Substance Use: No Preferred Language: Turkish Communication Ability: Effective Ehr Trainer Required: No Beliefs That Will Affect Care: None Current Living Situation: Alone Current Living Situation Comment: Lives at home alone Feels Safe at Home: Yes Assistive Devices: None Allergies Allergies Allergy/AdvReac Type Severity Reaction Status Date / Time grass pollen Allergy runny, Verified 11/09/24 19:29 watery eyes mold Allergy runny, Verified 11/09/24 19:29 watery eyes ragweed pollen Allergy runny, Verified 11/09/24 19:29 watery eyes semaglutide [From Rybelsus] Allergy diarrhea, Verified 11/09/24 19:29 GERD Home Meds Home Medications Medication Instructions Recorded Confirmed aspirin 25 mg-dipyridamole 200 mg 1 cap PO BID 02/16/22 11/09/24 capsule,ext.release 12 hr multiphase cholecalciferol (vitamin D3) 25 50 mcg PO PM 02/16/22 11/09/24 mcg (1,000 unit) tablet (Vitamin D3) cyanocobalamin (vitamin B-12) 2,000 mcg PO PM 02/16/22 11/09/24 1,000 mcg tablet (Vitamin B-12) dutasteride 0.5 mg capsule 0.5 mg PO PM 02/16/22 11/09/24 empagliflozin 25 mg tablet 25 mg PO QAM 02/16/22 11/09/24 (Jardiance) losartan 50 mg tablet 50 mg PO BID 02/16/22 11/09/24 sitagliptin phos 50 mg-metformin 1 tab PO BID 02/16/22 11/09/24 ER 1,000 mg tablet,extend rel 24h mp (Janumet XR) trazodone 50 mg tablet 50 - 100 mg PO HS 02/16/22 11/09/24 fexofenadine 180 mg tablet 180 mg PO DAILY PRN Other 08/11/22 11/09/24 fluticasone propionate 50 2 spray intranasal DAILY 08/11/22 11/09/24 mcg/actuation nasal spray,suspension (Flonase Allergy Relief) metoprolol succinate 25 mg 25 mg PO DAILY 10/27/24 11/09/24 tablet,extended release 24 hr Previous Rx's Medication Instructions Recorded tamsulosin 0.4 mg capsule 0.4 mg PO DAILY #90 caps 03/02/24 Results & Data (ED) Vital Signs Vital Signs - 24 hr 11/09/24 19:15 11/09/24 19:27 11/09/24 19:30 Pulse Rate 90 Pulse Rate [Apical] 91 H Pulse Rate from SpO2 Sensor 95 H Respiratory Rate 20 20 Respiratory Effort / Characteristics Non-Labored Spontaneous Respiratory Depth Normal Respiratory Pattern Regular Blood Pressure 119/73 Blood Pressure [Left Arm] 119/75 Blood Pressure Mean 86 Blood Pressure Mean [Left Arm] 89 Pulse Oximetry 97 96 Oxygen Delivery Method Room Air 11/09/24 19:30 11/09/24 19:30 11/09/24 19:45 Pulse Rate 96 H 92 H Pulse Rate [Apical] Pulse Rate from SpO2 Sensor 95 H 97 H Respiratory Rate 19 19 Respiratory Effort / Characteristics Respiratory Depth Respiratory Pattern Blood Pressure 119/73 Blood Pressure [Left Arm] Blood Pressure Mean 86 Blood Pressure Mean [Left Arm] Pulse Oximetry 96 97 Oxygen Delivery Method 11/09/24 19:54 11/09/24 20:00 11/09/24 20:00 Pulse Rate 99 H Pulse Rate [Apical] Pulse Rate from SpO2 Sensor 97 H Respiratory Rate 23 Respiratory Effort / Characteristics Respiratory Depth Respiratory Pattern Blood Pressure 119/74 119/74 Blood Pressure [Left Arm] Blood Pressure Mean 87 87 Blood Pressure Mean [Left Arm] Pulse Oximetry 96 Oxygen Delivery Method 11/09/24 20:09 Pulse Rate 91 H Pulse Rate [Apical] Pulse Rate from SpO2 Sensor 97 H Respiratory Rate 20 Respiratory Effort / Characteristics Respiratory Depth Respiratory Pattern Blood Pressure Blood Pressure [Left Arm] Blood Pressure Mean Blood Pressure Mean [Left Arm] Pulse Oximetry 95 Oxygen Delivery Method Home Medications Current Medication List: was personally reviewed by me Laboratory Data Attestation: I reviewed the patient's lab results. 11/10/24 03:34 11/10/24 16:52 Lab Results 11/09/24 11/09/24 Range/Units 14:30 19:10 WBC 19.89 H (4.8-10.8) K/ul RBC 4.79 (4.70-6.10) M/uL Hgb 14.4 (14.0-18.0) g/dl Hct 41.8 L (42.0-52.0) % MCV 87.3 (80.0-100.0) fL MCH 30.1 (25.0-34.0) pg MCHC 34.4 (32.0-36.0) g/dL RDW Std Deviation 40.5 (36.4-46.3) fL RDW Coeff of Damari 12.7 (11.5-14.5) % Plt Count 401 H (130-400) K/uL MPV 9.7 (9.4-12.4) fL Immature Gran % (Auto) 1.1 % Neut % (Auto) 83.5 % Lymph % (Auto) 6.6 % [place] % (Auto) 8.5 % Eos % (Auto) 0.1 % Baso % (Auto) 0.2 % Neut # (Auto) 16.62 H (1.40-6.50) K/uL Lymph # (Auto) 1.31 (1.20-3.40) K/uL [place] # (Auto) 1.69 H (0.11-0.59) K/uL Eos # (Auto) 0.02 (0.00-0.50) K/uL Baso # (Auto) 0.04 (0.00-0.20) K/uL Immature Gran # (Auto) 0.21 H (0.01-0.20) K/uL PT Cancelled INR Cancelled APTT Cancelled PTT Ratio Cancelled Sodium 132 L (136-145) mmol/L Potassium 4.2 (3.5-5.1) mmol/L Chloride 98 (98-107) mmol/L Carbon Dioxide 18 L (21-32) mmol/L Anion Gap 16 H (3-11) BUN 17 (6-23) mg/dl Creatinine 0.95 (0.6-1.4) mg/dl Est Cr Clr Drug Dosing Not Reportable eGFR 79.42 BUN/Creatinine Ratio 17.9 (10-20) Glucose 159 H (70-99(Fasting)) mg/dl Calcium 10.0 (8.6-10.3) mg/dl Magnesium 1.8 (1.7-2.4) mg/dl Total Bilirubin 0.7 (0.2-1.0) mg/dl AST 15 (13-39) U/L ALT 16 (7-52) U/L Alkaline Phosphatase 97 (34-104) U/L Troponin I High Sens 12.4 (0-20) pg/ml Total Protein 6.4 (6.0-8.3) gm/dl Albumin 3.2 L (3.4-5.0) gm/dl Globulin 3.2 (2.5-4.0) gm/dl Albumin/Globulin Ratio 1.0 (0.9-2) Lipase 280 H (11-82) U/L Urine Color Yellow Urine Appearance Clear (Clear) Urine pH 5.0 (4.5-7.5) Ur Specific [place] > 1.045 H (1.000-1.030) Urine Protein Trace H (Negative) Urine Glucose (UA) 3+ H (Negative) Urine Ketones 3+ H (Negative) Urine Blood Negative (Negative) Urine Nitrite Negative (Negative) Urine Bilirubin Negative (Negative) Urine Urobilinogen Negative (Negative) Ur Leukocyte Esterase Negative (Negative) Urine WBC (Auto) 0-5 (0-5) /hpf Urine RBC (Auto) 0-2 (0-2) /hpf U Hyaline Cast (Auto) 0-2 (0-2) /lpf U Epithel Cells (Auto) 0-2 (0-2) /hpf Urine Bacteria (Auto) None Seen (None Seen) Administered Medications Dipyridamole/Aspirin (Dipyridamole/Aspirin Cap) 1 cap PO BID SKYLER Stop: 12/09/24 20:59 Last Admin: 11/10/24 09:21 Dose: 1 cap Documented By: Admin: 11/09/24 22:42 Dose: 1 cap Documented By: KENDALL Sodium Chloride (Nss) 1,000 mls @ 80 mls/hr IV .[id number] [facility] Stop: 11/10/24 21:14 Last Admin: 11/10/24 09:24 Dose: 80 mls/hr Documented By: Infusion: 11/10/24 09:24 Dose: Infused Documented By: Admin: 11/09/24 21:16 Dose: 80 mls/hr Documented By: KENDALL Heparin Sodium/Dextrose (Heparin Sodium/Dextrose) 25,000 units in 500 mls @ 27 mls/hr IV .[id number] [facility]; Protocol Stop: 12/10/24 04:44 Last Admin: 11/10/24 05:12 Dose: 1,350 units/hr, 27 mls/hr Documented By: GABBY Co-signed By: CAILIN Insulin Aspart (Insulin Aspart Per Unit Charge) 0 units SC ACHS [facility] Stop: 12/09/24 20:59 Last Admin: 11/10/24 17:54 Dose: Not Given Documented By: Admin: 11/10/24 12:27 Dose: Not Given Documented By: Admin: 11/10/24 09:21 Dose: Not Given Documented By: Admin: 11/09/24 21:18 Dose: Not Given Documented By: KENDALL Co-signed By: DIMITRI Discontinued Medications Heparin Sodium (Porcine) (Heparin Sod (Porcine) 1000 Unit/Ml) 6,000 units IV NOW ONE Stop: 11/10/24 05:01 Last Admin: 11/10/24 05:12 Dose: 6,000 units Documented By: GABBY Co-signed By: CAILIN Heparin Sodium/Dextrose (Heparin Iv Adult Wt-Based Standard W/ Initial Bolus Protocol) 1 each IV NOW STA; Protocol Stop: 11/10/24 04:24 Last Admin: 11/10/24 05:10 Dose: Not Given Documented By: GABBY Sodium Chloride (Nss) 1,000 mls @ 125 mls/hr IV .Q8H [facility] Stop: 11/10/24 19:59 Last Infusion: 11/09/24 20:57 Dose: Infused Documented By: Admin: 11/09/24 20:08 Dose: 125 mls/hr Documented By: KENDALL Pantoprazole Sodium (Protonix) 40 mg in 10 mls @ 5 mls/min IV NOW ONE Stop: 12/31/24 20:20 Last Admin: 11/09/24 21:18 Dose: 5 mls/min Documented By: KENDALL Pantoprazole Sodium (Protonix) 40 mg in 10 mls @ 5 mls/min IV QPM [facility] Stop: 12/09/24 20:59 Last Admin: 11/09/24 21:36 Dose: Not Given Documented By: KENDALL Ioversol (Optiray 320 100ml) 94 ml IV ONCE ONE Stop: 11/09/24 16:33 Last Admin: 11/09/24 16:32 Dose: 94 ml Documented By: JOSEPHINE Ioversol (Optiray 320 125ml) 119 ml IV ONCE ONE Stop: 11/09/24 21:04 Last Admin: 11/09/24 21:07 Dose: 119 ml Documented By: JOSEPHINE Imaging Data Radiologist's Impression: Abdomen/Pelvis CT 11/09/24 14:06 EXAM: CT Abdomen and Pelvis With Intravenous Contrast INDICATION: Abdominal pain and bloating. TECHNIQUE: Axial computed tomography images of the abdomen and pelvis with intravenous contrast. Sagittal and coronal reformatted images were created and reviewed. This CT exam was performed using one or more of the following dose reduction techniques: automated exposure control, adjustment of the mA and/or kV according to patient size, and/or use of iterative reconstruction technique. CONTRAST: 94ml of Optiray 320 was administered intravenously. COMPARISON: 10/27/2024 FINDINGS: Limitations: None. Lung bases: No abnormality noted. Pleural space: No visualized pleural effusion or pneumothorax. Heart: No abnormality noted. Mediastinum: No abnormality noted. ABDOMEN: Liver: Normal size and contour. Hypodense typical of steatosis. No mass or ductal dilation. Gallbladder and bile ducts: No calcified stones or surrounding fluid. Pancreas: There is new inflammation and fluid about the pancreatic head and uncinate 8. New small amount of fluid adjacent to the pancreatic tail. There is heterogeneous enhancement of the parenchyma of the pancreatic head and uncinate. No enhancing mass. No gas in the pancreatic bed. Spleen: The spleen is mildly enlarged measuring 13.3 cm long and unchanged. Adrenals: No significant abnormality noted. Kidneys and ureters: Simple left renal cyst/s. No simple cyst follow-up necessary. Right kidney appears normal. No renal stone, hydronephrosis or perinephric fluid. Right kidney appears normal. Stable bilateral perinephric scarring. No urinary gas. Stomach and bowel: Colonic diverticulosis without diverticulitis. No intestinal thickening or obstruction. PELVIS: Appendix: No findings to suggest acute appendicitis. Bladder: No filling defects to suggest mass or large stone. No inflammation. Reproductive: No abnormalities noted. ABDOMEN and PELVIS: Intraperitoneal space: No free air. No significant fluid collection. Bones/joints: Degenerative changes noted throughout the spine. No acute osseous abnormality seen. Soft tissues: There are small bilateral fat containing inguinal hernias. Vasculature: Decreased density in the lumen of the bilateral external iliac veins strongly suspicious for DVT. Stable 3.1 cm aneurysm of the distal abdominal aorta. No hemorrhage. Lymph nodes: No pathologically enlarged lymph nodes. IMPRESSION: 1. Acute pancreatitis most notably involving the head and uncinate process. Probable mild inflammation at the pancreatic tip. 2. Bilateral external iliac deep venous thrombosis. Recommend lower extremity sonography. 3. Stable 3.1 cm distal abdominal aortic aneurysm without rupture. ACR White Paper guidelines (Eulogio, et al. JACR 2013; 10(10):789-35) suggest abdomen/pelvis CT or MR imaging follow-up in 3 years. ACT 112: Negative or not required by law. Electronically signed by Farnaz Barber 11-09-2024 4:[address] 11/09/24 14:30 EXAM: CT Head Without Intravenous Contrast INDICATION: Altered mental status. TECHNIQUE: Axial computed tomography images of the head/brain without intravenous contrast. Sagittal and/or coronal reformats are provided. Sagittal and coronal reformatted images were created and reviewed. This CT exam was performed using one or more of the following dose reduction techniques: automated exposure control, adjustment of the mA and/or kV according to patient size, and/or use of iterative reconstruction technique. COMPARISON: No relevant prior studies available. FINDINGS: Limitations: None. Brain and extra-axial spaces: There is age appropriate cortical atrophy and chronic ischemic periventricular white matter hypodensity. No acute infarct, hemorrhage or mass noted. Bones/joints: No acute changes. Soft tissues: No significant abnormality noted. Vasculature: No acute abnormality noted. Sinuses: There is mild chronic mucosal thickening in the bilateral ethmoid, frontal and right maxillary sinuses. Mastoid air cells: No mastoid effusion. Orbits: No significant abnormality noted. IMPRESSION: 1. Cerebral atrophy. No acute changes. 2. Mild chronic sinusitis. ACT 112: Negative or not required by law. Electronically signed by Farnaz Barber 11-09-2024 4:46 PM Venous Doppler Study 11/09/24 17:13 EXAM: US Duplex Bilateral Lower Extremities Veins INDICATION: DVT. TECHNIQUE: Real-time duplex ultrasound scan of the bilateral lower extremity veins integrating B-mode two-dimensional vascular structure, Doppler spectral analysis, color flow Doppler imaging and compression. COMPARISON: CT abdomen and pelvis the same day FINDINGS: Right deep veins: Nonocclusive distal femoral vein thrombosis. No DVT in the right common femoral or popliteal veins. Patent veins demonstrate sluggish color flow, are normally compressible, with normal phasic flow and/or augmentation response. Right superficial veins: No abnormality noted. No thrombus in the visualized right great saphenous vein. Left deep veins: There is occlusive thrombus left femoral and common femoral veins. Nonocclusive thrombus left popliteal vein. Left superficial veins: No abnormality noted. No thrombus in the visualized left great saphenous vein. Soft tissues: No abnormality noted. IMPRESSION: 1. Nonocclusive distal right femoral vein DVT. 2. Extensive occlusive DVT left femoral and common femoral veins. Nonocclusive left popliteal vein DVT. 3. DVTnoted in the bilateral external iliac veins and possibly the IVC on CT the same day. ACT 112: Negative or not required by law. Electronically signed by Farnaz Barber 11-09-2024 6:25 PM Chest CTA 11/09/24 20:16 Exam(s): CTA CHEST IV Amt: 119 ml optiray 320 EXAM: CT Angiography Chest With Intravenous Contrast CLINICAL HISTORY: Reason for exam: PE. TECHNIQUE: Axial computed tomographic angiography images of the chest with intravenous contrast. CTDI is 35 mGy and DLP is 969 mGy-cm. Automated exposure control was utilized for the study. A dose lowering technique was utilized adhering to the principles of ALARA. MIP reconstructed images were created and reviewed. COMPARISON: 08/10/22 FINDINGS: Pulmonary arteries: Adequate pulmonary artery opacification. Mildly enlarged main pulmonary artery suggesting pulmonary arterial hypertension. No evidence of acute pulmonary embolism. Aorta: No acute findings. No aortic aneurysm or dissection. Lungs: Right lower lobe calcified granuloma. Left lower lobe superior segment calcified granuloma. Subsegmental atelectatic change at the lung bases. No consolidation or mass. Pleural space: Unremarkable. No significant effusion. No pneumothorax. Heart: Coronary artery atherosclerosis. No cardiomegaly. Significant pericardial effusion. Bones/joints: No acute fracture. No dislocation. Soft tissues: Unremarkable. Lymph nodes: Unremarkable. No enlarged lymph nodes. IMPRESSION: No evidence of acute pulmonary embolism. Electronically signed by: Beata Schuster M.D. 11/09/24 22:51 PM Discharge Plan Visit Data Chief Complaint: Confusion Stated Complaint: FAILURE THRIVE, WEAK, NOT EATING/DRINK, CONFUSION ED Provider: Samia Burrows Discharge Problem: Pancreatitis, Acute deep vein thrombosis (DVT) of iliac vein of both lower extremities Patient Disposition: Admitted As Inpatient Discharge Instructions Interventions: ED Discharge Assessment Last Done: 11/09/24 21:00
[2024-11-10] MEDS: MELATONIN 3 MG TAB PO PRN (20:53)
[2024-11-10] MEDS: PANTOprazole 40 MG/10 ML SYR IV SCH (20:57)
[2024-11-11] MEDS: MELATONIN 3 MG TAB PO ONE (00:25)
[2024-11-11] MEDS: ACETAMINOPHEN 325 MG TAB PO PRN (04:34)
--- NOTE | 2024-11-11 08:38 | Hospitalist Progress Note ---
Date of Service November 11, 2024 Assessment & Plan (1) Acute pancreatitis: (2) DVT (deep venous thrombosis): (3) Confusion: (4) Diabetes mellitus, type 2: (5) Transitional cell carcinoma: Plan The patient is an 84-year-old male with past medical history including BPH with LUTS, hypertension, first-degree AV block, transitional cell carcinoma, COPD, diabetes mellitus, mixed hyperlipidemia, sleep disorder, testosterone deficiency and B12 deficiency. He was most recently admitted from 10/27-10/28/2024 with viral gastroenteritis versus food poisoning. He had been improved somewhat upon discharge, family reports he seen continued to worsen, has become more confused with decreased oral intake for liquids and solids, and reports that he is sleeping most of the time. He was also complaining of abdominal and back pain. In the ED, his lipase was found to be elevated at 280, CT scan of abdomen pelvis suggested acute pancreatitis, and also was noted DVT for additional workup was performed #Confusion- - Differential including but not limited to: Metabolic encephalopathy, d ehydration, pancreatitis, hypoxia, extensive DVT - suspect component of delirium, given age, will take some time to resolve, though more interactive today #Acute pancreatitis- - Patient was admitted from 10/27-10/28/2024 with viral gastroenteritis versus food poisoning - After discharge to home, patient family reports that he slowly worsened - This evening, lipase of 280, and CT scan abdomen pelvis showing acute pancreatitis most notably involving the head and uncinate process, with probable mild inflammation at the pancreatic tip - Pancreatitis may be an extension of the original viral process, and may also be aggravated by patient being on Janumet and Jardiance, both of which will be held - diet advanced to clear liquid - s/p IVF, will cont oral hydration - lipase level slightly trended up with initiation of diet, will continue to monitor, if continuing to rise, will make pt NPO again - Follow serial CBC with differential, chemistry profile - GI consulted per family request, awaiting eval / recs #Bilateral external iliac DVT- #Nonocclusive distal right femoral vein DVT/extensive occlusive DVT left femoral and common femoral veins/nonocclusive left popliteal vein DVT/possible IVC clot- - Full hypercoagulable workup ordered - cont hep gtt - CT angiography PE protocol was negative for PE - No suggestion of pancreatic cancer as a potential hypercoagulable process, but will need to be followed closely #Back pain - pt's daughter states this is ongoing prior to current issue and improves with massage #Carotid artery plaque/dysmetabolic syndrome X- - Continue Aggrenox twice daily #Insomnia - trialed melatonin, but pt was not able to rest much - per family, pt takes trazodone at home, will order low dose - monitor closely 11/10: spoke with pt's daughter Juani, pt's [id number] and granddaughter at bedside 2: spoke with pt's daughter Juani, pt's daughter and granddaughter also at bedside Admission and Anticipated Discharge Date Admission Date: November 09, 2024 Subjective Pt was not able to get full rest overnight Currently c/o hunger but continuing to deny abdominal pain Review of Systems Review of Systems: ROS neg Physical Exam Physical Exam: Gen: NAD, sitting in bed comfortable, more interactive today HEENT: NC/AT, MMM Lungs: CTAB CVS: RRR, s1s2 nl Abd: soft, NT, nl bowel sounds Ext: no edema Results & Data Results & Data Vital Signs (Past 12 Hours) Vital Signs Temp Pulse Pulse Resp BP Pulse Ox O2 Del Method 11/11/24 07:54 70 11/11/24 07:54 Room Air 11/11/24 07:53 36.6 C 57 L 18 110/51 L 96 Room Air 11/11/24 03:01 36.4 C L 72 18 105/60 96 Room Air 11/10/24 22:26 36.5 C 89 18 114/68 98 Room Air 11/10/24 22:22 90 11/10/24 21:45 Room Air PG Care Time/CCT Total # of Minutes Spent Total Time Spent with Patient: Total time spent is greater than 50% in coordination of care (as documented) at patient's floor/unit and/or counseling patient: Coding Level of Care Code 10379 SUB INP/OBS CARE 3/50MIN Diagnoses Acute pancreatitis K85.90 DVT (deep venous thrombosis) I82.409 Confusion R41.0 Diabetes mellitus, type 2 E11.9 Transitional cell carcinoma C68.9
[2024-11-11 10:53] LABS: Basophils # (auto) 0.02 K/uL (0.00-0.20); Basophils % (auto) 0.2 %; Eosinophils # (auto) 0.11 K/uL (0.00-0.50); Eosinophils % (auto) 0.8 %; Hematocrit (blood only) 36.7 % (42.0-52.0); Immature Granulocytes % (auto) 0.8 %; Lymphocytes # (auto) 0.66 K/uL (1.20-3.40); Lymphocytes % (auto) 5.1 %; Mean Corpuscular Hemoglobin 30.7 pg (25.0-34.0); Mean Corpuscular Hgb Conc 35.4 g/dL (32.0-36.0); Mean Corpuscular Volume 86.6 fL (80.0-100.0); Mean Platelet Volume 9.5 fL (9.4-12.4); Monocytes # (auto) 1.07 K/uL (0.11-0.59); Monocytes % (auto) 8.2 %; Neutrophils # (auto) 11.01 K/uL (1.40-6.50); Neutrophils % (auto) 84.9 %; Platelet Count 364 K/uL (130-400); RDW Coefficient of Variation 12.4 % (11.5-14.5); RDW Standard Deviation 39.6 fL (36.4-46.3); Red Blood Count 4.24 M/uL (4.70-6.10); White Blood Count 12.97 K/ul (4.8-10.8)
[2024-11-11 11:20] LABS: Albumin Level 2.8 gm/dl (3.4-5.0); BUN Creatinine Ratio 17.4 (10-20); Bilirubin,Total 0.5 mg/dl (0.2-1.0); Calcium 9.4 mg/dl (8.6-10.3); Creatinine Clr Calc Pharmacy 81.1 ml/min; Globulin 2.9 gm/dl (2.5-4.0); Magnesium 1.6 mg/dl (1.7-2.4); Potassium 3.7 mmol/L (3.5-5.1); Total Protein 5.7 gm/dl (6.0-8.3)
[2024-11-11 11:24] LABS: ANTI-Xa, UFH(UnfractionatedHep 0.36 IU/ml (0.3-0.7)
[2024-11-11] MEDS: MAGNESIUM SULFATE / D5W 1 GM/100 ML BAG IV SCH (11:57)
[2024-11-11] MEDS ORDERED: traZODone HCL 50 MG TAB PO PRN (12:31)
--- NOTE | 2024-11-11 14:13 | Gastrointestinal Consultation ---
Date of Consultation November 11, 2024 Assessment & Plan (1) Pancreatitis: Possible etiologies include recent viral infection vs meds vs triglycerides vs other. -Currently tolerating a liquid diet; plan to advance as he tolerates moving forward -Continue Protonix as ordered by primary team -Triglyceride management per primary team -No further GI interventions at this time. We will sign off at this time. Supervising Physician Co-Signing Physician Notes Reviewed nurse practitioner's notes and agree as noted above. Patient also examined at the bedside. Granddaughter present. He is sitting up eating. Does not appear acutely distressed. Not a great historian. Patient does appear to have pancreatitis based on 2 out of 3 positive criteria which include elevated lipase and CT imaging to suggest pancreatitis. Those changes are also new and developed from his presentation here back in 1217. Interestingly at that time he had significant elevated liver function tests with a bili of 2.8. He did have an MRCP at that time was negative for common duct stones. His bilirubin and other liver enzymes are completely normalized. He is possible this gentleman did have a common duct stone that he passed. He also has elevated triglycerides of 438 which could account for pancreatitis. There is a question of basically food poisoning or gastroenteritis clinically this seems to be resolving. At present I do not recommend further evaluation other than continued observation as abdominal pain resolution of the elevated lipase we will follow from a distance reconsult as needed. History of Present Illness Reason for Consultation: Pancreatitis Attending Physician: Rema Wallace MD History of Present Illness Patient is an 84 yo male who presented to the hospital with increased confusion and decreased oral intake. He had a CT scan in the ED that suggested a possible pancreatitis and a mild lipase elevation at 280 at the highest. He denies significant pain or discomfort at present. He does note previously having a decreased appetite. He recently was admitted with what was felt to be a viral gastroenteritis. He had been improving after discharge, but became confused and returned to the ED complaining of back pain and abdominal pain. Currently he is eating a liquid diet. He has no abdominal pain. Lipase is 174 today. Triglycerides >400. He takes Jardiance and Janumet at home. No alcohol use. Allergies Allergy/AdvReac Type Severity Reaction Status Date / Time grass pollen Allergy runny, Verified 11/09/24 19:29 watery eyes mold Allergy runny, Verified 11/09/24 19:29 watery eyes ragweed pollen Allergy runny, Verified 11/09/24 19:29 watery eyes semaglutide [From Rybelsus] Allergy diarrhea, Verified 11/09/24 19:29 GERD Home Medications Medication Instructions Recorded Confirmed Type aspirin 25 mg-dipyridamole 200 mg 1 cap PO BID 02/16/22 11/09/24 History capsule,ext.release 12 hr multiphase cholecalciferol (vitamin D3) 25 50 mcg PO PM 02/16/22 11/09/24 History mcg (1,000 unit) tablet (Vitamin D3) cyanocobalamin (vitamin B-12) 2,000 mcg PO PM 02/16/22 11/09/24 History 1,000 mcg tablet (Vitamin B-12) dutasteride 0.5 mg capsule 0.5 mg PO PM 02/16/22 11/09/24 History empagliflozin 25 mg tablet 25 mg PO QAM 02/16/22 11/09/24 History (Jardiance) losartan 50 mg tablet 50 mg PO BID 02/16/22 11/09/24 History sitagliptin phos 50 mg-metformin 1 tab PO BID 02/16/22 11/09/24 History ER 1,000 mg tablet,extend rel 24h mp (Janumet XR) trazodone 50 mg tablet 50 - 100 mg PO HS 02/16/22 11/09/24 History fexofenadine 180 mg tablet 180 mg PO DAILY PRN Other 08/11/22 11/09/24 History fluticasone propionate 50 2 spray intranasal DAILY 08/11/22 11/09/24 History mcg/actuation nasal spray,suspension (Flonase Allergy Relief) tamsulosin 0.4 mg capsule 0.4 mg PO DAILY #90 caps 03/02/24 11/09/24 Rx metoprolol succinate 25 mg 25 mg PO DAILY 10/27/24 11/09/24 History tablet,extended release 24 hr apixaban 5 mg tablet (Eliquis) See Rx Instructions .Route 11/11/24 Rx .COMPLEX #74 tabs Patient History Medical History Diverticulosis COPD (chronic obstructive pulmonary disease) pt denies Hyperlipidemia Asthma pt denies Tubular adenoma Polycythemia Right tennis elbow History of TIA (transient ischemic attack) 20 yrs ago > no residual effects > Aggrenox History of adenomatous polyp of colon Family hx of prostate cancer Family hx of colon cancer Surgical History History of colonoscopy History of tooth extraction History of cataract surgery bilat H/O vasectomy Family History Daughter Asthma Mother Bone cancer Breast cancer Father COPD (chronic obstructive pulmonary disease) Grandmother (Maternal) Colon cancer Grandfather (Maternal) Colon cancer Uncle Colon cancer Brother Pheochromocytoma Colonic polyp Prostate cancer Sleep apnea Son Sleep apnea Social History Smoking Status: Never smoker Second Hand Exposure: No; Do You Dip or Chew Tobacco: No; Hx Alcohol Use: No Hx Substance Use: No Preferred Language: Macedonian Communication Ability: Effective Engraver Letter Required: No Beliefs That Will Affect Care: None Current Living Situation: Alone Current Living Situation Comment: Lives at home alone Feels Safe at Home: Yes Assistive Devices: None Review of Systems Constitutional: no fever and no chills Respiratory: no cough and no dyspnea Gastrointestinal: no abdominal pain, no nausea and no vomiting Physical Exam Constitutional: well developed Gastrointestinal (Abdomen): normal bowel sounds, soft, nontender, no hepatosplenomegaly Psychiatric: Orientation: alert Results & Data Vital Signs (Past 12 Hours) Vital Signs Temp Pulse Pulse Resp BP Pulse Ox O2 Del Method 11/11/24 11:46 36.9 C 88 20 123/63 97 Room Air 11/11/24 07:54 70 11/11/24 07:54 Room Air 11/11/24 07:53 36.6 C 57 L 18 110/51 L 96 Room Air 11/11/24 03:01 36.4 C L 72 18 105/60 96 Room Air PG Care Time/CCT Total # of Minutes Spent Total Time Spent with Patient: Total time spent is greater than 50% in coordination of care (as documented) at patient's floor/unit and/or counseling patient: Coding Level of Care Code 49218 INT INP/OBS CARE 3/75MIN Diagnoses Pancreatitis K85.90 Acute pancreatitis complication: no infection or necrosis Chronicity: acute Pancreatitis type: unspecified pancreatitis type (1) Pancreatitis Acute pancreatitis complication: no infection or necrosis Chronicity: acute Pancreatitis type: unspecified pancreatitis type Qualified Code(s): K85.90 - Acute pancreatitis without necrosis or infection, unspecified
[2024-11-11] MEDS: OMEGA-3 (PURIFIED FISH OIL) 1 GM CAP PO SCH (20:00)
[2024-11-11] MEDS: traZODone HCL 50 MG TAB PO PRN (20:00)
[2024-11-11] MEDS: PANTOprazole 40 MG TAB PO SCH (20:08)
--- NOTE | 2024-11-12 03:49 | Communication Note ---
Date of Service: November 12, 2024 Notified by nursing that patient had an unwitnessed fall at approximately 03:46, patient endorses hitting head/ear and has a laceration. Of note, patient is currently on a heparin drip. I went to bedside, patient is alert/oriented and in no acute distress, he states that he got out of bed and became disoriented and thought he was at home so he tried to turn around and walk the other direction when he slipped and fell hitting his head/face on a pull out ledge/shelf in the room which has a metal track on it. This metal track seems to align with the d istribution of the abrasion across his right cheek and extending back to the ear where he is bleeding. Nursing staff was able to roll the patient to his left side so I could visualize the wound behind his right ear- appears to be a skin tear at the posterior surface of the ear aj and mastoid region. Applied gauze to the area in the interim for patient to go for CT head and c-spine. Heparin drip was placed on hold. CT head and c-spine imaging do not show any acute changes/fractures/bleeds, but will defer to daytime hospitalist regarding timeline to resume heparin drip. Wound care nurse consult ordered for the morning. Will order fall precautions for patient. Resident Activity Tracking Resident Involvement: Resident Care Provided Care Provided: Adult Hospital Medicine
--- NOTE | 2024-11-12 05:27 | CT Scan Report ---
EXAM: CT head/brain wo con CLINICAL HISTORY: FELL AND HIT HEAD. TECHNIQUE: An axial non-contrast CT scan of the brain was performed from the skull base to the high parietal region. One of the following dose-reduction techniques was utilized for this exam. Automated exposure control, adjustment of the mA and/or kV according to patient size, and use of iterative reconstruction. DLP: 1155.88 mGy-cm, CTDI: 64.7 mGy. COMPARISON: Prior CT dated 11/09/2024. FINDINGS: Brain Parenchyma: There are multiple tiny ill-defined hypodense foci and small areas noted in the subcortical and periventricular white matter bilaterally associated with bilateral periventricular patchy symmetrical hypodense areas capping both ventricles, suggestive of microvascular ischemic changes. Normal attenuation of the cerebellum, and brainstem. No evidence of acute infarct, hemorrhage, or mass effect. No abnormal areas of hyperattenuation. Ventricular System and Subarachnoid Spaces:: The ventricular system, cortical sulci, cerebellar folia, and basal cisterns are prominent and consistent with senile changes. No evidence of hydrocephalus. No evidence of subarachnoid hemorrhage or extra-axial fluid collections. Cerebellum and Brainstem: Normal size and signal. No masses, lesions, or areas of abnormal signal. Orbits: Normal appearance of the globes, optic nerves, and extraocular muscles. No evidence of orbital masses or abnormal density. Sinuses: Bilateral ethmoidal, right maxillary moderate to marked sinusitis, with right maxillary internal hyperdensities, could be inspissated secretions or fundal colonization. Mastoid Air Cells: Clear mastoid air cells. No evidence of mastoiditis. Skull and Meninges: Normal skull morphology. No evidence of meningeal thickening. IMPRESSION: 1. No acute intracranial hemorrhage or established territorial infarct. 2. Chronic microvascular ischemic changes. 3. Age-related brain involutional changes. 4. Bilateral ethmoidal, right maxillary moderate to marked sinusitis, with right maxillary internal hyperdensities, could be inspissated secretions or fundal colonization. Interval increased. 5. No significant other interval changes. 6. Early changes of a stroke may not be detected on a CT scan. If there is strong clinical suspicion of stroke, further MRI with diffusion-weighted imaging is recommended. Electronically signed by Bob Henderson 11-12-2024 05:27 AM
--- NOTE | 2024-11-12 05:36 | CT Scan Report ---
EXAM: CT cervical spine wo con CLINICAL HISTORY: FELL AND HIT HEAD TECHNIQUE: CT scan of the cervical spine was performed without the administration of intravenous contrast. Contiguous axial images were obtained from the skull base to the upper thoracic spine. Coronal and sagittal reformatted images were also reviewed. One of the following dose-reduction techniques was utilized for this exam. Automated exposure control, adjustment of the mA and/or kV according to patient size, and use of iterative reconstruction. COMPARISON: None. FINDINGS: Vertebrae: Straightening of the cervical curve. Mild degenerative anterolisthesis of C4 over C5 vertebral bodies. Marginal bone hypertrophy of the opposing cervical vertebral endplates, multilevel disc narrowing mostly at C4-5, C5-6, and C6-7 levels. Spondylodegenerative changes of the cervical spine with multilevel degenerative bulging discs and varying degrees of spinal canal stenosis and bilateral foraminal stenosis. Diffuse osteopenia. Coarse calcifications of the nuchal line. The vertebral bodies are normal in height and alignment. No evidence of acute fracture or dislocation. The cortical and trabecular bone patterns are normal. No signs of lytic or sclerotic lesions. Normal configuration of the posterior elements. Arthritic changes of C1-2 articulation. Facet Joints: Multilevel advanced facets and neurocentral arthropathic changes with degenerative foraminal narrowing and nerve root compression. Neural Foramina: Variable degrees of central neural canal and encroachment upon the corresponding neural exit foramina. Opposing facets arthropathies add to degenerative foraminal stenosis with corresponding nerve root compression. Prevertebral Soft Tissues: The prevertebral soft tissues are normal in thickness without evidence of mass or abnormal fluid collection. Vascular calcifications. Additional Findings: No other significant findings are noted in the visualized soft tissue structures or bony elements. IMPRESSION: 1. No fractures or dislocations. 2. Straightening of the cervical curve implies muscle spasm. 3. Mild degenerative anterolisthesis of C4 over C5 vertebral bodies. 4. Spondylodegenerative changes of the cervical spine with multilevel degenerative bulging discs/osteophyte complex and varying degrees of spinal canal stenosis and bilateral foraminal stenosis. 5. Multilevel advanced facets and neurocentral arthropathic changes with degenerative foraminal narrowing and nerve root compression. 6. If there are concerns for cervical radiculopathy, an MRI exam may be useful for a more complete evaluation. Electronically signed by Bob Henderson 11-12-2024 05:35 AM
[2024-11-12 07:02] LABS: Basophils # (auto) 0.02 K/uL (0.00-0.20); Basophils % (auto) 0.2 %; Eosinophils # (auto) 0.02 K/uL (0.00-0.50); Eosinophils % (auto) 0.2 %; Hematocrit (blood only) 39.4 % (42.0-52.0); Hemoglobin 13.7 g/dl (14.0-18.0); Immature Granulocytes # (auto) 0.08 K/uL (0.01-0.20); Immature Granulocytes % (auto) 0.8 %; Lymphocytes # (auto) 0.36 K/uL (1.20-3.40); Lymphocytes % (auto) 3.8 %; Mean Corpuscular Hemoglobin 29.9 pg (25.0-34.0); Mean Corpuscular Hgb Conc 34.8 g/dL (32.0-36.0); Mean Platelet Volume 9.3 fL (9.4-12.4); Monocytes # (auto) 0.81 K/uL (0.11-0.59); Monocytes % (auto) 8.5 %; Neutrophils # (auto) 8.23 K/uL (1.40-6.50); Neutrophils % (auto) 86.5 %; Platelet Count 346 K/uL (130-400); RDW Coefficient of Variation 12.4 % (11.5-14.5); RDW Standard Deviation 39.4 fL (36.4-46.3); Red Blood Count 4.58 M/uL (4.70-6.10); White Blood Count 9.52 K/ul (4.8-10.8)
[2024-11-12 07:18] LABS: ANTI-Xa, UFH(UnfractionatedHep < 0.10 IU/ml (0.3-0.7)
[2024-11-12 07:20] LABS: BUN Creatinine Ratio 10.7 (10-20); Bilirubin,Total 0.6 mg/dl (0.2-1.0); Calcium 9.3 mg/dl (8.6-10.3); Creatinine Clr Calc Pharmacy 74.6 ml/min; Globulin 3.1 gm/dl (2.5-4.0); Potassium 3.6 mmol/L (3.5-5.1); Total Protein 6.1 gm/dl (6.0-8.3)
--- NOTE | 2024-11-12 07:57 | Hospitalist Progress Note ---
Date of Service November 12, 2024 Assessment & Plan (1) Acute pancreatitis: (2) DVT (deep venous thrombosis): (3) Confusion: (4) Diabetes mellitus, type 2: (5) Transitional cell carcinoma: Plan The patient is an 84-year-old male with past medical history including BPH with LUTS, hypertension, first-degree AV block, transitional cell carcinoma, COPD, diabetes mellitus, mixed hyperlipidemia, sleep disorder, testosterone deficiency and B12 deficiency. He was most recently admitted from 10/27-10/28/2024 with viral gastroenteritis versus food poisoning. He had been improved somewhat upon discharge, family reports he seen continued to worsen, has become more confused with decreased oral intake for liquids and solids, and reports that he is sleeping most of the time. He was also complaining of abdominal and back pain. In the ED, his lipase was found to be elevated at 280, CT scan of abdomen pelvis suggested acute pancreatitis, and also was noted DVT for additional workup was performed #Confusion- - Differential including but not limited to: Metabolic encephalopathy, d ehydration, pancreatitis, hypoxia, extensive DVT - suspect component of delirium, given age, will take some time to resolve, though more interactive today #Acute pancreatitis- - Patient was admitted from 10/27-10/28/2024 with viral gastroenteritis versus food poisoning - After discharge to home, patient family reports that he slowly worsened - lipase of 280 has improved to 112, and CT scan abdomen pelvis showing acute pancreatitis most notably involving the head and uncinate process, with probable mild inflammation at the pancreatic tip - Pancreatitis may be an extension of the original viral process, and may also be aggravated by patient being on Janumet and Jardiance, both of which will be held - diet advanced to regular - s/p IVF, will cont oral hydration - Follow serial CBC with differential, chemistry profile - GI consulted per family request, recs appreciated - mildly elevated TG, started on fish oil #Bilateral external iliac DVT- #Nonocclusive distal right femoral vein DVT/extensive occlusive DVT left femoral and common femoral veins/nonocclusive left popliteal vein DVT/possible IVC clot- - Full hypercoagulable workup ordered - cont hep gtt - CT angiography PE protocol was negative for PE - No suggestion of pancreatic cancer as a potential hypercoagulable process, but will need to be followed closely #Back pain - pt's daughter states this is ongoing prior to current issue and improves with massage #Carotid artery plaque/dysmetabolic syndrome X- - Continue Aggrenox twice daily #Insomnia - trialed melatonin, but pt was not able to rest much - per family, pt takes trazodone at home - monitor closely #Deconditioning - PT / OT recs rehab - CM aware , will meet with pt and family Dispo: d/c pending rpt lipase tomorrow, if stable ok to d/c once rehab has accepted pt 11/10: spoke with pt's daughter Juani, pt's [id number]-pkg and granddaughter at bedside 11/11: spoke with pt's daughter Juani, pt's daughter and granddaughter also at bedside 11/12: granddaughter at bedside, spoke with pt's daughter Juani Admission and Anticipated Discharge Date Admission Date: November 09, 2024 Subjective Had fall overnight. Pt thought he was home. No new complaints at this time Tolerating diet Review of Systems Review of Systems: ROS neg Physical Exam Physical Exam: Gen: NAD, sitting in bed comfortable, more interactive today HEENT: NC/AT, MMM Lungs: CTAB CVS: RRR, s1s2 nl Abd: soft, NT, nl bowel sounds Ext: no edema Results & Data Results & Data Vital Signs (Past 12 Hours) Vital Signs Temp Pulse Pulse Resp BP Pulse Ox O2 Del Method 11/12/24 07:41 110 H 11/12/24 07:20 Room Air 11/12/24 01:47 36.5 C 95 H 16 135/62 93 Room Air 11/11/24 23:00 98 H 11/11/24 23:00 Room Air 11/11/24 22:40 36.5 C 104 H 16 114/73 98 Room Air PG Care Time/CCT Total # of Minutes Spent Total Time Spent with Patient: Total time spent is greater than 50% in coordination of care (as documented) at patient's floor/unit and/or counseling patient: Coding Level of Care Code 34791 SUB INP/OBS CARE 3/50MIN Diagnoses Acute pancreatitis K85.90 DVT (deep venous thrombosis) I82.409 Confusion R41.0 Diabetes mellitus, type 2 E11.9 Transitional cell carcinoma C68.9
[2024-11-12] MEDS: METOPROLOL SUCC 25MG EXT REL TAB PO SCH (09:00)
[2024-11-12] MEDS ORDERED: PHARMACY GLYCEMIC MGMT CONSULT PRN (11:42)
[2024-11-12] MEDS ORDERED: LANTUS PER UNIT CHARGE SC ONE (12:15)
--- NOTE | 2024-11-12 12:18 | Pharmacy Report ---
Pharmacy Glycemic Short Note 2 - Date of Service November 12, 2024 - Glycemic Short BSG Results (Last 24 hours): 11/11/24 11/11/24 11/12/24 17:21 19:48 03:49 Glucose POC Glucose 207 H 253 H 255 H 11/12/24 11/12/24 11/12/24 06:16 07:57 12:01 Glucose 208 H POC Glucose 242 H 198 H OUTPATIENT ANTIDIABETIC REGIMEN: * Jardiance 25mg po QAM * Janumet XR 50mg-1000mg po BID HbA1c 9.5% on 11-10-24 ASSESSMENT: * 84 year old male admitted 11/09 for acute pancreatitis and DVTs. Pharmacy was consulted for glycemic management today while he is amitted. * On admit, patient was started on a bolus insulin with loose parameters. He received 7 units of insulin yesterday (all were bolus). Despite this, his BSGs were mostly above goal yesterday ([phone]) and continued to rise this morning (fasting was 255mg/dL). * Lantus 10 units SQ x 1 was ordered for this afternoon and bolus insulin parameters were tightened starting at lunch today. PLAN FOR INPATIENT GLYCEMIC CONTROL: * Hold outpatient oral diabetes medications * Basal insulin * Lantus 10 units SQ x 1 today, will reassess for additional need tomorrow * Bolus insulin * NovoLog per scale ACHS or Q6hrs while NPO * Goal Range: Low 120 mg/dL - High 150 mg/dL * Correction Factor: 30 mg/dL/unit * Nutritional / Prandial insulin per carb ratio of 1 unit per 15 grams CHO consumed
[2024-11-12] MEDS: LANTUS PER UNIT CHARGE SC ONE (13:31)
[2024-11-13 06:43] LABS: Hematocrit (blood only) 36.5 % (42.0-52.0); Hemoglobin 12.8 g/dl (14.0-18.0); Mean Corpuscular Hemoglobin 29.8 pg (25.0-34.0); Mean Corpuscular Hgb Conc 35.1 g/dL (32.0-36.0); Mean Corpuscular Volume 84.9 fL (80.0-100.0); Mean Platelet Volume 9.2 fL (9.4-12.4); Platelet Count 261 K/uL (130-400); RDW Coefficient of Variation 12.6 % (11.5-14.5); RDW Standard Deviation 39.1 fL (36.4-46.3); White Blood Count 8.34 K/ul (4.8-10.8)
[2024-11-13 07:05] LABS: ANTI-Xa, UFH(UnfractionatedHep < 0.10 IU/ml (0.3-0.7)
[2024-11-13 07:07] LABS: BUN Creatinine Ratio 16.4 (10-20); Calcium 8.8 mg/dl (8.6-10.3); Creatinine Clr Calc Pharmacy 83.5 ml/min; Magnesium 1.7 mg/dl (1.7-2.4); Potassium 3.2 mmol/L (3.5-5.1)
[2024-11-13 09:27] LABS: PTT LA Screen 36 sec (<=40)
[2024-11-13] MEDS: LANTUS PER UNIT CHARGE SC SCH (10:00)
[2024-11-13] MEDS: POTASSIUM CHLORIDE CRTAB 20 MEQ TABCR PO STA (10:01)
[2024-11-13] MEDS: MAGNESIUM OXIDE 400 MG TAB PO ONE (10:04)
--- NOTE | 2024-11-13 15:44 | Hospitalist Progress Note ---
Date of Service November 13, 2024 Assessment & Plan (1) Acute pancreatitis: (2) DVT (deep venous thrombosis): (3) Confusion: (4) Diabetes mellitus, type 2: (5) Transitional cell carcinoma: Plan The patient is an 84-year-old male with past medical history including BPH with LUTS, hypertension, first-degree AV block, transitional cell carcinoma, COPD, diabetes mellitus, mixed hyperlipidemia, sleep disorder, testosterone deficiency and B12 deficiency. He was most recently admitted from 10/27-10/28/2024 with viral gastroenteritis versus food poisoning. He had been improved somewhat upon discharge, family reports he seen continued to worsen, has become more confused with decreased oral intake for liquids and solids, and reports that he is sleeping most of the time. He was also complaining of abdominal and back pain. In the ED, his lipase was found to be elevated at 280, CT scan of abdomen pelvis suggested acute pancreatitis, and also was noted DVT for additional workup was performed #Confusion- - Differential including but not limited to: Metabolic encephalopathy, d ehydration, pancreatitis, hypoxia, extensive DVT - suspect component of delirium, given age, will take some time to resolve, though more interactive today #Acute pancreatitis- - Patient was admitted from 10/27-10/28/2024 with viral gastroenteritis versus food poisoning - After discharge to home, patient family reports that he slowly worsened - lipase of 280 on admission, now normal, and CT scan abdomen pelvis showing acute pancreatitis most notably involving the head and uncinate process, with probable mild inflammation at the pancreatic tip - Pancreatitis may be an extension of the original viral process, and may also be aggravated by patient being on Janumet and Jardiance, both of which will be held - diet advanced to regular - s/p IVF, will cont oral hydration - Follow serial CBC with differential, chemistry profile - GI consulted per family request, recs appreciated - mildly elevated TG, started on fish oil #Bilateral external iliac DVT- #Nonocclusive distal right femoral vein DVT/extensive occlusive DVT left femoral and common femoral veins/nonocclusive left popliteal vein DVT/possible IVC clot- - Full hypercoagulable workup ordered - cont hep gtt , transition to eliquis on discharge - CT angiography PE protocol was negative for PE - No suggestion of pancreatic cancer as a potential hypercoagulable process, but will need to be followed closely #Back pain - pt's daughter states this is ongoing prior to current issue and improves with massage #Carotid artery plaque/dysmetabolic syndrome X- - Continue Aggrenox twice daily #Insomnia - trialed melatonin, but pt was not able to rest much - per family, pt takes trazodone at home - monitor closely #Deconditioning - PT / OT recs rehab - CM aware , will meet with pt and family Dispo: pt medically stable for discharge, awaiting placement to [facility] 11/10: spoke with pt's daughter Juani, pt's [id number] and granddaughter at bedside 11/11: spoke with pt's daughter Juani, pt's daughter and granddaughter also at bedside 11/12: granddaughter at bedside, spoke with pt's daughter Juani 11/13: granddaughter at bedside, spoke with pt's daughter Juani Admission and Anticipated Discharge Date Admission Date: November 09, 2024 Subjective No acute events overnight No new complaints at this time Tolerating diet Review of Systems Review of Systems: ROS neg Physical Exam Physical Exam: Gen: NAD, sitting in bed comfortable HEENT: NC/AT, MMM Lungs: CTAB CVS: RRR, s1s2 nl Abd: soft, NT, nl bowel sounds Ext: no edema Results & Data Results & Data Vital Signs (Past 12 Hours) Vital Signs Temp Pulse Pulse Resp BP Pulse Ox O2 Del Method 11/13/24 13:00 96 H 11/13/24 11:52 36.7 C 90 18 108/71 95 Room Air 11/13/24 08:03 36.5 C 80 18 134/71 96 Room Air 11/13/24 05:44 76 11/13/24 04:14 36.5 C 83 20 105/62 95 Room Air PG Care Time/CCT Total # of Minutes Spent Total Time Spent with Patient: Total time spent is greater than 50% in coordination of care (as documented) at patient's floor/unit and/or counseling patient: Coding Level of Care Code 57758 SUB INP/OBS CARE 2/35MIN Diagnoses Acute pancreatitis K85.90 DVT (deep venous thrombosis) I82.409 Confusion R41.0 Diabetes mellitus, type 2 E11.9 Transitional cell carcinoma C68.9
[2024-11-14 06:27] LABS: Hematocrit (blood only) 36.8 % (42.0-52.0); Hemoglobin 12.9 g/dl (14.0-18.0); Mean Corpuscular Hemoglobin 29.9 pg (25.0-34.0); Mean Corpuscular Hgb Conc 35.1 g/dL (32.0-36.0); Mean Corpuscular Volume 85.2 fL (80.0-100.0); Mean Platelet Volume 9.2 fL (9.4-12.4); Platelet Count 242 K/uL (130-400); RDW Coefficient of Variation 12.1 % (11.5-14.5); RDW Standard Deviation 37.6 fL (36.4-46.3); Red Blood Count 4.32 M/uL (4.70-6.10); White Blood Count 7.04 K/ul (4.8-10.8)
[2024-11-14 06:39] LABS: ANTI-Xa, UFH(UnfractionatedHep < 0.10 IU/ml (0.3-0.7); Calcium 8.9 mg/dl (8.6-10.3); Creatinine Clr Calc Pharmacy 88.8 ml/min; Potassium 3.5 mmol/L (3.5-5.1)
[2024-11-14 07:37] VITALS: PULSE 78; RESP 16; TEMP 96.8; O2SAT 96
[2024-11-14] MEDS ORDERED: LANTUS PER UNIT CHARGE SC SCH (09:00)
[2024-11-14] MEDS: POTASSIUM CHLORIDE CRTAB 20 MEQ TABCR PO STA (09:57)
[2024-11-14] MEDS: LANTUS PER UNIT CHARGE SC STA (09:57)
--- NOTE | 2024-11-14 10:38 | Discharge Summary ---
Discharge Summary Date of Service November 14, 2024 Principal Dx & Hospital Course #1 = Principal Diagnosis (1) Acute pancreatitis: (2) DVT (deep venous thrombosis): (3) Confusion: (4) Diabetes mellitus, type 2: (5) Transitional cell carcinoma: Plan The patient is an 84-year-old male with past medical history including BPH with LUTS, hypertension, first-degree AV block, transitional cell carcinoma, COPD, diabetes mellitus, mixed hyperlipidemia, sleep disorder, testosterone deficiency and B12 deficiency. He was most recently admitted from 10/27-10/28/2024 with viral gastroenteritis versus food poisoning. He had been improved somewhat upon discharge, family reports he seen continued to worsen, has become more confused with decreased oral intake for liquids and solids, and reports that he is sleeping most of the time. He was also complaining of abdominal and back pain. In the ED, his lipase was found to be elevated at 280, CT scan of abdomen pelvis suggested acute pancreatitis, and also was noted DVT for additional workup was performed #Confusion- resolved - Differential including but not limited to: Metabolic encephalopathy, dehydration, pancreatitis, hypoxia, extensive DVT - suspect component of delirium, given age, will take some time to resolve, though more interactive today #Acute pancreatitis- resolved - Patient was admitted from 10/27-10/28/2024 with viral gastroenteritis versus food poisoning - After discharge to home, patient family reports that he slowly worsened - lipase of 280 on admission, now normal, and CT scan abdomen pelvis showing acute pancreatitis most notably involving the head and uncinate process, with probable mild inflammation at the pancreatic tip - Pancreatitis may be an extension of the original viral process, and may also be aggravated by patient being on Janumet and Jardiance, discharged on jardiance and metformin (discussed with daughter, if having symptoms, then pt should be transitioned to insulin. Family will discuss with pt's PCP) - diet advanced to regular - s/p IVF, will cont oral hydration - Follow serial CBC with differential, chemistry profile - GI consulted per family request, recs appreciated - mildly elevated TG, started on fish oil #Bilateral external iliac DVT- #Nonocclusive distal right femoral vein DVT/extensive occlusive DVT left femoral and common femoral veins/nonocclusive left popliteal vein DVT/possible IVC clot- - Full hypercoagulable workup ordered - discharged on Eliquis - CT angiography PE protocol was negative for PE - No suggestion of pancreatic cancer as a potential hypercoagulable process, but will need to be followed closely #Back pain - pt's daughter states this is ongoing prior to current issue and improves with massage #Carotid artery plaque/dysmetabolic syndrome X- - Continue Aggrenox twice daily #Insomnia - trialed melatonin, but pt was not able to rest much - per family, pt takes trazodone at home - monitor closely #Deconditioning - PT / OT recs rehab - CM assistance appreciated Dispo: pt medically stable, discharged to [facility] 11/10: spoke with pt's daughter Juani, pt's [id number] and granddaughter at bedside 11/11: spoke with pt's daughter Juani, pt's daughter and granddaughter also at bedside 11/12: granddaughter at bedside, spoke with pt's daughter Juani 11/13: granddaughter at bedside, spoke with pt's daughter Juani 11/14: pt's daughter Juani and granddaughter at bedside Admission HPI Per Admitting Provider The patient is an 84-year-old male with past medical history including BPH with LUTS, hypertension, first-degree AV block, transitional cell carcinoma, COPD, diabetes mellitus, mixed hyperlipidemia, sleep disorder, testosterone deficiency and B12 deficiency. He was most recently admitted from 10/27-10/28/2024 with viral gastroenteritis versus food poisoning. He had been improved somewhat upon discharge, family reports he seen continued to worsen, has become more confused with decreased oral intake for liquids and solids, and reports that he is sleeping most of the time. He was also complaining of abdominal and back pain. In the ED, his lipase was found to be elevated at 280, CT scan of abdomen pelvis suggested acute pancreatitis, and also was noted DVT for additional workup was performed Discharge Exam Gen: NAD, sitting in bed comfortable HEENT: NC/AT, MMM Lungs: CTAB CVS: RRR, s1s2 nl Abd: soft, NT, nl bowel sounds Ext: no edema Discharge Plan Discharge Items Patient Disposition: Transfer Inpatient Rehab Fac Reason For Visit: PANCREATITIS, DVT Discharge Diagnosis: Acute Pancreatitis Acute DVT Activity: Resume your previous activity Non-emergency contact: Primary Care Provider Call non-emergency contact if: you have any medication questions and your symptoms worsen Follow-up/Referrals: Howard Santiago MD [Primary Care Provider] - Diet: Carb Consistent or DM2 and Low Fat Diet Texture: Easy to Chew Addtl Attending Provider Instructions: 1. follow up primary care doctor within 7 to 10 days of discharge Pending Studies at Discharge: No Stand-Alone Forms: My [facility] dotloop Skilled Items Patient informed of condition?: Yes DNR: No Discharge Level of Care: Acute rehab Communicable Disease: No Discharge Prognosis: Stable Lines: None Urinary Catheter: No Medications and DC Order Prescriptions: New Eliquis 5 mg tablet See Rx Instructions .ROUTE .COMPLEX Qty: 74 0RF Rx Instructions: Take 10mg (2 tablets) twice a day for 7 days, followed by 5mg (1 tablet) twice a day. metformin 1,000 mg tablet,ER ale.retention 24 hr 1,000 mg PO BID Qty: 60 0RF Fish Oil [[place]-3 (Purified Fish Oil)] 1 cap PO BID Qty: 60 0RF Continued tamsulosin 0.4 mg capsule 0.4 mg PO DAILY Qty: 90 3RF fexofenadine 180 mg Tablet 180 mg PO DAILY PRN (Reason: Other) fluticasone propionate [Flonase Allergy Relief] 50 mcg/actuation [place],Suspension 2 spray INTRANASAL DAILY Rx Instructions: administer into each nostril aspirin-dipyridamole 25-200 mg capsule, ER multiphase 12 hr 1 cap PO BID trazodone 50 mg tablet 50 - 100 mg PO HS dutasteride 0.5 mg capsule 0.5 mg PO PM Jardiance 25 mg tablet 25 mg PO QAM losartan 50 mg tablet 50 mg PO BID cyanocobalamin (vitamin B-12) [Vitamin B-12] 1,000 mcg Tablet 2,000 mcg PO PM cholecalciferol (vitamin D3) [Vitamin D3] 25 mcg (1,000 unit) Tablet 50 mcg PO PM Rx Instructions: 2000 units metoprolol succinate 25 mg tablet extended release 24 hr 25 mg PO DAILY Discontinued Janumet XR 50-1,000 mg tablet, ER multiphase 24 hr 1 tab PO BID Admission Data Admit Date/Time: 11/09/24 20:20 Attending Provider: Rema Wallace Admit Provider: Ronak Garzon Primary Care Provider: Howard Santiago Other Providers: Ronak Garzon; Jaye Du; Clay Omer; Agnes Storey; Harriet Young; Lesly Agee; Katelyn Landa; Santana Garcia; Felicitas Pennington; Kevin Skelton; Wilber Gregg; Shilpa Newby; Daya Pitts; Katie Buchanan; Brooklynn Garcia; Skyler Parada; Edward Mccullough; Mikaela Pierre; Atul Kwong Jr; Gurinedr David; Delmer Jolley; Jose Zamudio; Beka Miller; Dorie Preston; Chandler Gomez I; Sandra Machado; Jareth Berman; [facility] Hospital Stay Data Consultations 11/09/24 19:37 ED Decision to Admit Stat 11/10/24 17:16 Consult Gastroenterology Routine Diagnostic Imagining Performed 11/09/24 14:06 CT abd pelvis IV con only Stat 11/09/24 14:30 CT head/brain wo con Stat 11/09/24 17:13 US leg [US venous doppler LE BI] Stat 11/09/24 20:16 CT angio chest PE protocol Stat 11/12/24 03:48 CT cervical spine wo con Stat CT head/brain wo con Stat Discharge Instructions Given to Patient (Per Discharging Provider) 1. follow up primary care doctor within 7 to 10 days of discharge Total Time Total Time Spent Total Time Spent (In Minutes): 50 Coding Level of Care Code 90326 INP/OBS DISCH >30 MIN Diagnoses Acute pancreatitis K85.90 DVT (deep venous thrombosis) I82.409 Confusion R41.0 Diabetes mellitus, type 2 E11.9 Transitional cell carcinoma C68.9
[2024-11-14 10:41] VITALS: BP 120/64
--- NOTE | 2024-11-16 07:11 | Coding Query ---
CODING QUERY To promote full compliance with coding requirements relating to patient care, provider participation is requested in all cases of outpatient coder uncertainty. Please assist us with the question(s) below: Coding Question(s): The following documentation is present throughout the chart "#Confusion- - Differential including but not limited to: Metabolic encephalopathy, dehydration, pancreatitis, hypoxia, extensive DVT - suspect component of delirium, given age, will take some time to resolve, though more interactive today" Can you please indicate the most likely source of the patient's confusion, if known, by placing an 'x' in the applicable parenthesis? Metabolic Encephalopathy ( ) Dehydration ( xxx) Pancreatitis ( ) Hypoxia ( ) DVT ( ) Other, please specify ( ) . Physician's Response(s): Thank you Lou Quintanilla Principal Diagnosis: "that condition established after study, to be chiefly responsible for occasioning the admission of the patient to the hospital for care." Co-Existing Principal Diagnosis: "when two or more diagnoses equally meet the criteria for principal diagnosis as determined by the circumstances of admission, diagnostic work up, and/or therapy provided, and the Alphabetic Index, Tabular List, or another coding guideline does not provide sequencing direction, any one of the diagnoses may be sequenced first." "When the physician has documented what appears to be a current diagnosis in the body of the record, but has not included the diagnosis in the final diagnostic statement, the physician should be asked whether the diagnosis should be added." (Source Coding Clinic 2 QTR90. p3-4) KETURAH
[2024-11-16 15:33] LABS: Anti Cardiolipin Ab IgG <2.0 GPL-U/mL; Anti Cardiolipin Ab IgM <2.0 MPL-U/mL; B2 Glycoprotein IgG <2.0 U/mL (<20.0); B2 Glycoprotein IgM <2.0 U/mL (<20.0)
[2024-11-17 19:22] LABS: Factor 5 Mutation NEGATIVE
== END 2024-11-14 12:20 | DRG 439 ==
LOC: ED 13:45 → SUATTDRO 20:20 → EDINP 20:20 → 2N 21:00

== ENCOUNTER 2025-09-03 18:36 | Inpatient (IN) ==
--- NOTE | 2025-09-03 18:44 | Emergency Department Note ---
Impression & Plan Fall, Humeral fracture, Blood glucose elevated ED Provider Note NAME: LUIS FINK AGE: 85 SEX: M : 1940 ARRIVES VIA: Ambulance INFORMANT: Patient ED PROVIDER(S): Andrew La DO CHIEF COMPLAINT: Fall HPI: Patient is an [id number]-old male who presents to the ER with dementia, diabetes, and pancreatitis for right shoulder pain. He was getting something on the refrigerator and lost his balance and fell onto his shoulder. He does take a blood thinner. He denies any head or neck pain or any other complaints. No chest pain or shortness of breath preceding or following this incident. No belly pain. No nausea, vomiting or diarrhea. ADDITIONAL HISTORY OBTAINED: Per HPI Chronic Medical/Social Conditions Affecting Care: Per HPI PAST MEDICAL HISTORY:See Below PAST SURGICAL HISTORY:See Below FAMILY HISTORY:See Below SOCIAL HISTORY:See Below HOME MEDICATIONS:See Below ALLERGIES:See Below VITALS:See Below PHYSICAL EXAMINATION: GENERAL: alert, well appearing, well nourished, no distress, non-toxic HEAD: normal cephalic, atraumatic EYE EXAM: normal conjunctiva, PERRL and EOM's grossly intact OROPHARYNX: no exudate, no erythema, lips, buccal mucosa, and tongue normal and mucous membranes are moist NECK: supple, no nuchal rigidity, no adenopathy, non-tender CHEST: stable to compression anteriorly and posteriorly LUNGS: clear to auscultation. Normal chest wall mechanics HEART: no murmurs, S1 normal and S2 normal ABDOMEN: abdomen soft, non-tender, normo-active bowel sounds, no masses, no rebound or guarding. PELVIS: stable to compression anteriorly and posteriorly BACK: Back is symmetrical on inspection and there is no deformity, no midline tenderness, no CVA tenderness. UPPER EXTREMITIES: No tenderness to palpation of the entire left upper extremity. Tenderness over the right humeral head. No tenderness about the mid or distal humerus through the forearm wrist and hand. Radial pulse 2 out of 4. Gross sensation intact. LOWER EXTREMITIES: full active and passive range of motion of all joints without tenderness to palpation NEURO EXAM: Normal sensorium, cranial nerves II-XII grossly intact, normal speech, no gross weakness of arms, no gross weakness of legs. GCS: 15. MEDICAL DECISION MAKING: Patient is an 85-year-old male who presents ER following mechanical fall. IV was established and blood work was obtained. Labs showed no significant leukocytosis or anemia. BMP with LFTs bilirubin and lipase is unremarkable. X- ray of the right shoulder shows a mid humeral fracture in [address] head and cervical spine was negative. Patient was given multiple rounds of IV narcotics and Zofran. ED was discussed with Laurel Nettles from [facility] orthopedics. They recommended shoulder immobilizer. Patient was having too much pain to be discharged and they will follow him up as an inpatient. I discussed case with Dr. Garcia for further evaluation management treatment. Again patient was neurovascular intact with good radial pulse. Consults/Care Managements Discussions: Per MDM Triage Nursing notes reviewed. Limited review of prior medical records performed Vital Signs: reviewed and remarkable for no significant abnormalities Differential diagnosis: Differential diagnoses include major intracranial, cervical, spinal, thoracic, abdominal, pelvic and neurologic injury. Fracture, contusion, sprain, strain, laceration, abrasions included as well. ER treatment provided: See below Diagnostics interpreted by me include EKG and cardiac monitoring as listed below: -Cardiac Monitoring: An order was placed for continuous cardiac monitoring. The monitor shows a rate of 85 with sinus rhythm. -ECG: None -Laboratory studies:Interpreted by me as stated above in MDM and shown below. Imaging studies: Xrays: As interpreted by me: X-rays of the right humerus shows a comminuted and displaced fracture CTs show: CT head and cervical spine was negative per radiology Procedures: None Critical Care: None Past Med/Surg History Problem List (Updated 09/03/25 @ 22:34 by Andrew La DO) Blood glucose elevated (Acute) Humeral fracture (Acute) Fall (Acute) Chronic anticoagulation Fracture of humeral shaft, right, closed Dementia Urinary symptom or sign Acute deep vein thrombosis (DVT) of iliac vein of both lower extremities (Acute) Pancreatitis (Acute) Diabetes mellitus, type 2 Confusion DVT (deep venous thrombosis) Acute pancreatitis Elevated LFTs Sensorineural hearing loss (SNHL) of both ears Benign prostatic hyperplasia (BPH) with urinary urgency Discharge planning issues DVT prophylaxis Hypertension Transaminitis First degree AV block Elevated troponin ACS (acute coronary syndrome) Chest pain (Acute) Transitional cell carcinoma Asthma Allergic rhinitis BMI 30.0-30.9,adult Carotid artery plaque COPD (chronic obstructive pulmonary disease) Diabetes mellitus with renal complications Diverticulosis Dysmetabolic syndrome X Erectile dysfunction Mild mental slowing Mixed hyperlipidemia Plantar fasciitis of left foot Prostatism Sleep disorder Testosterone deficiency Vitamin B12 deficiency Weight disorder Bladder tumor Medical History Diverticulosis COPD (chronic obstructive pulmonary disease) Hyperlipidemia Asthma Tubular adenoma Polycythemia Right tennis elbow History of TIA (transient ischemic attack) History of adenomatous polyp of colon Family hx of prostate cancer Family hx of colon cancer Surgical History History of colonoscopy History of tooth extraction History of cataract surgery H/O vasectomy Family History Daughter Asthma Mother Bone cancer Breast cancer Father COPD (chronic obstructive pulmonary disease) Grandmother (Maternal) Colon cancer Grandfather (Maternal) Colon cancer Uncle Colon cancer Brother Pheochromocytoma Colonic polyp Prostate cancer Sleep apnea Son Sleep apnea Social History Smoking Status: Never smoker Second Hand Exposure: No; Do You Dip or Chew Tobacco: No; Hx Alcohol Use: No Hx Substance Use: No Preferred Language: Malawian Communication Ability: Effective Soccer Referee Required: No Beliefs That Will Affect Care: None Current Living Situation: Alone Current Living Situation Comment: Lives at home alone Feels Safe at Home: Yes Assistive Devices: None Allergies Allergies Allergy/AdvReac Type Severity Reaction Status Date / Time grass pollen Allergy runny, Verified 08/05/25 12:04 watery eyes mold Allergy runny, Verified 08/05/25 12:04 watery eyes ragweed pollen Allergy runny, Verified 08/05/25 12:04 watery eyes semaglutide [From Rybelsus] Allergy diarrhea, Verified 08/05/25 12:04 GERD Home Meds Home Medications Medication Instructions Recorded Confirmed cholecalciferol (vitamin D3) 25 50 mcg PO PM 02/16/22 08/05/25 mcg (1,000 unit) tablet (Vitamin D3) cyanocobalamin (vitamin B-12) 2,000 mcg PO PM 02/16/22 08/05/25 1,000 mcg tablet (Vitamin B-12) dutasteride 0.5 mg capsule 0.5 mg PO PM 02/16/22 08/05/25 metoprolol succinate 25 mg 25 mg PO DAILY 10/27/24 08/05/25 tablet,extended release 24 hr aspirin 81 mg chewable tablet 81 mg PO DAILY 03/11/25 08/05/25 fluticasone propionate 50 2 spray intranasal DAILY PRN 05/11/25 08/05/25 mcg/actuation nasal spray,suspension (Flonase Allergy Relief) losartan 50 mg tablet 50 mg PO QPM 05/11/25 08/05/25 trazodone 50 mg tablet 100 mg PO HS 05/11/25 08/05/25 donepezil 5 mg tablet 5 mg PO HS 06/02/25 08/05/25 blood-glucose sensor (Dexcom G7 07/28/25 07/28/25 Sensor device) Previous Rx's Medication Instructions Recorded apixaban 5 mg tablet (Eliquis) See Rx Instructions .Route 11/11/24 .COMPLEX #74 tabs metformin 1,000 mg 24 hr 1,000 mg PO BID #60 tabs 11/14/24 tablet,extended release (gastric reten.) tamsulosin 0.4 mg capsule 0.4 mg PO DAILY #90 caps 03/19/25 pen needle, diabetic 32 gauge x #100 ea 05/19/2532" insulin degludec 200 unit/mL (3 100 unit (0.5 mL) subcut DAILY 30 06/17/25 mL) subcutaneous pen (Tresiba days #15 mL FlexTouch U-200 insulin) insulin lispro 100 unit/mL 20 unit (0.2 mL) subcut BID #15 mL 06/29/25 subcutaneous pen (Humalog KwikPen (U-100) Insulin) Results & Data (ED) Vital Signs Vital Signs - 24 hr 09/03/25 18:36 09/03/25 18:36 09/03/25 19:18 Temperature 36.6 C Temperature Source Oral Pulse Rate 60 Pulse Rate [Radial] 60 Respiratory Rate 18 18 18 Respiratory Effort / Characteristics Non-Labored Non-Labored Respiratory Depth Normal Normal Respiratory Pattern Regular Regular Blood Pressure 204/90 H Blood Pressure [Right Arm] 204/90 H Blood Pressure Mean 128 Blood Pressure Mean [Right Arm] 128 Pulse Oximetry 95 95 94 Oxygen Delivery Method Room Air Room Air Room Air Sepsis Recent Fever Within 48 Hours No Sepsis New/Unexplained Change in Mental Status N/A Sepsis Action Taken by Nursing No Action Required 09/03/25 19:27 09/03/25 19:36 09/03/25 20:00 Temperature 36.8 C 36.6 C Temperature Source Oral Oral Pulse Rate 57 L Pulse Rate [Radial] 63 67 Respiratory Rate 18 18 Respiratory Effort / Characteristics Respiratory Depth Normal Normal Respiratory Pattern Blood Pressure Blood Pressure [Right Arm] 156/72 H 172/66 H Blood Pressure Mean Blood Pressure Mean [Right Arm] 100 101 Pulse Oximetry 92 92 Oxygen Delivery Method Room Air Room Air Sepsis Recent Fever Within 48 Hours Sepsis New/Unexplained Change in Mental Status Sepsis Action Taken by Nursing Laboratory Data 09/03/25 18:50 09/03/25 18:50 Lab Results 09/03/25 09/03/25 Range/Units 18:50 22:19 WBC 7.99 (4.8-10.8) K/ul RBC 4.70 (4.70-6.10) M/uL Hgb 13.9 L (14.0-18.0) g/dl Hct 40.0 L (42.0-52.0) % MCV 85.1 (80.0-100.0) fL MCH 29.6 (25.0-34.0) pg MCHC 34.8 (32.0-36.0) g/dL RDW Std Deviation 39.2 (36.4-46.3) fL RDW Coeff of Damari 12.8 (11.5-14.5) % Plt Count 179 (130-400) K/uL MPV 9.4 (9.4-12.4) fL Immature Gran % (Auto) 0.6 % Neut % (Auto) 66.4 % Lymph % (Auto) 22.5 % Real % (Auto) 8.1 % Eos % (Auto) 2.3 % Baso % (Auto) 0.1 % Neut # (Auto) 5.30 (1.40-6.50) K/uL Lymph # (Auto) 1.80 (1.20-3.40) K/uL Real # (Auto) 0.65 H (0.11-0.59) K/uL Eos # (Auto) 0.18 (0.00-0.50) K/uL Baso # (Auto) 0.01 (0.00-0.20) K/uL Immature Gran # (Auto) 0.05 (0.01-0.20) K/uL Sodium 137 (136-145) mmol/L Potassium 4.2 (3.5-5.1) mmol/L Chloride 104 (98-107) mmol/L Carbon Dioxide 26 (21-32) mmol/L Anion Gap 7 (3-11) BUN 20 (6-23) mg/dl Creatinine 1.18 (0.6-1.4) mg/dl Est Cr Clr Drug Dosing 55.5 ml/min eGFR 60.85 BUN/Creatinine Ratio 16.9 (10-20) Glucose 170 H (70-99(Fasting)) mg/dl POC Glucose 191 H (70-99) mg/dl Calcium 9.6 (8.6-10.3) mg/dl Total Bilirubin 0.4 (0.2-1.0) mg/dl AST 20 (13-39) U/L ALT 20 (7-52) U/L Alkaline Phosphatase 64 (34-104) U/L Total Protein 6.2 (6.0-8.3) gm/dl Albumin 3.7 (3.4-5.0) gm/dl Globulin 2.5 (2.5-4.0) gm/dl Albumin/Globulin Ratio 1.5 (0.9-2) Lipase 42 (11-82) U/L Administered Medications Discontinued Medications Morphine Sulfate (Morphine Sulfate 2 Mg/Ml Carp) 2 mg IV NOW STA Stop: 09/03/25 18:45 Last Admin: 09/03/25 18:55 Dose: 2 mg Documented By: noe Morphine Sulfate (Morphine Sulfate 4 Mg/Ml 1 Ml Carp\\Vial) 2 - 4 mg IV Q1H PRN PRN Reason: Pain Stop: 09/17/25 19:44 Last Admin: 09/03/25 19:51 Dose: 4 mg Documented By: noe Ondansetron HCl (Ondansetron Inj 2 Mg/Ml 2 Ml Vial) 4 mg IV NOW STA Stop: 09/03/25 18:43 Last Admin: 09/03/25 19:17 Dose: Not Given Documented By: noe Ondansetron HCl (Ondansetron Inj 2 Mg/Ml 2 Ml Vial) 4 mg IV NOW STA Stop: 09/03/25 18:45 Last Admin: 09/03/25 18:55 Dose: 4 mg Documented By: noe Imaging Data Radiologist's Impression: Cervical Spine CT 09/03/25 18:42 CT cervical spine without IV contrast History: Trauma Comparison: None Technique: Using multidetector thin collimation helical acquisition technique, axial, coronal and sagittal CT images through the cervical spine were obtained without intravenous contrast. Dose reduction techniques were achieved by using automatic exposure control and/or adjustment of mA and/or kV according to patient size and/or use of iterative reconstruction technique. Findings: The cervical vertebrae are normally aligned. Normal cervical lordosis. No acute fracture or subluxation. No prevertebral edema. Mild to moderate multilevel degenerative changes. No abnormality of the paraspinous soft tissues. Impression: No acute fracture or traumatic subluxation. Electronically signed by Howard Nettles 09-03-2025 7:[address] 09/03/25 18:42 CT head without contrast History: Trauma Comparison: None Technique: Using multidetector thin collimation helical acquisition technique, axial, coronal and sagittal CT images from the skull base to the vertex were obtained without intravenous contrast. Dose reduction techniques were achieved by using automatic exposure control and/or adjustment of mA and/or kV according to patient size and/or use of iterative reconstruction technique. Findings: No intracranial hemorrhage, mass-effect, or midline shift. The ventricles are proportionate to the cerebral sulci. The perez to white matter differentiation of the cerebral hemispheres is preserved. The basal cisterns are patent. There is moderate cerebral atrophy. Moderate, patchy low-attenuation changes in the white matter, most suggestive of sequelae of chronic small vessel ischemic disease. Right maxillary sinus opacification. Mastoid air cells are clear. Impression: No acute intracranial pathology. Electronically signed by Howard Nettles 09-03-2025 7:47 PM Shoulder X-Ray 09/03/25 18:42 INDICATION: Trauma TECHNIQUE: 2 views of the right shoulder were obtained. COMPARISON: None FINDINGS: Displaced and comminuted acute traumatic spiral fractures of the proximal shaft of the right humerus IMPRESSION: Displaced and comminuted acute traumatic spiral fractures of the proximal shaft of the right humerus Electronically signed by Demetrius Oshea 09-03-2025 9:10 PM Discharge Plan Visit Data Chief Complaint: Fall Stated Complaint: INJURY ALERT, FALL ED Provider: Andrew La Discharge Problem: Fall, Humeral fracture, Blood glucose elevated Condition: Fair Forms Stand Alone Forms: [facility] Prescriptions Prescriptions: No Action tamsulosin 0.4 mg capsule 0.4 mg PO DAILY Qty: 90 3RF (DME) pen needle, diabetic 32 gauge x 5/32" needle See Rx Instructions .MEDSUPPLY Qty: 100 3RF Rx Instructions: To use with 2x/day insulin injections insulin degludec [Tresiba FlexTouch U-200] 200 unit/mL (3 mL) insulin pen 100 unit subcut DAILY 30 Days Qty: 15 2RF insulin lispro [Humalog KwikPen Insulin] 100 unit/mL insulin pen 20 unit subcut BID Qty: 15 2RF donepezil 5 mg tablet 5 mg PO HS (DME) Dexcom G7 Sensor Device See Rx Instructions .ROUTE Rx Instructions: change sensor every 10 days aspirin 81 mg tablet,chewable 81 mg PO DAILY fluticasone propionate [Flonase Allergy Relief] 50 mcg/actuation spray,suspension 2 spray INTRANASAL DAILY PRN Rx Instructions: administer into each nostril dutasteride 0.5 mg capsule 0.5 mg PO PM cyanocobalamin (vitamin B-12) [Vitamin B-12] 1,000 mcg Tablet 2,000 mcg PO PM cholecalciferol (vitamin D3) [Vitamin D3] 25 mcg (1,000 unit) Tablet 50 mcg PO PM Rx Instructions: 2000 units losartan 50 mg tablet 50 mg PO QPM trazodone 50 mg tablet 100 mg PO HS metoprolol succinate 25 mg tablet extended release 24 hr 25 mg PO DAILY Eliquis 5 mg tablet See Rx Instructions .ROUTE .COMPLEX Qty: 74 0RF Rx Instructions: Take 10mg (2 tablets) twice a day for 7 days, followed by 5mg (1 tablet) twice a day. metformin 1,000 mg tablet,ER ale.retention 24 hr 1,000 mg PO BID Qty: 60 0RF Referrals Referrals: Howard Santiago MD [Primary Care Provider] - Discharge Problem: Fall Qualifiers: Encounter type: initial encounter Qualified Code(s): W19.XXXA - Unspecified fall, initial encounter Humeral fracture Qualifiers: Encounter type: initial encounter Fracture type: closed
[2025-09-03] MEDS: MoRPHine SULFATE 2 MG/ML CARP IV STA (18:55)
[2025-09-03] MEDS: ONDANSETRON INJ 2 MG/ML 2 ML VIAL IV STA ×2 (18:55→19:17)
[2025-09-03 19:08] LABS: Hematocrit (blood only) 40.0 % (42.0-52.0); Hemoglobin 13.9 g/dl (14.0-18.0); Immature Granulocytes # (auto) 0.05 K/uL (0.01-0.20); Immature Granulocytes % (auto) 0.6 %; Mean Corpuscular Hemoglobin 29.6 pg (25.0-34.0); Mean Corpuscular Volume 85.1 fL (80.0-100.0); Platelet Count 179 K/uL (130-400); RDW Standard Deviation 39.2 fL (36.4-46.3); Red Blood Count 4.70 M/uL (4.70-6.10); White Blood Count 7.99 K/ul (4.8-10.8)
[2025-09-03 19:24] LABS: Alanine Aminotransferase 20.0 U/L (7-52); Albumin Globulin Ratio 1.5 (0.9-2); Albumin Level 3.7 gm/dl (3.4-5.0); Alkaline Phosphatase 64.0 U/L (34-104); Anion Gap 7.0 (3-11); Bilirubin,Total 0.4 mg/dl (0.2-1.0); Blood Urea Nitrogen 20.0 mg/dl (6-23); Calcium 9.6 mg/dl (8.6-10.3); Carbon Dioxide 26.0 mmol/L (21-32); Chloride 104.0 mmol/L (98-107); Creatinine Clr Calc Pharmacy 55.5 ml/min; Globulin 2.5 gm/dl (2.5-4.0); Glucose 170.0 mg/dl (70-99(Fasting)); Lipase 42.0 U/L (11-82); Potassium 4.2 mmol/L (3.5-5.1); Sodium 137.0 mmol/L (136-145); Total Protein 6.2 gm/dl (6.0-8.3)
--- NOTE | 2025-09-03 19:47 | CT Scan Report ---
CT head without contrast History: Trauma Comparison: None Technique: Using multidetector thin collimation helical acquisition technique, axial, coronal and sagittal CT images from the skull base to the vertex were obtained without intravenous contrast. Dose reduction techniques were achieved by using automatic exposure control and/or adjustment of mA and/or kV according to patient size and/or use of iterative reconstruction technique. Findings: No intracranial hemorrhage, mass-effect, or midline shift. The ventricles are proportionate to the cerebral sulci. The perez to white matter differentiation of the cerebral hemispheres is preserved. The basal cisterns are patent. There is moderate cerebral atrophy. Moderate, patchy low-attenuation changes in the white matter, most suggestive of sequelae of chronic small vessel ischemic disease. Right maxillary sinus opacification. Mastoid air cells are clear. Impression: No acute intracranial pathology. Electronically signed by Howard Nettles 09-03-2025 7:47 PM
--- NOTE | 2025-09-03 19:47 | CT Scan Report ---
CT cervical spine without IV contrast History: Trauma Comparison: None Technique: Using multidetector thin collimation helical acquisition technique, axial, coronal and sagittal CT images through the cervical spine were obtained without intravenous contrast. Dose reduction techniques were achieved by using automatic exposure control and/or adjustment of mA and/or kV according to patient size and/or use of iterative reconstruction technique. Findings: The cervical vertebrae are normally aligned. Normal cervical lordosis. No acute fracture or subluxation. No prevertebral edema. Mild to moderate multilevel degenerative changes. No abnormality of the paraspinous soft tissues. Impression: No acute fracture or traumatic subluxation. Electronically signed by Howard Nettles 09-03-2025 7:47 PM
[2025-09-03] MEDS: MoRPHine SULFATE 4 MG/ML 1 ML CARP\\VIAL IV PRN (19:51)
[2025-09-03] MEDS ORDERED: NALOXONE HCL 0.4 MG/1 ML VIAL/CARP IV PRN (20:37)
--- NOTE | 2025-09-03 20:41 | History & Physical Report ---
Date of Service September 03, 2025 Assessment & Plan (1) Fracture of humeral shaft, right, closed: (2) Chronic anticoagulation: (3) Dementia: (4) Acute deep vein thrombosis (DVT) of iliac vein of both lower extremities: Plan The patient is an 85-year-old male with a past medical history including dementia, DVT of iliac veins bilaterally, pancreatitis, diabetes mellitus type 2, SNHL bilaterally, BPH with LUTS, hypertension, transitional cell carcinoma, COPD, testosterone deficiency, sleep disorder, vitamin B12 deficiency, and bladder tumor. He presents to the emergency department after a ground-level fall at home, where he was reaching into the refrigerator to get something out. He lost his balance, fell onto his right shoulder, sustained immediate right shoulder pain and swelling. He denies discomfort or pain in any other areas. He does take Eliquis on a twice daily basis, last dose was the morning of 09/03. X-rays in the emergency department showed a right mid humerus fracture. CT scan head is negative, CT scan cervical spine is negative. Patient did receive morphine 4 mg IV with no significant improvement pain. He also received Zofran 4 mg IV x 2. He is encouraged to the hospitalist service for admission, with consult to orthopedic surgery Dr. Anthony. Fracture of right humeral shaft- N.p.o. after midnight Hold apixaban, last dose was the morning of 09/03 Hold aspirin Morphine giving insufficient pain relief Acetaminophen 650 mg by mouth every 6 hours as needed for mild pain or fever Dilaudid 0.25 mg IV every 3 hours as needed for moderate pain Dilaudid 0.5 mg IV every 3 hours as needed for severe pain Plasma-Lyte at 80 mL/h x 2 L Consult to orthopedic surgery, Dr. Anthony attending. Diabetes mellitus- Change insulin degludec 100 units at dinner to glargine 20 units at dinner Family reports that the patient has a tendency to run low Hold standing orders for NovoLog Place on Accu-Cheks with NovoLog SSI Hold metformin Pharmacy glycemic consult History of bilateral lower extremity DVT involving iliac veins- Hold Eliquis Hypertension- Continue losartan 50 mg every evening with hold parameters Continue metoprolol succinate 25 mg daily every morning Dementia/insomnia- Continue donepezil, and trazodone BPH with LUTS- Continue tamsulosin 0.4 mg p.o. in the evening, and dutasteride or equivalent at bedtime as well Vitamin B12 deficiency- Continue 2000 mcg every evening Vitamin D deficiency- Continue cholecalciferol 50 mcg History of Present Illness Chief Complaint: The patient was brought to the emergency department via BLS from home, after a ground-level fall, where he was reaching into the refrigerator to get something out, and lost his balance and fell. He landed on his right side, and developed immediate right shoulder pain and swelling. He denies any head trauma or any other areas of pain. He does take Eliquis twice daily, his last dose was in the morning of 09/03. Primary Care Provider: Howard Santiago MD The patient is an 85-year-old male with a past medical history including dementia, DVT of iliac veins bilaterally, pancreatitis, diabetes mellitus type 2, SNHL bilaterally, BPH with LUTS, hypertension, transitional cell carcinoma, COPD, testosterone deficiency, sleep disorder, vitamin B12 deficiency, and bladder tumor. He presents to the emergency department after a ground-level fall at home, where he was reaching into the refrigerator to get something out. He lost his balance, fell onto his right shoulder, sustained immediate right shoulder pain and swelling. He denies discomfort or pain in any other areas. He does take Eliquis on a twice daily basis, last dose was the morning of 09/03. X-rays in the emergency department showed a right mid humerus fracture. CT scan head is negative, CT scan cervical spine is negative. Patient did receive morphine 4 mg IV with no significant improvement pain. He also received Zofran 4 mg IV x 2. He is encouraged to the hospitalist service for admission, with consult to orthopedic surgery Dr. Anthony. Allergies Allergy/AdvReac Type Severity Reaction Status Date / Time grass pollen Allergy runny, Verified 08/05/25 12:04 watery eyes mold Allergy runny, Verified 08/05/25 12:04 watery eyes ragweed pollen Allergy runny, Verified 08/05/25 12:04 watery eyes semaglutide [From Rybelsus] Allergy diarrhea, Verified 08/05/25 12:04 GERD Home Medications Medication Instructions Recorded Confirmed Type cholecalciferol (vitamin D3) 25 50 mcg PO PM 02/16/22 08/05/25 History mcg (1,000 unit) tablet (Vitamin D3) cyanocobalamin (vitamin B-12) 2,000 mcg PO PM 02/16/22 08/05/25 History 1,000 mcg tablet (Vitamin B-12) dutasteride 0.5 mg capsule 0.5 mg PO PM 02/16/22 08/05/25 History metoprolol succinate 25 mg 25 mg PO DAILY 10/27/24 08/05/25 History tablet,extended release 24 hr apixaban 5 mg tablet (Eliquis) See Rx Instructions .Route 11/11/24 08/05/25 Rx .COMPLEX #74 tabs metformin 1,000 mg 24 hr 1,000 mg PO BID #60 tabs 11/14/24 08/05/25 Rx tablet,extended release (gastric reten.) aspirin 81 mg chewable tablet 81 mg PO DAILY 03/11/25 08/05/25 History tamsulosin 0.4 mg capsule 0.4 mg PO DAILY #90 caps 03/19/25 08/05/25 Rx fluticasone propionate 50 2 spray intranasal DAILY PRN 05/11/25 08/05/25 History mcg/actuation nasal spray,suspension (Flonase Allergy Relief) losartan 50 mg tablet 50 mg PO QPM 05/11/25 08/05/25 History trazodone 50 mg tablet 100 mg PO HS 05/11/25 08/05/25 History pen needle, diabetic 32 gauge x #100 ea 05/19/25 08/05/25 Rx 5/" donepezil 5 mg tablet 5 mg PO HS 06/02/25 08/05/25 History insulin degludec 200 unit/mL (3 100 unit (0.5 mL) subcut DAILY 30 06/17/25 08/05/25 Rx mL) subcutaneous pen (Tresiba days #15 mL FlexTouch U-200 insulin) insulin lispro 100 unit/mL 20 unit (0.2 mL) subcut BID #15 mL 06/29/25 08/05/25 Rx subcutaneous pen (Humalog KwikPen (U-100) Insulin) blood-glucose sensor (Nasza-klasa.pl G7 07/28/25 07/28/25 History Sensor device) Past Med/Surg History Problem List (Updated 09/03/25 @ 22:34 by Andrew La DO) Blood glucose elevated (Acute) Humeral fracture (Acute) Fall (Acute) Chronic anticoagulation Fracture of humeral shaft, right, closed Dementia Urinary symptom or sign Acute deep vein thrombosis (DVT) of iliac vein of both lower extremities (Acute) Pancreatitis (Acute) Diabetes mellitus, type 2 Confusion DVT (deep venous thrombosis) Acute pancreatitis Elevated LFTs Sensorineural hearing loss (SNHL) of both ears Benign prostatic hyperplasia (BPH) with urinary urgency Discharge planning issues DVT prophylaxis Hypertension Transaminitis First degree AV block Elevated troponin ACS (acute coronary syndrome) Chest pain (Acute) Transitional cell carcinoma Asthma Allergic rhinitis BMI 30.0-30.9,adult Carotid artery plaque COPD (chronic obstructive pulmonary disease) Diabetes mellitus with renal complications Diverticulosis Dysmetabolic syndrome X Erectile dysfunction Mild mental slowing Mixed hyperlipidemia Plantar fasciitis of left foot Prostatism Sleep disorder Testosterone deficiency Vitamin B12 deficiency Weight disorder Bladder tumor Medical History Diverticulosis COPD (chronic obstructive pulmonary disease) Hyperlipidemia Asthma Tubular adenoma Polycythemia Right tennis elbow History of TIA (transient ischemic attack) History of adenomatous polyp of colon Family hx of prostate cancer Family hx of colon cancer Surgical History History of colonoscopy History of tooth extraction History of cataract surgery H/O vasectomy Family History Daughter Asthma Mother Bone cancer Breast cancer Father COPD (chronic obstructive pulmonary disease) Grandmother (Maternal) Colon cancer Grandfather (Maternal) Colon cancer Uncle Colon cancer Brother Pheochromocytoma Colonic polyp Prostate cancer Sleep apnea Son Sleep apnea Social History Smoking Status: Never smoker Second Hand Exposure: No; Do You Dip or Chew Tobacco: No; Hx Alcohol Use: No Hx Substance Use: No Preferred Language: Frisian Communication Ability: Effective King Maker Required: No Beliefs That Will Affect Care: None Current Living Situation: Alone Current Living Situation Comment: Lives at home alone Feels Safe at Home: Yes Assistive Devices: Glasses Review of Systems Review of Systems: The patient denies chest pain, palpitations, shortness of breath, dyspnea on exertion, cough, lower extremity swelling, sore throat, fevers, chills, sweats, vomiting, diarrhea , constipation, abdominal pain, pelvic pain, blood in urine or stool, dysuria, urinary frequency or urgency, lightheadedness, dizziness, headache, memory loss, loss of consciousness, rash, abnormal bruising or bleeding, focal or generalized weakness, numbness or tingling in left arm or bilateral legs, generalized arthralgias or myalgias, back or neck pain, or night sweats. The review of systems is otherwise negative other than for that already noted above, and at least 10 systems have been reviewed. Physical Exam Physical Exam: The patient is awake, alert and oriented 3, well developed and well nourished, normocephalic and atraumatic, lying in bed and in no acute distress. HEENT--PERRL, EOMI, mucous membranes and oropharynx mildly dry. Neck--supple. No JVD. No bruits. Thyroid normal, trachea midline, no a denopathy. Heart--normal S1 and S2. No murmurs, rubs or gallops. Lungs--clear bilaterally, no respiratory distress, no accessory muscle use. Abdomen--normal bowel sounds and soft. Nontender. Nondistended. Mildly obese Extremities--no cyanosis or clubbing. No edema. There are good distal pulses b/l. Right upper extremity with swelling and pain to light touch. Dermatologic--normal skin turgor, normal color, no abnormal lymph nodes, no rash. Neurologic--cranial nerves II through XII grossly intact. Rheumatologic--normal range of motion except for right upper extremity. Psychiatric--normal affect. Results & Data Results & Data Vital Signs (Past 12 Hours) Vital Signs Temp Pulse Pulse Resp BP BP Pulse Ox 09/03/25 19:36 57 L 09/03/25 19:27 36.8 C 63 18 156/72 H 92 09/03/25 19:18 18 94 09/03/25 18:36 60 18 204/90 H 95 09/03/25 18:36 36.6 C 60 18 204/90 H 95 O2 Del Method 09/03/25 19:36 09/03/25 19:27 Room Air 09/03/25 19:18 Room Air 09/03/25 18:36 Room Air 09/03/25 18:36 Room Air Laboratory Results Laboratory Results WBC 7.99 K/ul (4.8-10.8) 09/03/25 18:50 RBC 4.70 M/uL (4.70-6.10) 09/03/25 18:50 Hgb 13.9 g/dl (14.0-18.0) L 09/03/25 18:50 Hct 40.0 % (42.0-52.0) L 09/03/25 18:50 MCV 85.1 fL (80.0-100.0) 09/03/25 18:50 MCH 29.6 pg (25.0-34.0) 09/03/25 18:50 MCHC 34.8 g/dL (32.0-36.0) 09/03/25 18:50 RDW Std Deviation 39.2 fL (36.4-46.3) 09/03/25 18:50 RDW Coeff of Damari 12.8 % (11.5-14.5) 09/03/25 18:50 Plt Count 179 K/uL (130-400) 09/03/25 18:50 MPV 9.4 fL (9.4-12.4) 09/03/25 18:50 Immature Gran % (Auto) 0.6 % 09/03/25 18:50 Neut % (Auto) 66.4 % 09/03/25 18:50 Lymph % (Auto) 22.5 % 09/03/25 18:50 [place] % (Auto) 8.1 % 09/03/25 18:50 Eos % (Auto) 2.3 % 09/03/25 18:50 Baso % (Auto) 0.1 % 09/03/25 18:50 Neut # (Auto) 5.30 K/uL (1.40-6.50) 09/03/25 18:50 Lymph # (Auto) 1.80 K/uL (1.20-3.40) 09/03/25 18:50 [place] # (Auto) 0.65 K/uL (0.11-0.59) H 09/03/25 18:50 Eos # (Auto) 0.18 K/uL (0.00-0.50) 09/03/25 18:50 Baso # (Auto) 0.01 K/uL (0.00-0.20) 09/03/25 18:50 Immature Gran # (Auto) 0.05 K/uL (0.01-0.20) 09/03/25 18:50 Sodium 137 mmol/L (136-145) 09/03/25 18:50 Potassium 4.2 mmol/L (3.5-5.1) 09/03/25 18:50 Chloride 104 mmol/L (98-107) 09/03/25 18:50 Carbon Dioxide 26 mmol/L (21-32) 09/03/25 18:50 Anion Gap 7 (3-11) 09/03/25 18:50 BUN 20 mg/dl (6-23) 09/03/25 18:50 Creatinine 1.18 mg/dl (0.6-1.4) 09/03/25 18:50 Est Cr Clr Drug Dosing 55.5 ml/min 09/03/25 18:50 eGFR 60.85 09/03/25 18:50 BUN/Creatinine Ratio 16.9 (10-20) 09/03/25 18:50 Glucose 170 mg/dl (70-99(Fasting)) H 09/03/25 18:50 Calcium 9.6 mg/dl (8.6-10.3) 09/03/25 18:50 Total Bilirubin 0.4 mg/dl (0.2-1.0) 09/03/25 18:50 AST 20 U/L (13-39) 09/03/25 18:50 ALT 20 U/L (7-52) 09/03/25 18:50 Alkaline Phosphatase 64 U/L (34-104) 09/03/25 18:50 Total Protein 6.2 gm/dl (6.0-8.3) 09/03/25 18:50 Albumin 3.7 gm/dl (3.4-5.0) 09/03/25 18:50 Globulin 2.5 gm/dl (2.5-4.0) 09/03/25 18:50 Albumin/Globulin Ratio 1.5 (0.9-2) 09/03/25 18:50 Lipase 42 U/L (11-82) 09/03/25 18:[address] 09/03/25 18:42 CT cervical spine without IV contrast History: Trauma Comparison: None Technique: Using multidetector thin collimation helical acquisition technique, axial, coronal and sagittal CT images through the cervical spine were obtained without intravenous contrast. Dose reduction techniques were achieved by using automatic exposure control and/or adjustment of mA and/or kV according to patient size and/or use of iterative reconstruction technique. Findings: The cervical vertebrae are normally aligned. Normal cervical lordosis. No acute fracture or subluxation. No prevertebral edema. Mild to moderate multilevel degenerative changes. No abnormality of the paraspinous soft tissues. Impression: No acute fracture or traumatic subluxation. Electronically signed by Howard Nettles 09-03-2025 7:[address] 09/03/25 18:42 CT head without contrast History: Trauma Comparison: None Technique: Using multidetector thin collimation helical acquisition technique, axial, coronal and sagittal CT images from the skull base to the vertex were obtained without intravenous contrast. Dose reduction techniques were achieved by using automatic exposure control and/or adjustment of mA and/or kV according to patient size and/or use of iterative reconstruction technique. Findings: No intracranial hemorrhage, mass-effect, or midline shift. The ventricles are proportionate to the cerebral sulci. The perez to white matter differentiation of the cerebral hemispheres is preserved. The basal cisterns are patent. There is moderate cerebral atrophy. Moderate, patchy low-attenuation changes in the white matter, most suggestive of sequelae of chronic small vessel ischemic disease. Right maxillary sinus opacification. Mastoid air cells are clear. Impression: No acute intracranial pathology. Electronically signed by Howard Nettles 09-03-2025 7:47 PM Code Status & VTE Plan Code Status Full code VTE Prophylaxis Plan VTE Prophylaxis will be ordered: Yes PG Care Time/CCT Total # of Minutes Spent Total Time Spent with Patient: Total time spent is greater than 50% in coordination of care (as documented) at patient's floor/unit and/or counseling patient: Coding Level of Care Code 65327 INT INP/OBS CARE 3/75MIN Diagnoses Fracture of humeral shaft, right, closed S42.301A Chronic anticoagulation Z79.01 Dementia F03.90 Acute deep vein thrombosis (DVT) of iliac vein of both lower extremities I82.423
--- NOTE | 2025-09-03 21:10 | XRay Report ---
INDICATION: Trauma TECHNIQUE: 2 views of the right shoulder were obtained. COMPARISON: None FINDINGS: Displaced and comminuted acute traumatic spiral fractures of the proximal shaft of the right humerus IMPRESSION: Displaced and comminuted acute traumatic spiral fractures of the proximal shaft of the right humerus Electronically signed by Demetrius Oshea 09-03-2025 9:10 PM
[2025-09-03] MEDS ORDERED: DEXTROSE 50% 50 ML SYRINGE IV PRN (22:38)
[2025-09-03] MEDS ORDERED: FLUTICASONE PROPIONATE NA SPR 16 GM BTL NAE PRN (22:38)
[2025-09-03] MEDS ORDERED: GLUCOSE 10 TAB/TUBE PO PRN (22:38)
[2025-09-03] MEDS ORDERED: CARBOHYDRATES FOR HYPOGLYCEMIA PO PRN (22:38)
[2025-09-03] MEDS ORDERED: GLUCOSE 40% GEL 15 GM TUBE PO PRN (22:38)
[2025-09-03] MEDS ORDERED: GLUCAGON FOR INJ 1 MG VIAL SQ PRN (22:38)
[2025-09-03] MEDS: PLASMA-LYTE A 1,000 ML IV SCH (22:45)
[2025-09-03] MEDS ORDERED: PHARMACY GLYCEMIC MGMT CONSULT PRN (22:51)
[2025-09-03] MEDS: INSULIN ASPART PER UNIT CHARGE SC SCH (23:07)
[2025-09-03] MEDS: LANTUS PER UNIT CHARGE SC SCH (23:07)
[2025-09-03] MEDS: DONEPEZIL HCL 5 MG TAB PO SCH (23:11)
[2025-09-03] MEDS: CYANOCOBALAMIN (B-12) 500 MCG TABLET PO SCH (23:11)
[2025-09-03] MEDS: FINASTERIDE 5 MG TAB PO SCH (23:11)
[2025-09-03] MEDS: TAMSULOSIN HCL 0.4 MG CAP PO SCH (23:12)
[2025-09-03] MEDS: HYDROmorphone INJ 0.5 MG/0.5 ML SYR IV PRN (23:23)
[2025-09-03] MEDS: LOSARTAN POTASSIUM 50 MG TAB PO SCH (23:28)
[2025-09-03] MEDS: CHOLECALCIFEROL 25 MCG (1000 UNITS) TAB PO SCH (23:29)
[2025-09-04] MEDS: INSULIN ASPART PER UNIT CHARGE SC SCH (03:10)
--- NOTE | 2025-09-04 07:52 | Orthopedic Consultation ---
Date of Service September 04, 2025 Assessment & Plan (1) Humeral fracture: 85-year-old gentleman admitted with a marked displaced comminuted proximal humerus fracture. He is on chronic anticoagulation. Got multiple medical comorbidities. This fracture is markedly displaced and would be difficult to manage without surgery. Plan: Patient has been admitted to the medicine service. Will get medically optimize him. Will hold his anticoagulation for now. The plan will be to fix this tomorrow afternoon. The treatment of the open reduction internal fixation. The risks met this procedure explained to the patient and his daughter who is his power of patent attorney. Informed consent was obtained. Leg use strict immobilization and ice for now. N.p.o. after midnight. Hold Eliquis. (2) Fall: (3) Chronic anticoagulation: (4) Blood glucose elevated: (5) Dementia: (6) Diabetes mellitus, type 2: (7) DVT (deep venous thrombosis): (8) Hypertension: History of Present Illness Reason for Consultation: . Right humerus fracture. Requesting Physician: . Attending Physician: Nellie Holman DO . The patient is an 85-year-old zeabi-udjg-yreozdbz gentleman with multiple medical comorbidities sustained mechanical fall yesterday. He lives by himself. Got some mild dementia. Sustained a fall. Acute onset of pain. Brought in the emergency room where x-ray revealed a displaced comminuted proximal humerus fracture. He has been admitted by the medicine service. Denies any other injuries. Allergies Allergy/AdvReac Type Severity Reaction Status Date / Time grass pollen Allergy runny, Verified 08/05/25 12:04 watery eyes mold Allergy runny, Verified 08/05/25 12:04 watery eyes ragweed pollen Allergy runny, Verified 08/05/25 12:04 watery eyes semaglutide [From Rybelsus] Allergy diarrhea, Verified 08/05/25 12:04 GERD Home Medications Medication Instructions Recorded Confirmed Type cholecalciferol (vitamin D3) 25 50 mcg PO PM 02/16/22 08/05/25 History mcg (1,000 unit) tablet (Vitamin D3) cyanocobalamin (vitamin B-12) 2,000 mcg PO PM 02/16/22 08/05/25 History 1,000 mcg tablet (Vitamin B-12) dutasteride 0.5 mg capsule 0.5 mg PO PM 02/16/22 08/05/25 History metoprolol succinate 25 mg 25 mg PO DAILY 10/27/24 08/05/25 History tablet,extended release 24 hr apixaban 5 mg tablet (Eliquis) See Rx Instructions .Route 11/11/24 08/05/25 Rx .COMPLEX #74 tabs metformin 1,000 mg 24 hr 1,000 mg PO BID #60 tabs 11/14/24 08/05/25 Rx tablet,extended release (gastric reten.) aspirin 81 mg chewable tablet 81 mg PO DAILY 03/11/25 08/05/25 History tamsulosin 0.4 mg capsule 0.4 mg PO DAILY #90 caps 03/19/25 08/05/25 Rx fluticasone propionate 50 2 spray intranasal DAILY PRN 05/11/25 08/05/25 History mcg/actuation nasal spray,suspension (Flonase Allergy Relief) losartan 50 mg tablet 50 mg PO QPM 05/11/25 08/05/25 History trazodone 50 mg tablet 100 mg PO HS 05/11/25 08/05/25 History pen needle, diabetic 32 gauge x #100 ea 05/19/25 08/05/25 Rx 5/32" donepezil 5 mg tablet 5 mg PO HS 06/02/25 08/05/25 History insulin degludec 200 unit/mL (3 100 unit (0.5 mL) subcut DAILY 30 06/17/25 08/05/25 Rx mL) subcutaneous pen (Tresiba days #15 mL FlexTouch U-200 insulin) insulin lispro 100 unit/mL 20 unit (0.2 mL) subcut BID #15 mL 06/29/25 08/05/25 Rx subcutaneous pen (Humalog KwikPen (U-100) Insulin) blood-glucose sensor (Dexcom G7 07/28/25 07/28/25 History Sensor device) Past Med/Surg History Problem List Blood glucose elevated (Acute) Humeral fracture (Acute) Fall (Acute) Chronic anticoagulation Fracture of humeral shaft, right, closed Dementia Urinary symptom or sign Acute deep vein thrombosis (DVT) of iliac vein of both lower extremities (Acute) Pancreatitis (Acute) Diabetes mellitus, type 2 Confusion DVT (deep venous thrombosis) Acute pancreatitis Elevated LFTs Sensorineural hearing loss (SNHL) of both ears Benign prostatic hyperplasia (BPH) with urinary urgency Discharge planning issues DVT prophylaxis Hypertension Transaminitis First degree AV block Elevated troponin ACS (acute coronary syndrome) Chest pain (Acute) Transitional cell carcinoma Asthma Allergic rhinitis BMI 30.0-30.9,adult Carotid artery plaque COPD (chronic obstructive pulmonary disease) Diabetes mellitus with renal complications Diverticulosis Dysmetabolic syndrome X Erectile dysfunction Mild mental slowing Mixed hyperlipidemia Plantar fasciitis of left foot Prostatism Sleep disorder Testosterone deficiency Vitamin B12 deficiency Weight disorder Bladder tumor Medical History Diverticulosis COPD (chronic obstructive pulmonary disease) pt denies Hyperlipidemia Asthma pt denies Tubular adenoma Polycythemia Right tennis elbow History of TIA (transient ischemic attack) 20 yrs ago > no residual effects > Aggrenox History of adenomatous polyp of colon Family hx of prostate cancer Family hx of colon cancer Surgical History History of colonoscopy History of tooth extraction History of cataract surgery bilat H/O vasectomy Family History Daughter Asthma Mother Bone cancer Breast cancer Father COPD (chronic obstructive pulmonary disease) Grandmother (Maternal) Colon cancer Grandfather (Maternal) Colon cancer Uncle Colon cancer Brother Pheochromocytoma Colonic polyp Prostate cancer Sleep apnea Son Sleep apnea Social History Smoking Status: Never smoker Second Hand Exposure: No; Do You Dip or Chew Tobacco: No; Hx Alcohol Use: No Hx Substance Use: No Preferred Language: Macedonian Communication Ability: Effective Ammunition Components Inspector Required: No Beliefs That Will Affect Care: None Current Living Situation: Alone Current Living Situation Comment: Lives at home alone Feels Safe at Home: Yes Safety Concerns: Feels Safe At This Time Assistive Devices: Glasses Review of Systems All systems reviewed & are unremarkable except as noted in HPI & below. Physical Exam . Physical examination was a pleasant elderly male. He is lying in bed in the somewhat a bit disheveled position. Examination of the right arm reveals the sling to be in place. He has got a diffusely swollen and somewhat deformed proximal arm area. Pretty significant swelling. He can flex extend his fingers and wrist appropriately. He is neurologically intact. Results & Data Results & Data Laboratory Results . Diagnostic Findings . X-rays of the humerus were reviewed. Shows a comminuted displaced proximal humerus fracture. 3 large pieces marked markedly displaced. PG Care Time/CCT Total # of Minutes Spent Total Time Spent with Patient: Total time spent is greater than 50% in coordination of care (as documented) at patient's floor/unit and/or counseling patient: Coding Level of Care Code 93320 IN/OBS CONSULT LVL 5,80M (58 - DECISION FOR SURGERY) Diagnoses Humeral fracture S42.309A Encounter type: initial encounter Fracture type: closed Fall W19.XXXA Encounter type: initial encounter Chronic anticoagulation Z79.01 Blood glucose elevated R73.9 Dementia F03.90 Diabetes mellitus, type 2 E11.9 DVT (deep venous thrombosis) I82.409 Hypertension I10 (1) Humeral fracture Encounter type: initial encounter Fracture type: closed (2) Fall Encounter type: initial encounter Qualified Code(s): W19.XXXA - Unspecified fall, initial encounter
[2025-09-04] MEDS: METOPROLOL SUCC 25MG EXT REL TAB PO SCH (08:40)
[2025-09-04] MEDS: HYDROmorphone INJ 0.5 MG/0.5 ML SYR IV PRN (08:44)
[2025-09-04 08:55] LABS: Hemoglobin A1C 7.3 % (4.5-5.6)
--- NOTE | 2025-09-04 10:40 | XCELERA ---
[id number]
[2025-09-04] MEDS: THIAMINE HCL 200 MG in SODIUM CHLORIDE 0.9% 50 ML IV SCH (11:55)
--- NOTE | 2025-09-04 13:09 | Hospitalist Progress Note ---
Date of Service September 04, 2025 Assessment & Plan (1) Fracture of humeral shaft, right, closed: (2) Chronic anticoagulation: (3) Dementia: (4) Acute deep vein thrombosis (DVT) of iliac vein of both lower extremities: Plan Florian Ramirez is an 85-year-old male with PMH dementia, sleep disorder, DVT of iliac veins bilaterally, pancreatitis, diabetes mellitus type 2, SNHL bilaterally, BPH with LUTS, hypertension, transitional cell carcinoma, COPD, testosterone deficiency, vitamin B12 deficiency, and bladder tumor. his live at home with his daughter; who is our physical therapist. at baseline, he's is dependent on his family for grooming, showering, brushing his teeth on 09/03, presented to our ED with fall episode at home, where he was reaching into the refrigerator to get something out. He lost his balance, fell onto his right shoulder, sustained immediate right shoulder pain and swelling and X-ray Right humerus fracture; orthopedic Dr. Anthony, requesting holding eliquis for 48 hours and plan for OR on Friday afternoon CT head and CT C-spine negative Fracture of right humeral shaft- N.p.o. after midnight Hold apixaban, last dose was the morning of 09/[address] Anthony plan for OR on 09/05/2025 afternoon plan for open reduction and internal fixation Morphine for pain control. Acetaminophen 650 mg by mouth every 6 hours as needed for mild pain or fever Dilaudid 0.25 mg IV every 3 hours as needed for moderate pain Dilaudid 0.5 mg IV every 3 hours as needed for severe pain Plasma-Lyte at 80 mL/h x 2 L Diabetes mellitus- Change insulin degludec 100 units at dinner to glargine 20 units at dinner Family reports that the patient has a tendency to run low Hold standing orders for NovoLog Place on Accu-Cheks with NovoLog SSI Hold metformin Pharmacy glycemic consult History of bilateral lower extremity DVT involving iliac veins- Hold Eliquis compression stocking at night. Hypertension, metoprolol succinate 25mg, losartan 50 mg every evening with hold parameters Dementia/insomnia- Continue donepezil, and trazodone he's replying on family for ADL, bathroom, grooming f/u on b12 level, he will benefit from DELON screening deposition: daughter requested placement to encompass BPH with LUTS- Continue tamsulosin 0.4 mg p.o. in the evening, and dutasteride or equivalent at bedtime as well Vitamin B12 deficiency-Continue 2000 mcg every evening Vitamin D deficiency-Continue cholecalciferol 50 mcg Admission and Anticipated Discharge Date Admission Date: September 03, 2025 Subjective patient has fall episode yesterday and found to has right humerus fracture Dr. Anthony (orthopedic), holding eliquis and plan for OR tomorrow afternoon given patient inability to use his right arm, daughter requested grayson to be placed been having memory issues since last year his daughter is a outpatient PT working with Carol Mcdermott stated patient now required assistance with bathroom, daily grooming in addition, patient has limited hydration at home, he's on IV Plasma-Lyte 80cc.hours Physical Exam Physical Exam: VITALS: Reviewed. WEIGHT/BMI reviewed. General: non-toxic appearing Neuro: inattentive; AAox3; no tremor; following command MSK: right shoulder immobilized -Head: NC/AT; NECK: large neck diameter CV: RRR, no m/r/g. LUNGS: CTAB, no w/r/c. ABD: Soft, NT/ND, NBS, no masses or organomegaly. SKIN: Warm, well perfused. No skin rashes or abnormal lesions. MSK: No deformities, Normal gait. EXT: No clubbing, cyanosis, or edema. Results & Data Results & Data Vital Signs (Past 12 Hours) Vital Signs Temp Pulse Pulse Resp BP Pulse Ox O2 Del Method 09/04/25 11:03 36.5 C 63 20 164/77 H 96 Nasal Cannula 09/04/25 08:24 95 Nasal Cannula 09/04/25 08:00 64 09/04/25 08:00 Nasal Cannula 09/04/25 07:17 36.7 C 67 18 155/65 H 90 Room Air 09/04/25 03:56 36.5 C 53 L 18 141/77 H 91 Room Air O2 Flow Rate 09/04/25 11:03 2 09/04/25 08:24 2 09/04/25 08:00 09/04/25 08:00 2 09/04/25 07:17 09/04/25 03:56 Laboratory Results Laboratory Results - last 72 hr 09/03/25 09/03/25 09/04/25 18:50 22:19 03:04 WBC 7.99 RBC 4.70 Hgb 13.9 L Hct 40.0 L MCV 85.1 MCH 29.6 MCHC 34.8 RDW Std Deviation 39.2 RDW Coeff of Damari 12.8 Plt Count 179 MPV 9.4 Immature Gran % (Auto) 0.6 Neut % (Auto) 66.4 Lymph % (Auto) 22.5 Mckinley % (Auto) 8.1 Eos % (Auto) 2.3 Baso % (Auto) 0.1 Neut # (Auto) 5.30 Lymph # (Auto) 1.80 Mckinley # (Auto) 0.65 H Eos # (Auto) 0.18 Baso # (Auto) 0.01 Immature Gran # (Auto) 0.05 Sodium 137 Potassium 4.2 Chloride 104 Carbon Dioxide 26 Anion Gap 7 BUN 20 Creatinine 1.18 Est Cr Clr Drug Dosing 55.5 eGFR 60.85 BUN/Creatinine Ratio 16.9 Glucose 170 H POC Glucose 191 H 206 H Estimat Average Glucose Hemoglobin A1c Calcium 9.6 Total Bilirubin 0.4 AST 20 ALT 20 Alkaline Phosphatase 64 Total Protein 6.2 Albumin 3.7 Globulin 2.5 Albumin/Globulin Ratio 1.5 Lipase 42 Blood Type Antibody Screen 09/04/25 08:28 WBC RBC Hgb Hct MCV MCH MCHC RDW Std Deviation RDW Coeff of Damari Plt Count MPV Immature Gran % (Auto) Neut % (Auto) Lymph % (Auto) Mckinley % (Auto) Eos % (Auto) Baso % (Auto) Neut # (Auto) Lymph # (Auto) Mckinley # (Auto) Eos # (Auto) Baso # (Auto) Immature Gran # (Auto) Sodium Potassium Chloride Carbon Dioxide Anion Gap BUN Creatinine Est Cr Clr Drug Dosing eGFR BUN/Creatinine Ratio Glucose POC Glucose Estimat Average Glucose 163 Hemoglobin A1c 7.3 H Calcium Total Bilirubin AST ALT Alkaline Phosphatase Total Protein Albumin Globulin Albumin/Globulin Ratio Lipase Blood Type A Negative Antibody Screen NEGATIVE Medications Administered Current Inpatient Medications Acetaminophen (Acetaminophen 325 Mg Tab) 650 mg PO Q4H PRN PRN Reason: Pain or Fever Stop: 10/03/25 22:37 Cyanocobalamin (Cyanocobalamin (B-12) 500 Mcg Tablet) 2,000 mcg PO PM SKYLER Stop: 10/03/25 22:37 Last Admin: 09/03/25 23:11 Dose: Not Given Dextrose (Dextrose 50% 50 Ml Syringe) 25 - 50 ml IV UD PRN; Protocol PRN Reason: Hypoglycemia Protocol Stop: 10/03/25 22:37 Donepezil HCl (Donepezil Hcl 5 Mg Tab) 5 mg PO HS SKYLER Stop: 10/03/25 22:37 Last Admin: 09/03/25 23:11 Dose: Not Given Finasteride (Finasteride 5 Mg Tab) 5 mg PO PM SKYLER Stop: 10/03/25 22:37 Last Admin: 09/03/25 23:11 Dose: Not Given Fluticasone Propionate (Fluticasone Propionate Na Spr 16 Gm Btl) 2 sprays JENNA DAILY PRN PRN Reason: Allergy Symptoms Stop: 10/03/25 22:37 Glucagon (Glucagon For Inj 1 Mg Vial) 1 mg SQ UD PRN; Protocol PRN Reason: Hypoglycemia Protocol Stop: 10/03/25 22:37 Glucose (Glucose 40% Gel 15 Gm Tube) 15 - 30 gm PO UD PRN; Protocol PRN Reason: Hypoglycemia Protocol Stop: 10/03/25 22:37 Glucose (Glucose 10 Tab/Tube) 4 - 8 tab PO UD PRN; Protocol PRN Reason: Hypoglycemia Protocol Stop: 10/03/25 22:37 Hydromorphone HCl (Hydromorphone Inj 0.5 Mg/0.5 Ml Syr) 0.25 mg IV Q3H PRN PRN Reason: Moderate Pain (Scale 4, 5, 6) Stop: 09/17/25 20:36 Last Admin: 09/04/25 11:55 Dose: 0.25 mg Hydromorphone HCl (Hydromorphone Inj 0.5 Mg/0.5 Ml Syr) 0.5 mg IV Q3H PRN PRN Reason: Severe Pain (Scale 7, 8, 9,10) Stop: 09/17/25 20:36 Last Admin: 09/04/25 05:51 Dose: 0.5 mg Parenteral Electrolytes (Plasma-Lyte A Ph 7.4) 1,000 mls @ 80 mls/hr IV .Q12H3 0M [facility] Stop: 09/04/25 21:44 Last Admin: 09/04/25 09:45 Dose: 80 mls/hr Thiamine HCl 200 mg/ Sodium (Chloride) 52 mls @ 210 mls/hr IV QAM [facility] Stop: 10/04/25 10:44 Last Infusion: 09/04/25 12:10 Dose: Infused Insulin Aspart (Insulin Aspart Per Unit Charge) 0 units SC Q6 SKYLER Stop: 10/03/25 22:59 Last Admin: 09/04/25 13:00 Dose: 6 units Insulin Glargine (Lantus Per Unit Charge) 20 units SC QDD SKYLER Stop: 10/03/25 22:59 Last Admin: 09/03/25 23:07 Dose: 20 units Losartan Potassium (Losartan Potassium 50 Mg Tab) 50 mg PO QPM SKYLER Stop: 10/03/25 22:37 Last Admin: 09/03/25 23:28 Dose: 50 mg Metoprolol Succinate (Metoprolol Succ 25mg Ext Rel Tab) 25 mg PO QAM SKYLER Stop: 10/04/25 08:59 Last Admin: 09/04/25 08:40 Dose: 25 mg Miscellaneous (Carbohydrates For Hypoglycemia ) 15 - 30 gm PO UD PRN PRN Reason: Hypoglycemia Protocol Stop: 10/03/25 22:37 Miscellaneous Information (Pharmacy Glycemic Mgmt Consult) 1 each N/A UD PRN PRN Reason: Consult Stop: 10/03/25 22:50 Naloxone HCl (Naloxone Hcl 0.4 Mg/1 Ml Vial/Carp) 0.1 mg IV Q5M PRN PRN Reason: Oversedation/Resp Depression Stop: 10/03/25 20:36 Ondansetron HCl (Ondansetron Inj 2 Mg/Ml 2 Ml Vial) 4 mg IV Q6H PRN PRN Reason: Nausea Stop: 10/03/25 22:37 Tamsulosin HCl (Tamsulosin Hcl 0.4 Mg Cap) 0.4 mg PO HS [facility] Stop: 10/03/25 22:37 Last Admin: 09/03/25 23:12 Dose: Not Given Vitamin D (Cholecalciferol 25 Mcg (1000 Units) Tab) 50 mcg PO PM SKYLER Stop: 10/03/25 22:37 Last Admin: 09/03/25 23:29 Dose: 50 mcg PG Care Time/CCT Total # of Minutes Spent Total Time Spent with Patient: Total time spent is greater than 50% in coordination of care (as documented) at patient's floor/unit and/or counseling patient: Coding Level of Care Code 48767 SUB INP/OBS CARE 2/35MIN Diagnoses Fracture of humeral shaft, right, closed S42.301A Chronic anticoagulation Z79.01 Dementia F03.90 Acute deep vein thrombosis (DVT) of iliac vein of both lower extremities I82.423 Time Spent (min) 30
[2025-09-04] MEDS: LANTUS PER UNIT CHARGE SC SCH (16:35)
[2025-09-04] MEDS: HYDROmorphone INJ 0.5 MG/0.5 ML SYR IV STA (21:04)
[2025-09-04] MEDS: ACETAMINOPHEN 325 MG TAB PO PRN (21:09)
[2025-09-04] MEDS ORDERED: Nursing to Pharmacy Communication SCH (21:30)
[2025-09-04] MEDS: INSULIN ASPART PER UNIT CHARGE SC ONE (22:31)
[2025-09-04] MEDS: ONDANSETRON INJ 2 MG/ML 2 ML VIAL IV PRN (23:15)
[2025-09-05] MEDS ORDERED: INSULIN ASPART PER UNIT CHARGE SC SCH
[2025-09-05 07:42] LABS: Hematocrit (blood only) 33.7 % (42.0-52.0); Hemoglobin 11.7 g/dl (14.0-18.0); Mean Corpuscular Hemoglobin 30.2 pg (25.0-34.0); Mean Corpuscular Volume 86.9 fL (80.0-100.0); Platelet Count 167 K/uL (130-400); RDW Standard Deviation 41.1 fL (36.4-46.3); Red Blood Count 3.88 M/uL (4.70-6.10); White Blood Count 8.40 K/ul (4.8-10.8)
--- NOTE | 2025-09-05 07:52 | Orthopedic Progress Note ---
Date of Service September 05, 2025 Assessment & Plan (1) Fracture of humeral shaft, right, closed: * Continue Current Treatment * Plan for OR today with Dr Anthony * Maintain NPO * Weight bearing status: NWB RUE * Pain control * DVT prophylaxis per primary team * Disposition: TBD * Remainder care per primary team Subjective . Active Problems: R proximal humerus fx 85 y/o male with right proximal humerus fracture. Plan for ORIF later today. Pain present but managed. Denies fever/chills, chest pain/SOB, nausea/vomiting. Otherwise no complaints. Review of Systems All systems reviewed & are unremarkable except as noted in HPI & below. Physical Exam . * General: Alert and oriented, no acute distress * Constitutional: well-developed, well-nourished. * Respiratory: Normal respiratory effort, no distress * Gastrointestinal: No tenderness to palpation, no rigidity or guarding. * Skin: No rash or lesion. * Neurologic: Grossly normal * Musculoskeletal: Sling in place. Soft tissue swelling to right upper arm and shoulder region. Diffuse TTP proximal humerus. ROM shoulder not assessed. AROM elbow, wrist, hand intact. Sensation intact radial/median/ulnar nerve distributions. Brisk capillary refill. Results & Data Results & Data Laboratory Results . Diagnostic Findings . PG Care Time/CCT Total # of Minutes Spent Total Time Spent with Patient: Total time spent is greater than 50% in coordination of care (as documented) at patient's floor/unit and/or counseling patient: Coding Level of Care Code 55331 SUB INP/OBS CARE 12/04MIN Diagnoses Fracture of humeral shaft, right, closed S42.301A
[2025-09-05 08:11] LABS: Thyroid Stimulating Hormone 3.102 uIu/ml (0.300-4.500)
--- NOTE | 2025-09-05 08:13 | Anesthesiology Consultation ---
Date of Service September 05, 2025 Assessment & Plan Chart Review Chart Review: Acceptable Risk for Surgery and Patient NOT seen in Pre Admission Testing History Surgery Operation Date: 09/05/25 08:20 Proposed Procedures p Right Humerus Open Reduction Internal Fixation - Omega Anthony MD Height/Weight Height: 5 ft 9 in Weight: 104 kg Allergies Allergy/AdvReac Type Severity Reaction Status Date / Time grass pollen Allergy runny, Verified 08/05/25 12:04 watery eyes mold Allergy runny, Verified 08/05/25 12:04 watery eyes ragweed pollen Allergy runny, Verified 08/05/25 12:04 watery eyes semaglutide [From Rybelsus] Allergy diarrhea, Verified 08/05/25 12:04 GERD Medications Home Medications Medication Instructions Recorded Confirmed Last Taken cholecalciferol (vitamin D3) 25 50 mcg PO PM 02/16/22 08/05/25 04/01/22 20:00 mcg (1,000 unit) tablet (Vitamin D3) cyanocobalamin (vitamin B-12) 2,000 mcg PO PM 02/16/22 08/05/25 04/01/22 20:00 1,000 mcg tablet (Vitamin B-12) dutasteride 0.5 mg capsule 0.5 mg PO PM 02/16/22 08/05/25 04/01/22 20:00 metoprolol succinate 25 mg 25 mg PO DAILY 10/27/24 08/05/25 Unknown tablet,extended release 24 hr apixaban 5 mg tablet (Eliquis) See Rx Instructions .Route 11/11/24 08/05/25 Unknown .COMPLEX #74 tabs metformin 1,000 mg 24 hr 1,000 mg PO BID #60 tabs 11/14/24 08/05/25 Unknown tablet,extended release (gastric reten.) aspirin 81 mg chewable tablet 81 mg PO DAILY 03/11/25 08/05/25 Unknown tamsulosin 0.4 mg capsule 0.4 mg PO DAILY #90 caps 03/19/25 08/05/25 Unknown fluticasone propionate 50 2 spray intranasal DAILY PRN 05/11/25 08/05/25 Unknown mcg/actuation nasal spray,suspension (Flonase Allergy Relief) losartan 50 mg tablet 50 mg PO QPM 05/11/25 08/05/25 Unknown trazodone 50 mg tablet 100 mg PO HS 05/11/25 08/05/25 Unknown pen needle, diabetic 32 gauge x #100 ea 05/19/25 08/05/25 Unknown " donepezil 5 mg tablet 5 mg PO HS 06/02/25 08/05/25 Unknown insulin degludec 200 unit/mL (3 100 unit (0.5 mL) subcut DAILY 30 06/17/25 08/05/25 Unknown mL) subcutaneous pen (Tresiba days #15 mL FlexTouch U-200 insulin) insulin lispro 100 unit/mL 20 unit (0.2 mL) subcut BID #15 mL 06/29/25 08/05/25 Unknown subcutaneous pen (Humalog KwikPen (U-100) Insulin) blood-glucose sensor (Dexcom G7 07/28/25 07/28/25 Unknown Sensor device) Active Medications Generic Name Dose Route Start Last Admin Trade Name Freq PRN Reason Stop Dose Admin Acetaminophen 650 mg 09/03/25 22:38 09/05/25 06:23 Acetaminophen 325 Mg Tab PO 10/03/25 22:37 650 mg Q4H PRN Administration Pain or Fever Cyanocobalamin 2,000 mcg 09/03/25 22:38 09/04/25 21:08 Cyanocobalamin (B-12) 500 Mcg Tablet PO 10/03/25 22:37 2,000 mcg PM SKYLER Administration Donepezil HCl 5 mg 09/03/25 22:38 09/04/25 21:09 Donepezil Hcl 5 Mg Tab PO 10/03/25 22:37 5 mg HS SKYLER Administration Finasteride 5 mg 09/03/25 22:38 09/04/25 21:09 Finasteride 5 Mg Tab PO 10/03/25 22:37 5 mg PM SKYLER Administration Hydromorphone HCl 0.25 mg 09/03/25 20:37 09/04/25 15:36 Hydromorphone Inj 0.5 Mg/0.5 Ml Syr IV 09/17/25 20:36 0.25 mg Q3H PRN Administration Moderate Pain (Scale 4, 5, 6) Hydromorphone HCl 0.5 mg 09/03/25 20:37 09/05/25 07:37 Hydromorphone Inj 0.5 Mg/0.5 Ml Syr IV 09/17/25 20:36 0.5 mg Q3H PRN Administration Severe Pain (Scale 7, 8, 9,10) Thiamine HCl 200 mg/ Sodium 52 mls @ 210 mls/hr 09/04/25 10:45 09/04/25 12:10 Chloride IV 10/04/25 10:44 Infused QAM SKYLER Infusion Insulin Aspart 0 units 09/03/25 23:00 09/05/25 05:45 Insulin Aspart Per Unit Charge SC 10/03/25 22:59 Not Given Q6 SKYLER Insulin Glargine 0 units 09/04/25 16:30 09/04/25 16:35 Lantus Per Unit Charge SC 10/04/25 16:29 30 units QDD SKYLER Administration Protocol Losartan Potassium 50 mg 09/03/25 22:38 09/04/25 21:14 Losartan Potassium 50 Mg Tab PO 10/03/25 22:37 50 mg QPM SKYLER Administration Metoprolol Succinate 25 mg 09/04/25 09:00 09/04/25 08:40 Metoprolol Succ 25mg Ext Rel Tab PO 10/04/25 08:59 25 mg QAM SKYLER Administration Ondansetron HCl 4 mg 09/03/25 22:38 09/04/25 23:15 Ondansetron Inj 2 Mg/Ml 2 Ml Vial IV 10/03/25 22:37 4 mg Q6H PRN Administration Nausea Tamsulosin HCl 0.4 mg 09/03/25 22:38 09/04/25 21:08 Tamsulosin Hcl 0.4 Mg Cap PO 10/03/25 22:37 0.4 mg HS SKYLER Administration Vitamin D 50 mcg 09/03/25 22:38 09/04/25 21:11 Cholecalciferol 25 Mcg (1000 Units) Tab PO 10/03/25 22:37 50 mcg PM SKYLER Administration NPO Date Last Intake of Fluids: 09/04/25 Time Last Intake of Fluids: 23:59 Date Last Intake of Solids: 09/04/25 Time Last Intake of Solids: 20:00 Past Medical History Medical History Diverticulosis COPD (chronic obstructive pulmonary disease) pt denies Hyperlipidemia Asthma pt denies Tubular adenoma Polycythemia Right tennis elbow History of TIA (transient ischemic attack) 20 yrs ago > no residual effects > Aggrenox History of adenomatous polyp of colon Family hx of prostate cancer Family hx of colon cancer Past Family History Family History Daughter Asthma Mother Bone cancer Breast cancer Father COPD (chronic obstructive pulmonary disease) Grandmother (Maternal) Colon cancer Grandfather (Maternal) Colon cancer Uncle Colon cancer Brother Pheochromocytoma Colonic polyp Prostate cancer Sleep apnea Son Sleep apnea Past Surgical History Surgical History History of colonoscopy History of tooth extraction History of cataract surgery bilat H/O vasectomy Social History Smoking Status: Never smoker Do You Dip or Chew Tobacco: No Hx Alcohol Use: No Hx Substance Use: No substance use type: does not use Physical Exam Vital Signs Last Vital Signs Temp 36.7 C 09/05/25 07:38 Pulse 74 09/05/25 07:38 Resp 17 09/05/25 07:38 BP 132/70 09/05/25 07:38 Pulse Ox 90 09/05/25 07:38 O2 Del Method Room Air 09/05/25 07:38 O2 Flow Rate 2 09/04/25 11:03 Testing Laboratory Results 09/05/25 07:18 Hemoglobin A1c 7.3 % (4.5-5.6) H 09/04/25 08:28 Blood Type A Negative 09/04/25 08:28 Antibody Screen NEGATIVE 09/04/25 08:28 09/05/25 09/04/25 05:42 21:16 POC Glucose 149 H 181 H
--- NOTE | 2025-09-05 10:27 | Hospitalist Progress Note ---
Date of Service September 05, 2025 Assessment & Plan (1) Fracture of humeral shaft, right, closed: (2) Chronic anticoagulation: (3) Dementia: (4) Acute deep vein thrombosis (DVT) of iliac vein of both lower extremities: Plan Florian Ramirez is an 85-year-old male with PMH dementia, sleep disorder, DVT of iliac veins bilaterally, pancreatitis, diabetes mellitus type 2, SNHL bilaterally, BPH with LUTS, hypertension, transitional cell carcinoma, COPD, testosterone deficiency, vitamin B12 deficiency, and bladder tumor. his live at home with his daughter; who works as physical therapist. on 09/03, presented to our ED with fall episode, where he was reaching into the refrigerator, he lost his balance, fell onto his right shoulder, sustained immediate right shoulder pain and swelling and X-ray Right humerus fracture; orthopedic Dr. Anthony, requesting holding eliquis for 48 hours and plan for OR on Friday afternoon family requested placement to encompass. CT head and CT C-spine negative overall plan for Friday ORIF with Dr. Anthony, appreciate range of motion restriction by orthiopedic then appreciate ortho input about when to resume eliquis monitor for glucose level overnight daughter defer appreciate eval for micoaspiration, risk of choking, , lung infection explained bladder scan. may allow for short term grayson if ongoing problem with urination. Fracture of right humeral shaft- N.p.o. since last night Hold apixaban, last dose was the morning of 09/[address] Anthony plan for OR (ORIF) on 09/05/2025 Morphine for pain control. Acetaminophen 650 mg by mouth every 6 hours as needed for mild pain or fever Dilaudid 0.25 mg IV every 3 hours as needed for moderate pain Dilaudid 0.5 mg IV every 3 hours as needed for severe pain Plasma-Lyte at 80 mL/h x 2 L Diabetes mellitus- Change insulin degludec 100 units at dinner to glargine 20 units at dinner Family reports that the patient has a tendency to run low Hold standing orders for NovoLog Place on Accu-Cheks with NovoLog SSI Hold metformin Pharmacy glycemic consult History of bilateral lower extremity DVT involving iliac veins- Hold Eliquis compression stocking at night. Hypertension, metoprolol succinate 25mg, losartan 50 mg every evening with hold parameters Dementia/insomnia- Continue donepezil, and trazodone family assisting with ADL, bathing, grooming f/u on b12 level, he will benefit from DELON screening deposition: daughter requested placement to encompass BPH with LUTS- Continue tamsulosin 0.4 mg p.o. in the evening, and dutasteride or equivalent at bedtime as well Vitamin B12 deficiency-Continue 2000 mcg every evening Vitamin D deficiency-Continue cholecalciferol 50 mcg Admission and Anticipated Discharge Date Admission Date: September 03, 2025 Subjective plan for OR today; for right humerus fracture repair by Dr. Anthony has grayson inserted yesterday large post void volume, he's on IV plasma-lyte as family concern about him not having adequate oral hydratoin in addition, we discussed about screening for silent aspiration with speech pathologist however, daughter, who is our Physical therapist, defer speech evaluation plan for monitor for glucose level over next 24-48 hours level and pain control daughter requested placement to encompass. patient has fall episode yesterday and found to has right humerus fracture Dr. Anthony (orthopedic), holding eliquis and plan for OR tomorrow afternoon given patient inability to use his right arm, daughter requested grayson to be placed been having memory issues since last year family stated patient now required assistance with bathing, daily grooming Physical Exam 2 Physical Exam: VITALS: Reviewed. WEIGHT/BMI reviewed. GEN: Healthy appearing, well-developed, NAD. HEENT -Head: NC/AT; -Mouth and throat: MMM. Normal gums, muc delon, palate,. Good dentition. NECK: Supple, with no masses. CV: RRR, no m/r/g. LUNGS: CTAB, no w/r/c. ABD: Soft, NT/ND, NBS, no masses or organomegaly. SKIN: Warm, well perfused. No skin rashes or abnormal lesions. MSK: right upper extremity immobilized. Results & Data Results & Data Vital Signs (Past 12 Hours) Vital Signs Temp Pulse Resp BP Pulse Ox O2 Del Method 09/05/25 08:00 Room Air 09/05/25 07:38 36.7 C 74 17 132/70 90 Room Air 09/04/25 22:59 36.6 C 68 18 168/75 H 91 Room Air Laboratory Results Laboratory Results - last 72 hr 09/03/25 09/03/25 09/04/25 18:50 22:19 03:04 WBC 7.99 RBC 4.70 Hgb 13.9 L Hct 40.0 L MCV 85.1 MCH 29.6 MCHC 34.8 RDW Std Deviation 39.2 RDW Coeff of Damari 12.8 Plt Count 179 MPV 9.4 Immature Gran % (Auto) 0.6 Neut % (Auto) 66.4 Lymph % (Auto) 22.5 Divide % (Auto) 8.1 Eos % (Auto) 2.3 Baso % (Auto) 0.1 Neut # (Auto) 5.30 Lymph # (Auto) 1.80 Divide # (Auto) 0.65 H Eos # (Auto) 0.18 Baso # (Auto) 0.01 Immature Gran # (Auto) 0.05 Sodium 137 Potassium 4.2 Chloride 104 Carbon Dioxide 26 Anion Gap 7 BUN 20 Creatinine 1.18 Est Cr Clr Drug Dosing 55.5 eGFR 60.85 BUN/Creatinine Ratio 16.9 Glucose 170 H POC Glucose 191 H 206 H Estimat Average Glucose Hemoglobin A1c Calcium 9.6 Total Bilirubin 0.4 AST 20 ALT 20 Alkaline Phosphatase 64 Total Protein 6.2 Albumin 3.7 Globulin 2.5 Albumin/Globulin Ratio 1.5 Lipase 42 Vitamin B12 TSH Cortisol AM Sample Blood Type Antibody Screen 09/04/25 09/04/25 09/04/25 05:51 07:44 08:28 WBC RBC Hgb Hct MCV MCH MCHC RDW Std Deviation RDW Coeff of Damari Plt Count MPV Immature Gran % (Auto) Neut % (Auto) Lymph % (Auto) Divide % (Auto) Eos % (Auto) Baso % (Auto) Neut # (Auto) Lymph # (Auto) Divide # (Auto) Eos # (Auto) Baso # (Auto) Immature Gran # (Auto) Sodium Potassium Chloride Carbon Dioxide Anion Gap BUN Creatinine Est Cr Clr Drug Dosing eGFR BUN/Creatinine Ratio Glucose POC Glucose 188 H 155 H Estimat Average Glucose 163 Hemoglobin A1c 7.3 H Calcium Total Bilirubin AST ALT Alkaline Phosphatase Total Protein Albumin Globulin Albumin/Globulin Ratio Lipase Vitamin B12 TSH Cortisol AM Sample Blood Type A Negative Antibody Screen NEGATIVE 09/04/25 09/04/25 09/04/25 11:28 16:19 21:16 WBC RBC Hgb Hct MCV MCH MCHC RDW Std Deviation RDW Coeff of Damari Plt Count MPV Immature Gran % (Auto) Neut % (Auto) Lymph % (Auto) Divide % (Auto) Eos % (Auto) Baso % (Auto) Neut # (Auto) Lymph # (Auto) Divide # (Auto) Eos # (Auto) Baso # (Auto) Immature Gran # (Auto) Sodium Potassium Chloride Carbon Dioxide Anion Gap BUN Creatinine Est Cr Clr Drug Dosing eGFR BUN/Creatinine Ratio Glucose POC Glucose 151 H 196 H 181 H Estimat Average Glucose Hemoglobin A1c Calcium Total Bilirubin AST ALT Alkaline Phosphatase Total Protein Albumin Globulin Albumin/Globulin Ratio Lipase Vitamin B12 TSH Cortisol AM Sample Blood Type Antibody Screen 09/05/25 09/05/25 05:42 07:18 WBC 8.40 RBC 3.88 L Hgb 11.7 L Hct 33.7 L MCV 86.9 MCH 30.2 MCHC 34.7 RDW Std Deviation 41.1 RDW Coeff of Damari 13.0 Plt Count 167 MPV 9.2 L Immature Gran % (Auto) Neut % (Auto) Lymph % (Auto) Divide % (Auto) Eos % (Auto) Baso % (Auto) Neut # (Auto) Lymph # (Auto) Divide # (Auto) Eos # (Auto) Baso # (Auto) Immature Gran # (Auto) Sodium Potassium Chloride Carbon Dioxide Anion Gap BUN Creatinine Est Cr Clr Drug Dosing eGFR BUN/Creatinine Ratio Glucose POC Glucose 149 H Estimat Average Glucose Hemoglobin A1c Calcium Total Bilirubin AST ALT Alkaline Phosphatase Total Protein Albumin Globulin Albumin/Globulin Ratio Lipase Vitamin B12 > 1500 H TSH 3.102 Cortisol AM Sample 7.90 Blood Type Antibody Screen Diagnostic Findings Laboratory Results WBC 8.40 K/ul (4.8-10.8) 09/05/25 07:18 RBC 3.88 M/uL (4.70-6.10) L 09/05/25 07:18 Hgb 11.7 g/dl (14.0-18.0) L 09/05/25 07:18 Hct 33.7 % (42.0-52.0) L 09/05/25 07:18 MCV 86.9 fL (80.0-100.0) 09/05/25 07:18 MCH 30.2 pg (25.0-34.0) 09/05/25 07:18 MCHC 34.7 g/dL (32.0-36.0) 09/05/25 07:18 RDW Std Deviation 41.1 fL (36.4-46.3) 09/05/25 07:18 RDW Coeff of Damari 13.0 % (11.5-14.5) 09/05/25 07:18 Plt Count 167 K/uL (130-400) 09/05/25 07:18 MPV 9.2 fL (9.4-12.4) L 09/05/25 07:18 Immature Gran % (Auto) 0.6 % 09/03/25 18:50 Neut % (Auto) 66.4 % 09/03/25 18:50 Lymph % (Auto) 22.5 % 09/03/25 18:50 Divide % (Auto) 8.1 % 09/03/25 18:50 Eos % (Auto) 2.3 % 09/03/25 18:50 Baso % (Auto) 0.1 % 09/03/25 18:50 Neut # (Auto) 5.30 K/uL (1.40-6.50) 09/03/25 18:50 Lymph # (Auto) 1.80 K/uL (1.20-3.40) 09/03/25 18:50 Divide # (Auto) 0.65 K/uL (0.11-0.59) H 09/03/25 18:50 Eos # (Auto) 0.18 K/uL (0.00-0.50) 09/03/25 18:50 Baso # (Auto) 0.01 K/uL (0.00-0.20) 09/03/25 18:50 Immature Gran # (Auto) 0.05 K/uL (0.01-0.20) 09/03/25 18:50 Sodium 137 mmol/L (136-145) 09/03/25 18:50 Potassium 4.2 mmol/L (3.5-5.1) 09/03/25 18:50 Chloride 104 mmol/L (98-107) 09/03/25 18:50 Carbon Dioxide 26 mmol/L (21-32) 09/03/25 18:50 Anion Gap 7 (3-11) 09/03/25 18:50 BUN 20 mg/dl (6-23) 09/03/25 18:50 Creatinine 1.18 mg/dl (0.6-1.4) 09/03/25 18:50 Est Cr Clr Drug Dosing 55.5 ml/min 09/03/25 18:50 eGFR 60.85 09/03/25 18:50 BUN/Creatinine Ratio 16.9 (10-20) 09/03/25 18:50 Glucose 170 mg/dl (70-99(Fasting)) H 09/03/25 18:50 POC Glucose 149 mg/dl (70-99) H 09/05/25 05:42 Estimat Average Glucose 163 mg/dl 09/04/25 08:28 Hemoglobin A1c 7.3 % (4.5-5.6) H 09/04/25 08:28 Calcium 9.6 mg/dl (8.6-10.3) 09/03/25 18:50 Total Bilirubin 0.4 mg/dl (0.2-1.0) 09/03/25 18:50 AST 20 U/L (13-39) 09/03/25 18:50 ALT 20 U/L (7-52) 09/03/25 18:50 Alkaline Phosphatase 64 U/L (34-104) 09/03/25 18:50 Total Protein 6.2 gm/dl (6.0-8.3) 09/03/25 18:50 Albumin 3.7 gm/dl (3.4-5.0) 09/03/25 18:50 Globulin 2.5 gm/dl (2.5-4.0) 09/03/25 18:50 Albumin/Globulin Ratio 1.5 (0.9-2) 09/03/25 18:50 Lipase 42 U/L (11-82) 09/03/25 18:50 Vitamin B12 > 1500 pg/ml (180-914) H 09/05/25 07:18 TSH 3.102 uIu/ml (0.300-4.500) 09/05/25 07:18 Cortisol AM Sample 7.90 mcg/dl (6.2-22.6) 09/05/25 07:18 Blood Type A Negative 09/04/25 08:28 Antibody Screen NEGATIVE 09/04/25 08:[address] 09/03/25 18:42 CT cervical spine without IV contrast History: Trauma Comparison: None Technique: Using multidetector thin collimation helical acquisition technique, axial, coronal and sagittal CT images through the cervical spine were obtained without intravenous contrast. Dose reduction techniques were achieved by using automatic exposure control and/or adjustment of mA and/or kV according to patient size and/or use of iterative reconstruction technique. Findings: The cervical vertebrae are normally aligned. Normal cervical lordosis. No acute fracture or subluxation. No prevertebral edema. Mild to moderate multilevel degenerative changes. No abnormality of the paraspinous soft tissues. Impression: No acute fracture or traumatic subluxation. Electronically signed by Howard Nettles 09-03-2025 7:[address] 09/03/25 18:42 CT head without contrast History: Trauma Comparison: None Technique: Using multidetector thin collimation helical acquisition technique, axial, coronal and sagittal CT images from the skull base to the vertex were obtained without intravenous contrast. Dose reduction techniques were achieved by using automatic exposure control and/or adjustment of mA and/or kV according to patient size and/or use of iterative reconstruction technique. Findings: No intracranial hemorrhage, mass-effect, or midline shift. The ventricles are proportionate to the cerebral sulci. The perez to white matter differentiation of the cerebral hemispheres is preserved. The basal cisterns are patent. There is moderate cerebral atrophy. Moderate, patchy low-attenuation changes in the white matter, most suggestive of sequelae of chronic small vessel ischemic disease. Right maxillary sinus opacification. Mastoid air cells are clear. Impression: No acute intracranial pathology. Electronically signed by Howard Nettles 09-03-2025 7:47 PM Shoulder X-Ray 09/03/25 18:42 INDICATION: Trauma TECHNIQUE: 2 views of the right shoulder were obtained. COMPARISON: None FINDINGS: Displaced and comminuted acute traumatic spiral fractures of the proximal shaft of the right humerus IMPRESSION: Displaced and comminuted acute traumatic spiral fractures of the proximal shaft of the right humerus Electronically signed by Demetrius Oshea 09-03-2025 9:10 PM PG Care Time/CCT Total # of Minutes Spent Total Time Spent with Patient: Total time spent is greater than 50% in coordination of care (as documented) at patient's floor/unit and/or counseling patient: Coding Level of Care Code 23411 SUB INP/OBS CARE 12/04MIN Diagnoses Fracture of humeral shaft, right, closed S42.301A Chronic anticoagulation Z79.01 Dementia F03.90 Acute deep vein thrombosis (DVT) of iliac vein of both lower extremities I82.423 Time Spent (min) 18
[2025-09-05] MEDS ORDERED: LIDOCAINE 2% 2 ML VIAL/AMP(20MG/ML) INFIL ONE (11:34)
[2025-09-05] MEDS ORDERED: ONDANSETRON INJ 2 MG/ML 2 ML VIAL ONE (11:34)
[2025-09-05] MEDS ORDERED: DEXAMETHASONE SOD INJ 4 MG/ML VIAL ONE (11:34)
[2025-09-05] MEDS ORDERED: ROCURONIUM BROMIDE 10 MG/ML 5 ML VIAL IV ONE (11:35)
[2025-09-05] MEDS ORDERED: PROPOFOL IV EMULSION 10 MG/ML 20 ML VIAL IV ONE (11:35)
[2025-09-05] MEDS ORDERED: KETAMINE HCL 10MG/ML SYR ONE (11:35)
[2025-09-05] MEDS ORDERED: GLYCOPYRROLATE 0.2 MG/ML VIAL ONE (11:35)
[2025-09-05] MEDS ORDERED: MIDAZOLAM HCL 1 MG/ML 2ML VIAL ONE (12:34)
[2025-09-05] MEDS: TRANEXAMIC ACID / 0.7% NACL 1,000 MG/100 ML BAG IV ONE (12:35)
[2025-09-05] MEDS: LACTATED RINGER'S 1,000 ML IV SCH ×2 (12:35→16:03)
[2025-09-05] MEDS ORDERED: BUPIVACAINE 0.5 % 5 MG/1 ML PF 10ML VIAL ONE (12:41)
--- NOTE | 2025-09-05 12:41 | History & Physical Bridge Note ---
Date of Service September 05, 2025 History & Physical Bridge Note I have examined the patient, reviewed the History & Physical and in the interval since the performance of the History & Physical I have noted the following changes of clinical significance: no changes noted
[2025-09-05] MEDS: TRANEXAMIC ACID / 0.7% NACL 1000MG/100ML BAG IV ONE (12:50)
[2025-09-05] MEDS ORDERED: ePHEDrine sulfate 50 MG/5 ML SYR ONE (13:20)
[2025-09-05] MEDS ORDERED: PHENYLEPHRINE 100MCG/ML 5ML SYR ONE (13:20)
[2025-09-05] MEDS ORDERED: PHENYLEPHRINE HCL 10 MG/ML VIAL ONE (13:27)
--- NOTE | 2025-09-05 13:34 | Pharmacy Report ---
Pharmacy Glycemic Short Note 2 - Date of Service September 05, 2025 - Glycemic Short BSG Results (Last 24 hours): 09/04/25 09/04/25 09/04/25 05:51 07:44 11:28 POC Glucose 188 H 155 H 151 H 09/04/25 09/04/25 09/05/25 16:19 21:16 05:42 POC Glucose 196 H 181 H 149 H 09/05/25 11:41 POC Glucose 155 H OUTPATIENT ANTIDIABETIC REGIMEN: * insulin degludec 100 units SQ at dinner time daily * Humalog 20units SQ BID * metformin ER 1000mg PO daily HbA1c: 7.3% on 09/04/25 ASSESSMENT: * Devorah is an 85 year old male who was admitted 09/03 with a closed fracture of the right humeral shaft s/p a fall. Pharmacy has been consulted for glycemic management while he is admitted. * He was started on a Lantus scale at dinner time (20 or 30 units depending on BSG) and a weight based bolus insulin regimen with a stress of 3. He received a total of 50 units of insulin yesterday (30 units were basal and 20 units were bolus). All BSGs were above goal yesterday. * His fasting BSG was 149mg/dL this morning. He was made NPO for surgery today. Although he is NPO, will continue Lantus scale as ordered at dinner time as he received iv dexamethasone preop. * Will also continue bolus insulin regimen as ordered. PLAN FOR INPATIENT GLYCEMIC CONTROL: * Hold outpatient diabetes medications * Basal insulin * Lantus scale SQ at dinner time (20 or 30 units depending on BSG) * Bolus insulin * NovoLog per scale ACHS or Q6hrs while NPO * Goal Range: Low 120 mg/dL - High 150 mg/dL * Correction Factor: 15 mg/dL/unit * Nutritional / Prandial insulin per carb ratio of 1 unit per 5 grams CHO consumed
[2025-09-05] MEDS ORDERED: VASOPRESSIN 20 UNIT/ML VIAL ONE (14:13)
[2025-09-05] MEDS ORDERED: ALBUMIN HUMAN 5% 12.5 GM/250 ML VIAL IV ONE (14:14)
[2025-09-05 14:40] LABS: Anion Gap 8.0 (3-11); Blood Urea Nitrogen 16.0 mg/dl (6-23); Calcium 9.4 mg/dl (8.6-10.3); Carbon Dioxide 27.0 mmol/L (21-32); Chloride 104.0 mmol/L (98-107); Creatinine Clr Calc Pharmacy 60.5 ml/min; Glucose 145.0 mg/dl (70-99(Fasting)); Potassium 4.2 mmol/L (3.5-5.1); Sodium 139.0 mmol/L (136-145)
[2025-09-05] MEDS: BUPIVACAINE/EPINEPHRINE 0.5% MPF 1:200,000 30 ML VIAL ONE (15:51)
[2025-09-05] MEDS: BUPIVACAINE LIPOSOME 1.3% 133 MG/10 ML VIAL ONE (16:03)
--- NOTE | 2025-09-05 16:08 | Fluoroscopy Report ---
FL humerus RT 2V CLINICAL HISTORY: RIGHT PROX HUMERUS ORIF COMPARISON STUDY: 09/03/2025 FLUOROSCOPY TIME: 27 seconds FLUOROSCOPY IMAGES: 3 EXPOSURE DOSE: 2.6 mGy FINDINGS: Fluoroscopy was provided for internal fixation of the right humerus. IMPRESSION: Intraoperative fluoroscopy. ACT 112: Negative or not required by law. Electronically signed by: Jamie Frye M.D. 09/05/2025 4:07 PM
--- NOTE | 2025-09-05 16:12 | Operative Report ---
PG Post Operative Report Pre & Post Diagnosis Operation Date: 09/05/25 08:20 Pre-Op Diagnosis: Right Displaced Comminuted Proximal Humerus Fracture Post-Op Diagnosis: Right Displaced Comminuted Proximal Humerus Fracture I identified the patient and participated in the time-out.: Yes Procedure Operation Date: 09/05/25 08:20 Actual Procedures p Right Humerus Open Reduction Internal Fixation(Right) - Omega Anthony MD Surgeon Omega Anthony MD Consumer Services Consultant oBbo Nettles PA-C Estimated Blood Loss 200 Findings Consistent with Post-Op Diagnosis Specimens None Anesthesia Type General Regional Complications none Disposition Accompanied Patient To Recovery: No Indications The patient is an 85-year-old gentleman with multiple medical comorbidities. Mechanical fall. He had acute onset of right arm pain discomfort deformity. Brought to emergency room x-ray of a comminuted displaced proximal humeral diaphyseal fracture. He was admitted by the medicine service and medically optimized indicated for surgical repair. Description of Procedure Operative implants consist of: 1. Synthes proximal humeral locking plate x 1. 2. 3.5 fully threaded cortical lag screws x 5. 3. 4.0 partially-threaded cancellous lag screw x 1. 4. 3.5 mm locking screws x 10. 5. 3.5 cortical screws through the plate x 3. The patient was taken to the op room, identified, placed on the operating table in the supine position. All contact areas were appropriately padded. IV antibiotics were applied by anesthesia team. A block had been provided in the holding area. General anesthetic was implemented. The patient was then placed on the OR table using the attendant shoulder positioner. The right shoulder and arm were then scrubbed with Hibiclens, prepped with ChloraPrep and draped in usual sterile fashion. A deltopectoral approach to the right upper arm was then performed through a slightly curvilinear incision beginning at the coracoid process through the deltopectoral interval and then anterior laterally over the lateral side of the biceps. Sharp dissection scalp through subcutaneous tissue down to the muscle layer. The cephalic vein was identified and retracted medially. The deltoid was retracted laterally. With some of blunt finger dissection I dissected down to the soft tissues. The fractures were markedly displaced. I then exposed all 3 fracture fragment edges. We had to debride a lot of hematoma. Great care was taken throughout the procedure protect the radial nerve posteriorly. We extended the incision over the anterior lateral aspect of the proximal humerus in the mid aspect of the brachialis tendon taking care to protect the radial nerve posteriorly. The fragments were then very carefully to keep that back together. I reduced the proximal 2 fragments and then placed 3 interfrag screws to hold this in place. I then reduced the distal fragment to the remaining proximal fragment and fixed this with 3 lag screws. We then selected a proximal humeral plate. We fixed this proximally with eight 3.5 locking screws and then distally with 3 cortical screws and 2 locking screws. Some final x-rays were obtained. The fracture was anatomically affixed. We irrigated extensively. I did inject locally with 30 cc of half percent Marcaine with epinephrine. The deltopectoral interval and the brachialis was then closed with #1 Vicryl suture in a [id number] fashion. Subcutaneous tissue was then closed with 2-0 Vicryl suture in a buried interrupted fashion skin was then closed with 3-0 nylon suture in a horizontal mattress fashion. The arm was then cleaned and dried and a sterile dressing with Xeroform, 4 fours, ABD pad and tape were applied. The patient then placed in a sling. He is then brought out of general incision and transferred to the recovery room in stable condition. Patient tolerated procedure well and there were no complications. Bobo Nettles, and Gopi Hernandez, my 2 physician assistants were present during the case and assisted. There assistance was essential for proper patient positioning, prepping and draping, surgical exposure, retraction, perform the technical details of the operation, placement of hardware, closure of the incision site, and placement of postoperative sterile bandage. I attest to the content of the Intraoperative Record and any orders documented therein. Any exceptions are noted below.
--- NOTE | 2025-09-05 17:09 | Anesthesiology Progress Note ---
Date of Service September 05, 2025 Anesthesia Post Procedure Vital Signs Vital Signs: Temp Pulse Resp BP Pulse Ox O2 Del Method O2 Flow Rate 09/05/25 16:40 36.6 C 90 20 135/66 91 Nasal Cannula 2 09/05/25 16:30 91 H 20 131/68 91 Room Air 09/05/25 16:20 78 8 L 134/66 99 Oxymask 5 09/05/25 16:13 36.3 C L 86 12 147/64 H 96 Oxymask 10 09/05/25 12:03 36.9 C 71 20 161/95 H 92 Room Air 09/05/25 08:00 Room Air 09/05/25 07:38 36.7 C 74 17 132/70 90 Room Air 09/04/25 22:59 36.6 C 68 18 168/75 H 91 Room Air 09/04/25 21:14 70 133/67 09/04/25 20:00 Room Air Pain Intensity Right Arm: Pain Intensity: 8 Transfer of Care Handoff Completed per policy Notes Mental Status: alert / awake / arousable Patient Amnestic to Procedure: Yes Nausea / Vomiting: adequately controlled Pain: adequately controlled Airway Patency, RR, SpO2: stable & adequate BP & HR: stable & adequate Hydration State: stable & adequate Anesthetic Complications: no major complications apparent
[2025-09-05] MEDS ORDERED: NALOXONE HCL 0.4 MG/1 ML VIAL/CARP IV PRN (17:11)
[2025-09-05] MEDS ORDERED: METOCLOPRAMIDE HCL INJ 5 MG/ML 2 ML VIAL IV PRN (17:11)
[2025-09-05] MEDS ORDERED: ALUMINUM/MAGNESIUM SUSP 30 ML UDC PO PRN (17:11)
[2025-09-05] MEDS ORDERED: MAGNESIUM HYDROXIDE SUSP 30 ML UDC PO PRN (17:11)
[2025-09-05] MEDS ORDERED: PHARMACY GLYCEMIC MGMT CONSULT PRN ×2 (17:11)
[2025-09-05] MEDS ORDERED: HYDROmorphone INJ 0.5 MG/0.5 ML SYR IV PRN (17:11)
[2025-09-05] MEDS: SODIUM CHLORIDE 0.9% 1,000 ML IV SCH (17:21)
[2025-09-05] MEDS: KETOROLAC TROMETHAMINE 15 MG/ML VIAL IV SCH (17:23)
[2025-09-05] MEDS: ONDANSETRON INJ 2 MG/ML 2 ML VIAL IV PRN (17:41)
[2025-09-05] MEDS: ASCORBIC ACID 500 MG TAB PO SCH (18:06)
[2025-09-05] MEDS: LANTUS PER UNIT CHARGE SC SCH (18:14)
[2025-09-05] MEDS: INSULIN ASPART PER UNIT CHARGE SC SCH (18:15)
[2025-09-05] MEDS: SENNA 8.6 MG TAB PO SCH (21:30)
[2025-09-05] MEDS: ACETAMINOPHEN 500 MG TAB PO SCH (21:30)
[2025-09-05] MEDS: DOCUSATE SODIUM 100 MG CAP PO SCH (21:30)
[2025-09-05] MEDS: TRANEXAMIC ACID / 0.7% NACL 1,000 MG/100 ML BAG IV SCH (23:34)
[2025-09-06] MEDS: ASPIRIN 81 MG ECTAB PO SCH (08:50)
[2025-09-06] MEDS: MULTIVITAMIN TAB PO SCH (08:50)
[2025-09-06 08:54] VITALS: TEMP 98.1
--- NOTE | 2025-09-06 09:02 | Orthopedic Progress Note ---
Date of Service September 06, 2025 Assessment & Plan (1) Fracture of humeral shaft, right, closed: * Continue Current Treatment * S/p ORIF R proximal humerus * Weight bearing status: NWB in sling * Ok for AROM elbow, wrist, hand. Gentle AAROM of shoulder * Daily treatment: Physical Therapy/ Occupational Therapy per protocol * Pain control * Continue to monitor for ABLA * DVT prophylaxis, ok to resume from ortho standpoint * Disposition: TBD, recommend rehab * Office/hospital f/u 2 weeks for progress check and staple/suture removal * Remainder care per primary team Subjective . Active Problems: S/p R humerus ORIF POD 1 85 y/o male s/p R humerus ORIF. Doing well overall, pain managed and improved function. Denies fever/chills, chest pain/SOB, nausea/vomiting. Otherwise no complaints. Review of Systems All systems reviewed & are unremarkable except as noted in HPI & below. Physical Exam . * General: Alert and oriented, no acute distress * Constitutional: well-developed, well-nourished. * Respiratory: Normal respiratory effort, no distress * Gastrointestinal: No tenderness to palpation, no rigidity or guarding. * Skin: No rash or lesion. * Neurologic: Grossly normal * Musculoskeletal: RUE dressing CDI, not removed for exam. Diffuse soft tissue swelling upper and arm shoulder region. Mild diffuse TTP throughout upper arm. No tenderness elbow, forearm, wrist/hand. ROM shoulder not assessed. AROM elbow, wrist, hand/fingers intact. Sensation intact radian/median/ulnar distributions. Brisk capillary refill. Results & Data Results & Data Laboratory Results . Diagnostic Findings . Humerus X-Ray 09/05/25 00:00 FL humerus RT 2V CLINICAL HISTORY: RIGHT PROX HUMERUS ORIF COMPARISON STUDY: 09/03/2025 FLUOROSCOPY TIME: 27 seconds FLUOROSCOPY IMAGES: 3 EXPOSURE DOSE: 2.6 mGy FINDINGS: Fluoroscopy was provided for internal fixation of the right humerus. IMPRESSION: Intraoperative fluoroscopy. ACT 112: Negative or not required by law. Electronically signed by: Jamie Frye M.D. 09/05/2025 4:07 PM PG Care Time/CCT Total # of Minutes Spent Total Time Spent with Patient: Total time spent is greater than 50% in coordination of care (as documented) at patient's floor/unit and/or counseling patient: Coding Level of Care Code 34422 Post Operative Follow-Up Diagnoses Fracture of humeral shaft, right, closed S42.301U
[2025-09-06 11:25] LABS: Hematocrit (blood only) 28.4 % (42.0-52.0); Hemoglobin 9.8 g/dl (14.0-18.0); Mean Corpuscular Hemoglobin 29.7 pg (25.0-34.0); Mean Corpuscular Volume 86.1 fL (80.0-100.0); Platelet Count 176 K/uL (130-400); RDW Standard Deviation 40.0 fL (36.4-46.3); Red Blood Count 3.30 M/uL (4.70-6.10); White Blood Count 9.60 K/ul (4.8-10.8)
[2025-09-06 11:32] LABS: Anion Gap 6.0 (3-11); Blood Urea Nitrogen 20.0 mg/dl (6-23); Calcium 8.6 mg/dl (8.6-10.3); Carbon Dioxide 26.0 mmol/L (21-32); Chloride 104.0 mmol/L (98-107); Creatinine Clr Calc Pharmacy 52.7 ml/min; Glucose 196.0 mg/dl (70-99(Fasting)); Potassium 4.0 mmol/L (3.5-5.1); Sodium 136.0 mmol/L (136-145)
--- NOTE | 2025-09-06 14:18 | Discharge Summary ---
Discharge Summary Date of Service September 06, 2025 Principal Dx & Hospital Course #1 = Principal Diagnosis (1) Fracture of humeral shaft, right, closed: Florian Ramirez is a 85 yo male with pMH of dementia, DVT on eliquis, type 2 diabetes, pancreatitis; SNHL b/l, BPH with LUTS, transitional cell cancer, bladder tumor testosterone deficiency, vitamin b12 deficiency he has dementia since one year ago. he is dependent on his daughter (who is a PT) who assist with ADL. on day of admission, he's has a fall episode at home while reaching for the refrigerator. his humerus X-ray found displaced spiral fracture of proximal shift of right humerus her daughter was noted patient has limited oral intake and IV plasmalyte was started, he was having urinary retention inability to hold the urinal and daughter requested grayson to be inserted we held her eliquis, and seen by Dr. Omega Anthony and s/ ORIF, he was recommended non-weight bearing in sling of the right upper extremity please review orthopedic note for evaluatoin he's was cleared to resume eliquis he has inability to stand up however, he and family declined imaging to r/o lumbar and T-spine fracture his C-spine fracture. they are aware that if patient does not progressing well with PT he will be return to our hospital for evaluation (2) Chronic anticoagulation: (3) Dementia: (4) Acute deep vein thrombosis (DVT) of iliac vein of both lower extremities: Plan Florian Ramirez is an 85-year-old male with PMH dementia, sleep disorder, DVT of iliac veins bilaterally, pancreatitis, diabetes mellitus type 2, SNHL bilaterally, BPH with LUTS, hypertension, transitional cell carcinoma, COPD, testosterone deficiency, vitamin B12 deficiency, and bladder tumor. his live at home with his daughter; who works as physical therapist. on 09/03, presented to our ED with fall episode, where he was reaching into the refrigerator, he lost his balance, fell onto his right shoulder, sustained immediate right shoulder pain and swelling and X-ray Right humerus fracture; orthopedic Dr. Anthony, requesting holding eliquis for 48 hours and plan for OR on Friday afternoon family requested placement to encompass. CT head and CT C-spine negative overall plan for Friday ORIF with Dr. Anthony, appreciate range of motion restriction by orthiopedic then appreciate ortho input about when to resume eliquis monitor for glucose level overnight daughter defer appreciate eval for micoaspiration, risk of choking, , lung infection explained bladder scan. may allow for short term grayson if ongoing problem with urination. Fracture of right humeral shaft- N.p.o. since last night Hold apixaban, last dose was the morning of 09/[address] Anthony plan for OR (ORIF) on 09/05/2025 Morphine for pain control. Acetaminophen 650 mg by mouth every 6 hours as needed for mild pain or fever Dilaudid 0.25 mg IV every 3 hours as needed for moderate pain Dilaudid 0.5 mg IV every 3 hours as needed for severe pain Plasma-Lyte at 80 mL/h x 2 L Diabetes mellitus- Change insulin degludec 100 units at dinner to glargine 20 units at dinner Family reports that the patient has a tendency to run low Hold standing orders for NovoLog Place on Accu-Cheks with NovoLog SSI Hold metformin Pharmacy glycemic consult History of bilateral lower extremity DVT involving iliac veins- Hold Eliquis compression stocking at night. Hypertension, metoprolol succinate 25mg, losartan 50 mg every evening with hold parameters Dementia/insomnia- Continue donepezil, and trazodone family assisting with ADL, bathing, grooming f/u on b12 level, he will benefit from DELON screening deposition: daughter requested placement to encompass BPH with LUTS- Continue tamsulosin 0.4 mg p.o. in the evening, and dutasteride or equivalent at bedtime as well Vitamin B12 deficiency-Continue 2000 mcg every evening Vitamin D deficiency-Continue cholecalciferol 50 mcg Admission HPI Per Admitting Provider The patient is an 85-year-old male with a past medical history including dementia, DVT of iliac veins bilaterally, pancreatitis, diabetes mellitus type 2, SNHL bilaterally, BPH with LUTS, hypertension, transitional cell carcinoma, COPD, testosterone deficiency, sleep disorder, vitamin B12 deficiency, and bladder tumor. He presents to the emergency department after a ground-level fall at home, where he was reaching into the refrigerator to get something out. He lost his balance, fell onto his right shoulder, sustained immediate right shoulder pain and swelling. He denies discomfort or pain in any other areas. He does take Eliquis on a twice daily basis, last dose was the morning of 09/03. X-rays in the emergency department showed a right mid humerus fracture. CT scan head is negative, CT scan cervical spine is negative. Patient did receive morphine 4 mg IV with no significant improvement pain. He also received Zofran 4 mg IV x 2. He is encouraged to the hospitalist service for admission, with consult to orthopedic surgery Dr. Anthony. Discharge Plan Discharge Items Patient Disposition: Transfer to LTAC Reason For Visit: RIGHT MIDSHAFT HUMERUS FRACTURE Discharge Diagnosis: Right Humerus Fracture deconditoning Condition on Discharge: Fair Activity: Per Instructions section Lifting: No more than 5 pounds Bathing: May shower/bathe in 3 days Bathing Comment: Keep direct shower pressure off incision site. Non-emergency contact: Primary Care Provider and Surgeon Call non-emergency contact if: you have any medication questions, your symptoms worsen and you have a fever Follow-up/Referrals: Howard Santiago MD [Primary Care Provider] - Omega Anthony MD [Physician] - (Orthopedic follow-up 2-3 weeks from surgery date.) Diet: Regular Diet Texture: Dental soft (bite-sized) Addtl Attending Provider Instructions: Change dressing on incision site daily. May remove dressing to shower, but keep direct shower pressure off incision site. Sling right arm. May use right arm for daily tasks that do not require any lifting. Right shoulder and elbow range of motion exercises 3X per day. Pending Studies at Discharge: No Stand-Alone Forms: [facility] Skilled Items Patient informed of condition?: Yes DNR: No Discharge Level of Care: Acute rehab Communicable Disease: No Discharge Prognosis: Stable Lines: None Urinary Catheter: No Medications and DC Order Prescriptions: New acetaminophen [Tylenol Extra Strength] 500 mg Tablet 1,000 mg PO Q8 7 Days Qty: 42 0RF ascorbic acid (vitamin C) [Vitamin C] 500 mg Tablet 500 mg PO BIDM 30 Days Qty: 60 0RF hydrocodone-acetaminophen 5-300 mg tablet 1 tab PO Q6H PRN (Reason: pain) 5 Days Qty: 20 0RF Continued tamsulosin 0.4 mg capsule 0.4 mg PO DAILY Qty: 90 3RF (DME) pen needle, diabetic 32 gauge x 5/32" needle See Rx Instructions .MEDSUPPLY Qty: 100 3RF Rx Instructions: To use with 2x/day insulin injections insulin degludec [Tresiba FlexTouch U-200] 200 unit/mL (3 mL) insulin pen 100 unit subcut DAILY 30 Days Qty: 15 2RF insulin lispro [Humalog KwikPen Insulin] 100 unit/mL insulin pen 20 unit subcut BID Qty: 15 2RF donepezil 5 mg tablet 5 mg PO HS (DME) Dexcom G7 Sensor Device See Rx Instructions .ROUTE Rx Instructions: change sensor every 10 days aspirin 81 mg tablet,chewable 81 mg PO DAILY fluticasone propionate [Flonase Allergy Relief] 50 mcg/actuation spray,suspension 2 spray INTRANASAL DAILY PRN Rx Instructions: administer into each nostril dutasteride 0.5 mg capsule 0.5 mg PO PM cyanocobalamin (vitamin B-12) [Vitamin B-12] 1,000 mcg Tablet 2,000 mcg PO PM cholecalciferol (vitamin D3) [Vitamin D3] 25 mcg (1,000 unit) Tablet 50 mcg PO PM Rx Instructions: 2000 units losartan 50 mg tablet 50 mg PO QPM trazodone 50 mg tablet 100 mg PO HS metoprolol succinate 25 mg tablet extended release 24 hr 25 mg PO DAILY Eliquis 5 mg tablet See Rx Instructions .ROUTE .COMPLEX Qty: 74 0RF Rx Instructions: Take 10mg (2 tablets) twice a day for 7 days, followed by 5mg (1 tablet) twice a day. metformin 1,000 mg tablet,ER ale.retention 24 hr 1,000 mg PO BID Qty: 60 0RF Discharge Orders: Discharge Order (Routine); Ordered 09/06/25 Ordered By: Nellie Adame/Other Patient Handouts: Managing Type 2 Diabetes, Elbow ORIF, Understanding a Humerus Fracture, ED Fracture, Upper Extremity Admission Data Admit Date/Time: 09/03/25 20:41 Attending Provider: Nellie Holman Admit Provider: Nellie Holman Primary Care Provider: Howard Santiago Other Providers: [facility]; [facility]; Ronak Garzon; Omega Anthony Hospital Stay Data Consultations 09/03/25 19:51 ED Decision to Admit Stat 09/05/25 09:46 Consult Orthopedic Surgery Routine Procedures Performed Operation Date: 09/05/25 08:20 Actual Procedures p Right Humerus Open Reduction Internal Fixation(Right) - Omega Anthony MD Diagnostic Imagining Performed 09/03/25 18:42 CT cervical spine wo con Stat CT head/brain wo con Stat 09/05/25 FL humerus RT 2V Routine 09/05/25 12:41 US - OR guided needle placemen Routine 09/06/25 11:30 CT lumbar spine wo con Urgent CT pelvis wo con Stat 09/06/25 11:31 CT thoracic spine wo con Stat Pending Results Patient Have Any Pending Studies at Discharge: No Discharge Instructions Given to Patient (Per Discharging Provider) Change dressing on incision site daily. May remove dressing to shower, but keep direct shower pressure off incision site. Sling right arm. May use right arm for daily tasks that do not require any lifting. Right shoulder and elbow range of motion exercises 3X per day. Total Time Total Time Spent Total Time Spent (In Minutes): 35 Coding Level of Care Code 88082 IN/OBS DISCH 30 MIN/LESS Diagnoses Fracture of humeral shaft, right, closed S42.301A Chronic anticoagulation Z79.01 Dementia F03.90 Acute deep vein thrombosis (DVT) of iliac vein of both lower extremities I82.423 Time Spent (min) 30
[2025-09-06 14:57] VITALS: BP 127/70; PULSE 80; RESP 18; O2SAT 91
[2025-09-06] MEDS: APIXABAN 2.5 MG TAB PO SCH (15:45)
== END 2025-09-06 16:48 | DRG 493 ==
LOC: ED 18:36 → 4W 20:41 → SUATTDRO 20:41 → 4W 22:45 → 3N 09-04 16:10